=== PATIENT | female | born 1955 | race Caucasian/White ===

== ENCOUNTER → 2020-07-02 16:59 | Outpatient (BNVA) | payer MEDICARE, OTHER, BC, SELFPAY | PROVIDERS: PCP Internal Medicine; Visit Provider Internal Medicine | DX: I48.19 Other persistent atrial fibrillation (principal); Z51.81 Encounter for therapeutic drug level monitoring; Z79.01 Long term (current) use of anticoagulants | CPT/HCPCS: Q3014 ==

== ENCOUNTER → 2020-07-12 15:18 | Outpatient (BNVA) | payer MEDICARE, OTHER, BC, SELFPAY | PROVIDERS: PCP Internal Medicine; Visit Provider Internal Medicine | DX: I48.19 Other persistent atrial fibrillation (principal); Z51.81 Encounter for therapeutic drug level monitoring; Z79.01 Long term (current) use of anticoagulants | CPT/HCPCS: Q3014 ==

== ENCOUNTER → 2020-07-24 13:39 | Outpatient (BNVA) | payer MEDICARE, OTHER, BC, SELFPAY | PROVIDERS: PCP Internal Medicine; Visit Provider Internal Medicine | DX: Z76.89 Persons encountering health services in other specified circumstances (principal) ==

== ENCOUNTER → 2020-07-31 14:22 | Outpatient (BNVA) | payer OTHER, BC, SELFPAY | PROVIDERS: PCP Internal Medicine; Visit Provider Internal Medicine | DX: I48.19 Other persistent atrial fibrillation (principal); Z51.81 Encounter for therapeutic drug level monitoring; Z79.01 Long term (current) use of anticoagulants | CPT/HCPCS: Q3014 ==

== ENCOUNTER → 2020-08-07 10:24 | Outpatient (BNVA) | payer OTHER, SELFPAY | PROVIDERS: PCP Internal Medicine; Visit Provider Internal Medicine | DX: I48.19 Other persistent atrial fibrillation (principal); Z51.81 Encounter for therapeutic drug level monitoring; Z79.01 Long term (current) use of anticoagulants | CPT/HCPCS: Q3014 ==

== ENCOUNTER → 2020-08-14 12:24 | Outpatient (BNVA) | payer MEDICARE, OTHER, BC, SELFPAY | PROVIDERS: PCP Internal Medicine; Visit Provider Internal Medicine | DX: Z76.89 Persons encountering health services in other specified circumstances (principal) ==

== ENCOUNTER → 2020-08-21 15:51 | Outpatient (BNVA) | payer MEDICARE, OTHER, BC, SELFPAY | PROVIDERS: PCP Internal Medicine; Visit Provider Internal Medicine | DX: Z76.89 Persons encountering health services in other specified circumstances (principal) ==

== ENCOUNTER → 2020-08-28 16:50 | Outpatient (BNVA) | payer MEDICARE, OTHER, BC, SELFPAY | PROVIDERS: PCP Internal Medicine; Visit Provider Internal Medicine | DX: Z76.89 Persons encountering health services in other specified circumstances (principal) ==

== ENCOUNTER 2020-09-05 06:59 | Outpatient (REF) | payer OTHER, SELFPAY ==
[2020-09-05 11:37] LABS: Alanine Aminotransferase 16 U/L (0-31); Aspartate Amino Transferase 21 U/L (5-31); Cholesterol 156 mg/dL; HDL Cholesterol 41 mg/dL; LDL Cholesterol Calculated 75 mg/dl; Triglycerides 203 mg/dL
[2020-09-05 12:05] LABS: Free T4 (Free Thyroxine) 0.97 ng/dL (0.71-1.85); Thyroid Stimulating Hormone 3.69 uIU/mL (0.32-4.0)
== END 2020-09-05 07:00 | disposition home or self-care (01) ==
LOC: HO.HMGCLDS 06:59
PROVIDERS: PCP Internal Medicine; Visit Provider Internal Medicine
DX: E78.5 Hyperlipidemia, unspecified (principal); E11.29 Type 2 diabetes mellitus with other diabetic kidney complication; Z20.828 Contact with and (suspected) exposure to other viral communicable diseases
CPT/HCPCS: 80061; 84439; 84443; 84450; 84460; C9803; U0003

== ENCOUNTER → 2020-09-13 10:36 | Outpatient (BNVA) | payer MEDICARE, BC, OTHER, SELFPAY | PROVIDERS: PCP Internal Medicine; Visit Provider Internal Medicine | DX: Z76.89 Persons encountering health services in other specified circumstances (principal) ==

== ENCOUNTER → 2020-09-28 12:12 | Outpatient (BNVA) | payer OTHER, SELFPAY | PROVIDERS: PCP Internal Medicine; Visit Provider Internal Medicine | DX: I48.19 Other persistent atrial fibrillation (principal); Z51.81 Encounter for therapeutic drug level monitoring; Z79.01 Long term (current) use of anticoagulants | CPT/HCPCS: Q3014 ==

== ENCOUNTER → 2020-10-11 14:01 | Outpatient (BNVA) | payer MEDICARE, BC, OTHER, SELFPAY | PROVIDERS: PCP Internal Medicine; Visit Provider Internal Medicine | DX: Z79.01 Long term (current) use of anticoagulants (principal) ==

== ENCOUNTER → 2020-10-25 12:02 | Outpatient (BNVA) | payer OTHER, SELFPAY | PROVIDERS: PCP Internal Medicine; Visit Provider Internal Medicine | DX: I48.19 Other persistent atrial fibrillation (principal); Z51.81 Encounter for therapeutic drug level monitoring; Z79.01 Long term (current) use of anticoagulants | CPT/HCPCS: Q3014 ==

== ENCOUNTER → 2020-11-01 15:35 | Outpatient (BNVA) | payer MEDICARE, OTHER, BC, SELFPAY | PROVIDERS: PCP Internal Medicine; Visit Provider Internal Medicine ==

== ENCOUNTER 2020-11-19 18:17 | Inpatient (IN) | payer OTHER, MEDICARE, BC, SELFPAY ==
--- NOTE | ~2020-11-19 | CT_ITS ---
EXAMINATION: CT HEAD WITHOUT CONTRAST CLINICAL INFORMATION: Fall and altered mental status. COMPARISON: Head CT dated 01/30/2017. TECHNIQUE: Contiguous axial imaging was performed from the skull base to vertex without intravenous administration of contrast. This CT examination was performed using dose optimization techniques as appropriate, variously including the following: *Automated exposure control *Adjustment of mA and/or kV according to patient size (this includes techniques or standardized protocols for targeted exams where dose is matched to indication/reason for exam; i.e. extremities or head) *Use of iterative reconstruction technique DLP: 816 mGy-cm FINDINGS: There is no evidence of acute intracranial hemorrhage or territorial infarction. No abnormal mass effect or midline shift is seen. Kitchen to white matter differentiation is well preserved. No extra-axial fluid collections are identified. The ventricles are normal in size. There is no abnormal attenuation within the brain parenchyma. The osseous structures and soft tissues are normal. There are significant degenerative changes in the temporomandibular joints, right greater than left side. The mastoid air cells and visualized portions of the paranasal sinuses are well aerated. CT/CT head/brain wo con IMPRESSION: No acute intracranial pathology. Severe degenerative changes in the temporomandibular joints.
--- NOTE | ~2020-11-19 | NM_ITS ---
EXAMINATION: NM LUNG IMAGE PERFUSION CLINICAL INFORMATION: Hypoxia. COMPARISON: Chest x-ray 11/19/2020 TECHNIQUE: Following intravenous administration of 4 mCi of technetium 99m MAA imaging of both lungs were obtained multiple projections. Ventilation study was not performed due to Covid precautions FINDINGS: On perfusion study there is normal distribution of isotope activity throughout all segments of both lobes. No segmental or subsegmental defects seen. Normal cardiac nonsegmental defects seen. NM/NM pul perfusion IMPRESSION: Normal perfusion scan.
--- NOTE | ~2020-11-19 | XR_ITS ---
EXAMINATION: XR ANKLE, RIGHT CLINICAL INFORMATION: Status post fall COMPARISON: None TECHNIQUE: AP, lateral, and mortise views of the right ankle. FINDINGS: Diffuse soft tissue swelling about the ankle. Degenerative changes are seen with well-corticated ossifications inferior to both lateral and medial malleoli. I do not appreciate any acute fracture or dislocation however. No abnormal widening to the ankle mortise. No significant ankle joint effusion. Calcaneal heel spur is incidentally noted at the attachment point of the plantar aponeurosis. XR/XR ankle RT min 3V IMPRESSION: Diffuse soft tissue swelling about the ankle with chronic appearing changes but no acute fracture or dislocation noted.
--- NOTE | ~2020-11-19 | MR_ITS ---
EXAMINATION: MR BRAIN WITHOUT CONTRAST CLINICAL INFORMATION: Confused. Rule out stroke. COMPARISON: Head CT 11/19/2020. TECHNIQUE: Multiplanar, multisequence imaging of the brain was performed without intravenous contrast. The acquired sequences are degraded by motion. Some diagnostic information was still obtained. FINDINGS: There is no acute infarction, mass, hemorrhage, or extra-axial collection. The ventricles, sulci, and basilar cisterns are normal in size and configuration. End patchy foci of T2 hyperintensity are seen within the bilateral cerebral white matter, nonspecific finding. Small chronic lacunar infarcts are seen within the right and left cerebellar hemispheres. The flow voids of the major intracranial arteries appear intact. The bones and extracranial soft tissues are unremarkable. MR/MR head/brain wo con IMPRESSION: No acute infarct, mass lesion, intracranial hemorrhage, or evidence of hydrocephalus. Small chronic lacunar infarcts in the bilateral cerebellar hemispheres. Nonspecific foci of T2 hyperintensity seen in the bilateral cerebral white matter.
--- NOTE | ~2020-11-19 | XR_ITS ---
EXAMINATION: XR CHEST CLINICAL INFORMATION: Sepsis COMPARISON: 11/19/2020 TECHNIQUE: Frontal view of the chest was obtained. FINDINGS: Left-sided pacemaker lead tips overlie the right atrium and right ventricle. Mitral prosthesis is noted. Sternal wires are present. Lung volumes are symmetric. No focal consolidation is seen. There is persistent prominence of the central vasculature and surrounding interstitium which may reflect congestion. No evidence of pneumothorax or significant pleural effusion. Cardiac silhouette remains enlarged. Calcification is present at the aortic arch. No acute osseous findings are seen. XR/XR chest 1V IMPRESSION: No focal consolidation identified. Persistent prominence of the central vasculature suggesting congestion. Cardiac silhouette remains enlarged.
--- NOTE | ~2020-11-19 | CT_ITS ---
EXAMINATION: CT CHEST WITHOUT CONTRAST CLINICAL INFORMATION: Hypoxia. COMPARISON: Chest x-ray 11/19/2020 TECHNIQUE: Multidetector volumetric CT imaging of the chest was done. Axial MIP volume rendering provided. Sagittal and coronal reformatted images were obtained. This CT examination was performed using dose optimization techniques as appropriate, variously including the following: *Automated exposure control *Adjustment of mA and/or kV according to patient size (this includes techniques or standardized protocols for targeted exams where dose is matched to indication/reason for exam; i.e. extremities or head) *Use of iterative reconstruction technique DLP: 555 mGy-cm FINDINGS: LUNGS: The lungs are clear with no evidence of inflammation or nodules. Central bronchial airways are open. There is no bronchiectasis. No interstitial lung disease. MEDIASTINUM: Heart size is enlarged. Pacemaker leads in the heart. Status post median sternotomy. Status post mitral valve repair. No pericardial effusion. Small volume of coronary artery calcification. No mediastinal mass or significant lymphadenopathy PLEURA: There is no pleural effusion. No pleural mass or thickening. AXILLA: No lymphadenopathy. UPPER ABDOMEN: Unremarkable. OSSEOUS STRUCTURES: Status post median sternotomy. No acute osseous abnormality. CT/CT chest wo con IMPRESSION: 1. No acute abnormality of chest. 2. Cardiomegaly. Cardiac pacemaker . Status post mitral valve repair.
--- NOTE | ~2020-11-19 | XR_ITS ---
EXAMINATION: PORTABLE CHEST 1 VIEW CLINICAL INFORMATION: ams . COMPARISON: 11/02/2019. TECHNIQUE: Portable frontal view of the chest was obtained. FINDINGS: Lungs are well expanded. Mild central vascular prominence noted, slightly increased from the prior study. No overt edema. Cardiac silhouette is enlarged. Patient status post sternotomy and valve replacement. Dual-lead pacemaker is again seen with lead tips overlying the right atrium and right ventricle. Left pulmonary artery cardiac mems device partially visualized better seen on the prior study. No acute bony abnormality. XR/XR chest 1V IMPRESSION: Enlarged cardiac silhouette with central vascular prominence suggesting mild pulmonary edema in the acute setting.
[2020-11-19 18:36] VITALS: BP 133/79; BP 154/72; PULSE 87; RESP 34; TEMP 37.1; O2SAT 80; O2SAT 92
--- NOTE | 2020-11-19 18:40 | ED.AMS ---
HPI - Altered Mental Status General Chief Complaint: Altered Mental Status Stated Complaint: ams/ fall Time Seen by Provider: 11/19/20 18:40 Source: EMS Mode of arrival: EMS Limitations: altered mental status History of Present Illness HPI narrative: Patient brought by EMS for weakness and change in mental status after the fall 1 hour ago. Patient been having pain in the right ankle for last 3 days without any trauma and today all day she slept did not eat much per . Patient got up from the bed an hour ago prior to arrival to walk and fell on EMS arrival she was confused able to answer few questions but inconsistent no focal deficit patient l patient was cyanosed on the tip of the nose in the leaves and the fingers and was saturating 80% also noticed right ankle swelling MD complaint: altered mental status and confusion Onset (ago): hour(s) Timing confirmed by: spouse Severity: moderate Related Data Home Medications Medication Instructions Recorded Confirmed albuterol sulfate mg INHALATION 06/20/20 10/24/20 atorvastatin 10 mg tablet 10 mg PO DAILY 06/20/20 10/24/20 benzonatate 100 mg capsule 100 mg PO TID 06/20/20 10/24/20 calcipotriene 0.005 % topical 1 applic TOPICAL BID 06/20/20 10/24/20 ointment clotrimazole 1 % topical cream applic TOPICAL 06/20/20 10/24/20 flecainide 100 mg tablet mg PO 06/20/20 10/24/20 levothyroxine 112 mcg tablet 112 mcg PO DAILY 06/20/20 10/24/20 metformin 500 mg tablet 500 mg PO BID 06/20/20 10/24/20 metoprolol tartrate 50 mg tablet 50 mg PO BID 06/20/20 10/24/20 phentermine 37.5 mg capsule 37.5 mg PO DAILY 06/20/20 10/24/20 pregabalin 200 mg capsule 200 mg PO BID cap 06/20/20 10/24/20 secukinumab 150 mg/mL subcutaneous mg SUBCUT Q4W 06/20/20 10/24/20 pen injector spironolactone 100 mg tablet 100 mg PO DAILY 06/20/20 10/24/20 warfarin 5 mg tablet mg PO 06/20/20 11/01/20 latanoprost 0.005 % eye drops drp OPHTHALMIC (EYE) 10/24/20 10/24/20 torsemide 20 mg tablet mg PO 10/24/20 10/24/20 Previous Rx's Medication Instructions Recorded fluticasone propionate 230 2 inh INHALATION Q12H #12 g 06/20/20 mcg-salmeterol 21 mcg/actuation HFA inhaler amoxicillin 875 mg tablet 875 mg PO Q12H #14 tab 10/24/20 levocetirizine 5 mg tablet 5 mg PO BEDTIME #30 tab 10/24/20 wheelchair #1 ea 10/24/20 Allergies Allergy/AdvReac Type Severity Reaction Status Date / Time adalimumab [From HUMIRA] Allergy Unknown PCP Verified 11/19/20 18:35 PNEUMONIA azathioprine [Imuran] Allergy Unknown PNA Verified 11/19/20 18:35 Cephalosporins Allergy Unknown KIDNEY Verified 11/19/20 18:35 [CEPHALOSPORINS] FAILURE cyclosporine [CYCLOSPORINE] Allergy Unknown KIDNEY Verified 11/19/20 18:35 FAILURE etanercept [From Enbrel] Allergy Unknown PCP Verified 11/19/20 18:35 PNEUMONIA simvastatin Allergy Unknown athralgias Verified 11/19/20 18:35 amoxicillin [From AUGMENTIN] AdvReac Unknown PROJECTILE Verified 11/19/20 18:35 VOMITTING clavulanic acid AdvReac Unknown PROJECTILE Verified 11/19/20 18:35 [From AUGMENTIN] VOMITTING Review of Systems Review of Systems: Yes Unobtainable due to mental status Neurologic: Reports confusion Psychiatric: Psychiatric: Reports confusion FOR[facility]LY [facility] Past Medical History Medical History Acquired hypothyroidism Chronic low back pain CKD stage 3 secondary to diabetes Dyslipidemia Essential hypertension Fibromyalgia H/O cardiac pacemaker Mitral valve stenosis, rheumatic NYHA class 1 heart failure with preserved ejection fraction KEVIN on CPAP Osteoarthritis Paroxysmal atrial fibrillation Postmenopausal Psoriasis Rhinitis Sinusitis Type 2 diabetes mellitus with other diabetic kidney complication Surgical History H/O mitral valve replacement Hx of mitral valve replacement with mechanical valve Family History Family History Father HTN (hypertension) CKD (chronic kidney disease) Mother HTN (hypertension) Son No problems noted. Son No problems noted. Son No problems noted. Social History Social History Alcohol intake: never Smoking Status: Former smoker Advance Directives: No Advance Directives Information Provided: Yes Physical Exam Vital Signs: Vital Signs: Last Vital Signs Temp 101.9 F H 11/19/20 22:27 Pulse 64 11/19/20 22:27 Resp 18 11/19/20 22:27 BP 111/47 L 11/19/20 22:27 Pulse Ox 100 11/19/20 22:27 Body Mass Index 1.1 Const: General: well developed, confusion, ill appearing and lethargic Nutritional Appearance: obese Orientation/consciousness: oriented to person and confusion HENMT: Head: Yes normocephalic and Yes atraumatic Ears: hearing grossly normal bilaterally General nose exam: Normal external nose present Mouth: moist mucous membranes abnormal (Dry) Eyes: General: appearance normal, both eyes and all related structures Conjunctivae: conjunctivae normal Sclerae: sclerae normal Neck: Neck: Yes normal visual inspection and Yes no meningeal signs Chest: Chest palpation & inspection: normal inspection of the chest and normal palpation of entire chest wall Resp: Effort & Inspection: normal respiratory effort Auscultation: clear to auscultation bilaterally, no crackles, no rales, no rhonchi and diminished lung sounds Cardio: Jugular venous distension: no JVD Palpation: normal PMI Rate: regular rate Rhythm: regular rhythm Heart sounds: S1 normal heart sound present, S2 normal heart sound present and Abnormal heart opening sounds other (Valve click) Peripheral pulses: Peripheral pulses 2+ throughout GI: Inspection: Yes normal to inspection Palpation (GI): Soft to palpation and nontender Auscultation: normal bowel sounds : General: Yes no CVA tenderness Back/Spine/Pelvis: Back: no CVA tenderness Thoracic/Lumbar Spine: thoracic and lumbar spine normal to inspection Skin: Other: Peripheral cyanosis+ General skin exam: no rashes or lesions noted Neuro: General: oriented to person, tone normal, moves all extremities, no meningeal signs, no focal motor deficits, CN's II-XI intact bilaterally and confusion Extrem: General: Yes full ROM, Yes no calf tenderness and No pedal edema MDM - Altered Mental Status MDM Narrative Medical decision making narrative: Patient with acute renal failure with confusion and weakness with right ankle swelling likely from the gout and metabolic encephalopathy patient was hypoxic with peripheral cyanosis on arrival etiology is not very clear patient's CT head is negative for any acute bleed patient already on Coumadin with ischemia EKG changes pain patient INR is 3.8. significant increase in delta troponin but patient denying any chest pain will keep patient for observation. Also patient has elevated C-reactive protein and uric acid level suggestive of gouty arthritis of right ankle Differential Diagnosis Differential diagnosis: Likely altered mental status, encephalopathy, subarachnoid hemorrhage and sepsis Medical Records Attestation: I reviewed the patient's medical records. Lab Data Attestation: I reviewed the patient's lab results. Result diagrams: 11/19/20 19:29 11/19/20 19:29 Labs: Lab Results 11/19/20 11/19/20 11/19/20 Range/Units 19:15 19:16 19:29 WBC 15.5 H (4.8-10.8) X10*3/uL RBC 3.89 L (4.20-5.50) X10*6/uL Hgb 9.9 L (12.0-16.0) g/dl Hct 32.3 L (37-47) % MCV 83.0 (80-98) fL MCH 25.4 L (27.0-33.0) pg MCHC 30.7 L (31.0-35.0) g/dl RDW 16.9 H (11.0-16.0) % Plt Count 254 (160-400) X10*3/uL MPV 10.8 (9.4-12.3) fL Immature Gran % (Auto) 0.6 H (0.0-0.4) % Neut % (Auto) 80.4 H (45-73) % Lymph % (Auto) 5.7 L (20-40) % [place] % (Auto) 12.5 H (2-11) % Eos % (Auto) 0.2 (0-4) % Baso % (Auto) 0.6 (0-2) % Lymph # (Auto) 0.9 L (1.2-4.9) X10*3/uL [place] # (Auto) 1.9 H (0.1-1.2) X10*3/uL Eos # (Auto) 0.0 (0.0-0.4) X10*3/uL Baso # (Auto) 0.1 (0.0-0.2) X10*3/uL Abs Immat Gran (auto) 0.09 H (0.00-0.03) X10*3/uL Absolute Neuts (auto) 12.5 H (2.0-8.3) X10*3/uL Absolute Nucleated RBC 0.000 (0.0-0.012) X10*3/uL Nucleated RBC % (auto) 0.0 (0.0-0.2) /100WBC Smear Tech's Comments VERIFIED ESR (0-20) MM/HR PT (10.8-13.0) SEC INR (0.9-1.1) VBG pH (7.32-7.43) VBG pCO2 mmHg VBG pO2 mmHg VBG HCO3 (22-26) mmol/L VBG O2 Saturation % VBG Base Excess mmol/L Sodium (135-145) mmol/L Potassium (3.3-5.1) mmol/L Chloride (96-108) mmol/L Carbon Dioxide (22-29) mmol/L Anion Gap (12-20) BUN (9-16) mg/dL Creatinine (0.5-1.4) mg/dL Estim Creat Clear Calc Estimated GFR Random Glucose (60-115) mg/dL Lactic Acid (0.5-2.0) mmol/L Uric Acid (2.4-5.7) mg/dL Calcium (8.4-10.2) mg/dL Total Bilirubin (0.0-1.0) mg/dL Direct Bilirubin (0.0-0.5) mg/dL AST (5-31) U/L ALT (0-31) U/L Alkaline Phosphatase (39-117) U/L Ammonia (13-55) umol/L Troponin I High Sens (<3.5-17.0) ng/L C-Reactive Protein (< or = 0.50) mg/dL Total Protein (6.5-8.0) g/dL Albumin (3.5-5.0) g/dL Urine Color YELLOW Urine Appearance CLEAR Urine pH 5.5 (5.0-8.0) Ur Specific [place] 1.015 (1.005-1.025) Urine Protein NEG (NEG-TRACE) MG/DL Urine Glucose (UA) NEG (NEG) MG/DL Urine Ketones NEG (NEG) MG/DL Urine Blood NEG (NEG) Urine Nitrite NEG (NEG) Ur Leukocyte Esterase NEG (NEG) COVID-19 (CRISTA) Negative (Negative) COVID-19 Clin Com See Note 11/19/20 11/19/20 11/19/20 Range/Units 19:29 19:29 19:29 WBC (4.8-10.8) X10*3/uL RBC (4.20-5.50) X10*6/uL Hgb (12.0-16.0) g/dl Hct (37-47) % MCV (80-98) fL MCH (27.0-33.0) pg MCHC (31.0-35.0) g/dl RDW (11.0-16.0) % Plt Count (160-400) X10*3/uL MPV (9.4-12.3) fL Immature Gran % (Auto) (0.0-0.4) % Neut % (Auto) (45-73) % Lymph % (Auto) (20-40) % [place] % (Auto) (2-11) % Eos % (Auto) (0-4) % Baso % (Auto) (0-2) % Lymph # (Auto) (1.2-4.9) X10*3/uL [place] # (Auto) (0.1-1.2) X10*3/uL Eos # (Auto) (0.0-0.4) X10*3/uL Baso # (Auto) (0.0-0.2) X10*3/uL Abs Immat Gran (auto) (0.00-0.03) X10*3/uL Absolute Neuts (auto) (2.0-8.3) X10*3/uL Absolute Nucleated RBC (0.0-0.012) X10*3/uL Nucleated RBC % (auto) (0.0-0.2) /100WBC Smear Tech's Comments ESR (0-20) MM/HR PT 45.5 H (10.8-13.0) SEC INR 3.8 H (0.9-1.1) VBG pH (7.32-7.43) VBG pCO2 mmHg VBG pO2 mmHg VBG HCO3 (22-26) mmol/L VBG O2 Saturation % VBG Base Excess mmol/L Sodium 141 (135-145) mmol/L Potassium 4.2 (3.3-5.1) mmol/L Chloride 97 (96-108) mmol/L Carbon Dioxide 31 H (22-29) mmol/L Anion Gap 17 (12-20) BUN 28 H (9-16) mg/dL Creatinine 2.05 H (0.5-1.4) mg/dL Estim Creat Clear Calc 1.4 Estimated GFR 24 Random Glucose 113 (60-115) mg/dL Lactic Acid (0.5-2.0) mmol/L Uric Acid 12.6 H (2.4-5.7) mg/dL Calcium 9.4 (8.4-10.2) mg/dL Total Bilirubin 1.0 (0.0-1.0) mg/dL Direct Bilirubin 0.5 (0.0-0.5) mg/dL AST 30 D (5-31) U/L ALT 17 (0-31) U/L Alkaline Phosphatase 168 H (39-117) U/L Ammonia (13-55) umol/L Troponin I High Sens 54.2 H (<3.5-17.0) ng/L C-Reactive Protein 12.04 H (< or = 0.50) mg/dL Total Protein 8.0 (6.5-8.0) g/dL Albumin 4.4 (3.5-5.0) g/dL Urine Color Urine Appearance Urine pH (5.0-8.0) Ur Specific [place] (1.005-1.025) Urine Protein (NEG-TRACE) MG/DL Urine Glucose (UA) (NEG) MG/DL Urine Ketones (NEG) MG/DL Urine Blood (NEG) Urine Nitrite (NEG) Ur Leukocyte Esterase (NEG) COVID-19 (CRISTA) (Negative) COVID-19 Clin Com 11/19/20 11/19/20 11/19/20 Range/Units 19:29 19:29 19:29 WBC (4.8-10.8) X10*3/uL RBC (4.20-5.50) X10*6/uL Hgb (12.0-16.0) g/dl Hct (37-47) % MCV (80-98) fL MCH (27.0-33.0) pg MCHC (31.0-35.0) g/dl RDW (11.0-16.0) % Plt Count (160-400) X10*3/uL MPV (9.4-12.3) fL Immature Gran % (Auto) (0.0-0.4) % Neut % (Auto) (45-73) % Lymph % (Auto) (20-40) % [place] % (Auto) (2-11) % Eos % (Auto) (0-4) % Baso % (Auto) (0-2) % Lymph # (Auto) (1.2-4.9) X10*3/uL [place] # (Auto) (0.1-1.2) X10*3/uL Eos # (Auto) (0.0-0.4) X10*3/uL Baso # (Auto) (0.0-0.2) X10*3/uL Abs Immat Gran (auto) (0.00-0.03) X10*3/uL Absolute Neuts (auto) (2.0-8.3) X10*3/uL Absolute Nucleated RBC (0.0-0.012) X10*3/uL Nucleated RBC % (auto) (0.0-0.2) /100WBC Smear Tech's Comments ESR 48 H (0-20) MM/HR PT (10.8-13.0) SEC INR (0.9-1.1) VBG pH (7.32-7.43) VBG pCO2 mmHg VBG pO2 mmHg VBG HCO3 (22-26) mmol/L VBG O2 Saturation % VBG Base Excess mmol/L Sodium (135-145) mmol/L Potassium (3.3-5.1) mmol/L Chloride (96-108) mmol/L Carbon Dioxide (22-29) mmol/L Anion Gap (12-20) BUN (9-16) mg/dL Creatinine (0.5-1.4) mg/dL Estim Creat Clear Calc Estimated GFR Random Glucose (60-115) mg/dL Lactic Acid 1.6 (0.5-2.0) mmol/L Uric Acid (2.4-5.7) mg/dL Calcium (8.4-10.2) mg/dL Total Bilirubin (0.0-1.0) mg/dL Direct Bilirubin (0.0-0.5) mg/dL AST (5-31) U/L ALT (0-31) U/L Alkaline Phosphatase (39-117) U/L Ammonia 27 (13-55) umol/L Troponin I High Sens (<3.5-17.0) ng/L C-Reactive Protein (< or = 0.50) mg/dL Total Protein (6.5-8.0) g/dL Albumin (3.5-5.0) g/dL Urine Color Urine Appearance Urine pH (5.0-8.0) Ur Specific [place] (1.005-1.025) Urine Protein (NEG-TRACE) MG/DL Urine Glucose (UA) (NEG) MG/DL Urine Ketones (NEG) MG/DL Urine Blood (NEG) Urine Nitrite (NEG) Ur Leukocyte Esterase (NEG) COVID-19 (CRISTA) (Negative) COVID-19 Clin Com 11/19/20 Range/Units 22:27 WBC (4.8-10.8) X10*3/uL RBC (4.20-5.50) X10*6/uL Hgb (12.0-16.0) g/dl Hct (37-47) % MCV (80-98) fL MCH (27.0-33.0) pg MCHC (31.0-35.0) g/dl RDW (11.0-16.0) % Plt Count (160-400) X10*3/uL MPV (9.4-12.3) fL Immature Gran % (Auto) (0.0-0.4) % Neut % (Auto) (45-73) % Lymph % (Auto) (20-40) % [place] % (Auto) (2-11) % Eos % (Auto) (0-4) % Baso % (Auto) (0-2) % Lymph # (Auto) (1.2-4.9) X10*3/uL [place] # (Auto) (0.1-1.2) X10*3/uL Eos # (Auto) (0.0-0.4) X10*3/uL Baso # (Auto) (0.0-0.2) X10*3/uL Abs Immat Gran (auto) (0.00-0.03) X10*3/uL Absolute Neuts (auto) (2.0-8.3) X10*3/uL Absolute Nucleated RBC (0.0-0.012) X10*3/uL Nucleated RBC % (auto) (0.0-0.2) /100WBC Smear Tech's Comments ESR (0-20) MM/HR PT (10.8-13.0) SEC INR (0.9-1.1) VBG pH 7.43 (7.32-7.43) VBG pCO2 46 mmHg VBG pO2 53 mmHg VBG HCO3 31 H (22-26) mmol/L VBG O2 Saturation 81.0 % VBG Base Excess 6.6 mmol/L Sodium (135-145) mmol/L Potassium (3.3-5.1) mmol/L Chloride (96-108) mmol/L Carbon Dioxide (22-29) mmol/L Anion Gap (12-20) BUN (9-16) mg/dL Creatinine (0.5-1.4) mg/dL Estim Creat Clear Calc Estimated GFR Random Glucose (60-115) mg/dL Lactic Acid (0.5-2.0) mmol/L Uric Acid (2.4-5.7) mg/dL Calcium (8.4-10.2) mg/dL Total Bilirubin (0.0-1.0) mg/dL Direct Bilirubin (0.0-0.5) mg/dL AST (5-31) U/L ALT (0-31) U/L Alkaline Phosphatase (39-117) U/L Ammonia (13-55) umol/L Troponin I High Sens (<3.5-17.0) ng/L C-Reactive Protein (< or = 0.50) mg/dL Total Protein (6.5-8.0) g/dL Albumin (3.5-5.0) g/dL Urine Color Urine Appearance Urine pH (5.0-8.0) Ur Specific [place] (1.005-1.025) Urine Protein (NEG-TRACE) MG/DL Urine Glucose (UA) (NEG) MG/DL Urine Ketones (NEG) MG/DL Urine Blood (NEG) Urine Nitrite (NEG) Ur Leukocyte Esterase (NEG) COVID-19 (CRISTA) (Negative) COVID-19 Clin Com ECG Data ECG #1: Attestation: I personally reviewed and interpreted this ECG as follows: Interpretation: With wide QRS complex is ST depression in inferolateral leads rightward axis impression:acute lateral wall ischemia Discharge Plan Discharge Clinical Impression: Metabolic encephalopathy, Gouty arthritis, Non-ST elevated myocardial infarction (non-STEMI) Acute renal failure superimposed on chronic kidney disease Qualifiers: Acute renal failure type: with acute tubular necrosis Chronic kidney disease stage: stage 4 (severe) Qualified Code(s): N17.0 - Acute kidney failure with tubular necrosis Patient Disposition: Admitted As Inpatient
--- NOTE | 2020-11-19 18:43 | ECG_ITS ---
Test Reason : SOB Blood Pressure : / mmHG Vent. Rate : 064 BPM Atrial Rate : 044 BPM P-R Int : 000 ms QRS Dur : 132 ms QT Int : 398 ms P-R-T Axes : 000 093 165 degrees QTc Int : 410 ms Junctional rhythm with IVCD Rightward axis Non-specific intra-ventricular conduction block T wave abnormality, consider inferior ischemia T wave abnormality, consider anterolateral ischemia Abnormal ECG When compared with ECG of 05-FEB-2017 11:55, Wide QRS rhythm has replaced Sinus rhythm Referred By: Luis Glez Electronically Signed By:Bobby Corona
[2020-11-19 19:40] LABS: Basophils Absolute Auto 0.1 X10*3/uL (0.0-0.2); Basophils Percent Auto 0.6 % (0-2); Eosinophils Percent Auto 0.2 % (0-4); Hematocrit 32.3 % (37-47); Hemoglobin 9.9 g/dl (12.0-16.0); Imm Gran Abs Auto 0.09 X10*3/uL (0.00-0.03); Imm Gran Pct Auto 0.6 % (0.0-0.4); Lymphocytes Absolute Auto 0.9 X10*3/uL (1.2-4.9); Lymphocytes Percent Auto 5.7 % (20-40); MANUAL DIFF FLAG SCAN; Mean Corpuscular HGB Conc 30.7 g/dl (31.0-35.0); Mean Corpuscular Hemoglobin 25.4 pg (27.0-33.0); Mean Platelet Volume 10.8 fL (9.4-12.3); Monocytes Absolute Auto 1.9 X10*3/uL (0.1-1.2); Monocytes Percent Auto 12.5 % (2-11); Neutrophils Absolute Auto 12.5 X10*3/uL (2.0-8.3); Neutrophils Percent Auto 80.4 % (45-73); Platelet Count 254 X10*3/uL (160-400); Red Blood Count 3.89 X10*6/uL (4.20-5.50); Red Cell Distribution Width 16.9 % (11.0-16.0); SCAN SMEAR FLAG 1; White Blood Count 15.5 X10*3/uL (4.8-10.8)
[2020-11-19 19:45] LABS: INTERNATIONAL NORM RATIO 3.8 (0.9-1.1); Prothrombin Time 45.5 SEC (10.8-13.0)
[2020-11-19] MEDS: 0.9 % Sodium Chloride 1,000 ML 999 ML IVCONT ×2 (19:47→23:55)
[2020-11-19 19:54] LABS: Ammonia 27 umol/L (13-55)
[2020-11-19 19:56] LABS: COVID-19 Test Negative (Negative)
[2020-11-19 19:57] LABS: Lactic Acid 1.6 mmol/L (0.5-2.0)
[2020-11-19 20:00] VITALS: BP 122/54; PULSE 64; RESP 21; TEMP 37; O2SAT 99
[2020-11-19 20:04] LABS: SLIDE REVIEW VERIFIED
[2020-11-19 20:05] LABS: Alanine Aminotransferase 17 U/L (0-31); Albumin Level 4.4 g/dL (3.5-5.0); Alkaline Phosphatase 168 U/L (39-117); Anion Gap 17 (12-20); Aspartate Amino Transferase 30 U/L (5-31); Bilirubin Direct 0.5 mg/dL (0.0-0.5); Blood Urea Nitrogen 28 mg/dL (9-16); Calcium 9.4 mg/dL (8.4-10.2); Carbon Dioxide 31 mmol/L (22-29); Chloride 97 mmol/L (96-108); Creatinine Clr Calc Pharmacy 1.4; Estimated Glomerular Filt Rate 24; Glucose Random 113 mg/dL (60-115); Potassium 4.2 mmol/L (3.3-5.1); Sodium 141 mmol/L (135-145)
[2020-11-19 20:10] LABS: Troponin-I High Sensitivity 54.2 ng/L (<3.5-17.0)
[2020-11-19 21:13] LABS: Glucose Urine UA NEG (NEG); Leukocyte Esterase Urine NEG (NEG); Nitrite Urine NEG (NEG); PH 5.5 (5.0-8.0); Specific Gravity - Urine 1.015 (1.005-1.025); Urine Blood NEG (NEG); Urine Ketones NEG (NEG); Urine Protein NEG (NEG-TRACE)
[2020-11-19 21:14] LABS: Appearance Urine CLEAR; Color Urine YELLOW
[2020-11-19 22:27] VITALS: BP 111/47; PULSE 64; RESP 18; TEMP 38.8; O2SAT 100
[2020-11-19 22:33] LABS: VBG Base Excess 6.6 mmol/L; VBG HCO3 31 mmol/L (22-26); VBG pCO2 46 mmHg; VBG pH 7.43 (7.32-7.43); VBG pO2 53 mmHg
[2020-11-19 22:36] LABS: Venous Blood Gas Refer to POC result
[2020-11-19 22:46] LABS: Uric Acid 12.6 mg/dL (2.4-5.7)
[2020-11-19 23:30] LABS: C Reactive Protein 12.04 mg/dL (< or = 0.50)
[2020-11-19] MEDS: cefTRIAXone sodium 1 GM in 0.9 % Sodium Chloride 50 ML IV (23:56)
--- NOTE | 2020-11-19 23:59 | ECG_ITS ---
Test Reason : REPEAT Blood Pressure : / mmHG Vent. Rate : 061 BPM Atrial Rate : 061 BPM P-R Int : 000 ms QRS Dur : 124 ms QT Int : 390 ms P-R-T Axes : 000 092 230 degrees QTc Int : 392 ms Atrial fibrillation Rightward axis Non-specific intra-ventricular conduction delay ST & T wave abnormality, consider inferior ischemia ST & T wave abnormality, consider anterolateral ischemia Abnormal ECG When compared with ECG of 19-NOV-2020 19:16, Afib has replaced junctional rhythm Referred By: Luis Glez Electronically Signed By:Bobby Corona
[2020-11-20] VITALS (8 sets, daily range): BP systolic 115–146; BP diastolic 44–76; PULSE 63–74; RESP 16–20; TEMP 36.3–37.3; O2SAT 96–100; BMI 19.3
--- NOTE | 2020-11-20 | ECG_ITS ---
Test Reason : SOB Blood Pressure : / mmHG Vent. Rate : 083 BPM Atrial Rate : 021 BPM P-R Int : 000 ms QRS Dur : 134 ms QT Int : 396 ms P-R-T Axes : 000 091 169 degrees QTc Int : 465 ms Poor data quality Undetermined rhythm, likely junctional like previous ECG Non-specific intra-ventricular conduction block T wave abnormality, consider inferior ischemia T wave abnormality, consider anterolateral ischemia Abnormal ECG When compared with ECG of 19-NOV-2020 19:14, No significant changes seen Referred By: Lorenzo Almeiad Electronically Signed By:Bobby Corona
[2020-11-20 00:14] LABS: Erythrocyte Sedimentation Rate 48 MM/HR (0-20)
[2020-11-20] MEDS: ondansetron HCL 4 MG/2 ML VIAL IVPUSH (00:52)
[2020-11-20] MEDS: Morphine Sulfate 4 MG/ML CARTRIDGE IVPUSH (00:52)
[2020-11-20 01:03] LABS: Troponin-I High Sensitivity 157.3 ng/L (<3.5-17.0)
--- NOTE | 2020-11-20 02:05 | PC.NURSE ---
floor unable to take report at this time.
[2020-11-20] MEDS: Lactated Ringers 1,000 ML 100 ML IVCONT (04:08)
[2020-11-20] MEDS: 0.9 % Sodium Chloride Flush 3 ML SYRINGE IVFLUSH ×3 (04:08→17:27)
[2020-11-20 04:22] LABS: Basophils Absolute Auto 0.1 X10*3/uL (0.0-0.2); Basophils Percent Auto 0.5 % (0-2); Eosinophils Percent Auto 0.1 % (0-4); Hematocrit 31.2 % (37-47); Hemoglobin 9.5 g/dl (12.0-16.0); Imm Gran Abs Auto 0.06 X10*3/uL (0.00-0.03); Imm Gran Pct Auto 0.5 % (0.0-0.4); Lymphocytes Absolute Auto 1.3 X10*3/uL (1.2-4.9); Lymphocytes Percent Auto 9.9 % (20-40); MANUAL DIFF FLAG SCAN; Mean Corpuscular HGB Conc 30.4 g/dl (31.0-35.0); Mean Corpuscular Hemoglobin 25.6 pg (27.0-33.0); Mean Corpuscular Volume 84.1 fL (80-98); Mean Platelet Volume 11.2 fL (9.4-12.3); Monocytes Absolute Auto 1.9 X10*3/uL (0.1-1.2); Monocytes Percent Auto 14.4 % (2-11); Neutrophils Absolute Auto 9.9 X10*3/uL (2.0-8.3); Neutrophils Percent Auto 74.6 % (45-73); Platelet Count 232 X10*3/uL (160-400); Red Blood Count 3.71 X10*6/uL (4.20-5.50); Red Cell Distribution Width 16.9 % (11.0-16.0); SCAN SMEAR FLAG 1; White Blood Count 13.3 X10*3/uL (4.8-10.8)
[2020-11-20 04:46] LABS: Anion Gap 13 (12-20); Blood Urea Nitrogen 22 mg/dL (9-16); Carbon Dioxide 31 mmol/L (22-29); Chloride 103 mmol/L (96-108); Creatinine Clr Calc Pharmacy 1.7; Estimated Glomerular Filt Rate 30; Glucose Random 112 mg/dL (60-115); Potassium 3.5 mmol/L (3.3-5.1); Sodium 143 mmol/L (135-145)
[2020-11-20 04:50] LABS: B Type Natriuretic Peptide 520 pg/mL (<100)
--- NOTE | 2020-11-20 05:02 | PM.IMHP ---
History of Present Illness Date of Service: 11/19/20 Chief Complaint: Encephalopathy This is a 65-year-old female with past medical history of hypothyroidism, CKD, HLD, HTN, heart failure, KEVIN on CPAP, paroxysmal AFib on Coumadin, DM who presents to the hospital after her heard her fall on the floor and EMS found her hypoxic. Patient is very confused, she is oriented to self but not to place or time, she is unable to give any history, when asked questions she just has very difficult time answering questions although she understands according to her what I am asking her. History is mostly therefore obtained from ED physician who obtained the history from her and her son over the phone. It appears the patient has been complaining of right lower extremity pain, and swelling for the past 3 days, today she was not feeling well, and stayed in bed all day, she got out of bed in the afternoon and her was in another room and heard of lab outside, when he arrived to the room he found her on the floor 70 conscious, with no loss of consciousness. She was confused and had purple nose and purple fingers according to him. On arrival of EMS patient was found to be hypoxic in the 80s, with no other abnormalities. I am unable to review this system with patient as she is very confused On arrival to the ED patient's initial temp was normal 98.7, heart rate of 87, respiratory rate of 34, blood pressure 133/79, satting 92% on room air but desatting with minimal movement, currently on 4 L satting 98%. She did develop a fever of 101.9 while in the ED otherwise hemodynamically Stable. Labs are significant for WBC count of 15.5, hemoglobin of 9.9 dropped from 11.6 in March of 2020, ESR of 48, PT of 45.5, INR 3.8, pH of 7.3, pCO2 of 46, sodium of 141, potassium 4.2, BUN of 28, creatinine of 2.05 with a baseline around 1.4, uric acid of 12.6, ammonia normal, BNP of 520, initial troponin of 54.2 with repeat of 157.3, CRP of 12.4, UA negative. CT chest an x-ray negative for any acute findings. X-ray of the right ankle negative for any dislocation or displacement, COVID-19 negative EKG wide QRS rhythm with premature ventricular complexes and fusion complexes, with nonspecific intraventricular conduction block. She does appear to have ST depressions in lateral leads with T-wave inversions. Unable to review past medical history with patient as she is very confused Review of Systems Review of Systems: Yes all other systems are reviewed and are negative [facility] Medical History Acquired hypothyroidism Chronic low back pain CKD stage 3 secondary to diabetes Dyslipidemia Essential hypertension Fibromyalgia H/O cardiac pacemaker Mitral valve stenosis, rheumatic NYHA class 1 heart failure with preserved ejection fraction KEVIN on CPAP Osteoarthritis Paroxysmal atrial fibrillation Postmenopausal Psoriasis Rhinitis Sinusitis Type 2 diabetes mellitus with other diabetic kidney complication Family History Father HTN (hypertension) CKD (chronic kidney disease) Mother HTN (hypertension) Son No problems noted. Son No problems noted. Son No problems noted. Surgical History H/O mitral valve replacement Hx of mitral valve replacement with mechanical valve Social History Household Members: Family Housing: House Do you presently have visiting nurse or other home services: Yes Alcohol intake: never Smoking Status: Former smoker Tobacco Type: Cigarette Smoked in Last 30 Days: Yes Patient Interested in Nicotine Replacement: No Second Hand Smoke Exposure: No Use of substances other than those prescribed or required for medical reasons: No Have you been hit, kicked, punched, or otherwise hurt by someone within the past year? If so, by whom?: No Do you feel safe in your current relationship?: Yes Is there a partner from a previous relationship who is making you feel unsafe now?: No Are you made to feel afraid or neglected: No Advance Directives: No Advance Directives Information Provided: Yes Do you have thoughts of harming others: None Do you have a plan to hurt others: No Plan Recently lost weight without trying: No Meds Allergies Allergy/AdvReac Type Severity Reaction Status Date / Time adalimumab [From HUMIRA] Allergy Unknown PCP Verified 11/19/20 18:35 PNEUMONIA azathioprine [Imuran] Allergy Unknown PNA Verified 11/19/20 18:35 Cephalosporins Allergy Unknown KIDNEY Verified 11/19/20 18:35 [CEPHALOSPORINS] FAILURE cyclosporine [CYCLOSPORINE] Allergy Unknown KIDNEY Verified 11/19/20 18:35 FAILURE etanercept [From Enbrel] Allergy Unknown PCP Verified 11/19/20 18:35 PNEUMONIA simvastatin Allergy Unknown athralgias Verified 11/19/20 18:35 amoxicillin [From AUGMENTIN] AdvReac Unknown PROJECTILE Verified 11/19/20 18:35 VOMITTING clavulanic acid AdvReac Unknown PROJECTILE Verified 11/19/20 18:35 [From AUGMENTIN] VOMITTING Active Medications: Current Medications Generic Name Dose Route Start Last Admin Trade Name Freq PRN Reason Stop Dose Admin Acetaminophen 650 mg 11/20/20 03:31 Acetaminophen 325 Mg Tablet PO Q6H PRN Pain, Mild (Pain Scale 1-3) Docusate Sodium 100 mg 11/20/20 03:31 Docusate Sodium 100 Mg Capsule PO DAILY PRN Constipation Lactated Ringer's 1,000 mls @ 100 mls/hr 11/20/20 03:31 11/20/20 04:08 Lr IVCONT 100 mls/hr .Q10H ANNE-MARIE Administration Insulin Human Lispro 0 unit 11/20/20 07:30 Insulin Lispro 100 Unit/Ml 3 Ml Vial SUBCUT QIDACHS [facility] Protocol Ondansetron HCl 4 mg 11/20/20 03:31 Ondansetron Hcl 4 Mg/2 Ml Vial IVPUSH Q8H PRN Nausea and Vomiting Oxycodone HCl 5 mg 11/20/20 03:31 Oxycodone Hcl Immed Release 5 Mg Tablet PO Q6H PRN Pain, Severe (Pain Scale 7-10) Prednisone 40 mg 11/20/20 09:00 Prednisone 20 Mg Tablet PO DAILY [facility] Sodium Chloride 3 ml 11/20/20 03:31 11/20/20 04:08 0.9 % Sodium Chloride Flush 3 Ml Syringe IVFLUSH 3 ml QSHIFT ANNE-MARIE Administration Home Medications Medication Instructions Recorded Confirmed Last Taken Type albuterol sulfate mg INHALATION 06/20/20 10/24/20 Unknown History atorvastatin 10 mg tablet 10 mg PO DAILY 06/20/20 11/20/20 Unknown History benzonatate 100 mg capsule 100 mg PO TID 06/20/20 10/24/20 Unknown History calcipotriene 0.005 % topical 1 applic TOPICAL BID 06/20/20 11/20/20 Unknown History ointment clotrimazole 1 % topical cream applic TOPICAL 06/20/20 10/24/20 Unknown History flecainide 100 mg tablet 100 mg PO 06/20/20 10/24/20 Unknown History levothyroxine 112 mcg tablet 112 mcg PO DAILY 06/20/20 10/24/20 Unknown History metformin 500 mg tablet 500 mg PO BID 06/20/20 11/20/20 Unknown History metoprolol tartrate 50 mg tablet 50 mg PO BID 06/20/20 11/20/20 Unknown History phentermine 37.5 mg capsule 37.5 mg PO DAILY 06/20/20 10/24/20 Unknown History pregabalin 200 mg capsule 200 mg PO BID cap 06/20/20 11/20/20 Unknown History secukinumab 150 mg/mL subcutaneous mg SUBCUT Q4W 06/20/20 10/24/20 Unknown History pen injector spironolactone 100 mg tablet 100 mg PO DAILY 06/20/20 11/20/20 Unknown History warfarin 5 mg tablet 5 mg PO DAILY 06/20/20 11/20/20 Unknown History latanoprost 0.005 % eye drops 1 drp OPHTHALMIC (EYE) 10/24/20 10/24/20 Unknown History torsemide 20 mg tablet mg PO 10/24/20 10/24/20 Unknown History Physical Exam Vital Signs and Narrative: Vital Signs: Last Vital Signs Temp 97.4 F 11/20/20 03:45 Pulse 71 11/20/20 03:45 Resp 20 11/20/20 03:45 BP 115/44 L 11/20/20 03:45 Pulse Ox 100 11/20/20 03:45 Body Mass Index 1.1 Const: General: cooperative and no acute distress Orientation/consciousness: patient oriented x3 Eyes: General: appearance normal, both eyes and all related structures Resp: Effort & Inspection: normal respiratory effort and able to speak in complete sentences Cardio: Rate: regular rate Rhythm: regular rhythm GI: Palpation (GI): Soft to palpation Auscultation: normal bowel sounds Skin: Other: Erythema warmth and tenderness of the right ankle Neuro: General: patient oriented x3 Cognition (Neuro): normal cognition Extrem: Other: Right ankle swelling, erythema, severe tenderness on even light touch Results Labs CBC and Chem 7: 11/20/20 04:06 11/20/20 04:06 Labs: Laboratory Results - last 24 hr 11/19/20 11/19/20 11/19/20 19:15 19:16 19:29 MCV 83.0 MCH 25.4 L MCHC 30.7 L RDW 16.9 H Plt Count 254 MPV 10.8 Immature Gran % (Auto) 0.6 H Neut % (Auto) 80.4 H Lymph % (Auto) 5.7 L Kimball % (Auto) 12.5 H Eos % (Auto) 0.2 Baso % (Auto) 0.6 Lymph # (Auto) 0.9 L Kimball # (Auto) 1.9 H Eos # (Auto) 0.0 Baso # (Auto) 0.1 Abs Immat Gran (auto) 0.09 H Absolute Neuts (auto) 12.5 H Absolute Nucleated RBC 0.000 Nucleated RBC % (auto) 0.0 Smear Tech's Comments VERIFIED ESR PT INR VBG pH VBG pCO2 VBG pO2 VBG HCO3 VBG O2 Saturation VBG Base Excess Anion Gap Creatinine Estim Creat Clear Calc Estimated GFR Random Glucose Lactic Acid Uric Acid Calcium Total Bilirubin Direct Bilirubin AST ALT Alkaline Phosphatase Ammonia Troponin I High Sens C-Reactive Protein B-Natriuretic Peptide Total Protein Albumin Urine Color YELLOW Urine Appearance CLEAR Urine pH 5.5 Ur Specific Sterling 1.015 Urine Protein NEG Urine Glucose (UA) NEG Urine Ketones NEG Urine Blood NEG Urine Nitrite NEG Ur Leukocyte Esterase NEG COVID-19 (CRISTA) Negative COVID-19 Clin Com See Note 11/19/20 11/19/20 11/19/20 19:29 19:29 19:29 MCV MCH MCHC RDW Plt Count MPV Immature Gran % (Auto) Neut % (Auto) Lymph % (Auto) Kimball % (Auto) Eos % (Auto) Baso % (Auto) Lymph # (Auto) Kimball # (Auto) Eos # (Auto) Baso # (Auto) Abs Immat Gran (auto) Absolute Neuts (auto) Absolute Nucleated RBC Nucleated RBC % (auto) Smear Tech's Comments ESR PT 45.5 H INR 3.8 H VBG pH VBG pCO2 VBG pO2 VBG HCO3 VBG O2 Saturation VBG Base Excess Anion Gap 17 Creatinine 2.05 H Estim Creat Clear Calc 1.4 Estimated GFR 24 Random Glucose 113 Lactic Acid Uric Acid 12.6 H Calcium 9.4 Total Bilirubin 1.0 Direct Bilirubin 0.5 AST 30 D ALT 17 Alkaline Phosphatase 168 H Ammonia Troponin I High Sens 54.2 H C-Reactive Protein 12.04 H B-Natriuretic Peptide Total Protein 8.0 Albumin 4.4 Urine Color Urine Appearance Urine pH Ur Specific Sterling Urine Protein Urine Glucose (UA) Urine Ketones Urine Blood Urine Nitrite Ur Leukocyte Esterase COVID-19 (CRISTA) COVID-19 [employer] 11/19/20 11/19/20 11/19/20 19:29 19:29 19:29 MCV MCH MCHC RDW Plt Count MPV Immature Gran % (Auto) Neut % (Auto) Lymph % (Auto) Kimball % (Auto) Eos % (Auto) Baso % (Auto) Lymph # (Auto) Kimball # (Auto) Eos # (Auto) Baso # (Auto) Abs Immat Gran (auto) Absolute Neuts (auto) Absolute Nucleated RBC Nucleated RBC % (auto) Smear Tech's Comments ESR 48 H PT INR VBG pH VBG pCO2 VBG pO2 VBG HCO3 VBG O2 Saturation VBG Base Excess Anion Gap Creatinine Estim Creat Clear Calc Estimated GFR Random Glucose Lactic Acid 1.6 Uric Acid Calcium Total Bilirubin Direct Bilirubin AST ALT Alkaline Phosphatase Ammonia 27 Troponin I High Sens C-Reactive Protein B-Natriuretic Peptide Total Protein Albumin Urine Color Urine Appearance Urine pH Ur Specific Sterling Urine Protein Urine Glucose (UA) Urine Ketones Urine Blood Urine Nitrite Ur Leukocyte Esterase COVID-19 (CRISTA) COVID-19 [employer] 11/19/20 11/20/20 11/20/20 22:27 00:22 04:06 MCV MCH MCHC RDW Plt Count MPV Immature Gran % (Auto) Neut % (Auto) Lymph % (Auto) Kimball % (Auto) Eos % (Auto) Baso % (Auto) Lymph # (Auto) Kimball # (Auto) Eos # (Auto) Baso # (Auto) Abs Immat Gran (auto) Absolute Neuts (auto) Absolute Nucleated RBC Nucleated RBC % (auto) Smear Tech's Comments ESR PT INR VBG pH 7.43 VBG pCO2 46 VBG pO2 53 VBG HCO3 31 H VBG O2 Saturation 81.0 VBG Base Excess 6.6 Anion Gap Creatinine Estim Creat Clear Calc Estimated GFR Random Glucose Lactic Acid Uric Acid Calcium Total Bilirubin Direct Bilirubin AST ALT Alkaline Phosphatase Ammonia Troponin I High Sens 157.3 H D C-Reactive Protein B-Natriuretic Peptide 520 H Total Protein Albumin Urine Color Urine Appearance Urine pH Ur Specific Sterling Urine Protein Urine Glucose (UA) Urine Ketones Urine Blood Urine Nitrite Ur Leukocyte Esterase COVID-19 (CRISTA) COVID-19 [employer] 11/20/20 04:06 MCV MCH MCHC RDW Plt Count MPV Immature Gran % (Auto) Neut % (Auto) Lymph % (Auto) Kimball % (Auto) Eos % (Auto) Baso % (Auto) Lymph # (Auto) Kimball # (Auto) Eos # (Auto) Baso # (Auto) Abs Immat Gran (auto) Absolute Neuts (auto) Absolute Nucleated RBC Nucleated RBC % (auto) Smear Tech's Comments ESR PT INR VBG pH VBG pCO2 VBG pO2 VBG HCO3 VBG O2 Saturation VBG Base Excess Anion Gap 13 Creatinine 1.71 H Estim Creat Clear Calc 1.7 Estimated GFR 30 Random Glucose 112 Lactic Acid Uric Acid Calcium 9.0 Total Bilirubin Direct Bilirubin AST ALT Alkaline Phosphatase Ammonia Troponin I High Sens C-Reactive Protein B-Natriuretic Peptide Total Protein Albumin Urine Color Urine Appearance Urine pH Ur Specific Sterling Urine Protein Urine Glucose (UA) Urine Ketones Urine Blood Urine Nitrite Ur Leukocyte Esterase COVID-19 (CRISTA) COVID-19 Clin Com Imaging Radiologist's Impressions: Impressions Chest X-Ray 11/19/20 18:43 IMPRESSION: Enlarged cardiac silhouette with central vascular prominence suggesting mild pulmonary edema in the acute setting. Head CT 11/19/20 18:43 IMPRESSION: No acute intracranial pathology. Severe degenerative changes in the temporomandibular joints. Ankle X-Ray 11/19/20 18:48 IMPRESSION: Diffuse soft tissue swelling about the ankle with chronic appearing changes but no acute fracture or dislocation noted. Chest CT 11/19/20 22:52 IMPRESSION: 1. No acute abnormality of chest. 2. Cardiomegaly. Cardiac pacemaker . Status post mitral valve repair. Assessment and Plan (1) Metabolic encephalopathy: Status: Acute (2) Acute respiratory failure with hypoxia: Status: Acute (3) Acute renal failure superimposed on chronic kidney disease: Qualifiers: Acute renal failure type: with acute tubular necrosis Chronic kidney disease stage: stage 4 (severe) Qualified Code(s): N17.0 - Acute kidney failure with tubular necrosis; N18.4 - Chronic kidney disease, stage 4 (severe) Status: Acute (4) Gouty arthritis: Status: Acute (5) Cellulitis: Status: Acute (6) CHF exacerbation: Status: Acute (7) Supratherapeutic INR: Status: Acute (8) Elevated troponin: Status: Acute This is a 65-year-old female with past medical history of AFib, heart failure, diabetes, HTN, HLD, hypothyroidism who presents to the hospital with confusion. # encephalopathy - most likely metabolic, possibly secondary to acute infection secondary to cellulitis versus YANET verses hypoxic encephalopathy - according to EMS patient was found to be hypoxic in the 80s on their arrival with her reporting that she had a blue nose and blue fingers - no evidence of acute infection otherwise besides the cellulitis of right ankle, UA is negative, chest x-ray and CT are both negative Plan: - will start antibiotics for the cellulitis, treat heart failure, oxygen for the hypoxia - monitor mental status # acute hypoxic respiratory failure - possibly multifactorial secondary to CHF exacerbation although PE cannot be ruled out, no evidence of infection on chest x-ray or CT of the chest - BNP is elevated with history of heart failure - patient currently requiring 4 L of oxygen to maintain oxygen above 95% - COVID-19 PCR negative - patient on torsemide 20 mg at home - at this time will start her on Lasix 40 mg IV b.i.d. - daily weight, strict I&O, low-sodium diet, - will obtain echocardiogram - consult cardiology - patient was unable to get a CT angiogram to rule out PE due to the acute renal failure therefore will obtain D-dimer and V/Q scan in a.m. - supratherapeutic INR at this time therefore no requirement to start her on anticoagulation # right ankle erythema - cellulitis vs gouty arthritis - has significantly elevated uric acid with no history of gout - very tender and sensitive to touch, with warmth and erythema - will start on ceftriaxone and prednisone # supratherapeutic INR - hold Coumadin - no active bleed - PT INR daily # Elevated trop - cannot ilicit hx of chest pain - EKG showing st-depression in lateral leads - most likely due to hypoxia - pt on warfarin with supratherapeutic inr - Cardiology consulted - will rpt Trop # diabetes - low-dose sliding scale insulin - POC q.i.d. a.c. DVT prophylaxis: Warfarin
[2020-11-20 05:10] LABS: SLIDE REVIEW VERIFIED
[2020-11-20] MEDS: Furosemide 40 MG/4 ML VIAL IVPUSH ×2 (06:17→08:54)
[2020-11-20] MEDS: oxyCODONE HCl Immed Release 5 MG TABLET PO ×3 (06:27→20:55)
[2020-11-20 06:39] LABS: INTERNATIONAL NORM RATIO 3.8 (0.9-1.1); Prothrombin Time 45.4 SEC (10.8-13.0)
[2020-11-20 06:42] LABS: D Dimer 301 NG/ML
[2020-11-20 07:03] LABS: Ferritin 47 ng/mL (10-250)
[2020-11-20 07:18] LABS: Folate 11.5 ng/mL (> or = 4.0); Vitamin B12 227 pg/mL (200-900)
[2020-11-20 07:54] LABS: Glucose, Whole Blood 105 mg/dL (60-115)
[2020-11-20] MEDS: predniSONE 20 MG TABLET 40 MG PO (08:54)
--- NOTE | 2020-11-20 09:30 | CA_ITS ---
Transthoracic Echocardiogram Patient (Last, First, Middle): Pooja Kirby A Gender: Female Date of : 1955 Age: 65 Procedure Date: 11/20/2020 Procedure Type: Transthoracic Echocardiogram [place] [facility] [place] Height: 175.26 cm Weight: 130.01 kg BSA: 2.41 m2 Heart Rate: bpm BP: 115 / 44 mmHg [employer] Type One: Referring MD: Lorenzo Almeida MD Symptoms: hypoxia, elevated BNP Study Quality: Fair ECG Rhythm: Sinus Conclusions: - The visually estimated ejection fraction is between 55-60%. - Mildly increased right ventricular cavity size. There is borderline right ventricular systolic function. - There is moderate aortic valve stenosis. - A mechanical prosthetic mitral valve is present. The prosthetic mitral valve appears to be functioning normally. - There is moderate to severe tricuspid valve regurgitation. Significantly elevated right atrial pressure. Moderate to severe pulmonary hypertension is present. Findings Left Ventricle Normal left ventricular size and systolic function. There is moderately increased left ventricular wall thickness. The visually estimated ejection fraction is between 55-60%. There is no evidence of regional wall motion abnormalities. There is paradoxical septal motion consistent with post operative status. Diastolic function is indeterminate on the basis of available data. Right Ventricle Mildly increased right ventricular cavity size. There is borderline right ventricular systolic function. Atria The left atrium is mildly dilated. Aortic Valve There is a normal trileaflet aortic valve. There is moderate aortic valve stenosis. The peak aortic velocity is 3.07 m/s. The aortic valve area is 1.19 cm2. There is no aortic valve regurgitation. Mitral Valve A mechanical prosthetic mitral valve is present. The prosthetic mitral valve appears to be functioning normally. Gradients across the prosthetic mitral valve are normal. Pulmonic Valve The pulmonic valve was not well visualized. Tricuspid Valve Normal tricuspid valve structure. There is moderate to severe tricuspid valve regurgitation. Significantly elevated right atrial pressure. Moderate to severe pulmonary hypertension is present. Great Vessels All visible segments of the aorta are normal in size. Venous The inferior vena cava is dilated and does not collapse with inspiration. Pericardium/Pleural There is no evidence of pericardial effusion. Prior Study Comparison Changes noted compared to prior study dated: 02/05/2017. Moderate , Elevated RA pressures and mod to severe TR. Mod to severe pulm hypertension. Measurements 2D Linear Measurements IVSd: 1.27 0.6-0.9/0.6-1.0 cm LVIDd: 4.52 3.9-5.3/4.2-5.9 cm LVIDd Index: 1.88 2.4-3.2/2.2-3.1 cm/m2 LVIDs: 3.25 2.0-3.6 cm LVPWd: 1.25 0.7-1.1 cm Ao Root: 3.10 2.1-3.5 cm LA Diam: 4.10 2.7-3.8/3.0-4.0 cm LAIDs Index: 1.70 1.5-2.3 cm/m2 LV Mass: 266.83 67-162/88-224 g LV Mass Index: 110.72 43-95/49-115 g/m2 LVOT Diam: 2.00 3.0+(-)1.3 cm 2D Systolic Function EF 4C: 75.10 >55% EF 2C: 60.00 >55% EF BiP: 67.70 >55% Mitral Valve MV VTI: 0.46 MV Pk Tramaine: 1.85 MV Mn Tramaine: 0.97 MV Pk Grad: 14.00 MV Mn Grad: 5.00 MV Pk E: 1.25 MV Decel Time: 229.00 E'Lateral: 10.90 E'Medial: 6.38 E/E' Med: 19.60 E/E' Lat: 11.50 PHT: 86.00 MVA PHT: 2.56 MVA Continuity: 1.73 Decel [place]: 5.36 Aortic Valve AoV Pk Tramaine: 3.07 AoV Mn Tramaine: 1.96 AoV VTI: 0.67 AoV Pk Grad: 38.00 Aov Mn Grad: 19.00 JOE Cont.VTI: 1.19 LVOT LVOT Pk Tramaine: 1.16 LVOT Mn Tramaine: 0.87 LVOT VTI: 0.25 LVOT Pk Grad: 5.00 LVOT Mn Grad: 3.00 LVOT Diam: 2.00 LVOT Area: 3.14 Diastolic Function MV Pk E: 1.25 E'Medial: 6.38 E/E' Med: 19.60 E' Laterial: 10.90 E/E' Lat: 11.50 Tricuspid Valve TR Pk Tramaine: 3.06 TR Pk Grad: 37.00 RA Press: 15.00 RVSP: 55.00 Great Vessels Aorta Ao Root-2D: 3.10 2.0-3.7 cm Ao Asc: 2.70 2.1-3.4 cm Pulmonary Valve PV Pk Tramaine: 1.19 Peak PV Grad: 6.00 Updated in Other Vendor System with Status of Final Bobby Corona MD electronically signed on 11/20/2020 4:50:15 PM with status of Final
[2020-11-20 11:04] LABS: Glucose, Whole Blood 112 mg/dL (60-115)
[2020-11-20 13:04] LABS: Amphetamine Screen Urine Not Detected (Not Detect); Barbiturates, Urine Not Detected (Not Detect); Benzodiazepines Screen Urine Not Detected (Not Detect); Cannabinoid Screen Urine POSITIVE (Not Detect); Cocaine Screen Urine Not Detected (Not Detect); Opiate Screen Urine Not Detected (Not Detect); Phencyclidine Screen Urine Not Detected (Not Detect)
--- NOTE | 2020-11-20 14:41 | MHC.CM.PN ---
nurse home care attendant ntoe electronic medical record reviewed along with case discussd with staff nurse and on multiple discip[alinry rounds met with patient sometimes alert then confused, also spoke with her mira and son sandrine they reported that patient is usually active independent in her adls and mobility with out any devices she uses cpap [facility] , she has no vna , he reported that she is followed by many specialist and pcp dr bower , per documentation patient has chf,acute resp failure metabolic encephalopathy acute renal failure on chronic renal disease on oxygen (does not have oxygen at home) admitting diagnosis encephalopathy hypoxic respiratory failure , patients sn sandrine found his mother on the floor she had fallen at which time dshe was confused and could not ambulate the ambulance was called on arrival patients oxygen saturation was in the 80s qaand she was placed on oxygen in the er respiratory rate was 34 they were avble to wean her from some oxygen and she was sating 95 in room 92 in rom air but desating with miniminal movement she was then placed on 4 liters of oxygen discharge plan home with and son anticipate will need physical thearpy evaluation, once aler and orientated t determine if she will recive home services vs need for short term rehab
--- NOTE | 2020-11-20 14:45 | HO.PM.IMPN ---
Subjective Subjective Date of Service: 11/20/20 Interval History: seen and examined this AM ankle pain otherwise no other complaints ROS General - no fevers or chills Cardiovascular - no chest pain Respiratory - no shortness of breath or cough Abdominal- no abdominal pain, nausea, vomiting, diarrhea Physical Exam Vital Signs: Vital Signs: Last Vital Signs Temp 99.1 F 11/20/20 11:11 Pulse 63 11/20/20 11:11 Resp 20 11/20/20 11:11 BP 135/61 11/20/20 11:11 Pulse Ox 98 11/20/20 11:11 Body Mass Index 19.3 Const: General: cooperative and no acute distress Orientation/consciousness: patient oriented x3 Eyes: General: appearance normal, both eyes and all related structures Resp: Effort & Inspection: normal respiratory effort and able to speak in complete sentences Cardio: Rate: regular rate Rhythm: regular rhythm GI: Palpation (GI): Soft to palpation Auscultation: normal bowel sounds Skin: Other: R ankle swelling Neuro: General: patient oriented x3 Cognition (Neuro): normal cognition Extrem: Other: Right ankle swelling, erythema, severe tenderness on even light touch Objective Data Current Medications Generic Name Dose Route Start Last Admin Trade Name Freq PRN Reason Stop Dose Admin Acetaminophen 650 mg 11/20/20 03:31 Acetaminophen 325 Mg Tablet PO Q6H PRN Pain, Mild (Pain Scale 1-3) Docusate Sodium 100 mg 11/20/20 03:31 Docusate Sodium 100 Mg Capsule PO DAILY PRN Constipation Furosemide 40 mg 11/20/20 09:00 11/20/20 08:54 Furosemide 40 Mg/4 Ml Vial IVPUSH 40 mg BID@0900,1800 [facility] Administration Protocol Insulin Human Lispro 0 unit 11/20/20 07:30 11/20/20 11:27 Insulin Lispro 100 Unit/Ml 3 Ml Vial SUBCUT Not Given QIDACHS [facility] Protocol Ondansetron HCl 4 mg 11/20/20 03:31 Ondansetron Hcl 4 Mg/2 Ml Vial IVPUSH Q8H PRN Nausea and Vomiting Oxycodone HCl 5 mg 11/20/20 03:31 11/20/20 11:55 Oxycodone Hcl Immed Release 5 Mg Tablet PO 5 mg Q6H PRN Administration Pain, Severe (Pain Scale 7-10) Prednisone 40 mg 11/20/20 09:00 11/20/20 08:54 Prednisone 20 Mg Tablet PO 40 mg DAILY ANNE-MARIE Administration Sodium Chloride 3 ml 11/20/20 03:31 11/20/20 08:55 0.9 % Sodium Chloride Flush 3 Ml Syringe IVFLUSH 3 ml QSHIFT ANNE-MARIE Administration Labs CBC & Chem 7: 11/20/20 04:06 11/20/20 04:06 Assessment and Plan (1) Metabolic encephalopathy: Status: Acute (2) Acute respiratory failure with hypoxia: Status: Acute (3) Acute renal failure superimposed on chronic kidney disease: Status: Acute (4) Gouty arthritis: Status: Acute (5) Cellulitis: Status: Acute (6) CHF exacerbation: Status: Acute (7) Supratherapeutic INR: Status: Acute (8) Elevated troponin: Status: Acute Assessment and Plan: This is a 65-year-old female with past medical history of AFib, heart failure, diabetes, HTN, HLD, hypothyroidism who presents to the hospital with confusion. 1. Acute Toxic/Metabolic Encephalopathy multifactorial, cause not entirely clear see below 2. Acute Respiratory Failure with Hypoxia Wean O2 as toleated 3. Acute Kidney Injury SCr improved 4. R Ankle pain ? gout flare -- started on prednisone do not appreciate no evidence of sepsis -- will hold antibiotics for the time being 5. Acute CHF exacerbation mixed systolic and diastolic last echo in December 2019 with EF of 35-40% hold lasix, appears clinically evoluemic cardiology consulted HS trop-I suspect due to acute hypoxia 6. KEVIN on CPAP at night, will order 7. PAF/Mechanical Mitral Valve on coumadin, INR 3.8 will continue coumadin, lower dose -- 2mg (anticipate it will drop by tomorrow) ? on flecanide -- med rec to be completed, will need to have it ordered if she is 8. DM sliding scale Full Code DVT pptx, Coumadin
[2020-11-20 16:33] LABS: Glucose, Whole Blood 122 mg/dL (60-115)
[2020-11-20] MEDS: Warfarin Sodium 2 MG TABLET PO (18:28)
--- NOTE | 2020-11-20 18:59 | P.CONCA_ITS ---
History of Present Illness History of Present Illness Date of Service: 11/20/20 Requesting physician: Murphy Bashir Chief complaint: hypoxia, + troponin Narrative: 65-year-old female who is presenting with encephalopathy and hypoxia. 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 heard her falling and found her on the ground. She was quite confused. She since then has been fairly confused and unable to give any history. She was found to be hypoxic in 80s on admission. Her COVID testing was negative. Imaging has not revealed any obvious issues. She was thought to be in heart failure and was started on Lasix. No meaningful history is possible from her right now. Review of Systems Review of Systems: Yes Unobtainable due to mental status PMFSH Past Medical History Medical History Acquired hypothyroidism Chronic low back pain CKD stage 3 secondary to diabetes Dyslipidemia Essential hypertension Fibromyalgia H/O cardiac pacemaker Mitral valve stenosis, rheumatic NYHA class 1 heart failure with preserved ejection fraction KEVIN on CPAP Osteoarthritis Paroxysmal atrial fibrillation Postmenopausal Psoriasis Rhinitis Sinusitis Type 2 diabetes mellitus with other diabetic kidney complication Family History Family History Father HTN (hypertension) CKD (chronic kidney disease) Mother HTN (hypertension) Son No problems noted. Son No problems noted. Son No problems noted. Surgical History Surgical History H/O mitral valve replacement Hx of mitral valve replacement with mechanical valve Social History Social History Household Members: Family Housing: House Do you presently have visiting nurse or other home services: Yes Alcohol intake: never Smoking Status: Former smoker Tobacco Type: Cigarette Smoked in Last 30 Days: Yes Patient Interested in Nicotine Replacement: No Second Hand Smoke Exposure: No Use of substances other than those prescribed or required for medical reasons: No Currently Displaying Signs/Symptoms of Drug Intoxication Withdrawal: No Have you been hit, kicked, punched, or otherwise hurt by someone within the past year? If so, by whom?: No Do you feel safe in your current relationship?: Yes Is there a partner from a previous relationship who is making you feel unsafe now?: No Are you made to feel afraid or neglected: No Advance Directives: No Advance Directives Information Provided: Yes Do you have thoughts of harming others: None Do you have a plan to hurt others: No Plan Recently lost weight without trying: No service: No Current occupational status: unemployed Meds Allergies Allergy/AdvReac Type Severity Reaction Status Date / Time adalimumab [From HUMIRA] Allergy Unknown PCP Verified 11/19/20 18:35 PNEUMONIA azathioprine [Imuran] Allergy Unknown PNA Verified 11/19/20 18:35 Cephalosporins Allergy Unknown KIDNEY Verified 11/19/20 18:35 [CEPHALOSPORINS] FAILURE cyclosporine [CYCLOSPORINE] Allergy Unknown KIDNEY Verified 11/19/20 18:35 FAILURE etanercept [From Enbrel] Allergy Unknown PCP Verified 11/19/20 18:35 PNEUMONIA simvastatin Allergy Unknown athralgias Verified 11/19/20 18:35 amoxicillin [From AUGMENTIN] AdvReac Unknown PROJECTILE Verified 11/19/20 18:35 VOMITTING clavulanic acid AdvReac Unknown PROJECTILE Verified 11/19/20 18:35 [From AUGMENTIN] VOMITTING Active Medications: Current Medications Generic Name Dose Route Start Last Admin Trade Name Freq PRN Reason Stop Dose Admin Acetaminophen 650 mg 11/20/20 03:31 Acetaminophen 325 Mg Tablet PO Q6H PRN Pain, Mild (Pain Scale 1-3) Atorvastatin Calcium 10 mg 11/21/20 09:00 Atorvastatin Calcium 10 Mg Tablet PO DAILY [facility] Docusate Sodium 100 mg 11/20/20 03:31 Docusate Sodium 100 Mg Capsule PO DAILY PRN Constipation Flecainide Acetate 150 mg 11/20/20 21:00 Flecainide Acetate 50 Mg Tablet PO BID [facility] Insulin Human Lispro 0 unit 11/20/20 07:30 11/20/20 17:25 Insulin Lispro 100 Unit/Ml 3 Ml Vial SUBCUT Not Given QIDACHS [facility] Protocol Levothyroxine Sodium 112 mcg 11/21/20 09:00 Levothyroxine Sodium 112 Mcg Tablet PO DAILY [facility] Metoprolol Tartrate 50 mg 11/20/20 21:00 Metoprolol Tartrate 50 Mg Tablet PO BID [facility] Protocol Nystatin 1 appl 11/20/20 21:00 Nystatin Powder 15 Gm Bottle TOPICAL BID [facility] Protocol Ondansetron HCl 4 mg 11/20/20 03:31 Ondansetron Hcl 4 Mg/2 Ml Vial IVPUSH Q8H PRN Nausea and Vomiting Oxcarbazepine 450 mg 11/20/20 21:00 Oxcarbazepine 150 Mg Tablet PO BID [facility] Oxycodone HCl 5 mg 11/20/20 03:31 11/20/20 11:55 Oxycodone Hcl Immed Release 5 Mg Tablet PO 5 mg Q6H PRN Administration Pain, Severe (Pain Scale 7-10) Pharmacy Consult 1 each 11/20/20 15:24 Consult Rx Perform Med Rec MISCELLANE ONCE PRN Consult order Prednisone 40 mg 11/20/20 09:00 11/20/20 08:54 Prednisone 20 Mg Tablet PO 40 mg DAILY [facility] Administration Pregabalin 200 mg 11/20/20 21:00 Pregabalin 200 Mg Capsule PO BID [facility] Sodium Chloride 3 ml 11/20/20 03:31 11/20/20 17:27 0.9 % Sodium Chloride Flush 3 Ml Syringe IVFLUSH 3 ml QSHIFT [facility] Administration Warfarin Sodium 2 mg 11/20/20 18:00 11/20/20 18:28 Warfarin Sodium 2 Mg Tablet PO 2 mg DAILY@1800 [facility] Administration Home Medications Medication Instructions Recorded Confirmed Last Taken Type atorvastatin 10 mg tablet 10 mg PO DAILY 06/20/20 11/20/20 Unknown History calcipotriene 0.005 % topical 1 applic TOPICAL BID 06/20/20 11/20/20 Unknown History ointment flecainide 100 mg tablet 150 mg PO Q12H 06/20/20 11/20/20 Unknown History levothyroxine 112 mcg tablet 112 mcg PO DAILY 06/20/20 11/20/20 Unknown History metformin 500 mg tablet 500 mg PO BID 06/20/20 11/20/20 Unknown History metoprolol tartrate 50 mg tablet 50 mg PO BID 06/20/20 11/20/20 Unknown History pregabalin 200 mg capsule 200 mg PO BID cap 06/20/20 11/20/20 Unknown History secukinumab 150 mg/mL subcutaneous 300 mg SUBCUT Q30D 06/20/20 11/20/20 Unknown History pen injector spironolactone 100 mg tablet 100 mg PO DAILY 06/20/20 11/20/20 Unknown History torsemide 20 mg tablet 120 mg PO BID 10/24/20 11/20/20 Unknown History oxcarbazepine 450 mg PO BID 11/20/20 11/20/20 Unknown History warfarin 5 mg PO MOTUWE 11/20/20 11/20/20 Unknown History warfarin 5 mg PO SUTHFRSA 11/20/20 11/20/20 Unknown History Physical Exam Vital Signs: Vital Signs: Last Vital Signs Temp 97.5 F 11/20/20 15:14 Pulse 74 11/20/20 15:14 Resp 16 11/20/20 15:14 BP 138/69 11/20/20 15:14 Pulse Ox 96 11/20/20 15:14 Body Mass Index 19.3 GENERAL APPEARANCE: Confused, short of breath. HEENT: unremarkable. HEAD: normocephalic, atraumatic. NECK/THYROID: no carotid bruit, no jugular venous distention. SKIN: no suspicious lesions, warm and dry. HEART: no murmurs, regular rate and rhythm, mechanical 1st heart sound. LUNGS: clear to auscultation bilaterally. ABDOMEN: normal, bowel sounds present, soft, nontender, nondistended. EXTREMITIES: no clubbing, cyanosis. PERIPHERAL PULSES: equal. NEUROLOGIC: Confused, moving all extremities. Results Labs and Meds Result diagrams: 11/20/20 04:06 11/20/20 04:06 Lab results: Laboratory Results - last 24 hr 11/19/20 11/19/20 11/19/20 19:15 19:16 19:29 WBC 15.5 H RBC 3.89 L Hgb 9.9 L Hct 32.3 L MCV 83.0 MCH 25.4 L MCHC 30.7 L RDW 16.9 H Plt Count 254 MPV 10.8 Immature Gran % (Auto) 0.6 H Neut % (Auto) 80.4 H Lymph % (Auto) 5.7 L [place] % (Auto) 12.5 H Eos % (Auto) 0.2 Baso % (Auto) 0.6 Lymph # (Auto) 0.9 L [place] # (Auto) 1.9 H Eos # (Auto) 0.0 Baso # (Auto) 0.1 Abs Immat Gran (auto) 0.09 H Absolute Neuts (auto) 12.5 H Absolute Nucleated RBC 0.000 Nucleated RBC % (auto) 0.0 Smear Tech's Comments VERIFIED ESR PT INR D-Dimer VBG pH VBG pCO2 VBG pO2 VBG HCO3 VBG O2 Saturation VBG Base Excess Sodium Potassium Chloride Carbon Dioxide Anion Gap BUN Creatinine Estim Creat Clear Calc Estimated GFR POC Glucose Random Glucose Lactic Acid Uric Acid Calcium Ferritin Total Bilirubin Direct Bilirubin AST ALT Alkaline Phosphatase Ammonia Troponin I High Sens C-Reactive Protein B-Natriuretic Peptide Total Protein Albumin Vitamin B12 Folate Urine Color YELLOW Urine Appearance CLEAR Urine pH 5.5 Ur Specific [place] 1.015 Urine Protein NEG Urine Glucose (UA) NEG Urine Ketones NEG Urine Blood NEG Urine Nitrite NEG Ur Leukocyte Esterase NEG Urine Opiates Screen Ur Barbiturates Screen Ur Phencyclidine Scrn Ur Amphetamines Screen U Benzodiazepines Scrn Urine Cocaine Screen U Marijuana (THC) Screen COVID-19 (CRISTA) Negative COVID-19 [employer] Com See Note 11/19/20 11/19/20 11/19/20 19:29 19:29 19:29 WBC RBC Hgb Hct MCV MCH MCHC RDW Plt Count MPV Immature Gran % (Auto) Neut % (Auto) Lymph % (Auto) [place] % (Auto) Eos % (Auto) Baso % (Auto) Lymph # (Auto) [place] # (Auto) Eos # (Auto) Baso # (Auto) Abs Immat Gran (auto) Absolute Neuts (auto) Absolute Nucleated RBC Nucleated RBC % (auto) Smear Tech's Comments ESR PT 45.5 H INR 3.8 H D-Dimer VBG pH VBG pCO2 VBG pO2 VBG HCO3 VBG O2 Saturation VBG Base Excess Sodium 141 Potassium 4.2 Chloride 97 Carbon Dioxide 31 H Anion Gap 17 BUN 28 H Creatinine 2.05 H Estim Creat Clear Calc 1.4 Estimated GFR 24 POC Glucose Random Glucose 113 Lactic Acid Uric Acid 12.6 H Calcium 9.4 Ferritin Total Bilirubin 1.0 Direct Bilirubin 0.5 AST 30 D ALT 17 Alkaline Phosphatase 168 H Ammonia Troponin I High Sens 54.2 H C-Reactive Protein 12.04 H B-Natriuretic Peptide Total Protein 8.0 Albumin 4.4 Vitamin B12 Folate Urine Color Urine Appearance Urine pH Ur Specific [place] Urine Protein Urine Glucose (UA) Urine Ketones Urine Blood Urine Nitrite Ur Leukocyte Esterase Urine Opiates Screen Ur Barbiturates Screen Ur Phencyclidine Scrn Ur Amphetamines Screen U Benzodiazepines Scrn Urine Cocaine Screen U Marijuana (THC) Screen COVID-19 (CRISTA) COVID-19 Clin Com 11/19/20 11/19/20 11/19/20 19:29 19:29 19:29 WBC RBC Hgb Hct MCV MCH MCHC RDW Plt Count MPV Immature Gran % (Auto) Neut % (Auto) Lymph % (Auto) [place] % (Auto) Eos % (Auto) Baso % (Auto) Lymph # (Auto) [place] # (Auto) Eos # (Auto) Baso # (Auto) Abs Immat Gran (auto) Absolute Neuts (auto) Absolute Nucleated RBC Nucleated RBC % (auto) Smear Tech's Comments ESR 48 H PT INR D-Dimer VBG pH VBG pCO2 VBG pO2 VBG HCO3 VBG O2 Saturation VBG Base Excess Sodium Potassium Chloride Carbon Dioxide Anion Gap BUN Creatinine Estim Creat Clear Calc Estimated GFR POC Glucose Random Glucose Lactic Acid 1.6 Uric Acid Calcium Ferritin Total Bilirubin Direct Bilirubin AST ALT Alkaline Phosphatase Ammonia 27 Troponin I High Sens C-Reactive Protein B-Natriuretic Peptide Total Protein Albumin Vitamin B12 Folate Urine Color Urine Appearance Urine pH Ur Specific [place] Urine Protein Urine Glucose (UA) Urine Ketones Urine Blood Urine Nitrite Ur Leukocyte Esterase Urine Opiates Screen Ur Barbiturates Screen Ur Phencyclidine Scrn Ur Amphetamines Screen U Benzodiazepines Scrn Urine Cocaine Screen U Marijuana (THC) Screen COVID-19 (CRISTA) COVID-19 Clin Com 11/19/20 11/20/20 11/20/20 22:27 00:22 04:06 WBC RBC Hgb Hct MCV MCH MCHC RDW Plt Count MPV Immature Gran % (Auto) Neut % (Auto) Lymph % (Auto) [place] % (Auto) Eos % (Auto) Baso % (Auto) Lymph # (Auto) [place] # (Auto) Eos # (Auto) Baso # (Auto) Abs Immat Gran (auto) Absolute Neuts (auto) Absolute Nucleated RBC Nucleated RBC % (auto) Smear Tech's Comments ESR PT INR D-Dimer VBG pH 7.43 VBG pCO2 46 VBG pO2 53 VBG HCO3 31 H VBG O2 Saturation 81.0 VBG Base Excess 6.6 Sodium Potassium Chloride Carbon Dioxide Anion Gap BUN Creatinine Estim Creat Clear Calc Estimated GFR POC Glucose Random Glucose Lactic Acid Uric Acid Calcium Ferritin Total Bilirubin Direct Bilirubin AST ALT Alkaline Phosphatase Ammonia Troponin I High Sens 157.3 H D C-Reactive Protein B-Natriuretic Peptide 520 H Total Protein Albumin Vitamin B12 Folate Urine Color Urine Appearance Urine pH Ur Specific [place] Urine Protein Urine Glucose (UA) Urine Ketones Urine Blood Urine Nitrite Ur Leukocyte Esterase Urine Opiates Screen Ur Barbiturates Screen Ur Phencyclidine Scrn Ur Amphetamines Screen U Benzodiazepines Scrn Urine Cocaine Screen U Marijuana (THC) Screen COVID-19 (CRISTA) COVID-19 [employer] Com 11/20/20 11/20/20 11/20/20 04:06 04:06 05:59 WBC 13.3 H RBC 3.71 L Hgb 9.5 L Hct 31.2 L MCV 84.1 MCH 25.6 L MCHC 30.4 L RDW 16.9 H Plt Count 232 MPV 11.2 Immature Gran % (Auto) 0.5 H Neut % (Auto) 74.6 H Lymph % (Auto) 9.9 L [place] % (Auto) 14.4 H Eos % (Auto) 0.1 Baso % (Auto) 0.5 Lymph # (Auto) 1.3 [place] # (Auto) 1.9 H Eos # (Auto) 0.0 Baso # (Auto) 0.1 Abs Immat Gran (auto) 0.06 H Absolute Neuts (auto) 9.9 H Absolute Nucleated RBC 0.000 Nucleated RBC % (auto) 0.0 Smear Tech's Comments VERIFIED ESR PT INR D-Dimer VBG pH VBG pCO2 VBG pO2 VBG HCO3 VBG O2 Saturation VBG Base Excess Sodium 143 Potassium 3.5 Chloride 103 Carbon Dioxide 31 H Anion Gap 13 BUN 22 H Creatinine 1.71 H Estim Creat Clear Calc 1.7 Estimated GFR 30 POC Glucose Random Glucose 112 Lactic Acid Uric Acid Calcium 9.0 Ferritin 47 Total Bilirubin Direct Bilirubin AST ALT Alkaline Phosphatase Ammonia Troponin I High Sens C-Reactive Protein B-Natriuretic Peptide Total Protein Albumin Vitamin B12 Folate Urine Color Urine Appearance Urine pH Ur Specific [place] Urine Protein Urine Glucose (UA) Urine Ketones Urine Blood Urine Nitrite Ur Leukocyte Esterase Urine Opiates Screen Ur Barbiturates Screen Ur Phencyclidine Scrn Ur Amphetamines Screen U Benzodiazepines Scrn Urine Cocaine Screen U Marijuana (THC) Screen COVID-19 (CRISTA) COVID-19 [employer] Com 11/20/20 11/20/20 11/20/20 05:59 05:59 05:59 WBC RBC Hgb Hct MCV MCH MCHC RDW Plt Count MPV Immature Gran % (Auto) Neut % (Auto) Lymph % (Auto) [place] % (Auto) Eos % (Auto) Baso % (Auto) Lymph # (Auto) [place] # (Auto) Eos # (Auto) Baso # (Auto) Abs Immat Gran (auto) Absolute Neuts (auto) Absolute Nucleated RBC Nucleated RBC % (auto) Smear Tech's Comments ESR PT 45.4 H INR 3.8 H D-Dimer 301 VBG pH VBG pCO2 VBG pO2 VBG HCO3 VBG O2 Saturation VBG Base Excess Sodium Potassium Chloride Carbon Dioxide Anion Gap BUN Creatinine Estim Creat Clear Calc Estimated GFR POC Glucose Random Glucose Lactic Acid Uric Acid Calcium Ferritin Total Bilirubin Direct Bilirubin AST ALT Alkaline Phosphatase Ammonia Troponin I High Sens 227.0 H C-Reactive Protein B-Natriuretic Peptide Total Protein Albumin Vitamin B12 227 Folate 11.5 Urine Color Urine Appearance Urine pH Ur Specific [place] Urine Protein Urine Glucose (UA) Urine Ketones Urine Blood Urine Nitrite Ur Leukocyte Esterase Urine Opiates Screen Ur Barbiturates Screen Ur Phencyclidine Scrn Ur Amphetamines Screen U Benzodiazepines Scrn Urine Cocaine Screen U Marijuana (THC) Screen COVID-19 (CRISTA) COVID-19 Clin Com 11/20/20 11/20/20 11/20/20 07:29 10:59 12:02 WBC RBC Hgb Hct MCV MCH MCHC RDW Plt Count MPV Immature Gran % (Auto) Neut % (Auto) Lymph % (Auto) [place] % (Auto) Eos % (Auto) Baso % (Auto) Lymph # (Auto) [place] # (Auto) Eos # (Auto) Baso # (Auto) Abs Immat Gran (auto) Absolute Neuts (auto) Absolute Nucleated RBC Nucleated RBC % (auto) Smear Tech's Comments ESR PT INR D-Dimer VBG pH VBG pCO2 VBG pO2 VBG HCO3 VBG O2 Saturation VBG Base Excess Sodium Potassium Chloride Carbon Dioxide Anion Gap BUN Creatinine Estim Creat Clear Calc Estimated GFR POC Glucose 105 112 Random Glucose Lactic Acid Uric Acid Calcium Ferritin Total Bilirubin Direct Bilirubin AST ALT Alkaline Phosphatase Ammonia Troponin I High Sens C-Reactive Protein B-Natriuretic Peptide Total Protein Albumin Vitamin B12 Folate Urine Color Urine Appearance Urine pH Ur Specific [place] Urine Protein Urine Glucose (UA) Urine Ketones Urine Blood Urine Nitrite Ur Leukocyte Esterase Urine Opiates Screen Not Detected Ur Barbiturates Screen Not Detected Ur Phencyclidine Scrn Not Detected Ur Amphetamines Screen Not Detected U Benzodiazepines Scrn Not Detected Urine Cocaine Screen Not Detected U Marijuana (THC) Screen POSITIVE H COVID-19 (CRISTA) COVID-19 Clin Com 11/20/20 16:27 WBC RBC Hgb Hct MCV MCH MCHC RDW Plt Count MPV Immature Gran % (Auto) Neut % (Auto) Lymph % (Auto) [place] % (Auto) Eos % (Auto) Baso % (Auto) Lymph # (Auto) [place] # (Auto) Eos # (Auto) Baso # (Auto) Abs Immat Gran (auto) Absolute Neuts (auto) Absolute Nucleated RBC Nucleated RBC % (auto) Smear Tech's Comments ESR PT INR D-Dimer VBG pH VBG pCO2 VBG pO2 VBG HCO3 VBG O2 Saturation VBG Base Excess Sodium Potassium Chloride Carbon Dioxide Anion Gap BUN Creatinine Estim Creat Clear Calc Estimated GFR POC Glucose 122 H Random Glucose Lactic Acid Uric Acid Calcium Ferritin Total Bilirubin Direct Bilirubin AST ALT Alkaline Phosphatase Ammonia Troponin I High Sens C-Reactive Protein B-Natriuretic Peptide Total Protein Albumin Vitamin B12 Folate Urine Color Urine Appearance Urine pH Ur Specific [place] Urine Protein Urine Glucose (UA) Urine Ketones Urine Blood Urine Nitrite Ur Leukocyte Esterase Urine Opiates Screen Ur Barbiturates Screen Ur Phencyclidine Scrn Ur Amphetamines Screen U Benzodiazepines Scrn Urine Cocaine Screen U Marijuana (THC) Screen COVID-19 (CRISTA) COVID-19 Clin Com Imaging Radiologist's impression: Impressions Chest X-Ray 11/19/20 18:43 IMPRESSION: Enlarged cardiac silhouette with central vascular prominence suggesting mild pulmonary edema in the acute setting. Head CT 11/19/20 18:43 IMPRESSION: No acute intracranial pathology. Severe degenerative changes in the temporomandibular joints. Ankle X-Ray 11/19/20 18:48 IMPRESSION: Diffuse soft tissue swelling about the ankle with chronic appearing changes but no acute fracture or dislocation noted. Chest CT 11/19/20 22:52 IMPRESSION: 1. No acute abnormality of chest. 2. Cardiomegaly. Cardiac pacemaker . Status post mitral valve repair. Pulmonary Perfusion Imaging 11/20/20 09:40 IMPRESSION: Normal perfusion scan. Assessment and Plan (1) Elevated troponin: Status: Acute (2) Supratherapeutic INR: Status: Acute (3) Acute respiratory failure with hypoxia: Status: Acute (4) Acute renal failure superimposed on chronic kidney disease: Qualifiers: Acute renal failure type: with acute tubular necrosis Chronic kidney disease stage: stage 4 (severe) Qualified Code(s): N17.0 - Acute kidney failure with tubular necrosis; N18.4 - Chronic kidney disease, stage 4 (severe) Status: Acute 65-year-old female with background of mechanical mitral valve replacement for rheumatic mitral valve disease, heart failure, atrial fibrillation and diabetes who is presenting with change in mental status. Because of confusion is unclear. Clinically she does not look in heart failure right now. I think she can be taken off the IV diuretics and can not stay on or Lasix. She has been on flecainide and metoprolol for long time. I reviewed her cardiac catheterization at [facility] from 2013 which showed no significant coronary artery disease. She does not have an anion gap on basic metabolic panel. On clinical grounds she is not in low flow state or shock to explain the confusion. She is getting workup for this right now. Her echocardiogram was reviewed which showed normally functioning mechanical mitral valve with normal gradients across the valve. No significant pathology other than moderate to severe tricuspid regurgitation and moderate pulmonary hypertension were noticed. I thi nk these are so related with hypoxia as hypoxic with a construction can lead pulmonary pressures and can potentially worsen the regurgitation on the right side. In any case I think she can stay on her home medications. Her INR target is 2.5-3.5 for the mechanical mitral valve. Ideally she should a lso be on baby aspirin. I am not sure why she is not on baby aspirin and I will let her primary director of event management decide whether aspirin should be resumed. She has a CardioMEMS device and we will see if we can check her PA pressures with our device. This may help understand her filling pressures. Her EKG is showing atrial fibrillation. I think she can continue flecainide and metoprolol for now. We will follow along with you. Thank you for allowing me to participate in the care of your patient. Please feel free to contact me if you have any questions.
[2020-11-20] MEDS: OXcarbazepine 150 MG TABLET 450 MG PO (20:49)
[2020-11-20] MEDS: Flecainide Acetate 50 MG TABLET 150 MG PO (20:50)
[2020-11-20] MEDS: Nystatin Powder 15 GM BOTTLE 1 APPL TOPICAL (20:50)
[2020-11-20] MEDS: Pregabalin 200 MG CAPSULE PO (20:50)
[2020-11-20] MEDS: Metoprolol Tartrate 50 MG TABLET PO (20:50)
[2020-11-20 21:10] LABS: Glucose, Whole Blood 99 mg/dL (60-115)
[2020-11-21] VITALS (8 sets, daily range): BP systolic 140–159; BP diastolic 62–74; PULSE 60–92; RESP 18–20; TEMP 36.3–37.6; O2SAT 93–100; BMI 29.5
[2020-11-21] MEDS: oxyCODONE HCl Immed Release 5 MG TABLET PO (04:45)
[2020-11-21] MEDS: 0.9 % Sodium Chloride Flush 3 ML SYRINGE IVFLUSH ×3 (05:32→16:56)
[2020-11-21 06:26] LABS: Hematocrit 31.8 % (37-47); Hemoglobin 9.4 g/dl (12.0-16.0); Mean Corpuscular HGB Conc 29.6 g/dl (31.0-35.0); Mean Corpuscular Hemoglobin 24.7 pg (27.0-33.0); Mean Corpuscular Volume 83.7 fL (80-98); Mean Platelet Volume 10.7 fL (9.4-12.3); Platelet Count 251 X10*3/uL (160-400); Red Cell Distribution Width 16.6 % (11.0-16.0)
[2020-11-21 06:28] LABS: INTERNATIONAL NORM RATIO 4.4 (0.9-1.1); Prothrombin Time 53.1 SEC (10.8-13.0)
[2020-11-21 06:50] LABS: Anion Gap 16 (12-20); Blood Urea Nitrogen 23 mg/dL (9-16); Calcium 9.4 mg/dL (8.4-10.2); Carbon Dioxide 29 mmol/L (22-29); Chloride 101 mmol/L (96-108); Creatinine Clr Calc Pharmacy 41.5; Estimated Glomerular Filt Rate 32; Glucose Random 108 mg/dL (60-115); Potassium 3.5 mmol/L (3.3-5.1); Sodium 142 mmol/L (135-145)
[2020-11-21 08:06] LABS: Glucose, Whole Blood 122 mg/dL (60-115)
[2020-11-21] MEDS: Flecainide Acetate 50 MG TABLET 150 MG PO ×2 (10:35→21:27)
[2020-11-21] MEDS: Levothyroxine Sodium 112 MCG TABLET PO (10:35)
[2020-11-21] MEDS: Atorvastatin Calcium 10 MG TABLET PO (10:35)
[2020-11-21] MEDS: OXcarbazepine 150 MG TABLET 450 MG PO ×2 (10:35→21:27)
[2020-11-21] MEDS: Metoprolol Tartrate 50 MG TABLET PO ×2 (10:36→21:27)
[2020-11-21] MEDS: Pregabalin 200 MG CAPSULE PO ×2 (10:36→21:27)
[2020-11-21] MEDS: predniSONE 20 MG TABLET 40 MG PO (10:36)
[2020-11-21] MEDS: Nystatin Powder 15 GM BOTTLE 1 APPL TOPICAL ×2 (10:57→21:37)
[2020-11-21 11:10] LABS: Glucose, Whole Blood 119 mg/dL (60-115)
--- NOTE | 2020-11-21 11:23 | P.PNCA_ITS ---
Subjective Subjective Date of Service: 11/21/20 Principal diagnosis: altered mental status, hypoxia, elevated trop Interval history: Cardiology follow up for Secondary NSTEMI, hx mechanical MVR, hx PAF. Seen at 0845. Today she is observed sitting on edge of bed. Answers questions seemingly appropriate with brief response. Upset and tearful but not explaining why. Looking at breakfast but not eating it. Denies chest pain, sob, palpitation, dizziness. Has swelling right lower leg, foot which she indicates to me is not new. Seems to move extremities appropriately. Review of Systems Review of Systems as above Yes all other systems are reviewed and are negative Physical Exam Vital Signs: Last Vital Signs Temp 99.7 F 11/21/20 07:31 Pulse 80 11/21/20 10:36 Resp 18 11/21/20 07:31 BP 150/62 H 11/21/20 10:36 Pulse Ox 96 11/21/20 07:31 Body Mass Index 29.5 Const Other: answers questions with brief responses, affect is not normal. General: cooperative, no acute distress, alert and awake Neck Neck: Yes normal visual inspection and Yes no JVD Resp Effort & Inspection: normal respiratory effort and not labored Auscultation: clear to auscultation bilaterally, no crackles, no rales, no rhonchi and no wheezes Cardio Palpation: normal PMI Rate: regular rate Rhythm: regular rhythm Heart sounds: S1 normal heart sound present and S2 normal heart sound present Peripheral pulses: Peripheral pulses 2+ throughout GI Inspection: Yes normal to inspection Extrem Other: swelling right lower leg, ankle Results Labs and Meds Result diagrams: 11/21/20 05:45 11/21/20 05:45 Lab results: Laboratory Results - last 24 hr 11/20/20 11/20/20 11/20/20 12:02 16:27 21:06 WBC RBC Hgb Hct MCV MCH MCHC RDW Plt Count MPV Absolute Nucleated RBC Nucleated RBC % (auto) PT INR Sodium Potassium Chloride Carbon Dioxide Anion Gap BUN Creatinine Estim Creat Clear Calc Estimated GFR POC Glucose 122 H 99 Random Glucose Calcium Urine Opiates Screen Not Detected Ur Barbiturates Screen Not Detected Ur Phencyclidine Scrn Not Detected Ur Amphetamines Screen Not Detected U Benzodiazepines Scrn Not Detected Urine Cocaine Screen Not Detected U Marijuana (THC) Screen POSITIVE H 11/21/20 11/21/20 11/21/20 05:45 05:45 05:45 WBC 17.0 H RBC 3.80 L Hgb 9.4 L Hct 31.8 L MCV 83.7 MCH 24.7 L MCHC 29.6 L RDW 16.6 H Plt Count 251 MPV 10.7 Absolute Nucleated RBC 0.000 Nucleated RBC % (auto) 0.0 PT 53.1 H INR 4.4 H Sodium 142 Potassium 3.5 Chloride 101 Carbon Dioxide 29 Anion Gap 16 BUN 23 H Creatinine 1.60 H Estim Creat Clear Calc 41.5 Estimated GFR 32 POC Glucose Random Glucose 108 Calcium 9.4 Urine Opiates Screen Ur Barbiturates Screen Ur Phencyclidine Scrn Ur Amphetamines Screen U Benzodiazepines Scrn Urine Cocaine Screen U Marijuana (THC) Screen 11/21/20 11/21/20 07:30 11:06 WBC RBC Hgb Hct MCV MCH MCHC RDW Plt Count MPV Absolute Nucleated RBC Nucleated RBC % (auto) PT INR Sodium Potassium Chloride Carbon Dioxide Anion Gap BUN Creatinine Estim Creat Clear Calc Estimated GFR POC Glucose 122 H 119 H Random Glucose Calcium Urine Opiates Screen Ur Barbiturates Screen Ur Phencyclidine Scrn Ur Amphetamines Screen U Benzodiazepines Scrn Urine Cocaine Screen U Marijuana (THC) Screen Progress Note: A&P Assessment and plan (1) Elevated troponin: Status: Acute Assessment and Plan: Troponin elevated this admit, up to 227 on last check. EKG with lateral ST abnormality. No indication or reports of CP. No acute HF. Echo shows EF 55-60^, mod , mod to severe TR, normally functioning mechanical MVR, mod pulm HTN. Cardiac cath from 2013 showed no significant CAD. Troponin elevation is secon socorro type event in setting of hypoxia, acute on chronic kidney ds. She is anticoagulated with Coumadin. Continue Metoprolol and Atorvastatin. Ongoing medical mgt of underlying conditions. Sat 96% on 2liters. Cr down to 1.6 today. (2) Acute respiratory failure with hypoxia: Status: Acute Assessment and Plan: She has moderate pulm HTN which likely contributes. No PE. CXR with no acute fin dings. Not on acute HF. Would confirm then resume usual home diuretics which seem to be Spironalactone and Torsemide. Has a cardiomems device which is followed by her cardiology office ( [facility]). (3) CHF exacerbation: Status: Acute Assessment and Plan: Hypoxic this admit but no clear evidence of acute CHF. (4) Metabolic encephalopathy: Status: Acute Assessment and Plan: managed by hospitalist - Due to her altered mental status , Recommend MRI of brain for further evaluation. (5) Non-ST elevated myocardial infarction (non-STEMI): Status: Acute Assessment and Plan: as above (6) Paroxysmal atrial fibrillation: Status: Acute Assessment and Plan: Hx of PAF. Currently suppressed with Metoprolol and Flecanide. On Coumadin for anticoagulation, INR goal 2.5-3.5. INR today 4.4. Coumadin being adjusted by hospitalist. No signs of bleeding. (7) Hx of mitral valve replacement with mechanical valve: Status: Acute Assessment and Plan: Functioning normally on echo. On Coumadin, INR goal 2.5- 3.5. 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 (8) Mitral valve stenosis, rheumatic: Status: Acute Fall Risk Details Current Medications: Current Medications Generic Name Dose Route Start Last Admin Trade Name Freq PRN Reason Stop Dose Admin Acetaminophen 650 mg 11/20/20 03:31 Acetaminophen 325 Mg Tablet PO Q6H PRN Pain, Mild (Pain Scale 1-3) Atorvastatin Calcium 10 mg 11/21/20 09:00 11/21/20 10:35 Atorvastatin Calcium 10 Mg Tablet PO 10 mg DAILY ANNE-MARIE Administration Docusate Sodium 100 mg 11/20/20 03:31 Docusate Sodium 100 Mg Capsule PO DAILY PRN Constipation Flecainide Acetate 150 mg 11/20/20 21:00 11/21/20 10:35 Flecainide Acetate 50 Mg Tablet PO 150 mg BID ANNE-MARIE Administration Insulin Human Lispro 0 unit 11/20/20 07:30 11/21/20 11:21 Insulin Lispro 100 Unit/Ml 3 Ml Vial SUBCUT Not Given QIDACHS ANNE-MARIE Protocol Levothyroxine Sodium 112 mcg 11/21/20 09:00 11/21/20 10:35 Levothyroxine Sodium 112 Mcg Tablet PO 112 mcg DAILY ANNE-MARIE Administration Metoprolol Tartrate 50 mg 11/20/20 21:00 11/21/20 10:36 Metoprolol Tartrate 50 Mg Tablet PO 50 mg BID ANNE-MARIE Administration Protocol Nystatin 1 appl 11/20/20 21:00 11/21/20 10:57 Nystatin Powder 15 Gm Bottle TOPICAL 1 appl BID ANNE-MARIE Administration Protocol Ondansetron HCl 4 mg 11/20/20 03:31 Ondansetron Hcl 4 Mg/2 Ml Vial IVPUSH Q8H PRN Nausea and Vomiting Oxcarbazepine 450 mg 11/20/20 21:00 11/21/20 10:35 Oxcarbazepine 150 Mg Tablet PO 450 mg BID ANNE-MARIE Administration Oxycodone HCl 5 mg 11/20/20 03:31 11/21/20 04:45 Oxycodone Hcl Immed Release 5 Mg Tablet PO 5 mg Q6H PRN Administration Pain, Severe (Pain Scale 7-10) Pharmacy Consult 1 each 11/20/20 15:24 Consult Rx Perform Med Rec MISCELLANE ONCE PRN Consult order Prednisone 40 mg 11/20/20 09:00 11/21/20 10:36 Prednisone 20 Mg Tablet PO 40 mg DAILY ANNE-MARIE Administration Pregabalin 200 mg 11/20/20 21:00 11/21/20 10:36 Pregabalin 200 Mg Capsule PO 200 mg BID ANNE-MARIE Administration Sodium Chloride 3 ml 11/20/20 03:31 11/21/20 10:38 0.9 % Sodium Chloride Flush 3 Ml Syringe IVFLUSH 3 ml QSHIFT ANNE-MARIE Administration Warfarin Sodium 2 mg 11/20/20 18:00 11/20/20 18:28 Warfarin Sodium 2 Mg Tablet PO 2 mg DAILY@1800 ANNE-MARIE Administration Time Spent With Patient Time: Total time spent is greater than 50% in coordination of care (as documented) at patient's floor/unit and/or counseling patient: 20 Time with patient: 15 - 24 minutes
--- NOTE | 2020-11-21 14:35 | HO.PM.IMPN ---
Subjective Subjective Date of Service: 11/21/20 Interval History: the patient was seen and evaluated this morning Laying in bed, feels comfortable with no complaints but totally confused Denies any fever, chills or shortness of breath No reported other overnight events. Systemic review: No fever, chills or weakness No chest pain, palpitation by noticed some edema No shortness of breath or coughing No abdominal pain, nausea or vomiting No urinary symptoms No any rash or wounds Physical Exam Vital Signs: Vital Signs: Last Vital Signs Temp 98.8 F 11/21/20 11:34 Pulse 60 11/21/20 11:34 Resp 19 11/21/20 11:34 BP 144/68 H 11/21/20 11:34 Pulse Ox 100 11/21/20 11:34 Body Mass Index 29.5 Const: Other: Constitutional : Alert, disoriented, not in distress Neck : Normal inspection, Supple Cardiovascular : RRR, S1 S2, trace bilateral lower extremity edema Respiratory : Good bilateral air entry, bilateral basal on crackles, wheezes or rhonchi Gastrointestinal: soft, lax, Normal bowel sounds, Non tender Skin : Warm/Dry, No rash Neurological : Alert & disoriented, No focal deficit Objective Data Current Medications Generic Name Dose Route Start Last Admin Trade Name Freq PRN Reason Stop Dose Admin Acetaminophen 650 mg 11/20/20 03:31 Acetaminophen 325 Mg Tablet PO Q6H PRN Pain, Mild (Pain Scale 1-3) Atorvastatin Calcium 10 mg 11/21/20 09:00 11/21/20 10:35 Atorvastatin Calcium 10 Mg Tablet PO 10 mg DAILY ANNE-MARIE Administration Docusate Sodium 100 mg 11/20/20 03:31 Docusate Sodium 100 Mg Capsule PO DAILY PRN Constipation Flecainide Acetate 150 mg 11/20/20 21:00 11/21/20 10:35 Flecainide Acetate 50 Mg Tablet PO 150 mg BID ANNE-MARIE Administration Insulin Human Lispro 0 unit 11/20/20 07:30 11/21/20 11:21 Insulin Lispro 100 Unit/Ml 3 Ml Vial SUBCUT Not Given QIDACHS [facility]END[facility] Protocol Levothyroxine Sodium 112 mcg 11/21/20 09:00 11/21/20 10:35 Levothyroxine Sodium 112 Mcg Tablet PO 112 mcg DAILY ANNE-MARIE Administration Metoprolol Tartrate 50 mg 11/20/20 21:00 11/21/20 10:36 Metoprolol Tartrate 50 Mg Tablet PO 50 mg BID [facility] Administration Protocol Nystatin 1 appl 11/20/20 21:00 11/21/20 10:57 Nystatin Powder 15 Gm Bottle TOPICAL 1 appl BID [facility] Administration Protocol Ondansetron HCl 4 mg 11/20/20 03:31 Ondansetron Hcl 4 Mg/2 Ml Vial IVPUSH Q8H PRN Nausea and Vomiting Oxcarbazepine 450 mg 11/20/20 21:00 11/21/20 10:35 Oxcarbazepine 150 Mg Tablet PO 450 mg BID ANNE-MARIE Administration Oxycodone HCl 5 mg 11/20/20 03:31 11/21/20 04:45 Oxycodone Hcl Immed Release 5 Mg Tablet PO 5 mg Q6H PRN Administration Pain, Severe (Pain Scale 7-10) Pharmacy Consult 1 each 11/20/20 15:24 Consult Rx Perform Med Rec MISCELLANE ONCE PRN Consult order Prednisone 40 mg 11/20/20 09:00 11/21/20 10:36 Prednisone 20 Mg Tablet PO 40 mg DAILY ANNE-MARIE Administration Pregabalin 200 mg 11/20/20 21:00 11/21/20 10:36 Pregabalin 200 Mg Capsule PO 200 mg BID ANNE-MARIE Administration Sodium Chloride 3 ml 11/20/20 03:31 11/21/20 10:38 0.9 % Sodium Chloride Flush 3 Ml Syringe IVFLUSH 3 ml QSHIFT [facility] Administration Warfarin Sodium 2 mg 11/20/20 18:00 11/20/20 18:28 Warfarin Sodium 2 Mg Tablet PO 2 mg DAILY@1800 [facility] Administration Labs CBC & Chem 7: 11/21/20 05:45 11/21/20 05:45 Microbiology Microbiology Results: Microbiology 11/19/20 19:35 Blood - Venous Blood Culture - Preliminary No growth after 24 hours. 11/19/20 19:30 Blood - Venous Blood Culture - Preliminary No growth after 24 hours. Assessment and Plan (1) Metabolic encephalopathy: Status: Acute (2) Acute respiratory failure with hypoxia: Status: Acute (3) Acute renal failure superimposed on chronic kidney disease: Status: Acute (4) Gouty arthritis: Status: Acute (5) Cellulitis: Status: Acute (6) CHF exacerbation: Status: Acute (7) Supratherapeutic INR: Status: Acute (8) Elevated troponin: Status: Acute Assessment and Plan: This is a 65-year-old female with past medical history of AFib, heart failure, diabetes, HTN, HLD, hypothyroidism who presents to the hospital with confusion. Acute Toxic/Metabolic Encephalopathy Unclear etiology up to this point CT scan negative Pending MRI study to evaluate the brain To do EEG Pending neurology evaluation Recurrent reorientation Acute Kidney Injury SCr improved R Ankle pain gout flare on prednisone no evidence of infection Acute Respiratory Failure with Hypoxia Resolved Acute CHF exacerbation mixed systolic and diastolic last echo in December 2019 with EF of 35-40% Continue spironolactone and torsemide cardiology input appreciated, high troponin not due to heart attack, continue home medications KEVIN on CPAP at night PAF/Mechanical Mitral Valve on coumadin, INR 4.4 Hold coumadin today and start lower dose afterward Continue flecanide of DM Diabetic diet sliding scale DVT pptx, Coumadin
--- NOTE | 2020-11-21 15:36 | P.CNNE_ITS ---
History of Present Illness Data of Consult Service Date: 11/21/20 Primary Care Provider: Unknown Physician 65 years old woman with recent hypoxic episode I was asked to see for possible seizure disorder. She was brought in hospital after an episode at [place] hypotensive episode resulting in possible hypoxic injury. There was no witnessing of any convulsion. She was not able to provide any history. Review of Systems Review of Systems: Unable to get answers for this exam. [facility] Past Medical History Medical History Acquired hypothyroidism Chronic low back pain CKD stage 3 secondary to diabetes Dyslipidemia Essential hypertension Fibromyalgia H/O cardiac pacemaker Mitral valve stenosis, rheumatic NYHA class 1 heart failure with preserved ejection fraction KEVIN on CPAP Osteoarthritis Paroxysmal atrial fibrillation Postmenopausal Psoriasis Rhinitis Sinusitis Type 2 diabetes mellitus with other diabetic kidney complication Family History Family History Father HTN (hypertension) CKD (chronic kidney disease) Mother HTN (hypertension) Son No problems noted. Son No problems noted. Son No problems noted. Surgical History Surgical History H/O mitral valve replacement Hx of mitral valve replacement with mechanical valve Social History Social History Household Members: Family Housing: House Do you presently have visiting nurse or other home services: Yes Alcohol intake: never Smoking Status: Former smoker Tobacco Type: Cigarette Smoked in Last 30 Days: Yes Patient Interested in Nicotine Replacement: No Second Hand Smoke Exposure: No Use of substances other than those prescribed or required for medical reasons: No Currently Displaying Signs/Symptoms of Drug Intoxication Withdrawal: No Have you been hit, kicked, punched, or otherwise hurt by someone within the past year? If so, by whom?: No Do you feel safe in your current relationship?: Yes Is there a partner from a previous relationship who is making you feel unsafe now?: No Are you made to feel afraid or neglected: No Advance Directives: No Advance Directives Information Provided: Yes Do you have thoughts of harming others: None Do you have a plan to hurt others: No Plan Recently lost weight without trying: No service: No Current occupational status: unemployed Meds Allergies Allergy/AdvReac Type Severity Reaction Status Date / Time adalimumab [From HUMIRA] Allergy Unknown PCP Verified 11/19/20 18:35 PNEUMONIA azathioprine [Imuran] Allergy Unknown PNA Verified 11/19/20 18:35 Cephalosporins Allergy Unknown KIDNEY Verified 11/19/20 18:35 [CEPHALOSPORINS] FAILURE cyclosporine [CYCLOSPORINE] Allergy Unknown KIDNEY Verified 11/19/20 18:35 FAILURE etanercept [From Enbrel] Allergy Unknown PCP Verified 11/19/20 18:35 PNEUMONIA simvastatin Allergy Unknown athralgias Verified 11/19/20 18:35 amoxicillin [From AUGMENTIN] AdvReac Unknown PROJECTILE Verified 11/19/20 18:35 VOMITTING clavulanic acid AdvReac Unknown PROJECTILE Verified 11/19/20 18:35 [From AUGMENTIN] VOMITTING Active Medications: Current Medications Generic Name Dose Route Start Last Admin Trade Name Freq PRN Reason Stop Dose Admin Acetaminophen 650 mg 11/20/20 03:31 Acetaminophen 325 Mg Tablet PO Q6H PRN Pain, Mild (Pain Scale 1-3) Atorvastatin Calcium 10 mg 11/21/20 09:00 11/21/20 10:35 Atorvastatin Calcium 10 Mg Tablet PO 10 mg DAILY ANNE-MARIE Administration Docusate Sodium 100 mg 11/20/20 03:31 Docusate Sodium 100 Mg Capsule PO DAILY PRN Constipation Flecainide Acetate 150 mg 11/20/20 21:00 11/21/20 10:35 Flecainide Acetate 50 Mg Tablet PO 150 mg BID ANNE-MARIE Administration Insulin Human Lispro 0 unit 11/20/20 07:30 11/21/20 11:21 Insulin Lispro 100 Unit/Ml 3 Ml Vial SUBCUT Not Given QIDACHS [facility] Protocol Levothyroxine Sodium 112 mcg 11/21/20 09:00 11/21/20 10:35 Levothyroxine Sodium 112 Mcg Tablet PO 112 mcg DAILY ANNE-MARIE Administration Metoprolol Tartrate 50 mg 11/20/20 21:00 11/21/20 10:36 Metoprolol Tartrate 50 Mg Tablet PO 50 mg BID ANNE-MARIE Administration Protocol Nystatin 1 appl 11/20/20 21:00 11/21/20 10:57 Nystatin Powder 15 Gm Bottle TOPICAL 1 appl BID ANNE-MARIE Administration Protocol Ondansetron HCl 4 mg 11/20/20 03:31 Ondansetron Hcl 4 Mg/2 Ml Vial IVPUSH Q8H PRN Nausea and Vomiting Oxcarbazepine 450 mg 11/20/20 21:00 11/21/20 10:35 Oxcarbazepine 150 Mg Tablet PO 450 mg BID ANNE-MARIE Administration Oxycodone HCl 5 mg 11/20/20 03:31 11/21/20 04:45 Oxycodone Hcl Immed Release 5 Mg Tablet PO 5 mg Q6H PRN Administration Pain, Severe (Pain Scale 7-10) Pharmacy Consult 1 each 11/20/20 15:24 Consult Rx Perform Med Rec MISCELLANE ONCE PRN Consult order Prednisone 40 mg 11/20/20 09:00 11/21/20 10:36 Prednisone 20 Mg Tablet PO 40 mg DAILY ANNE-MARIE Administration Pregabalin 200 mg 11/20/20 21:00 11/21/20 10:36 Pregabalin 200 Mg Capsule PO 200 mg BID ANNE-MARIE Administration Sodium Chloride 3 ml 11/20/20 03:31 11/21/20 10:38 0.9 % Sodium Chloride Flush 3 Ml Syringe IVFLUSH 3 ml QSHIFT ANNE-MARIE Administration Warfarin Sodium 2 mg 11/20/20 18:00 11/20/20 18:28 Warfarin Sodium 2 Mg Tablet PO 2 mg DAILY@1800 ANNE-MARIE Administration Home Medications Medication Instructions Recorded Confirmed Last Taken Type atorvastatin 10 mg tablet 10 mg PO DAILY 06/20/20 11/20/20 Unknown History calcipotriene 0.005 % topical 1 applic TOPICAL BID 06/20/20 11/20/20 Unknown History ointment flecainide 100 mg tablet 150 mg PO Q12H 06/20/20 11/20/20 Unknown History levothyroxine 112 mcg tablet 112 mcg PO DAILY 06/20/20 11/20/20 Unknown History metformin 500 mg tablet 500 mg PO BID 06/20/20 11/20/20 Unknown History metoprolol tartrate 50 mg tablet 50 mg PO BID 06/20/20 11/20/20 Unknown History pregabalin 200 mg capsule 200 mg PO BID cap 06/20/20 11/20/20 Unknown History secukinumab 150 mg/mL subcutaneous 300 mg SUBCUT Q30D 06/20/20 11/20/20 Unknown History pen injector spironolactone 100 mg tablet 100 mg PO DAILY 06/20/20 11/20/20 Unknown History torsemide 20 mg tablet 120 mg PO BID 10/24/20 11/20/20 Unknown History oxcarbazepine 450 mg PO BID 11/20/20 11/20/20 Unknown History warfarin 5 mg PO MOTUWE 11/20/20 11/20/20 Unknown History warfarin 5 mg PO SUTHFRSA 11/20/20 11/20/20 Unknown History Physical Exam Vital Signs: Vital Signs: Last Vital Signs Temp 97.3 F 11/21/20 15:05 Pulse 63 11/21/20 15:05 Resp 20 11/21/20 15:05 BP 140/68 H 11/21/20 15:05 Pulse Ox 95 11/21/20 15:05 Body Mass Index 29.5 Somewhat drowsy but able to open eyes make an eye contact. In answer to every question she seemed to state same 2 words ?I know?. She was not following commands. There was no obvious gaze deviation or visual field difficulty. Face was symmetrical. There was no obvious twitches. She was spontaneously moving all 4 extremities. She was significantly obese. Deep tendon reflexes were absent with withdrawing plantars. Results Labs CBC & Chem 7: 11/21/20 05:45 11/21/20 05:45 Labs: Short CBC 11/21/20 Range/Units 05:45 WBC 17.0 H (4.8-10.8) X10*3/uL Hgb 9.4 L (12.0-16.0) g/dl Hct 31.8 L (37-47) % Plt Count 251 (160-400) X10*3/uL BMP 11/21/20 05:45 Sodium 142 Potassium 3.5 Chloride 101 Carbon Dioxide 29 BUN 23 H Creatinine 1.60 H Calcium 9.[address] did not reveal any obvious focal lesion. Chest x-ray revealed a pacemaker and enlarged cardiac signal. Microbiology Microbiology Results: Microbiology 11/19/20 19:35 Blood - Venous Blood Culture - Preliminary No growth after 24 hours. 11/19/20 19:30 Blood - Venous Blood Culture - Preliminary No growth after 24 hours. Assessment and Plan (1) Encephalopathy: Status: Acute 65 years old woman with a recent episode suggestive of hypoxic event has clinical features suggestive of encephalopathy. There is also an element of aphasia, which could be part of encephalopathy or she might have a focal etiology. Unfortunately she could not get an MRI because of pacemaker. My recommendation is to obtain an electroencephalogram to rule out partial status epilepticus.
[2020-11-21 16:04] LABS: Glucose, Whole Blood 141 mg/dL (60-115)
[2020-11-21] MEDS: Acetaminophen 325 MG TABLET 650 MG PO (16:55)
[2020-11-21 19:50] LABS: Glucose, Whole Blood 178 mg/dL (60-115)
[2020-11-21] MEDS: Torsemide 20 MG TABLET 60 MG PO (21:27)
[2020-11-21] MEDS: Insulin Lispro 100 UNIT/ML 3 ML VIAL SUBCUT (21:27)
--- NOTE | 2020-11-22 | EEG_ITS ---
This is a 16-channel EEG with an EKG lead. The patient is reported awake during the tracing. Background EEG rhythm is normal looking except question of left hemispheric sharp waves. Photic stimulation did not produce any significant driving and hyperventilation was not performed. Cardiac lead did not reveal any significant abnormality. IMPRESSION: Mildly abnormal EEG suggestive of left hemispheric irritability. MD MICHELLE Otero/ADILSON / [id number]
[2020-11-22] MEDS: 0.9 % Sodium Chloride Flush 3 ML SYRINGE IVFLUSH ×3 (02:24→17:01)
[2020-11-22 03:23] VITALS: BP 159/75; PULSE 64; RESP 18; TEMP 36.7; O2SAT 95
[2020-11-22] MEDS: oxyCODONE HCl Immed Release 5 MG TABLET PO (05:53)
[2020-11-22 06:00] VITALS: BMI 29.5
[2020-11-22 06:21] LABS: Hematocrit 30.8 % (37-47); Hemoglobin 9.4 g/dl (12.0-16.0); Mean Corpuscular HGB Conc 30.5 g/dl (31.0-35.0); Mean Corpuscular Hemoglobin 25.5 pg (27.0-33.0); Mean Corpuscular Volume 83.5 fL (80-98); Mean Platelet Volume 10.7 fL (9.4-12.3); Platelet Count 277 X10*3/uL (160-400); Red Blood Count 3.69 X10*6/uL (4.20-5.50); Red Cell Distribution Width 16.6 % (11.0-16.0)
[2020-11-22 06:42] LABS: Prothrombin Time 81.7 SEC (10.8-13.0)
[2020-11-22 06:52] LABS: Alanine Aminotransferase 13 U/L (0-31); Albumin Level 3.8 g/dL (3.5-5.0); Alkaline Phosphatase 132 U/L (39-117); Anion Gap 14 (12-20); Aspartate Amino Transferase 16 U/L (5-31); Bilirubin Direct 0.6 mg/dL (0.0-0.5); Bilirubin Total 0.8 mg/dL (0.0-1.0); Blood Urea Nitrogen 28 mg/dL (9-16); Calcium 9.4 mg/dL (8.4-10.2); Carbon Dioxide 34 mmol/L (22-29); Chloride 98 mmol/L (96-108); Creatinine Clr Calc Pharmacy 43.9; Estimated Glomerular Filt Rate 34; Glucose Random 101 mg/dL (60-115); Potassium 3.9 mmol/L (3.3-5.1); Sodium 142 mmol/L (135-145)
[2020-11-22 07:20] LABS: INTERNATIONAL NORM RATIO 6.7 (0.9-1.1)
[2020-11-22 07:59] VITALS: BP 136/62; PULSE 70; RESP 18; TEMP 36.7; O2SAT 99
[2020-11-22 08:35] LABS: Glucose, Whole Blood 91 mg/dL (60-115)
[2020-11-22] MEDS: Pregabalin 200 MG CAPSULE PO ×2 (08:59→21:31)
[2020-11-22] MEDS: Spironolactone 25 MG TABLET 100 MG PO (09:00)
[2020-11-22] MEDS: Flecainide Acetate 50 MG TABLET 150 MG PO ×2 (09:00→21:31)
[2020-11-22] MEDS: OXcarbazepine 150 MG TABLET 450 MG PO ×2 (09:00→21:30)
[2020-11-22] MEDS: Atorvastatin Calcium 10 MG TABLET PO (09:02)
[2020-11-22] MEDS: Torsemide 20 MG TABLET 60 MG PO (09:02)
[2020-11-22] MEDS: Nystatin Powder 15 GM BOTTLE 1 APPL TOPICAL ×2 (09:03→21:51)
[2020-11-22] MEDS: Metoprolol Tartrate 50 MG TABLET PO ×2 (09:03→21:31)
[2020-11-22] MEDS: Levothyroxine Sodium 112 MCG TABLET PO (09:03)
[2020-11-22 09:34] LABS: Lactate Dehydrogenase 292 U/L (122-220)
[2020-11-22] MEDS: Acetaminophen 325 MG TABLET 650 MG PO ×2 (09:36→23:54)
[2020-11-22 09:48] LABS: C Reactive Protein 34.33 mg/dL (< or = 0.50)
[2020-11-22 09:58] LABS: Erythrocyte Sedimentation Rate 92 MM/HR (0-20)
[2020-11-22 12:00] VITALS: BP 130/95; PULSE 62; RESP 18; TEMP 35.6; O2SAT 95
[2020-11-22 12:11] LABS: Glucose, Whole Blood 86 mg/dL (60-115)
--- NOTE | 2020-11-22 13:47 | HO.PM.IMPN ---
Subjective Subjective Date of Service: 11/22/20 Interval History: the patient was seen and evaluated this morning Laying in bed, feels comfortable with significant improvement as she is back to her baseline mentation Denies any fever, chills or shortness of breath No reported other overnight events. Systemic review: No fever, chills or weakness No chest pain, palpitation by noticed some edema No shortness of breath or coughing No abdominal pain, nausea or vomiting No urinary symptoms No any rash or wounds Physical Exam Vital Signs: Vital Signs: Last Vital Signs Temp 96.1 F L 11/22/20 12:00 Pulse 62 11/22/20 12:00 Resp 18 11/22/20 12:00 BP 130/95 H 11/22/20 12:00 Pulse Ox 95 11/22/20 12:00 Body Mass Index 29.5 Const: Other: Constitutional : Alert, oriented, not in distress Neck : Normal inspection, Supple Cardiovascular : RRR, S1 S2, +1 bilateral lower extremity edema Respiratory : Good bilateral air entry, bilateral basal on crackles, wheezes or rhonchi Gastrointestinal: soft, lax, Normal bowel sounds, Non tender Skin : Warm/Dry, No rash Neurological : Alert & oriented, No focal deficit Objective Data Current Medications Generic Name Dose Route Start Last Admin Trade Name Freq PRN Reason Stop Dose Admin Acetaminophen 650 mg 11/20/20 03:31 11/22/20 09:36 Acetaminophen 325 Mg Tablet PO 650 mg Q6H PRN Administration Pain, Mild (Pain Scale 1-3) Atorvastatin Calcium 10 mg 11/21/20 09:00 11/22/20 09:02 Atorvastatin Calcium 10 Mg Tablet PO 10 mg DAILY ANNE-MARIE Administration Docusate Sodium 100 mg 11/20/20 03:31 Docusate Sodium 100 Mg Capsule PO DAILY PRN Constipation Flecainide Acetate 150 mg 11/20/20 21:00 11/22/20 09:00 Flecainide Acetate 50 Mg Tablet PO 150 mg BID ANNE-MARIE Administration Ibuprofen 400 mg 11/22/20 10:46 Ibuprofen 400 Mg Tablet PO Q6H PRN Pain, Moderate (Pain Scale 4-6 Insulin Human Lispro 0 unit 11/20/20 07:30 11/22/20 12:14 Insulin Lispro 100 Unit/Ml 3 Ml Vial SUBCUT Not Given QIDACHS [facility] Protocol Levothyroxine Sodium 112 mcg 11/21/20 09:00 11/22/20 09:03 Levothyroxine Sodium 112 Mcg Tablet PO 112 mcg DAILY [facility] Administration Metoprolol Tartrate 50 mg 11/20/20 21:00 11/22/20 09:03 Metoprolol Tartrate 50 Mg Tablet PO 50 mg BID [facility] Administration Protocol Nystatin 1 appl 11/20/20 21:00 11/22/20 09:03 Nystatin Powder 15 Gm Bottle TOPICAL 1 appl BID [facility] Administration Protocol Ondansetron HCl 4 mg 11/20/20 03:31 Ondansetron Hcl 4 Mg/2 Ml Vial IVPUSH Q8H PRN Nausea and Vomiting Oxcarbazepine 450 mg 11/20/20 21:00 11/22/20 09:00 Oxcarbazepine 150 Mg Tablet PO 450 mg BID [facility] Administration Oxycodone HCl 5 mg 11/20/20 03:31 11/22/20 05:53 Oxycodone Hcl Immed Release 5 Mg Tablet PO 5 mg Q6H PRN Administration Pain, Severe (Pain Scale 7-10) Pharmacy Consult 1 each 11/20/20 15:24 Consult Rx Perform Med Rec MISCELLANE ONCE PRN Consult order Pregabalin 200 mg 11/20/20 21:00 11/22/20 08:59 Pregabalin 200 Mg Capsule PO 200 mg BID [facility] Administration Sodium Chloride 3 ml 11/20/20 03:31 11/22/20 08:01 0.9 % Sodium Chloride Flush 3 Ml Syringe IVFLUSH 3 ml QSHIFT [facility] Administration Spironolactone 100 mg 11/22/20 09:00 11/22/20 09:00 Spironolactone 25 Mg Tablet PO 100 mg DAILY [facility] Administration Protocol Torsemide 120 mg 11/22/20 21:00 Torsemide 20 Mg Tablet PO BID [facility] Protocol Labs CBC & Chem 7: 11/22/20 05:51 11/22/20 05:51 Microbiology Microbiology Results: Microbiology 11/19/20 19:35 Blood - Venous Blood Culture - Preliminary No growth after 48 hours. 11/19/20 19:30 Blood - Venous Blood Culture - Preliminary No growth after 48 hours. Assessment and Plan (1) Metabolic encephalopathy: Status: Acute (2) Acute respiratory failure with hypoxia: Status: Acute (3) Acute renal failure superimposed on chronic kidney disease: Status: Acute (4) Gouty arthritis: Status: Acute (5) Cellulitis: Status: Acute (6) CHF exacerbation: Status: Acute (7) Supratherapeutic INR: Status: Acute (8) Elevated troponin: Status: Acute Assessment and Plan: This is a 65-year-old female with past medical history of AFib, heart failure, diabetes, HTN, HLD, hypothyroidism who presents to the hospital with confusion. Acute Toxic/Metabolic Encephalopathy DD X, seizures, concussion, stroke CT scan negative Pending MRI brain, to get more info about her pacemaker Pending EEG Appreciate neurology evaluation Acute CHF exacerbation mixed systolic and diastolic Improving last echo in December 2019 with EF of 35-40% Continue spironolactone and torsemide home does cardiology input appreciated, high troponin not due to heart attack, continue home medications Supratherapeutic INR PAF/Mechanical Mitral Valve on coumadin, INR 6.7 Hold coumadin today and start lower dose afterward Continue flecanide Acute Kidney Injury SCr improved R Ankle pain gout flare on prednisone, discontinued no evidence of infection Acute Respiratory Failure with Hypoxia Resolved KEVIN on CPAP at night DM Diabetic diet sliding scale DVT pptx, Coumadin
--- NOTE | 2020-11-22 14:17 | PC.NURSE ---
[facility] faxed over paperwork on patient for MD review prior to MRI. Filed in pt chart
--- NOTE | 2020-11-22 14:46 | PC.NURSE ---
hutchinson catheter removed at 1440, no issues, tubing intact. pt advised to ask for help to void
[2020-11-22 15:45] VITALS: BP 116/64; PULSE 68; RESP 20; TEMP 36.3; O2SAT 96
[2020-11-22 16:59] LABS: Glucose, Whole Blood 103 mg/dL (60-115)
[2020-11-22] MEDS: levETIRAcetam in NaCl (iso-os) 1,000 MG/100 ML PIGGYBACK 400 MG IV (17:01)
[2020-11-22 20:00] VITALS: BP 147/65; PULSE 70; RESP 20; TEMP 37.1; O2SAT 100
[2020-11-22 20:40] LABS: Glucose, Whole Blood 129 mg/dL (60-115)
[2020-11-22] MEDS: Torsemide 20 MG TABLET 120 MG PO (21:31)
[2020-11-22 23:28] VITALS: BP 170/76; PULSE 60; RESP 21; TEMP 37.4; O2SAT 99
[2020-11-23] VITALS (12 sets, daily range): BP systolic 117–136; BP diastolic 61–68; PULSE 58–87; RESP 15–21; TEMP 36.1–38.4; O2SAT 96–100
[2020-11-23] MEDS: LORazepam 2 MG/ML VIAL 1 MG IVPUSH (00:03)
--- NOTE | 2020-11-23 01:41 | P.EN_ITS ---
Event Note Date of Service: 11/23/20 Event Note: Patient became altered, developed fever, has urinary retention, bl ood pressure stable. Will work her up for sepsis, chest x-ray, place Dobbs catheter and send urine. Received 1 dose of Ativan for possible seizure
[2020-11-23 02:00] LABS: MANUAL DIFF FLAG NO
[2020-11-23 02:01] LABS: Basophils Absolute Auto 0.1 X10*3/uL (0.0-0.2); Basophils Percent Auto 0.4 % (0-2); Eosinophils Absolute Auto 0.2 X10*3/uL (0.0-0.4); Eosinophils Percent Auto 1.9 % (0-4); Imm Gran Abs Auto 0.04 X10*3/uL (0.00-0.03); Imm Gran Pct Auto 0.3 % (0.0-0.4); Lymphocytes Absolute Auto 1.3 X10*3/uL (1.2-4.9); Lymphocytes Percent Auto 10.9 % (20-40); Mean Corpuscular Hemoglobin 25.4 pg (27.0-33.0); Mean Corpuscular Volume 81.9 fL (80-98); Mean Platelet Volume 10.7 fL (9.4-12.3); Monocytes Absolute Auto 1.3 X10*3/uL (0.1-1.2); Monocytes Percent Auto 10.5 % (2-11); Platelet Count 286 X10*3/uL (160-400); Red Blood Count 3.54 X10*6/uL (4.20-5.50); Red Cell Distribution Width 16.7 % (11.0-16.0); White Blood Count 11.9 X10*3/uL (4.8-10.8)
[2020-11-23 02:14] LABS: Glucose Urine UA NEG (NEG); Leukocyte Esterase Urine NEG (NEG); Nitrite Urine NEG (NEG); Urine Blood TRACE (NEG); Urine Ketones NEG (NEG); Urine Protein NEG (NEG-TRACE)
[2020-11-23 02:18] LABS: Appearance Urine CLEAR; Color Urine YELLOW
[2020-11-23 02:18] LABS: Lactic Acid 0.7 mmol/L (0.5-2.0)
[2020-11-23] MEDS: 0.9 % Sodium Chloride Flush 3 ML SYRINGE IVFLUSH ×3 (02:19→16:38)
--- NOTE | 2020-11-23 02:20 | PC.NURSE ---
During 2099 med pass pt noted to have blue tinged fingernails, O2 taken 99% 2L NC. Vitals unremarkable, bp 146/64 P70, temp 98.7, change in mental status compared to beginning of shift, alert to only herself. notified. Pt rechecked around 2330 still only alert to self, if responding at all. Vitals 101.2 rectally, P60 resp 21, bp 170/76 99% 2L. MD came to view patient, pt having tremors of the hands, ativan 1mg IV ordered. Tylenol administered with the ativan. Vitals rechecked at 0100, T 101.1, P60, resp 21, bp118/62 manual, 97% CPAP. Has not had urine output since prior to 184. Bladder scanner showed 780mL. CBC, and blood cultures ordered, UA ordered, and hutchinson placed at 0200.
[2020-11-23 02:42] LABS: Mucus Urine TRACE /LPF; RBC Urine 0-2 /HPF (0); Squamous Epithelial Cell Urine TRACE /LPF; WBC Urine 0-2 /HPF (0-4)
[2020-11-23] MEDS: Ibuprofen 400 MG TABLET PO (05:22)
[2020-11-23 06:48] LABS: Hematocrit 28.3 % (37-47); Hemoglobin 8.6 g/dl (12.0-16.0); Mean Corpuscular HGB Conc 30.4 g/dl (31.0-35.0); Mean Corpuscular Hemoglobin 24.9 pg (27.0-33.0); Mean Corpuscular Volume 81.8 fL (80-98); Mean Platelet Volume 10.7 fL (9.4-12.3); Platelet Count 275 X10*3/uL (160-400); Red Blood Count 3.46 X10*6/uL (4.20-5.50); Red Cell Distribution Width 16.6 % (11.0-16.0); White Blood Count 9.4 X10*3/uL (4.8-10.8)
[2020-11-23 06:56] LABS: INTERNATIONAL NORM RATIO 4.3 (0.9-1.1); Prothrombin Time 52.2 SEC (10.8-13.0)
[2020-11-23 07:58] LABS: Glucose, Whole Blood 87 mg/dL (60-115)
[2020-11-23 08:07] LABS: Anion Gap 14 (12-20); Blood Urea Nitrogen 32 mg/dL (9-16); Calcium 8.3 mg/dL (8.4-10.2); Carbon Dioxide 30 mmol/L (22-29); Chloride 99 mmol/L (96-108); Creatinine Clr Calc Pharmacy 44.2; Estimated Glomerular Filt Rate 35; Glucose Random 90 mg/dL (60-115); Potassium 3.3 mmol/L (3.3-5.1); Sodium 140 mmol/L (135-145)
[2020-11-23] MEDS: OXcarbazepine 150 MG TABLET 450 MG PO ×2 (09:50→20:59)
[2020-11-23] MEDS: Atorvastatin Calcium 10 MG TABLET PO (09:50)
[2020-11-23] MEDS: Levothyroxine Sodium 112 MCG TABLET PO (09:50)
[2020-11-23] MEDS: Tamsulosin HCL 0.4 MG CAPSULE 0.8 MG PO (09:51)
[2020-11-23] MEDS: Flecainide Acetate 50 MG TABLET 150 MG PO ×2 (09:51→20:59)
[2020-11-23] MEDS: Metoprolol Tartrate 50 MG TABLET PO ×2 (09:51→20:56)
[2020-11-23] MEDS: Pregabalin 200 MG CAPSULE PO ×2 (09:51→20:56)
[2020-11-23] MEDS: Torsemide 20 MG TABLET 120 MG PO ×2 (09:51→21:00)
[2020-11-23] MEDS: Nystatin Powder 15 GM BOTTLE 1 APPL TOPICAL ×2 (09:52→21:14)
[2020-11-23] MEDS: levETIRAcetam in NaCl (iso-os) 500 MG/100 ML PIGGYBACK 400 MG IV ×2 (09:52→21:02)
[2020-11-23] MEDS: Spironolactone 25 MG TABLET 100 MG PO (09:52)
--- NOTE | 2020-11-23 13:20 | P.PNIM_ITS ---
Subjective Subjective Date of Service: 11/23/20 Interval History: the patient was seen and evaluated this morning Sitting in her hip, mildly anxious but alert and oriented Had an episode of altered mentation, confusion and fever overnight, negative septic, Denies any fever, chills or shortness of breath No reported other overnight events. Systemic review: No fever, chills or weakness No chest pain, palpitation by noticed some edema No shortness of breath or coughing No abdominal pain, nausea or vomiting No urinary symptoms No any rash or wounds Physical Exam Vital Signs: Vital Signs: Last Vital Signs Temp 98.0 F 11/23/20 07:53 Pulse 65 11/23/20 07:53 Resp 15 11/23/20 07:53 BP 121/61 11/23/20 07:53 Pulse Ox 96 11/23/20 07:53 Body Mass Index 29.5 Const: Other: Constitutional : Alert, oriented, not in distress Neck : Normal inspection, Supple Cardiovascular : RRR, S1 S2, +1 bilateral lower extremity edema Respiratory : Good bilateral air entry, bilateral basal on crackles, wheezes or rhonchi Gastrointestinal: soft, lax, Normal bowel sounds, Non tender Skin : Warm/Dry, No rash Neurological : Alert & oriented, No focal deficit Objective Data Current Medications Generic Name Dose Route Start Last Admin Trade Name Freq PRN Reason Stop Dose Admin Acetaminophen 650 mg 11/20/20 03:31 11/22/20 23:54 Acetaminophen 325 Mg Tablet PO 650 mg Q6H PRN Administration Pain, Mild (Pain Scale 1-3) Atorvastatin Calcium 10 mg 11/21/20 09:00 11/23/20 09:50 Atorvastatin Calcium 10 Mg Tablet PO 10 mg DAILY ANNE-MARIE Administration Docusate Sodium 100 mg 11/20/20 03:31 Docusate Sodium 100 Mg Capsule PO DAILY PRN Constipation Flecainide Acetate 150 mg 11/20/20 21:00 11/23/20 09:51 Flecainide Acetate 50 Mg Tablet PO 150 mg BID ANNE-MARIE Administration Levetiracetam 500 mg in 100 mls @ 400 mls/hr 11/23/20 09:00 11/23/20 10:32 Keppra IV Infused Q12H ANNE-MARIE Infusion Ibuprofen 400 mg 11/22/20 10:46 11/23/20 05:22 Ibuprofen 400 Mg Tablet PO 400 mg Q6H PRN Administration Pain, Moderate (Pain Scale 4-6 Insulin Human Lispro 0 unit 11/20/20 07:30 11/23/20 08:07 Insulin Lispro 100 Unit/Ml 3 Ml Vial SUBCUT Not Given QIDACHS [facility] Protocol Levothyroxine Sodium 112 mcg 11/21/20 09:00 11/23/20 09:50 Levothyroxine Sodium 112 Mcg Tablet PO 112 mcg DAILY ANNE-MARIE Administration Metoprolol Tartrate 50 mg 11/20/20 21:00 11/23/20 09:51 Metoprolol Tartrate 50 Mg Tablet PO 50 mg BID [facility] Administration Protocol Non-Formulary Medication 1 appl 11/22/20 14:58 Calcipotriene TOPICAL BID ANNE-MARIE Nystatin 1 appl 11/20/20 21:00 11/23/20 09:52 Nystatin Powder 15 Gm Bottle TOPICAL 1 appl BID [facility] Administration Protocol Ondansetron HCl 4 mg 11/20/20 03:31 Ondansetron Hcl 4 Mg/2 Ml Vial IVPUSH Q8H PRN Nausea and Vomiting Oxcarbazepine 450 mg 11/20/20 21:00 11/23/20 09:50 Oxcarbazepine 150 Mg Tablet PO 450 mg BID AN[facility]-MARIE Administration Oxycodone HCl 5 mg 11/20/20 03:31 11/22/20 05:53 Oxycodone Hcl Immed Release 5 Mg Tablet PO 5 mg Q6H PRN Administration Pain, Severe (Pain Scale 7-10) Pharmacy Consult 1 each 11/20/20 15:24 Consult Rx Perform Med Rec MISCELLANE ONCE PRN Consult order Pregabalin 200 mg 11/20/20 21:00 11/23/20 09:51 Pregabalin 200 Mg Capsule PO 200 mg BID [facility]-MARIE Administration Sodium Chloride 3 ml 11/20/20 03:31 11/23/20 09:50 0.9 % Sodium Chloride Flush 3 Ml Syringe IVFLUSH 3 ml QSHIFT [facility] Administration Spironolactone 100 mg 11/22/20 09:00 11/23/20 09:52 Spironolactone 25 Mg Tablet PO 100 mg DAILY [facility] Administration Protocol Tamsulosin HCl 0.8 mg 11/23/20 09:00 11/23/20 09:51 Tamsulosin Hcl 0.4 Mg Capsule PO 0.8 mg DAILY [facility]IE Administration Torsemide 120 mg 11/22/20 21:00 11/23/20 09:51 Torsemide 20 Mg Tablet PO 120 mg BID AN[facility]-MARIE Administration Protocol Labs CBC & Chem 7: 11/23/20 05:49 11/23/20 05:49 Microbiology Microbiology Results: Microbiology 11/19/20 19:35 Blood - Venous Blood Culture - Preliminary No growth after 48 hours. 11/19/20 19:30 Blood - Venous Blood Culture - Preliminary No growth after 48 hours. Assessment and Plan (1) Metabolic encephalopathy: Status: Acute (2) Acute respiratory failure with hypoxia: Status: Acute (3) Acute renal failure superimposed on chronic kidney disease: Status: Acute (4) Gouty arthritis: Status: Acute (5) Cellulitis: Status: Acute (6) CHF exacerbation: Status: Acute (7) Supratherapeutic INR: Status: Acute (8) Elevated troponin: Status: Acute Assessment and Plan: This is a 65-year-old female with past medical history of AFib, heart failure, diabetes, HTN, HLD, hypothyroidism who presents to the hospital with confusion. Acute Toxic/Metabolic Encephalopathy DD X, seizures, concussion, stroke CT scan negative MRI brain,Small chronic lacunar infarcts in the bilateral cerebellar h emispheres. Nonspecific foci of T2 hyperintensity seen in the bilateral cerebral white matter. EEG concerning for procedures Started on Keppra 500 b.i.d. Ativan PRN for seizure Appreciate neurology evaluation Acute CHF exacerbation, improved mixed systolic and diastolic Improving last echo in December 2019 with EF of 35-40% Continue spironolactone and torsemide home does cardiology input appreciated, high troponin not due to heart attack, continue home medications Supratherapeutic INR PAF/Mechanical Mitral Valve on coumadin, INR 4.3 Hold coumadin today and start lower dose afterward Continue flecanide Acute Kidney Injury SCr improved R Ankle pain gout flare on prednisone, discontinued no evidence of infection Acute Respiratory Failure with Hypoxia Resolved KEVIN on CPAP at night DM Diabetic diet sliding scale DVT pptx, Coumadin
[2020-11-23 13:24] LABS: Glucose, Whole Blood 117 mg/dL (60-115)
--- NOTE | 2020-11-23 14:59 | P.PNCA_ITS ---
Subjective Subjective Date of Service: 11/23/20 Principal diagnosis: altered mental status, hypoxia, elevated trop Interval history: Cardiology follow up for hypoxia, sob. Seen at 0830. Today she is observed in bed with Bipap on, asleep, does not arouse easily, no distress noted. Review of Systems Review of Systems Yes Unobtainable due to mental condition Physical Exam Vital Signs: Last Vital Signs Temp 96.9 F 11/23/20 13:24 Pulse 87 11/23/20 13:41 Resp 18 11/23/20 13:24 BP 136/68 11/23/20 13:41 Pulse Ox 98 11/23/20 13:41 Body Mass Index 29.5 Const Other: Sleeping, not easily arousable, wearing Bipap and breathing comfortably. Neck Other: obese, no noted JVD Resp Effort & Inspection: normal respiratory effort and not labored Auscultation: clear to auscultation bilaterally (Dim in lower lobes. No clear rales noted), no rhonchi and no wheezes Cardio Palpation: normal PMI Rate: regular rate Rhythm: regular rhythm Heart sounds: S1 normal heart sound present and S2 normal heart sound present Peripheral pulses: Peripheral pulses 2+ throughout GI Other: Soft, no facial grimace to palpation Inspection: Yes normal to inspection Extrem Other: Trace lower leg edema General: Yes normal to inspection Results Labs and Meds Result diagrams: 11/23/20 05:49 11/23/20 05:49 Lab results: Laboratory Results - last 24 hr 11/22/20 11/22/20 11/23/20 16:42 20:36 01:46 WBC RBC Hgb Hct MCV MCH MCHC RDW Plt Count MPV Immature Gran % (Auto) Neut % (Auto) Lymph % (Auto) Barren % (Auto) Eos % (Auto) Baso % (Auto) Lymph # (Auto) Barren # (Auto) Eos # (Auto) Baso # (Auto) Abs Immat Gran (auto) Absolute Neuts (auto) Absolute Nucleated RBC Nucleated RBC % (auto) PT INR Sodium Potassium Chloride Carbon Dioxide Anion Gap BUN Creatinine Estim Creat Clear Calc Estimated GFR POC Glucose 103 129 H Random Glucose Lactic Acid 0.7 Calcium Urine Color Urine Appearance Urine pH Ur Specific [place] Urine Protein Urine Glucose (UA) Urine Ketones Urine Blood Urine Nitrite Ur Leukocyte Esterase Urine RBC Urine WBC Ur Squamous Epith Cells Urine Bacteria Hyaline Casts Urine Mucus 11/23/20 11/23/20 11/23/20 01:47 02:06 05:49 WBC 11.9 H RBC 3.54 L Hgb 9.0 L Hct 29.0 L MCV 81.9 MCH 25.4 L MCHC 31.0 RDW 16.7 H Plt Count 286 MPV 10.7 Immature Gran % (Auto) 0.3 Neut % (Auto) 76.0 H Lymph % (Auto) 10.9 L Barren % (Auto) 10.5 Eos % (Auto) 1.9 Baso % (Auto) 0.4 Lymph # (Auto) 1.3 Barren # (Auto) 1.3 H Eos # (Auto) 0.2 Baso # (Auto) 0.1 Abs Immat Gran (auto) 0.04 H Absolute Neuts (auto) 9.0 H Absolute Nucleated RBC 0.000 Nucleated RBC % (auto) 0.0 PT 52.2 H D INR 4.3 H Sodium Potassium Chloride Carbon Dioxide Anion Gap BUN Creatinine Estim Creat Clear Calc Estimated GFR POC Glucose Random Glucose Lactic Acid Calcium Urine Color YELLOW Urine Appearance CLEAR Urine pH 6.0 Ur Specific [place] 1.010 Urine Protein NEG Urine Glucose (UA) NEG Urine Ketones NEG Urine Blood TRACE Urine Nitrite NEG Ur Leukocyte Esterase NEG Urine RBC 0-2 Urine WBC 0-2 Ur Squamous Epith Cells TRACE Urine Bacteria NONE Hyaline Casts 1-4 Urine Mucus TRACE 11/23/20 11/23/20 11/23/20 05:49 05:49 07:52 WBC 9.4 RBC 3.46 L Hgb 8.6 L Hct 28.3 L MCV 81.8 MCH 24.9 L MCHC 30.4 L RDW 16.6 H Plt Count 275 MPV 10.7 Immature Gran % (Auto) Neut % (Auto) Lymph % (Auto) Barren % (Auto) Eos % (Auto) Baso % (Auto) Lymph # (Auto) Barren # (Auto) Eos # (Auto) Baso # (Auto) Abs Immat Gran (auto) Absolute Neuts (auto) Absolute Nucleated RBC 0.000 Nucleated RBC % (auto) 0.0 PT INR Sodium 140 Potassium 3.3 Chloride 99 Carbon Dioxide 30 H Anion Gap 14 BUN 32 H Creatinine 1.50 H Estim Creat Clear Calc 44.2 Estimated GFR 35 POC Glucose 87 Random Glucose 90 Lactic Acid Calcium 8.3 L D Urine Color Urine Appearance Urine pH Ur Specific [place] Urine Protein Urine Glucose (UA) Urine Ketones Urine Blood Urine Nitrite Ur Leukocyte Esterase Urine RBC Urine WBC Ur Squamous Epith Cells Urine Bacteria Hyaline Casts Urine Mucus 11/23/20 13:17 WBC RBC Hgb Hct MCV MCH MCHC RDW Plt Count MPV Immature Gran % (Auto) Neut % (Auto) Lymph % (Auto) Barren % (Auto) Eos % (Auto) Baso % (Auto) Lymph # (Auto) Barren # (Auto) Eos # (Auto) Baso # (Auto) Abs Immat Gran (auto) Absolute Neuts (auto) Absolute Nucleated RBC Nucleated RBC % (auto) PT INR Sodium Potassium Chloride Carbon Dioxide Anion Gap BUN Creatinine Estim Creat Clear Calc Estimated GFR POC Glucose 117 H Random Glucose Lactic Acid Calcium Urine Color Urine Appearance Urine pH Ur Specific [place] Urine Protein Urine Glucose (UA) Urine Ketones Urine Blood Urine Nitrite Ur Leukocyte Esterase Urine RBC Urine WBC Ur Squamous Epith Cells Urine Bacteria Hyaline Casts Urine Mucus Imaging Radiologist's impression: Impressions Chest X-Ray 11/23/20 01:55 IMPRESSION: No focal consolidation identified. Persistent prominence of the central vasculature suggesting congestion. Cardiac silhouette remains enlarged. Brain MRI 11/23/20 11:00 IMPRESSION: No acute infarct, mass lesion, intracranial hemorrhage, or evidence of hydrocephalus. Small chronic lacunar infarcts in the bilateral cerebellar hemispheres. Nonspecific foci of T2 hyperintensity seen in the bilateral cerebral white matter. Progress Note: A&P Assessment and plan (1) Acute respiratory failure with hypoxia: Status: Acute Assessment and Plan: Hypoxia on admit. Pulm HTN, TR can contribute. Nurse reports change in metal status during the night, more difficult to arouse. Her CXR shows persistent vascular congestion. At present she is on Bipap and breathing/ resting comfortably. Her home diuretics were initially held and have since been resumed. She is on large doses of Aldactone and Torsemide. Cr 1.5 which is down. Reviewed with Dr Corona. Will continue her usual diuretics at present. O2 and Bipap as needed. She has MRI scheduled for today to eval her AMS. Will check BNP in am. (2) CHF exacerbation: Status: Acute Assessment and Plan: as above (3) Elevated troponin: Status: Acute Assessment and Plan: Troponin elevated this admit, up to 227 on last check. EKG with lateral ST abnormality. No indication or reports of CP. Echo shows EF 55-60%, mod , mod to severe TR, normally functioning mechanical MVR, mod pulm HTN. Cardiac cath from 2013 showed no significant CAD. Troponin elevation is secondary type event in setting of hypoxia, acute on chronic kidney ds. She is anticoagulated with Coumadin. Continue Metoprolol and Atorvastatin. Ongoing medical mgt of underlying conditions. (4) Supratherapeutic INR: Status: Acute Assessment and Plan: INR today 4.3, Coumadin on hold (5) Hx of mitral valve replacement with mechanical valve: Status: Acute Assessment and Plan: Functioning normally (6) Paroxysmal atrial fibrillation: Status: Acute Assessment and Plan: Hx of PAF. Currently suppressed with Metoprolol and Flecanide. On Coumadin for a nticoagulation, INR goal 2.5-3.5. INR today 4.3. Coumadin being adjusted by hospitalist. No signs of bleeding. (7) Non-ST elevated myocardial infarction (non-STEMI): Status: Acute Assessment and Plan: Secondary type event in setting of hypoxia, YANET Fall Risk Details Current Medications: Current Medications Generic Name Dose Route Start Last Admin Trade Name Freq PRN Reason Stop Dose Admin Acetaminophen 650 mg 11/20/20 03:31 11/22/20 23:54 Acetaminophen 325 Mg Tablet PO 650 mg Q6H PRN Administration Pain, Mild (Pain Scale 1-3) Atorvastatin Calcium 10 mg 11/21/20 09:00 11/23/20 09:50 Atorvastatin Calcium 10 Mg Tablet PO 10 mg DAILY ANNE-MARIE Administration Docusate Sodium 100 mg 11/20/20 03:31 Docusate Sodium 100 Mg Capsule PO DAILY PRN Constipation Flecainide Acetate 150 mg 11/20/20 21:00 11/23/20 09:51 Flecainide Acetate 50 Mg Tablet PO 150 mg BID ANNE-MARIE Administration Levetiracetam 500 mg in 100 mls @ 400 mls/hr 11/23/20 09:00 11/23/20 10:32 Keppra IV Infused Q12H ANNE-MARIE Infusion Ibuprofen 400 mg 11/22/20 10:46 11/23/20 05:22 Ibuprofen 400 Mg Tablet PO 400 mg Q6H PRN Administration Pain, Moderate (Pain Scale 4-6 Insulin Human Lispro 0 unit 11/20/20 07:30 11/23/20 13:25 Insulin Lispro 100 Unit/Ml 3 Ml Vial SUBCUT Not Given QIDACHS [facility] Protocol Levothyroxine Sodium 112 mcg 11/21/20 09:00 11/23/20 09:50 Levothyroxine Sodium 112 Mcg Tablet PO 112 mcg DAILY ANNE-MARIE Administration Metoprolol Tartrate 50 mg 11/20/20 21:00 11/23/20 09:51 Metoprolol Tartrate 50 Mg Tablet PO 50 mg BID [facility] Administration Protocol Non-Formulary Medication 1 appl 11/22/20 14:58 Calcipotriene TOPICAL BID ANNE-MARIE Nystatin 1 appl 11/20/20 21:00 11/23/20 09:52 Nystatin Powder 15 Gm Bottle TOPICAL 1 appl BID [facility] Administration Protocol Ondansetron HCl 4 mg 11/20/20 03:31 Ondansetron Hcl 4 Mg/2 Ml Vial IVPUSH Q8H PRN Nausea and Vomiting Oxcarbazepine 450 mg 11/20/20 21:00 11/23/20 09:50 Oxcarbazepine 150 Mg Tablet PO 450 mg BID ANNE-MARIE Administration Oxycodone HCl 5 mg 11/20/20 03:31 11/22/20 05:53 Oxycodone Hcl Immed Release 5 Mg Tablet PO 5 mg Q6H PRN Administration Pain, Severe (Pain Scale 7-10) Pharmacy Consult 1 each 11/20/20 15:24 Consult Rx Perform Med Rec MISCELLANE ONCE PRN Consult order Pregabalin 200 mg 11/20/20 21:00 11/23/20 09:51 Pregabalin 200 Mg Capsule PO 200 mg BID ANNE-MARIE Administration Sodium Chloride 3 ml 11/20/20 03:31 11/23/20 09:50 0.9 % Sodium Chloride Flush 3 Ml Syringe IVFLUSH 3 ml QSHIFT [facility] Administration Spironolactone 100 mg 11/22/20 09:00 11/23/20 09:52 Spironolactone 25 Mg Tablet PO 100 mg DAILY [facility] Administration Protocol Tamsulosin HCl 0.8 mg 11/23/20 09:00 11/23/20 09:51 Tamsulosin Hcl 0.4 Mg Capsule PO 0.8 mg DAILY ANNE-MARIE Administration Torsemide 120 mg 11/22/20 21:00 11/23/20 09:51 Torsemide 20 Mg Tablet PO 120 mg BID ANNE-MARIE Administration Protocol Time Spent With Patient Time: Total time spent is greater than 50% in coordination of care (as documented) at patient's floor/unit and/or counseling patient: 20 Time with patient: 15 - 24 minutes
--- NOTE | 2020-11-23 15:14 | MHC.CM.PN ---
NURSE ETHICS OFFICER NOTE ELECTRONIC MEDICAL RECORD REVIEWED ALONG WITH CASE DISCUSSED ON MULTIPLE DISCIPLINARY ROUNDS , PATIENT COMPLEX PATIENT , TEMPERATURE TODAY , NEUROLOGY, CARDIOLOGY FOLLOWING PATIENT ON BIPAP LAST NIGHT TODAY ALERT AND MORE ORIENTATED. WORK UP STILL IN PROGRESS , PHYSICAL THERAPY EVALUATION COMPLETED AND IS RECOMMENDING SHORT TERM REHAB DISCHARGE PLAN Mandeep HERNANDEZ RECOMMENDING SHORT TERM REHAB ,PATIENT HAS [facility] i met with patient and her , I REVIEWED WITH THEM THE FACILITIES THAT TOOK HER INSURANCE [facility] - I GAVE THEM A PRINT OUT TO REVIEW AND THEY WILL GET BACK TO CASE MANAGEMENT WITH CHOSIEWS. CHOUDHURY LIVE IN [place] AND AND FIRST CHOICE WOULD BE [facility] THEY ASKED THAT I REFERR THERE FIRST THEN THEY WILL GIVEN OTHER CHOCIES OVER THE WEEKEND REFERRAL INIATED TO [facility]
[2020-11-23 16:19] LABS: Glucose, Whole Blood 151 mg/dL (60-115)
[2020-11-23] MEDS: Insulin Lispro 100 UNIT/ML 3 ML VIAL SUBCUT (16:38)
--- NOTE | 2020-11-23 17:06 | PC.NURSE ---
pt A+O x4 throughout morning. Fatigued and grumpy as the patient reported, but otherwise appropriate and oriented. Edema improved, foot pain improved. Pt went down for an MRI at 11:00 and when she returned at 1400 she was very lethargic, oxygen had been replaced on 2L per RN stating that she had dropped down into the 80s while sleeping during the procedure. Pt was arousable, but very sedated/ lethargic. Let pt rest and later in the afternoon came in for a visit where pt perked up and sat at the bedside and seemed back to baseline. Will cont to monitor and assess. Alarms are on, telesitter in place, call hanna within reach and pt reminded to not get OOB w.o help despite feeling stronger and with less pain.
[2020-11-23 20:26] LABS: Glucose, Whole Blood 127 mg/dL (60-115)
[2020-11-23] MEDS: oxyCODONE HCl Immed Release 5 MG TABLET PO (21:13)
[2020-11-24] VITALS (10 sets, daily range): BP systolic 121–170; BP diastolic 55–72; PULSE 60–108; RESP 18–20; TEMP 36.1–36.9; O2SAT 91–100; BMI 37.7
[2020-11-24] MEDS: 0.9 % Sodium Chloride Flush 3 ML SYRINGE IVFLUSH ×4 (00:25→21:42)
[2020-11-24 07:20] LABS: INTERNATIONAL NORM RATIO 2.4 (0.9-1.1); Prothrombin Time 28.6 SEC (10.8-13.0)
[2020-11-24 07:32] LABS: Glucose, Whole Blood 107 mg/dL (60-115)
[2020-11-24 07:38] LABS: B Type Natriuretic Peptide 154 pg/mL (<100)
[2020-11-24 07:44] LABS: Anion Gap 13 (12-20); Blood Urea Nitrogen 31 mg/dL (9-16); Calcium 8.7 mg/dL (8.4-10.2); Carbon Dioxide 35 mmol/L (22-29); Chloride 97 mmol/L (96-108); Creatinine Clr Calc Pharmacy 52.2; Estimated Glomerular Filt Rate 36; Glucose Random 101 mg/dL (60-115); Potassium 3.5 mmol/L (3.3-5.1); Sodium 141 mmol/L (135-145)
[2020-11-24] MEDS: Metoprolol Tartrate 50 MG TABLET PO ×2 (09:32→21:28)
[2020-11-24] MEDS: Torsemide 20 MG TABLET 120 MG PO (09:33)
[2020-11-24] MEDS: Levothyroxine Sodium 112 MCG TABLET PO (09:33)
[2020-11-24] MEDS: Atorvastatin Calcium 10 MG TABLET PO (09:33)
[2020-11-24] MEDS: Pregabalin 200 MG CAPSULE PO ×2 (09:34→21:28)
[2020-11-24] MEDS: Tamsulosin HCL 0.4 MG CAPSULE 0.8 MG PO (09:34)
[2020-11-24] MEDS: Flecainide Acetate 50 MG TABLET 150 MG PO ×2 (09:34→21:28)
[2020-11-24] MEDS: Spironolactone 25 MG TABLET 100 MG PO (09:35)
[2020-11-24] MEDS: levETIRAcetam in NaCl (iso-os) 500 MG/100 ML PIGGYBACK 400 MG IV ×2 (09:36→21:21)
[2020-11-24] MEDS: OXcarbazepine 150 MG TABLET 450 MG PO ×2 (09:36→21:28)
[2020-11-24] MEDS: oxyCODONE HCl Immed Release 5 MG TABLET PO (09:44)
[2020-11-24] MEDS: Nystatin Powder 15 GM BOTTLE 1 APPL TOPICAL ×2 (09:46→21:42)
--- NOTE | 2020-11-24 11:19 | HO.PM.IMPN ---
Subjective Subjective Date of Service: 11/24/20 Interval History: the patient was seen and evaluated this morning Sitting in her bed, feels more comfortable, alert and oriented today No reported fever overnight Denies any fever, chills or shortness of breath No reported other overnight events. Systemic review: No fever, chills or weakness No chest pain, palpitation by noticed some edema No shortness of breath or coughing No abdominal pain, nausea or vomiting No urinary symptoms No any rash or wounds Physical Exam Vital Signs: Vital Signs: Last Vital Signs Temp 97.6 F 11/24/20 08:00 Pulse 64 11/24/20 07:34 Resp 20 11/24/20 07:34 BP 137/59 L 11/24/20 07:34 Pulse Ox 93 11/24/20 07:34 Body Mass Index 37.7 Const: Other: Constitutional : Alert, oriented, not in distress Neck : Normal inspection, Supple Cardiovascular : RRR, S1 S2, +1 bilateral lower extremity edema Respiratory : Good bilateral air entry, bilateral basal on crackles, wheezes or rhonchi Gastrointestinal: soft, lax, Normal bowel sounds, Non tender Skin : Warm/Dry, No rash Neurological : Alert & oriented, No focal deficit Objective Data Current Medications Generic Name Dose Route Start Last Admin Trade Name Freq PRN Reason Stop Dose Admin Acetaminophen 650 mg 11/20/20 03:31 11/22/20 23:54 Acetaminophen 325 Mg Tablet PO 650 mg Q6H PRN Administration Pain, Mild (Pain Scale 1-3) Atorvastatin Calcium 10 mg 11/21/20 09:00 11/24/20 09:33 Atorvastatin Calcium 10 Mg Tablet PO 10 mg DAILY ANNE-MARIE Administration Docusate Sodium 100 mg 11/20/20 03:31 Docusate Sodium 100 Mg Capsule PO DAILY PRN Constipation Flecainide Acetate 150 mg 11/20/20 21:00 11/24/20 09:34 Flecainide Acetate 50 Mg Tablet PO 150 mg BID ANNE-MARIE Administration Levetiracetam 500 mg in 100 mls @ 400 mls/hr 11/23/20 09:00 11/24/20 09:51 Keppra IV Infused Q12H ANNE-MARIE Infusion Ibuprofen 400 mg 11/22/20 10:46 11/23/20 05:22 Ibuprofen 400 Mg Tablet PO 400 mg Q6H PRN Administration Pain, Moderate (Pain Scale 4-6 Insulin Human Lispro 0 unit 11/20/20 07:30 11/24/20 07:34 Insulin Lispro 100 Unit/Ml 3 Ml Vial SUBCUT Not Given QIDACHS [facility] Protocol Levothyroxine Sodium 112 mcg 11/21/20 09:00 11/24/20 09:33 Levothyroxine Sodium 112 Mcg Tablet PO 112 mcg DAILY ANNE-MARIE Administration Metoprolol Tartrate 50 mg 11/20/20 21:00 11/24/20 09:32 Metoprolol Tartrate 50 Mg Tablet PO 50 mg BID [facility] Administration Protocol Non-Formulary Medication 1 appl 11/22/20 14:58 Calcipotriene TOPICAL BID ANNE-MARIE Nystatin 1 appl 11/20/20 21:00 11/24/20 09:46 Nystatin Powder 15 Gm Bottle TOPICAL 1 appl BID [facility] Administration Protocol Ondansetron HCl 4 mg 11/20/20 03:31 Ondansetron Hcl 4 Mg/2 Ml Vial IVPUSH Q8H PRN Nausea and Vomiting Oxcarbazepine 450 mg 11/20/20 21:00 11/24/20 09:36 Oxcarbazepine 150 Mg Tablet PO 450 mg BID ANNE-MARIE Administration Oxycodone HCl 5 mg 11/20/20 03:31 11/24/20 09:44 Oxycodone Hcl Immed Release 5 Mg Tablet PO 5 mg Q6H PRN Administration Pain, Severe (Pain Scale 7-10) Pharmacy Consult 1 each 11/20/20 15:24 Consult Rx Perform Med Rec MISCELLANE ONCE PRN Consult order Pregabalin 200 mg 11/20/20 21:00 11/24/20 09:34 Pregabalin 200 Mg Capsule PO 200 mg BID ANNE-MARIE Administration Sodium Chloride 3 ml 11/20/20 03:31 11/24/20 09:32 0.9 % Sodium Chloride Flush 3 Ml Syringe IVFLUSH 3 ml QSHIFT [facility] Administration Spironolactone 100 mg 11/22/20 09:00 11/24/20 09:35 Spironolactone 25 Mg Tablet PO 100 mg DAILY [facility] Administration Protocol Tamsulosin HCl 0.8 mg 11/23/20 09:00 11/24/20 09:34 Tamsulosin Hcl 0.4 Mg Capsule PO 0.8 mg DAILY [facility] Administration Torsemide 120 mg 11/22/20 21:00 11/24/20 09:33 Torsemide 20 Mg Tablet PO 120 mg BID AN[facility]-MARIE Administration Protocol Warfarin Sodium 4 mg 11/24/20 18:00 Warfarin Sodium 4 Mg Tablet PO DAILY@1800 [facility] Labs CBC & Chem 7: 11/23/20 05:49 11/24/20 06:40 Microbiology Microbiology Results: Microbiology 11/23/20 01:47 Blood - Venous Blood Culture - Preliminary No growth after 24 hours. 11/23/20 01:46 Blood - Venous Blood Culture - Preliminary No growth after 24 hours. 11/19/20 19:35 Blood - Venous Blood Culture - Preliminary No growth after 48 hours. 11/19/20 19:30 Blood - Venous Blood Culture - Preliminary No growth after 48 hours. Assessment and Plan (1) Metabolic encephalopathy: Status: Acute (2) Acute respiratory failure with hypoxia: Status: Acute (3) Acute renal failure superimposed on chronic kidney disease: Status: Acute (4) Gouty arthritis: Status: Acute (5) Cellulitis: Status: Acute (6) CHF exacerbation: Status: Acute (7) Supratherapeutic INR: Status: Acute (8) Elevated troponin: Status: Acute Assessment and Plan: This is a 65-year-old female with past medical history of AFib, heart failure, diabetes, HTN, HLD, hypothyroidism who presents to the hospital with confusion. Acute Toxic/Metabolic Encephalopathy, resolved Secondary to seizure activity CT scan negative MRI brain,Small chronic lacunar infarcts in the bilateral cerebellar hemispheres. Nonspecific foci of T2 hyperintensity seen in the bilateral cerebral white matter. EEG concerning for seizure Continue Keppra 500 b.i.d. Ativan PRN for seizure Appreciate neurology evaluation Acute CHF exacerbation, improved mixed systolic and diastolic Improved last echo in December 2019 with EF of 35-40% Continue spironolactone and torsemide home does cardiology input appreciated, high troponin not due to heart attack, continue home medications Supratherapeutic INR PAF/Mechanical Mitral Valve on coumadin, INR 2.8, target from 2.5-3.5 Restarted on 4 mg of Coumadin daily Continue flecanide INR daily Acute Kidney Injury SCr improved R Ankle pain X-rays not showing any acute fracture or dislocation Does not look like gout flare on prednisone, discontinued Will need to follow-up with rheumatology as outpatient as seems like arthritis related to psoriasis KEVIN on CPAP at night DM Diabetic diet sliding scale DVT pptx Coumadin
[2020-11-24 11:23] LABS: Glucose, Whole Blood 106 mg/dL (60-115)
[2020-11-24 16:27] LABS: Glucose, Whole Blood 111 mg/dL (60-115)
[2020-11-24] MEDS: Warfarin Sodium 4 MG TABLET PO (18:05)
[2020-11-24 20:34] LABS: Glucose, Whole Blood 150 mg/dL (60-115)
[2020-11-24] MEDS: Torsemide 20 MG TABLET 80 MG PO (21:27)
[2020-11-25] VITALS (7 sets, daily range): BP systolic 113–132; BP diastolic 45–70; PULSE 59–67; RESP 15–18; TEMP 36.1–36.8; O2SAT 93–97; BMI 37.8
[2020-11-25 06:58] LABS: Anion Gap 13 (12-20); Blood Urea Nitrogen 27 mg/dL (9-16); Calcium 8.9 mg/dL (8.4-10.2); Carbon Dioxide 34 mmol/L (22-29); Chloride 96 mmol/L (96-108); Creatinine Clr Calc Pharmacy 52.5; Estimated Glomerular Filt Rate 37; Glucose Random 109 mg/dL (60-115); Potassium 3.1 mmol/L (3.3-5.1); Sodium 140 mmol/L (135-145)
[2020-11-25 07:02] LABS: INTERNATIONAL NORM RATIO 1.9 (0.9-1.1); Prothrombin Time 22.1 SEC (10.8-13.0)
[2020-11-25] MEDS: 0.9 % Sodium Chloride Flush 3 ML SYRINGE IVFLUSH ×2 (07:47→15:08)
[2020-11-25 07:53] LABS: Glucose, Whole Blood 103 mg/dL (60-115)
[2020-11-25] MEDS: Spironolactone 25 MG TABLET 100 MG PO (08:53)
[2020-11-25] MEDS: OXcarbazepine 150 MG TABLET 450 MG PO ×2 (08:53→20:42)
[2020-11-25] MEDS: Tamsulosin HCL 0.4 MG CAPSULE 0.8 MG PO (08:54)
[2020-11-25] MEDS: Torsemide 20 MG TABLET 80 MG PO ×2 (08:54→20:41)
[2020-11-25] MEDS: Flecainide Acetate 50 MG TABLET 150 MG PO ×2 (08:55→20:41)
[2020-11-25] MEDS: Metoprolol Tartrate 50 MG TABLET PO ×2 (08:55→20:42)
[2020-11-25] MEDS: Pregabalin 200 MG CAPSULE PO ×2 (08:55→20:40)
[2020-11-25] MEDS: Atorvastatin Calcium 10 MG TABLET PO (08:55)
[2020-11-25] MEDS: Levothyroxine Sodium 112 MCG TABLET PO (08:55)
[2020-11-25] MEDS: levETIRAcetam in NaCl (iso-os) 500 MG/100 ML PIGGYBACK 400 MG IV ×2 (08:56→20:40)
[2020-11-25] MEDS: oxyCODONE HCl Immed Release 5 MG TABLET PO ×2 (09:50→18:06)
[2020-11-25] MEDS: Nystatin Powder 15 GM BOTTLE 1 APPL TOPICAL (09:51)
--- NOTE | 2020-11-25 10:40 | P.PNIM_ITS ---
Subjective Subjective Date of Service: 11/25/20 Interval History: the patient was seen and evaluated this morning Sitting in her bed, feels more comfortable, alert and oriented today Denies any fever, chills or shortness of breath No reported other overnight events. Systemic review: No fever, chills or weakness No chest pain, palpitation by noticed some edema No shortness of breath or coughing No abdominal pain, nausea or vomiting No urinary symptoms No any rash or wounds Physical Exam Vital Signs: Vital Signs: Last Vital Signs Temp 97.4 F 11/25/20 08:00 Pulse 66 11/25/20 08:00 Resp 17 11/25/20 08:00 BP 132/64 11/25/20 08:00 Pulse Ox 93 11/25/20 08:00 Body Mass Index 37.8 Const: Other: Constitutional : Alert, oriented, not in distress Neck : Normal inspection, Supple Cardiovascular : RRR, S1 S2, +1 bilateral lower extremity edema Respiratory : Good bilateral air entry, bilateral basal on crackles, wheezes or rhonchi Gastrointestinal: soft, lax, Normal bowel sounds, Non tender Skin : Warm/Dry, No rash Neurological : Alert & oriented, No focal deficit Objective Data Current Medications Generic Name Dose Route Start Last Admin Trade Name Freq PRN Reason Stop Dose Admin Acetaminophen 650 mg 11/20/20 03:31 11/22/20 23:54 Acetaminophen 325 Mg Tablet PO 650 mg Q6H PRN Administration Pain, Mild (Pain Scale 1-3) Atorvastatin Calcium 10 mg 11/21/20 09:00 11/25/20 08:55 Atorvastatin Calcium 10 Mg Tablet PO 10 mg DAILY ANNE-MARIE Administration Docusate Sodium 100 mg 11/20/20 03:31 Docusate Sodium 100 Mg Capsule PO DAILY PRN Constipation Flecainide Acetate 150 mg 11/20/20 21:00 11/25/20 08:55 Flecainide Acetate 50 Mg Tablet PO 150 mg BID [facility]-MARIE Administration Levetiracetam 500 mg in 100 mls @ 400 mls/hr 11/23/20 09:00 11/25/20 09:11 Keppra IV Infused Q12H AN[facility]-MARIE Infusion Ibuprofen 400 mg 11/22/20 10:46 11/23/20 05:22 Ibuprofen 400 Mg Tablet PO 400 mg Q6H PRN Administration Pain, Moderate (Pain Scale 4-6 Insulin Human Lispro 0 unit 11/20/20 07:30 11/25/20 07:47 Insulin Lispro 100 Unit/Ml 3 Ml Vial SUBCUT Not Given QIDACHS [facility] Protocol Levothyroxine Sodium 112 mcg 11/21/20 09:00 11/25/20 08:55 Levothyroxine Sodium 112 Mcg Tablet PO 112 mcg DAILY [facility] Administration Metoprolol Tartrate 50 mg 11/20/20 21:00 11/25/20 08:55 Metoprolol Tartrate 50 Mg Tablet PO 50 mg BID [facility] Administration Protocol Non-Formulary Medication 1 appl 11/22/20 14:58 Calcipotriene TOPICAL BID [facility] Nystatin 1 appl 11/20/20 21:00 11/25/20 09:51 Nystatin Powder 15 Gm Bottle TOPICAL 1 appl BID [facility] Administration Protocol Ondansetron HCl 4 mg 11/20/20 03:31 Ondansetron Hcl 4 Mg/2 Ml Vial IVPUSH Q8H PRN Nausea and Vomiting Oxcarbazepine 450 mg 11/20/20 21:00 11/25/20 08:53 Oxcarbazepine 150 Mg Tablet PO 450 mg BID [facility] Administration Pharmacy Consult 1 each 11/20/20 15:24 Consult Rx Perform Med Rec MISCELLANE ONCE PRN Consult order Pregabalin 200 mg 11/20/20 21:00 11/25/20 08:55 Pregabalin 200 Mg Capsule PO 200 mg BID [facility] Administration Sodium Chloride 3 ml 11/20/20 03:31 11/25/20 07:47 0.9 % Sodium Chloride Flush 3 Ml Syringe IVFLUSH 3 ml QSHIFT [facility] Administration Spironolactone 100 mg 11/22/20 09:00 11/25/20 08:53 Spironolactone 25 Mg Tablet PO 100 mg DAILY [facility] Administration Protocol Tamsulosin HCl 0.8 mg 11/23/20 09:00 11/25/20 08:54 Tamsulosin Hcl 0.4 Mg Capsule PO 0.8 mg DAILY [facility] Administration Torsemide 80 mg 11/24/20 21:00 11/25/20 08:54 Torsemide 20 Mg Tablet PO 80 mg BID [facility] Administration Protocol Warfarin Sodium 4 mg 11/24/20 18:00 11/24/20 18:05 Warfarin Sodium 4 Mg Tablet PO 4 mg DAILY@1800 [facility] Administration Labs CBC & Chem 7: 11/23/20 05:49 11/25/20 06:18 Microbiology Microbiology Results: Microbiology 11/23/20 01:47 Blood - Venous Blood Culture - Preliminary No growth after 48 hours. 11/23/20 01:46 Blood - Venous Blood Culture - Preliminary No growth after 48 hours. 11/19/20 19:35 Blood - Venous Blood Culture - Final No growth after 5 days. 11/19/20 19:30 Blood - Venous Blood Culture - Final No growth after 5 days. Assessment and Plan (1) Metabolic encephalopathy: Status: Acute (2) Acute respiratory failure with hypoxia: Status: Acute (3) Acute renal failure superimposed on chronic kidney disease: Status: Acute (4) Gouty arthritis: Status: Acute (5) Cellulitis: Status: Acute (6) CHF exacerbation: Status: Acute (7) Supratherapeutic INR: Status: Acute (8) Elevated troponin: Status: Acute Assessment and Plan: This is a 65-year-old female with past medical history of AFib, heart failure, diabetes, HTN, HLD, hypothyroidism who presents to the hospital with confusion. Acute Toxic/Metabolic Encephalopathy, resolved Secondary to seizure activity CT scan negative MRI brain,Small chronic lacunar infarcts in the bilateral cerebellar hemispheres. Nonspecific foci of T2 hyperintensity seen in the bilateral cerebral white matter. EEG concerning for seizure per Dr. Ojeda Continue Keppra 500 b.i.d., to be discharged on oral form Ativan PRN for seizure Appreciate neurology evaluation Acute CHF exacerbation, improved mixed systolic and diastolic Improved last echo in December 2019 with EF of 35-40% Continue spironolactone and torsemide cardiology input appreciated, high troponin not due to heart attack, continue home medications Supratherapeutic INR PAF/Mechanical Mitral Valve on coumadin, INR 1.9, target from 2.5-3.5 Increase warfarin to 5 mg daily (presented with high INR on the 5 mg daily dose) Continue flecanide INR daily Acute Kidney Injury SCr improved R Ankle pain X-rays not showing any acute fracture or dislocation Does not look like gout flare on prednisone, discontinued Will need to follow-up with rheumatology as outpatient as seems like arthritis related to psoriasis Responded well to as needed oxycodone KEVIN on CPAP at night DM Diabetic diet sliding scale DVT pptx Coumadin Dispo, plan to discharge to SNF pending Auth
[2020-11-25 11:42] LABS: Glucose, Whole Blood 129 mg/dL (60-115)
[2020-11-25 17:14] LABS: Glucose, Whole Blood 96 mg/dL (60-115)
[2020-11-25] MEDS: Warfarin Sodium 4 MG TABLET PO (18:07)
[2020-11-25 20:39] LABS: Glucose, Whole Blood 115 mg/dL (60-115)
[2020-11-26] VITALS: BP 115/56; PULSE 81; RESP 20; TEMP 36.8; O2SAT 97
[2020-11-26] MEDS: 0.9 % Sodium Chloride Flush 3 ML SYRINGE IVFLUSH ×2 (00:09→09:06)
[2020-11-26] MEDS: Acetaminophen 325 MG TABLET 650 MG PO (01:02)
[2020-11-26 04:00] VITALS: BP 117/59; PULSE 62; RESP 18; TEMP 36.9; O2SAT 92
[2020-11-26 06:00] VITALS: BMI 39.5
[2020-11-26 06:01] LABS: INTERNATIONAL NORM RATIO 2.2 (0.9-1.1); Prothrombin Time 25.9 SEC (10.8-13.0)
[2020-11-26 07:45] VITALS: BP 105/58; PULSE 58; RESP 18; TEMP 36.1; O2SAT 93
[2020-11-26 08:02] LABS: Glucose, Whole Blood 97 mg/dL (60-115)
[2020-11-26] MEDS: levETIRAcetam in NaCl (iso-os) 500 MG/100 ML PIGGYBACK 400 MG IV (09:00)
[2020-11-26] MEDS: OXcarbazepine 150 MG TABLET 450 MG PO (09:06)
[2020-11-26] MEDS: Flecainide Acetate 50 MG TABLET 150 MG PO (09:07)
[2020-11-26] MEDS: Spironolactone 25 MG TABLET 100 MG PO (09:07)
[2020-11-26] MEDS: Levothyroxine Sodium 112 MCG TABLET PO (09:07)
[2020-11-26] MEDS: Pregabalin 200 MG CAPSULE PO (09:09)
[2020-11-26] MEDS: Torsemide 20 MG TABLET 80 MG PO (09:09)
[2020-11-26] MEDS: Nystatin Powder 15 GM BOTTLE 1 APPL TOPICAL (09:09)
[2020-11-26] MEDS: Atorvastatin Calcium 10 MG TABLET PO (09:09)
[2020-11-26] MEDS: Tamsulosin HCL 0.4 MG CAPSULE 0.8 MG PO (09:09)
[2020-11-26 09:16] LABS: Anion Gap 13 (12-20); Blood Urea Nitrogen 25 mg/dL (9-16); Calcium 8.9 mg/dL (8.4-10.2); Carbon Dioxide 32 mmol/L (22-29); Chloride 97 mmol/L (96-108); Creatinine Clr Calc Pharmacy 52.4; Estimated Glomerular Filt Rate 36; Glucose Random 102 mg/dL (60-115); Potassium 3.2 mmol/L (3.3-5.1); Sodium 139 mmol/L (135-145)
[2020-11-26] MEDS: Potassium Chloride Packet 20 MEQ PACKET 40 MEQ PO (09:22)
[2020-11-26] MEDS: oxyCODONE HCl Immed Release 5 MG TABLET PO (09:22)
[2020-11-26 10:13] VITALS: BP 105/58; PULSE 58; O2SAT 93
[2020-11-26 10:58] VITALS: BP 119/54; PULSE 58; RESP 18; TEMP 36; O2SAT 96
[2020-11-26] MEDS: Metoprolol Tartrate 50 MG TABLET PO (11:42)
[2020-11-26 11:53] LABS: Glucose, Whole Blood 95 mg/dL (60-115)
--- NOTE | 2020-11-26 12:23 | MHC.CM.PN ---
Pt is aware she is cleared to DC home today with [facility] for SN and PT. Pt reports she does not have a preference regarding agencies however she wants to make sure they are cat-friendly. Pt reports she has 3 cats at home and the last visiting nurse that came was afraid of them and made her lock them in the bathroom while she was there. CM will make [facility] referrals and inform them of pts concerns. pt reports he will be coming to bring her clothing and drive her home. She is unsure of exact time. Referrals made for [facility]. CM will meet with pt again once responses are received.
--- NOTE | 2020-11-26 12:30 | W.MHC.F2F ---
Service Date Service Date: 11/26/20 Encounter Date of encounter: 11/26/20 Reasons for Services Signs and symptoms assessed: Weakness difficulty walking CHF Reason for custodial: medication management Reason for physical therapy: home safety and mobility, therapeutic exercises and gait/transfer training Homebound: Leaving the home is medically contraindicated at this time without the asist of a device and/or another person due th the listed conditions above and below. Reason homebound: unsteady gait / fall risk and leg weakness Certification: Based on the above findings, I certify that this patient is confined to the home and needs intermittent custodial care, physical therapy and/or speech therapy, or continues to need occupational therapy. The patient is under my care, and I have initiated the establishment of the plan of care. The patient will be followed by a physician who will periodically review the plan of care.
--- NOTE | 2020-11-26 12:32 | P.DS_ITS ---
DS: Providers Provider Date of Service: 11/29/20 Date of admission: 11/19/20 23:52 Primary care physician: Unknown Physician Consults: 11/20/20 05:12 Consult to Cardiology Routine Consulting Provider: Bobby Corona Reason for consultation: HF exacerbation Has provider been notified: No 11/20/20 18:44 Consult to Neurology Routine Consulting Provider: [facility] Reason for consultation: confused, ? having seizures DS: Diagnosis Discharge Diagnosis (1) Metabolic encephalopathy: Status: Acute (2) Acute respiratory failure with hypoxia: Status: Acute (3) Acute renal failure superimposed on chronic kidney disease: Status: Acute (4) Gouty arthritis: Status: Acute (5) Cellulitis: Status: Acute (6) CHF exacerbation: Status: Acute (7) Supratherapeutic INR: Status: Acute (8) Elevated troponin: Status: Acute DS: Medications Discharge Medications Home Medications: Home Medications Medication Instructions Recorded Confirmed atorvastatin 10 mg tablet 10 mg PO DAILY 06/20/20 11/20/20 calcipotriene 0.005 % topical 1 applic TOPICAL BID 06/20/20 11/20/20 ointment flecainide 100 mg tablet 150 mg PO Q12H 06/20/20 11/20/20 levothyroxine 112 mcg tablet 112 mcg PO DAILY 06/20/20 11/20/20 metformin 500 mg tablet 500 mg PO BID 06/20/20 11/20/20 metoprolol tartrate 50 mg tablet 50 mg PO BID 06/20/20 11/20/20 pregabalin 200 mg capsule 200 mg PO BID cap 06/20/20 11/20/20 secukinumab 150 mg/mL subcutaneous 300 mg SUBCUT Q30D 06/20/20 11/20/20 pen injector spironolactone 100 mg tablet 100 mg PO DAILY 06/20/20 11/20/20 torsemide 20 mg tablet 120 mg PO BID 10/24/20 11/20/20 oxcarbazepine 450 mg PO BID 11/20/20 11/20/20 warfarin 5 mg PO MOTUWE 11/20/20 11/20/20 warfarin 5 mg PO SUTHFRSA 11/20/20 11/20/20 Previous Rx's Medication Instructions Recorded fluticasone propionate 230 2 inh INHALATION Q12H #12 g 06/20/20 mcg-salmeterol 21 mcg/actuation HFA inhaler wheelchair #1 ea 10/24/20 levetiracetam [Keppra] 500 mg PO Q12H #60 tab 11/26/20 oxycodone 5 mg PO Q8H PRN #10 tab 11/26/20 tamsulosin 0.8 mg PO DAILY #10 cap 11/26/20 DS: Summary Hospital Course Hospital Course: HPI on admission 65-year-old female with past medical history of hypothyroidism, CKD, HLD, HTN, heart failure, KEVIN on CPAP, paroxysmal AFib on Coumadin, DM who presents to the hospital after her heard her fall on the floor and EMS found her hypoxic. Patient is very confused, she is oriented to self but not to place or time, she is unable to give any history, when asked questions she just has very difficult time answering questions although she understands according to her what I am asking her. History is mostly therefore obtained from ED physician who obtained the history from her and her son over the phone. It appears the patient has been complaining of right lower extremity pain, and swelling for the past 3 days, today she was not feeling well, and stayed in bed all day, she got out of bed in the afternoon and her was in another room and heard of lab outside, when he arrived to the room he found her on the floor 70 conscious, with no loss of consciousness. She was confused and had purple nose and purple fingers according to him. On arrival of EMS patient was found to be hypoxic in the 80s, with no other abnormalities. I am unable to review this system with patient as she is very confused On arrival to the ED patient's initial temp was normal 98.7, heart rate of 87, respiratory rate of 34, blood pressure 133/79, satting 92% on room air but desat ting with minimal movement, currently on 4 L satting 98%. She did develop a fever of 101.9 while in the ED otherwise hemodynamically Stable. Labs are significant for WBC count of 15.5, hemoglobin of 9.9 dropped from 11.6 in March of 2020, ESR of 48, PT of 45.5, INR 3.8, pH of 7.3, pCO2 of 46, sodium of 141, potassium 4.2, BUN of 28, creatinine of 2.05 with a baseline around 1.4, uric acid of 12.6, ammonia normal, BNP of 520, initial troponin of 54.2 with repeat of 157.3, CRP of 12.4, UA negative. CT chest an x-ray negative for any acute findings. X-ray of the right ankle negative for any dislocation or displacement, COVID-19 negative EKG wide QRS rhythm with premature ventricular complexes and fusion complexes, with nonspecific intraventricular conduction block. She does appear to have ST depressions in lateral leads with T-wave inversions. unable to review past medical history with patient as she is very confused Hospital course 65-year-old female initially admitted with toxic metabolic encephalopathy acute hypoxic respiratory failure Acute Toxic/Metabolic Encephalopathy, resolved Secondary to seizure activity CT brain scan negative MRI brain,Small chronic lacunar infarcts in the bilateral cerebellar hemispheres. Nonspecific foci of T2 hyperintensity seen in the bilateral cerebral white matter. EEG was concerning for seizure per Dr. Ojeda Continue Keppra 500 b.i.d. on discharge and follow-up with Neurology Dr. Ojeda as outpatient Acute CHF exacerbation, resolved mixed systolic and diastolic last echo in December 2019 with EF of 35-40% Continue spironolactone and torsemide cardiology input appreciated, elevated troponin with flat trend likely demand mediated not from ACS PAF/Mechanical Mitral Valve Supratherapeutic INR resolved continue Coumadin and flecainide Acute Kidney Injury likely multifactorial resolved SCr improved R Ankle pain improved X-rays not showing any acute fracture or dislocation Does not look like gout flare on prednisone, discontinued Will need to follow-up with rheumatology as outpatient as seems like arthritis as patient has history of so reassess, discharge on p.o. oxycodone patient was stable evaluated by Physical therapy recommended home PT, patient was discharged home on p.o. Keppra and oxycodone with visiting nurse Time Spent with Patient Time attestation: Total time spent providing and/or coordinating discharge services: Discharge coordination time: Greater than 30 minutes Physical Exam Vital Signs: Vital Signs: Last Vital Signs Temp 96.8 F 11/26/20 10:58 Pulse 58 11/26/20 10:58 Resp 18 11/26/20 10:58 BP 119/54 L 11/26/20 10:58 Pulse Ox 96 11/26/20 10:58 Body Mass Index 39.5 DS: Data Data Completed and Pending Labs on day of discharge: Laboratory Results - last 24 hr 11/25/20 11/25/20 11/26/20 16:35 20:28 05:39 PT 25.9 H INR 2.2 H Sodium Potassium Chloride Carbon Dioxide Anion Gap BUN Creatinine Estim Creat Clear Calc Estimated GFR POC Glucose 96 115 Random Glucose Calcium 11/26/20 11/26/20 11/26/20 06:07 07:43 11:35 PT INR Sodium 139 Potassium 3.2 L Chloride 97 Carbon Dioxide 32 H Anion Gap 13 BUN 25 H Creatinine 1.47 H Estim Creat Clear Calc 52.4 Estimated GFR 36 POC Glucose 97 95 Random Glucose 102 Calcium 8.9 Preliminary micro results at discharge 11/23/20 01:47 Blood Culture - Preliminary Blood - Venous No growth after 48 hours. 11/23/20 01:46 Blood Culture - Preliminary Blood - Venous No growth after 48 hours. Discharge Plan Discharge Anticipated Discharge Date/Time: 11/26/20 11:42 Patient Disposition: Home Health Service Referrals: [facility] [Outside] [facility] [Outside] Rose Watts MD [Physician] - (Plaque psoriasis, arthritis for your evaluation) Physician,Unknown [Primary Care Provider] - Discharge Medications: New tamsulosin 0.4 mg Capsule 0.8 mg PO DAILY Qty: 10 RF: 0 oxycodone 5 mg Tablet 5 mg PO Q8H PRN (Reason: pain 7 to 10) Qty: 10 RF: 0 levetiracetam [Keppra] 500 mg tablet 500 mg PO Q12H Qty: 60 RF: 0 Continued warfarin 5 mg Tablet 5 mg PO SUTHFR RF: 0 oxcarbazepine 300 mg Tablet 450 mg PO BID RF: 0 warfarin 5 mg Tablet 5 mg PO MOTUWE RF: 0 flecainide 100 mg tablet 150 mg PO Q12H RF: 0 atorvastatin 10 mg tablet 10 mg PO DAILY RF: 0 levothyroxine 112 mcg tablet 112 mcg PO DAILY RF: 0 spironolactone 100 mg tablet 100 mg PO DAILY RF: 0 metformin 500 mg tablet 500 mg PO BID RF: 0 secukinumab 150 mg/mL pen injector 300 mg subcut Q30D RF: 0 metoprolol tartrate 50 mg tablet 50 mg PO BID RF: 0 calcipotriene 0.005 % ointment 1 applic topical BID RF: 0 pregabalin 200 mg capsule 200 mg PO BID RF: 0 fluticasone propion-salmeterol 230-21 mcg/actuation HFA aerosol inhaler 2 inh inhalation Q12H Qty: 12 RF: 5 torsemide 20 mg tablet 120 mg PO BID RF: 0 No Action (DME) wheelchair See Rx Instructions .Route .MEDSUPPLY Qty: 1 RF: 0 Discharge Orders: Discharge Order (Routine); Ordered 11/26/20 Ordered By: Dg Barksdale Diet: advance to usual diet Activity on Discharge: As tolerated Stand Alone Forms: Patient Portal Discharge page Care Plan Goals: see above Health Concerns: see above Plan of Treatment: see above Discharge Date/Time: 11/26/20 16:00
== END 2020-11-26 16:00 | disposition home health service (06) | DRG 100 ==
LOC: HO.ED 18:50 → HO.S3 11-20 00:47
PROVIDERS: Family Medicine; Nurse Practitioner Family; Student in an Organized Health Care Education/Training Program; Admitting Provider Internal Medicine; Emergency Provider Internal Medicine; PCP Internal Medicine; Visit Provider Internal Medicine
DX: R56.9 Unspecified convulsions (principal); N17.0 Acute kidney failure with tubular necrosis; J96.01 Acute respiratory failure with hypoxia; I50.43 Acute on chronic combined systolic (congestive) and diastolic (congestive) heart failure; I13.0 Hypertensive heart and chronic kidney disease with heart failure and stage 1 through stage 4 chronic kidney disease, or unspecified chronic kidney disease; I24.8 Other forms of acute ischemic heart disease; N18.4 Chronic kidney disease, stage 4 (severe); E11.22 Type 2 diabetes mellitus with diabetic chronic kidney disease; E03.9 Hypothyroidism, unspecified; G47.33 Obstructive sleep apnea (adult) (pediatric); R79.1 Abnormal coagulation profile; I48.0 Paroxysmal atrial fibrillation; R33.9 Retention of urine, unspecified; F17.210 Nicotine dependence, cigarettes, uncomplicated; Z71.6 Tobacco abuse counseling; I27.20 Pulmonary hypertension, unspecified; M10.9 Gout, unspecified; Z20.822 Contact with and (suspected) exposure to COVID-19; Z99.89 Dependence on other enabling machines and devices; Z95.0 Presence of cardiac pacemaker; Z95.2 Presence of prosthetic heart valve; Z88.0 Allergy status to penicillin; Z79.01 Long term (current) use of anticoagulants; Z79.52 Long term (current) use of systemic steroids; Z79.891 Long term (current) use of opiate analgesic; Z79.899 Other long term (current) drug therapy
CPT/HCPCS: 36415; 70450; 70551; 71045; 71250; 73610; 78580; 80048; 80076; 80307; 81001; 81003; 82140; 82607; 82728; 82746; 82947; 83605; 83615; 83880; 84484; 84550; 85025; 85027; 85379; 85610; 85652; 86140; 87040; 87635; 93005; 93306; 94660; 95816; 96361; 96365; 96375; 97110; 97116; 97162; 97163; 99285; A9540; C1758; J0696; J1940; J1953; J2060; J2270; J2405

== ENCOUNTER → 2020-11-27 14:42 | Outpatient (BNVA) | payer OTHER, SELFPAY | PROVIDERS: PCP Internal Medicine; Visit Provider Internal Medicine | DX: I48.19 Other persistent atrial fibrillation (principal); Z51.81 Encounter for therapeutic drug level monitoring; Z79.01 Long term (current) use of anticoagulants | CPT/HCPCS: Q3014 ==

== ENCOUNTER → 2020-11-28 14:17 | Outpatient (BNVA) | payer OTHER, SELFPAY | PROVIDERS: PCP Internal Medicine; Visit Provider Internal Medicine | DX: I48.19 Other persistent atrial fibrillation (principal); Z51.81 Encounter for therapeutic drug level monitoring; Z79.01 Long term (current) use of anticoagulants | CPT/HCPCS: Q3014 ==

== ENCOUNTER → 2020-11-30 13:47 | Outpatient (BNVA) | payer OTHER, SELFPAY | PROVIDERS: PCP Internal Medicine; Visit Provider Internal Medicine | DX: I48.19 Other persistent atrial fibrillation (principal); Z51.81 Encounter for therapeutic drug level monitoring; Z79.01 Long term (current) use of anticoagulants | CPT/HCPCS: Q3014 ==

== ENCOUNTER → 2020-12-03 15:01 | Outpatient (BNVA) | payer OTHER, SELFPAY | PROVIDERS: PCP Internal Medicine; Visit Provider Internal Medicine | DX: I48.19 Other persistent atrial fibrillation (principal); Z51.81 Encounter for therapeutic drug level monitoring; Z79.01 Long term (current) use of anticoagulants | CPT/HCPCS: Q3014 ==

== ENCOUNTER → 2020-12-05 13:53 | Outpatient (BNVA) | payer OTHER, SELFPAY | PROVIDERS: PCP Internal Medicine; Visit Provider Internal Medicine | DX: I48.19 Other persistent atrial fibrillation (principal); Z51.81 Encounter for therapeutic drug level monitoring; Z79.01 Long term (current) use of anticoagulants | CPT/HCPCS: Q3014 ==

== ENCOUNTER → 2020-12-07 10:53 | Outpatient (BNVA) | payer OTHER, SELFPAY | PROVIDERS: PCP Internal Medicine; Visit Provider Internal Medicine | DX: I48.19 Other persistent atrial fibrillation (principal); Z51.81 Encounter for therapeutic drug level monitoring; Z79.01 Long term (current) use of anticoagulants | CPT/HCPCS: Q3014 ==

== ENCOUNTER → 2020-12-10 15:54 | Outpatient (BNVA) | payer OTHER, SELFPAY | PROVIDERS: PCP Internal Medicine; Visit Provider Internal Medicine | DX: I48.19 Other persistent atrial fibrillation (principal); Z79.01 Long term (current) use of anticoagulants; Z51.81 Encounter for therapeutic drug level monitoring | CPT/HCPCS: Q3014 ==

== ENCOUNTER 2020-12-17 15:07 | Inpatient (IN) | payer OTHER, MEDICARE, BC, SELFPAY ==
--- NOTE | ~2020-12-17 | XR_ITS ---
EXAMINATION: XR ANKLE, RIGHT CLINICAL INFORMATION: Right ankle swelling. COMPARISON: 12/19/2020 and 11/19/2020. TECHNIQUE: AP, lateral, and mortise views of the right ankle. FINDINGS: There is a large amount of edema seen within the right lower leg, ankle, and foot. No acute fracture or dislocation evident. No widening of the medial joint space is seen. Secondary ossification centers or sequela of previous trauma seen just inferior to the medial and lateral malleoli. No radiopaque foreign bodies. Plantar calcaneal spur present. There is some irregularity about the dorsum of the navicula likely related to tug/avulsion lesions. XR/XR ankle RT 2V IMPRESSION: Edematous change throughout visualized portions of the right lower extremity, ankle, and foot with no acute underlying bony abnormality appreciated. Plantar calcaneal spur.
--- NOTE | ~2020-12-17 | CT_ITS ---
EXAMINATION: CT CHEST WITHOUT CONTRAST CLINICAL INFORMATION: Abnormal chest radiograph with question of mild edema COMPARISON: Chest radiograph earlier today, chest CT 11/20/2019 TECHNIQUE: Multidetector volumetric CT imaging of the chest was done. Axial MIP volume rendering provided. Sagittal and coronal reformatted images were obtained. This CT examination was performed using dose optimization techniques as appropriate, variously including the following: *Automated exposure control *Adjustment of mA and/or kV according to patient size (this includes techniques or standardized protocols for targeted exams where dose is matched to indication/reason for exam; i.e. extremities or head) *Use of iterative reconstruction technique DLP: 472 mGy-cm FINDINGS: LUNGS: Increased interstitial markings are present throughout the lungs without any focal infiltrates. There is no evidence of pneumonia. These markings appear slightly more prominent than they did on 11/19/2020 CT scan. Findings are compatible with CHF and mild interstitial edema. MEDIASTINUM: Again seen is a left chest wall bipolar pacemaker with a mitral valve prosthesis present. The heart is enlarged. There are some small morphologically normal-appearing lymph nodes present but there is no hilar or mediastinal lymphadenopathy seen. Patient status post median sternotomy. PLEURA: There is no pleural effusion. No pleural mass or thickening. AXILLA: No lymphadenopathy. UPPER ABDOMEN: There is a small 1.1 cm nodule in the left adrenal gland, unchanged. This measures 12 Hounsfield units and is consistent with a benign adenoma. OSSEOUS STRUCTURES: Unremarkable. CT/CT chest wo con IMPRESSION: Cardiomegaly with mild increased interstitial markings in the lungs compatible with mild interstitial edema. There is no evidence of any focal consolidations or groundglass infiltrates.
--- NOTE | ~2020-12-17 | XR_ITS ---
EXAMINATION: XR FOOT, BILATERAL CLINICAL INFORMATION: Foot pain. COMPARISON: TECHNIQUE: 3 views of each foot. FINDINGS: LEFT FOOT: There is osteopenia visualized in the bones. There is limited evaluation of the toes due to the metatarsophalangeal joints being held in extension and the interphalangeal joints in flexion. No acute fractures identified. Old healed fracture involving the 5th distal metatarsal noted. There is some hallux valgus deformity of the 1st metatarsophalangeal joint with associated soft tissue swelling and subchondral cyst formation. Large plantar calcaneal spur is seen. The joint spaces appear generally maintained. There is some sclerotic regions involving the bases of the 2nd through 5th metatarsals which may be related to previous healed injury. RIGHT FOOT: There is no evidence of acute fracture or dislocation of the right foot. Soft tissue swelling is seen overlying the dorsum of the foot. No radiopaque foreign body. Mild hallux valgus deformity with a medial subchondral cyst involving the 1st metatarsophalangeal joint. XR/XR foot LT 2V IMPRESSION: No acute fracture or dislocation of either the right or left foot. Soft tissue swelling dorsum of the feet right greater than left. Bilateral bunion formation with hallux valgus deformity.
--- NOTE | ~2020-12-17 | XR_ITS ---
EXAMINATION: XR FOOT, BILATERAL CLINICAL INFORMATION: Foot pain. COMPARISON: TECHNIQUE: 3 views of each foot. FINDINGS: LEFT FOOT: There is osteopenia visualized in the bones. There is limited evaluation of the toes due to the metatarsophalangeal joints being held in extension and the interphalangeal joints in flexion. No acute fractures identified. Old healed fracture involving the 5th distal metatarsal noted. There is some hallux valgus deformity of the 1st metatarsophalangeal joint with associated soft tissue swelling and subchondral cyst formation. Large plantar calcaneal spur is seen. The joint spaces appear generally maintained. There is some sclerotic regions involving the bases of the 2nd through 5th metatarsals which may be related to previous healed injury. RIGHT FOOT: There is no evidence of acute fracture or dislocation of the right foot. Soft tissue swelling is seen overlying the dorsum of the foot. No radiopaque foreign body. Mild hallux valgus deformity with a medial subchondral cyst involving the 1st metatarsophalangeal joint. XR/XR foot RT 2V IMPRESSION: No acute fracture or dislocation of either the right or left foot. Soft tissue swelling dorsum of the feet right greater than left. Bilateral bunion formation with hallux valgus deformity.
--- NOTE | ~2020-12-17 | XR_ITS ---
EXAMINATION: XR CHEST CLINICAL INFORMATION: Altered mental status COMPARISON: 11/23/2020 TECHNIQUE: Frontal view of the chest was obtained. FINDINGS: Left chest wall dual-lead pacer remains in place. Cardiac valvular hardware noted. Median sternotomy wires appear intact. Cardiac leads overlie the chest. Low lung volumes. Central vascular prominence. Mild interstitial prominence. No dense consolidation. No pleural effusion or pneumothorax. The cardiomediastinal silhouette is unchanged, with a calcified aorta. XR/XR chest 1V IMPRESSION: Central vascular prominence with mild interstitial prominence could represent mild edema.
--- NOTE | ~2020-12-17 | CT_ITS ---
EXAMINATION: CT HEAD WITHOUT CONTRAST CLINICAL INFORMATION: Altered mental status COMPARISON: 11/19/2020 and 11/23/2020. TECHNIQUE: Contiguous axial imaging was performed from the skull base to vertex without intravenous contrast. This CT examination was performed using dose optimization techniques as appropriate, variously including the following: * Automated exposure control * Adjustment of mA and/or kV according to patient size (this includes techniques or standardized protocols for targeted exams where dose is matched to indication/reason for exam; i.e. extremities or head) Use of iterative reconstruction technique DLP: 766 mGy-cm. FINDINGS: There is no evidence of acute intracranial hemorrhage or territorial infarction. No abnormal mass effect or midline shift is seen. Kitchen to white matter differentiation is well preserved. No extra-axial fluid collections are identified. No hydrocephalus. No significant volume loss. There is no abnormal attenuation within the brain parenchyma. The osseous structures and soft tissues are normal. The mastoid air cells and visualized portions of the paranasal sinuses are well aerated. CT/CT head for stroke IMPRESSION: No acute intracranial pathology. This critical result was discussed with Phillip Sheffield NP by telephone at 12/17/2020 3:53 PM and it was ascertained that the content and urgency of the report was understood at the time of direct communication.
[2020-12-17 15:19] VITALS: BP 132/58; PULSE 79; RESP 16; TEMP 36.6; O2SAT 94; BMI 45.3
--- NOTE | 2020-12-17 15:26 | ECG_ITS ---
Test Reason : AMS Blood Pressure : / mmHG Vent. Rate : 075 BPM Atrial Rate : 072 BPM P-R Int : 000 ms QRS Dur : 112 ms QT Int : 378 ms P-R-T Axes : 000 077 -48 degrees QTc Int : 422 ms Accelerated Junctional rhythm Incomplete left bundle branch block ST & T wave abnormality, consider inferior ischemia ST & T wave abnormality, consider anterolateral ischemia Abnormal ECG When compared with ECG of 20-NOV-2020 00:13, Junctional rhythm has replaced Atrial fibrillation T wave inversion less evident in Anterior leads Referred By: Phillip Sheffield Electronically Signed By:MYRNA EVANS MD
[2020-12-17 15:31] LABS: Glucose, Whole Blood 105 mg/dL (60-115)
--- NOTE | 2020-12-17 15:31 | ED_ITS ---
HPI - Altered Mental Status General Chief Complaint: Altered Mental Status Stated Complaint: ams Time Seen by Provider: 12/17/20 15:25 Source: EMS Mode of arrival: EMS Limitations: altered mental status History of Present Illness HPI narrative: According to prior H&P and discharge summary from November 20 and November 26 here to this facility patient has a history of that hypothyroidism, CKD, hyperlipidemia, hypertension, HF, KEVIN on CPAP, proximal atrial fibrillation anticoagulated on Coumadin, diabetes as well as previous admission diagnosis of acute toxic metabolic encephalopathy question secondary to seizure activity she was subsequently started on Keppra 500 mg b.i.d. and discharged with follow-up with Neurology Today per he last saw her a little before 11:00 MD complaint: altered mental status Associated symptoms: denies other symptoms Related Data Home Medications Medication Instructions Recorded Confirmed atorvastatin 1 tab PO DAILY 12/17/20 12/17/20 flecainide 100 mg PO DAILY 12/17/20 12/17/20 levetiracetam 1 tab PO BID 12/17/20 12/17/20 levothyroxine 1 tab PO DAILY 12/17/20 12/17/20 metformin 1 tab PO BID 12/17/20 12/17/20 metoprolol tartrate 1 tab PO BID 12/17/20 12/17/20 oxcarbazepine 1 tab PO TID 12/17/20 12/17/20 pregabalin 1 cap PO BID 12/17/20 12/17/20 spironolactone 1 tab PO DAILY 12/17/20 12/17/20 Allergies Allergy/AdvReac Type Severity Reaction Status Date / Time adalimumab [From HUMIRA] Allergy Unknown PCP Verified 12/09/20 23:44 PNEUMONIA azathioprine [Imuran] Allergy Unknown PNA Verified 12/09/20 23:44 Cephalosporins Allergy Unknown KIDNEY Verified 12/09/20 23:44 [CEPHALOSPORINS] FAILURE cyclosporine [CYCLOSPORINE] Allergy Unknown KIDNEY Verified 12/09/20 23:44 FAILURE etanercept [From Enbrel] Allergy Unknown PCP Verified 12/09/20 23:44 PNEUMONIA simvastatin Allergy Unknown athralgias Verified 12/09/20 23:44 amoxicillin [From AUGMENTIN] AdvReac Unknown PROJECTILE Verified 12/09/20 23:44 VOMITTING clavulanic acid AdvReac Unknown PROJECTILE Verified 12/09/20 23:44 [From AUGMENTIN] VOMITTING Review of Systems Review of Systems: Yes Unobtainable due to mental status [facility] Past Medical History Medical History Acquired hypothyroidism Chronic low back pain CKD stage 3 secondary to diabetes Dyslipidemia Essential hypertension Fibromyalgia H/O cardiac pacemaker Mitral valve stenosis, rheumatic NYHA class 1 heart failure with preserved ejection fraction KEVIN on CPAP Osteoarthritis Paroxysmal atrial fibrillation Postmenopausal Psoriasis Rhinitis Seizure disorder Sinusitis Type 2 diabetes mellitus with other diabetic kidney complication Surgical History H/O mitral valve replacement Hx of mitral valve replacement with mechanical valve Family History Family History Father HTN (hypertension) CKD (chronic kidney disease) Mother HTN (hypertension) Son No problems noted. Son No problems noted. Son No problems noted. Social History Social History Household Members: Family Housing: House Alcohol intake: unknown Smoking Status: Unknown if ever smoked Tobacco Type: Cigarette Second Hand Smoke Exposure: No Use of substances other than those prescribed or required for medical reasons: Unknown Advance Directives: No Advance Directives Information Provided: Yes service: No Current occupational status: unemployed Physical Exam Vital Signs: Vital Signs: Last Vital Signs Temp 99.2 F 12/17/20 18:00 Pulse 83 12/17/20 18:00 Resp 18 12/17/20 18:00 BP 116/50 L 12/17/20 18:00 Pulse Ox 94 12/17/20 18:00 Body Mass Index 45.3 Reviewed Const: Other: Alert and oriented x3 but very slow to respond States having hard time finding words General: No acute distress or intoxicated appearing Nutritional Appearance: average body habitus and obese Orientation/consciousness: oriented to person, oriented to place and oriented to time HENMT: Head: Yes normal to inspection Ears: hearing grossly normal bilaterally Eyes: General: appearance normal, both eyes and all related structures Visual Angelo: normal visual angelo by confrontation Pupils: Equal, round and reactive pupils present Neck: Neck: Yes normal visual inspection, No positive Brudzinski's sign, No positive Kernig's sign and No tender Thyroid: Thyroid normal Chest: Chest palpation & inspection: normal inspection of the chest Resp: Effort & Inspection: normal respiratory effort Auscultation: clear to auscultation bilaterally Cardio: Jugular venous distension: no JVD Rhythm: regular rhythm Heart sounds: S1 normal heart sound present and S2 normal heart sound present GI: Inspection: Yes normal to inspection Palpation (GI): Soft to palpation Percussion: Yes normal to percussion Auscultation: normal bowel sounds : General: Yes no CVA tenderness Back/Spine/Pelvis: Back: no CVA tenderness Skin: General skin exam: no rashes or lesions noted Neuro: General: oriented to person, oriented to place and oriented to time Cranial nerves: Yes CN's II-XII intact bilaterally and Yes Equal, round and reactive pupils present Speech: Abnormal speech present other (Mild expressive aphasia) Extrem: General: Yes normal to inspection NIH Stroke Scale Internal: Initial- Upon Arrival Level of Consciousness: Alert Level of Consciousness Questions: Answers one question correctly (Having mild expressive) Level of Consciousness Commands: Performs both tasks correctly Best Gaze: Normal Visual: No visual loss Facial Palsy: Normal Motor Arm (Right): No drift Motor Arm (Left): No drift Motor Leg (Right): No drift Motor Leg (Left): No drift Limb Ataxia: Absent Sensory: Normal Best Language: No aphasia Dysarthia: Normal Extinction and Inattention: No abnormality Score: 1 Course Reevaluation(s) Reevaluation #1: Upon EMS arrival having some expressive aphasia Above history from EMR She has about some me her name but is having notable difficulty with certain words and phrases seems a little frustrated Unsure of the onset of symptoms family apparently present on scene however very poor historians at this time given the findings will go ahead and do stroke protocol head CT I will call the family to get more of the story and last well-known Reevaluation #2: [id number] Spoke to Mr. Kirby States little before 11:00 o'clock she woke up she was okay she did not use her CPAP last night She did not feel like getting out of bed to do her usual ADLs and not go downstairs for breakfast Couple hours ago he tried to help her get out of bed to help her do ADLs and she did want to thus he called the ambulance as she was having symptoms as she did similar a month ago but not as severe mostly some expressive aphasia. She had similar episodes about 20 days ago as noted in my note above in November 20 and discharged on November 26 Given the onset of time she is out of the tPA window, additionally she is on Coumadin and she has the elevated INR. Reevaluation #3: No signs of infectious pathology on workup findings more consistent with mix metabolic/respiratory alkalosis/encephalopathy consistent of previous question underlying seizure from previous visit on Keppra already has been taking it. Consultations Consultation #1: 1550 In house just a radiology call at this time regarding the stroke head CT read; No acute findings on the CT Consultation #2: Case discussed with hospitalist for admission. MDM - Altered Mental Status Lab Data Result diagrams: 12/17/20 16:27 12/17/20 16:27 Labs: Lab Results 12/17/20 12/17/20 12/17/20 Range/Units 15:28 16:27 16:27 WBC 14.0 H (4.8-10.8) X10*3/uL RBC 4.10 L (4.20-5.50) X10*6/uL Hgb 10.0 L (12.0-16.0) g/dl Hct 32.8 L (37-47) % MCV 80.0 (80-98) fL MCH 24.4 L (27.0-33.0) pg MCHC 30.5 L (31.0-35.0) g/dl RDW 17.1 H (11.0-16.0) % Plt Count 227 (160-400) X10*3/uL MPV 10.1 (9.4-12.3) fL Immature Gran % (Auto) 0.6 H (0.0-0.4) % Neut % (Auto) 79.7 H (45-73) % Lymph % (Auto) 7.3 L (20-40) % Saline % (Auto) 11.7 H (2-11) % Eos % (Auto) 0.3 (0-4) % Baso % (Auto) 0.4 (0-2) % Lymph # (Auto) 1.0 L (1.2-4.9) X10*3/uL Saline # (Auto) 1.6 H (0.1-1.2) X10*3/uL Eos # (Auto) 0.0 (0.0-0.4) X10*3/uL Baso # (Auto) 0.1 (0.0-0.2) X10*3/uL Abs Immat Gran (auto) 0.09 H (0.00-0.03) X10*3/uL Absolute Neuts (auto) 11.2 H (2.0-8.3) X10*3/uL Absolute Nucleated RBC 0.000 (0.0-0.012) X10*3/uL Nucleated RBC % (auto) 0.0 (0.0-0.2) /100WBC Smear Tech's Comments VERIFIED PT (10.8-13.0) SEC INR (0.9-1.1) APTT (24.1-38.0) SEC D-Dimer NG/ML O2 Saturation % ABG pH at Pt Temp (7.35-7.45) ABG pH (Temp Correct) (7.35-7.45) ABG pCO2 at Pt Temp (32-45) mmHg ABG pCO2 (Temp Corrct (32-45) mmHg ABG pO2 at Pt Temp (83-108) mmHg ABG pO2 (Temp Correct (83-108) ABG HCO3 (22-26) mmol/L ABG Base Excess (Actual) mmol/L Sodium 139 (135-145) mmol/L Potassium 3.6 (3.3-5.1) mmol/L Chloride 94 L (96-108) mmol/L Carbon Dioxide 31 H (22-29) mmol/L Anion Gap 18 (12-20) BUN 22 H (9-16) mg/dL Creatinine 1.65 H (0.5-1.4) mg/dL Estim Creat Clear Calc 41.2 Estimated GFR 31 POC Glucose 105 (60-115) mg/dL Random Glucose 120 H (60-115) mg/dL Lactic Acid (0.5-2.0) mmol/L Calcium 9.3 (8.4-10.2) mg/dL Ferritin (10-250) ng/mL Total Bilirubin 1.2 H (0.0-1.0) mg/dL AST 22 (5-31) U/L ALT 17 (0-31) U/L Alkaline Phosphatase 180 H D (39-117) U/L Troponin I High Sens (<3.5-17.0) ng/L C-Reactive Protein 14.45 H (< or = 0.50) mg/dL B-Natriuretic Peptide (<100) pg/mL Total Protein 7.7 (6.5-8.0) g/dL Albumin 4.2 (3.5-5.0) g/dL Procalcitonin ng/mL Urine Color Urine Appearance Urine pH (5.0-8.0) Ur Specific [place] (1.005-1.025) Urine Protein (NEG-TRACE) MG/DL Urine Glucose (UA) (NEG) MG/DL Urine Ketones (NEG) MG/DL Urine Blood (NEG) Urine Nitrite (NEG) Ur Leukocyte Esterase (NEG) Urine RBC (0) /HPF Urine WBC (0-4) /HPF Ur Squamous Epith Cells /LPF Urine Bacteria /LPF Urine Opiates Screen (Not Detect) Ur Barbiturates Screen (Not Detect) Ur Phencyclidine Scrn (Not Detect) Ur Amphetamines Screen (Not Detect) U Benzodiazepines Scrn (Not Detect) Urine Cocaine Screen (Not Detect) U Marijuana (THC) Screen (Not Detect) Ethyl Alcohol mg/dL Coronavirus (PCR) (Negative) Influenza Type A (PCR) (Negative) Influenza Type B (PCR) (Negative) RSV RNA Qual (PCR) (Negative) 12/17/20 12/17/20 12/17/20 Range/Units 16:27 16:27 16:27 WBC (4.8-10.8) X10*3/uL RBC (4.20-5.50) X10*6/uL Hgb (12.0-16.0) g/dl Hct (37-47) % MCV (80-98) fL MCH (27.0-33.0) pg MCHC (31.0-35.0) g/dl RDW (11.0-16.0) % Plt Count (160-400) X10*3/uL MPV (9.4-12.3) fL Immature Gran % (Auto) (0.0-0.4) % Neut % (Auto) (45-73) % Lymph % (Auto) (20-40) % Saline % (Auto) (2-11) % Eos % (Auto) (0-4) % Baso % (Auto) (0-2) % Lymph # (Auto) (1.2-4.9) X10*3/uL Saline # (Auto) (0.1-1.2) X10*3/uL Eos # (Auto) (0.0-0.4) X10*3/uL Baso # (Auto) (0.0-0.2) X10*3/uL Abs Immat Gran (auto) (0.00-0.03) X10*3/uL Absolute Neuts (auto) (2.0-8.3) X10*3/uL Absolute Nucleated RBC (0.0-0.012) X10*3/uL Nucleated RBC % (auto) (0.0-0.2) /100WBC Smear Tech's Comments PT (10.8-13.0) SEC INR (0.9-1.1) APTT (24.1-38.0) SEC D-Dimer NG/ML O2 Saturation % ABG pH at Pt Temp (7.35-7.45) ABG pH (Temp Correct) (7.35-7.45) ABG pCO2 at Pt Temp (32-45) mmHg ABG pCO2 (Temp Corrct (32-45) mmHg ABG pO2 at Pt Temp (83-108) mmHg ABG pO2 (Temp Correct (83-108) ABG HCO3 (22-26) mmol/L ABG Base Excess (Actual) mmol/L Sodium (135-145) mmol/L Potassium (3.3-5.1) mmol/L Chloride (96-108) mmol/L Carbon Dioxide (22-29) mmol/L Anion Gap (12-20) BUN (9-16) mg/dL Creatinine (0.5-1.4) mg/dL Estim Creat Clear Calc Estimated GFR POC Glucose (60-115) mg/dL Random Glucose (60-115) mg/dL Lactic Acid (0.5-2.0) mmol/L Calcium (8.4-10.2) mg/dL Ferritin (10-250) ng/mL Total Bilirubin (0.0-1.0) mg/dL AST (5-31) U/L ALT (0-31) U/L Alkaline Phosphatase (39-117) U/L Troponin I High Sens (<3.5-17.0) ng/L C-Reactive Protein (< or = 0.50) mg/dL B-Natriuretic Peptide 201 H (<100) pg/mL Total Protein (6.5-8.0) g/dL Albumin (3.5-5.0) g/dL Procalcitonin ng/mL Urine Color Urine Appearance Urine pH (5.0-8.0) Ur Specific Redfield (1.005-1.025) Urine Protein (NEG-TRACE) MG/DL Urine Glucose (UA) (NEG) MG/DL Urine Ketones (NEG) MG/DL Urine Blood (NEG) Urine Nitrite (NEG) Ur Leukocyte Esterase (NEG) Urine RBC (0) /HPF Urine WBC (0-4) /HPF Ur Squamous Epith Cells /LPF Urine Bacteria /LPF Urine Opiates Screen (Not Detect) Ur Barbiturates Screen (Not Detect) Ur Phencyclidine Scrn (Not Detect) Ur Amphetamines Screen (Not Detect) U Benzodiazepines Scrn (Not Detect) Urine Cocaine Screen (Not Detect) U Marijuana (THC) Screen (Not Detect) Ethyl Alcohol < 10 mg/dL Coronavirus (PCR) NEGATIVE (Negative) Influenza Type A (PCR) NEGATIVE (Negative) Influenza Type B (PCR) NEGATIVE (Negative) RSV RNA Qual (PCR) NEGATIVE (Negative) 12/17/20 12/17/20 12/17/20 Range/Units 16:27 16:27 16:27 WBC (4.8-10.8) X10*3/uL RBC (4.20-5.50) X10*6/uL Hgb (12.0-16.0) g/dl Hct (37-47) % MCV (80-98) fL MCH (27.0-33.0) pg MCHC (31.0-35.0) g/dl RDW (11.0-16.0) % Plt Count (160-400) X10*3/uL MPV (9.4-12.3) fL Immature Gran % (Auto) (0.0-0.4) % Neut % (Auto) (45-73) % Lymph % (Auto) (20-40) % Saline % (Auto) (2-11) % Eos % (Auto) (0-4) % Baso % (Auto) (0-2) % Lymph # (Auto) (1.2-4.9) X10*3/uL Saline # (Auto) (0.1-1.2) X10*3/uL Eos # (Auto) (0.0-0.4) X10*3/uL Baso # (Auto) (0.0-0.2) X10*3/uL Abs Immat Gran (auto) (0.00-0.03) X10*3/uL Absolute Neuts (auto) (2.0-8.3) X10*3/uL Absolute Nucleated RBC (0.0-0.012) X10*3/uL Nucleated RBC % (auto) (0.0-0.2) /100WBC Smear Tech's Comments PT (10.8-13.0) SEC INR (0.9-1.1) APTT (24.1-38.0) SEC D-Dimer NG/ML O2 Saturation % ABG pH at Pt Temp (7.35-7.45) ABG pH (Temp Correct) (7.35-7.45) ABG pCO2 at Pt Temp (32-45) mmHg ABG pCO2 (Temp Corrct (32-45) mmHg ABG pO2 at Pt Temp (83-108) mmHg ABG pO2 (Temp Correct (83-108) ABG HCO3 (22-26) mmol/L ABG Base Excess (Actual) mmol/L Sodium (135-145) mmol/L Potassium (3.3-5.1) mmol/L Chloride (96-108) mmol/L Carbon Dioxide (22-29) mmol/L Anion Gap (12-20) BUN (9-16) mg/dL Creatinine (0.5-1.4) mg/dL Estim Creat Clear Calc Estimated GFR POC Glucose (60-115) mg/dL Random Glucose (60-115) mg/dL Lactic Acid 1.4 (0.5-2.0) mmol/L Calcium (8.4-10.2) mg/dL Ferritin (10-250) ng/mL Total Bilirubin (0.0-1.0) mg/dL AST (5-31) U/L ALT (0-31) U/L Alkaline Phosphatase (39-117) U/L Troponin I High Sens 17.7 H D (<3.5-17.0) ng/L C-Reactive Protein (< or = 0.50) mg/dL B-Natriuretic Peptide (<100) pg/mL Total Protein (6.5-8.0) g/dL Albumin (3.5-5.0) g/dL Procalcitonin 0.13 ng/mL Urine Color Urine Appearance Urine pH (5.0-8.0) Ur Specific [place] (1.005-1.025) Urine Protein (NEG-TRACE) MG/DL Urine Glucose (UA) (NEG) MG/DL Urine Ketones (NEG) MG/DL Urine Blood (NEG) Urine Nitrite (NEG) Ur Leukocyte Esterase (NEG) Urine RBC (0) /HPF Urine WBC (0-4) /HPF Ur Squamous Epith Cells /LPF Urine Bacteria /LPF Urine Opiates Screen (Not Detect) Ur Barbiturates Screen (Not Detect) Ur Phencyclidine Scrn (Not Detect) Ur Amphetamines Screen (Not Detect) U Benzodiazepines Scrn (Not Detect) Urine Cocaine Screen (Not Detect) U Marijuana (THC) Screen (Not Detect) Ethyl Alcohol mg/dL Coronavirus (PCR) (Negative) Influenza Type A (PCR) (Negative) Influenza Type B (PCR) (Negative) RSV RNA Qual (PCR) (Negative) 12/17/20 12/17/20 12/17/20 Range/Units 16:27 16:27 16:27 WBC (4.8-10.8) X10*3/uL RBC (4.20-5.50) X10*6/uL Hgb (12.0-16.0) g/dl Hct (37-47) % MCV (80-98) fL MCH (27.0-33.0) pg MCHC (31.0-35.0) g/dl RDW (11.0-16.0) % Plt Count (160-400) X10*3/uL MPV (9.4-12.3) fL Immature Gran % (Auto) (0.0-0.4) % Neut % (Auto) (45-73) % Lymph % (Auto) (20-40) % Saline % (Auto) (2-11) % Eos % (Auto) (0-4) % Baso % (Auto) (0-2) % Lymph # (Auto) (1.2-4.9) X10*3/uL Saline # (Auto) (0.1-1.2) X10*3/uL Eos # (Auto) (0.0-0.4) X10*3/uL Baso # (Auto) (0.0-0.2) X10*3/uL Abs Immat Gran (auto) (0.00-0.03) X10*3/uL Absolute Neuts (auto) (2.0-8.3) X10*3/uL Absolute Nucleated RBC (0.0-0.012) X10*3/uL Nucleated RBC % (auto) (0.0-0.2) /100WBC Smear Tech's Comments PT (10.8-13.0) SEC INR (0.9-1.1) APTT (24.1-38.0) SEC D-Dimer NG/ML O2 Saturation % ABG pH at Pt Temp (7.35-7.45) ABG pH (Temp Correct) (7.35-7.45) ABG pCO2 at Pt Temp (32-45) mmHg ABG pCO2 (Temp Corrct (32-45) mmHg ABG pO2 at Pt Temp (83-108) mmHg ABG pO2 (Temp Correct (83-108) ABG HCO3 (22-26) mmol/L ABG Base Excess (Actual) mmol/L Sodium (135-145) mmol/L Potassium (3.3-5.1) mmol/L Chloride (96-108) mmol/L Carbon Dioxide (22-29) mmol/L Anion Gap (12-20) BUN (9-16) mg/dL Creatinine (0.5-1.4) mg/dL Estim Creat Clear Calc Estimated GFR POC Glucose (60-115) mg/dL Random Glucose (60-115) mg/dL Lactic Acid (0.5-2.0) mmol/L Calcium (8.4-10.2) mg/dL Ferritin 55 (10-250) ng/mL Total Bilirubin (0.0-1.0) mg/dL AST (5-31) U/L ALT (0-31) U/L Alkaline Phosphatase (39-117) U/L Troponin I High Sens (<3.5-17.0) ng/L C-Reactive Protein (< or = 0.50) mg/dL B-Natriuretic Peptide (<100) pg/mL Total Protein (6.5-8.0) g/dL Albumin (3.5-5.0) g/dL Procalcitonin ng/mL Urine Color YELLOW Urine Appearance CLEAR Urine pH 6.0 (5.0-8.0) Ur Specific [place] 1.015 (1.005-1.025) Urine Protein NEG (NEG-TRACE) MG/DL Urine Glucose (UA) NEG (NEG) MG/DL Urine Ketones NEG (NEG) MG/DL Urine Blood NEG (NEG) Urine Nitrite NEG (NEG) Ur Leukocyte Esterase NEG (NEG) Urine RBC 0 (0) /HPF Urine WBC 0 (0-4) /HPF Ur Squamous Epith Cells NONE /LPF Urine Bacteria NONE /LPF Urine Opiates Screen Not Detected (Not Detect) Ur Barbiturates Screen Not Detected (Not Detect) Ur Phencyclidine Scrn Not Detected (Not Detect) Ur Amphetamines Screen Not Detected (Not Detect) U Benzodiazepines Scrn Not Detected (Not Detect) Urine Cocaine Screen Not Detected (Not Detect) U Marijuana (THC) Screen POSITIVE H (Not Detect) Ethyl Alcohol mg/dL Coronavirus (PCR) (Negative) Influenza Type A (PCR) (Negative) Influenza Type B (PCR) (Negative) RSV RNA Qual (PCR) (Negative) 12/17/20 12/17/20 Range/Units 17:10 17:36 WBC (4.8-10.8) X10*3/uL RBC (4.20-5.50) X10*6/uL Hgb (12.0-16.0) g/dl Hct (37-47) % MCV (80-98) fL MCH (27.0-33.0) pg MCHC (31.0-35.0) g/dl RDW (11.0-16.0) % Plt Count (160-400) X10*3/uL MPV (9.4-12.3) fL Immature Gran % (Auto) (0.0-0.4) % Neut % (Auto) (45-73) % Lymph % (Auto) (20-40) % Saline % (Auto) (2-11) % Eos % (Auto) (0-4) % Baso % (Auto) (0-2) % Lymph # (Auto) (1.2-4.9) X10*3/uL Saline # (Auto) (0.1-1.2) X10*3/uL Eos # (Auto) (0.0-0.4) X10*3/uL Baso # (Auto) (0.0-0.2) X10*3/uL Abs Immat Gran (auto) (0.00-0.03) X10*3/uL Absolute Neuts (auto) (2.0-8.3) X10*3/uL Absolute Nucleated RBC (0.0-0.012) X10*3/uL Nucleated RBC % (auto) (0.0-0.2) /100WBC Smear Tech's Comments PT 37.8 H D (10.8-13.0) SEC INR 3.1 H (0.9-1.1) APTT 46.5 H (24.1-38.0) SEC D-Dimer 598 NG/ML O2 Saturation 91.0 % ABG pH at Pt Temp 7.56 H (7.35-7.45) ABG pH (Temp Correct) 7.53 H (7.35-7.45) ABG pCO2 at Pt Temp 34 (32-45) mmHg ABG pCO2 (Temp Corrct 37 (32-45) mmHg ABG pO2 at Pt Temp 65 L (83-108) mmHg ABG pO2 (Temp Correct 74 L (83-108) ABG HCO3 31 H (22-26) mmol/L ABG Base Excess (Actual) 8.7 mmol/L Sodium (135-145) mmol/L Potassium (3.3-5.1) mmol/L Chloride (96-108) mmol/L Carbon Dioxide (22-29) mmol/L Anion Gap (12-20) BUN (9-16) mg/dL Creatinine (0.5-1.4) mg/dL Estim Creat Clear Calc Estimated GFR POC Glucose (60-115) mg/dL Random Glucose (60-115) mg/dL Lactic Acid (0.5-2.0) mmol/L Calcium (8.4-10.2) mg/dL Ferritin (10-250) ng/mL Total Bilirubin (0.0-1.0) mg/dL AST (5-31) U/L ALT (0-31) U/L Alkaline Phosphatase (39-117) U/L Troponin I High Sens (<3.5-17.0) ng/L C-Reactive Protein (< or = 0.50) mg/dL B-Natriuretic Peptide (<100) pg/mL Total Protein (6.5-8.0) g/dL Albumin (3.5-5.0) g/dL Procalcitonin ng/mL Urine Color Urine Appearance Urine pH (5.0-8.0) Ur Specific [place] (1.005-1.025) Urine Protein (NEG-TRACE) MG/DL Urine Glucose (UA) (NEG) MG/DL Urine Ketones (NEG) MG/DL Urine Blood (NEG) Urine Nitrite (NEG) Ur Leukocyte Esterase (NEG) Urine RBC (0) /HPF Urine WBC (0-4) /HPF Ur Squamous Epith Cells /LPF Urine Bacteria /LPF Urine Opiates Screen (Not Detect) Ur Barbiturates Screen (Not Detect) Ur Phencyclidine Scrn (Not Detect) Ur Amphetamines Screen (Not Detect) U Benzodiazepines Scrn (Not Detect) Urine Cocaine Screen (Not Detect) U Marijuana (THC) Screen (Not Detect) Ethyl Alcohol mg/dL Coronavirus (PCR) (Negative) Influenza Type A (PCR) (Negative) Influenza Type B (PCR) (Negative) RSV RNA Qual (PCR) (Negative) Discharge Plan Discharge Clinical Impression: Encephalopathy, Alkalosis, Altered mental status Patient Disposition: Admitted As Inpatient Prescriptions: No Action metformin 500 mg tablet 1 tab PO BID RF: 0 atorvastatin 10 mg tablet 1 tab PO DAILY RF: 0 levetiracetam 500 mg tablet 1 tab PO BID RF: 0 spironolactone 100 mg tablet 1 tab PO DAILY RF: 0 oxcarbazepine 300 mg tablet 1 tab PO TID RF: 0 flecainide 100 mg tablet 100 mg PO DAILY RF: 0 metoprolol tartrate 50 mg tablet 1 tab PO BID RF: 0 levothyroxine 112 mcg tablet 1 tab PO DAILY RF: 0 pregabalin 200 mg capsule 1 cap PO BID RF: 0
[2020-12-17 16:00] VITALS: BP 137/35; PULSE 79; RESP 16; TEMP 38.9; O2SAT 94
[2020-12-17 16:39] LABS: Basophils Absolute Auto 0.1 X10*3/uL (0.0-0.2); Basophils Percent Auto 0.4 % (0-2); Eosinophils Percent Auto 0.3 % (0-4); Hematocrit 32.8 % (37-47); Imm Gran Abs Auto 0.09 X10*3/uL (0.00-0.03); Imm Gran Pct Auto 0.6 % (0.0-0.4); Lymphocytes Percent Auto 7.3 % (20-40); MANUAL DIFF FLAG SCAN; Mean Corpuscular HGB Conc 30.5 g/dl (31.0-35.0); Mean Corpuscular Hemoglobin 24.4 pg (27.0-33.0); Mean Platelet Volume 10.1 fL (9.4-12.3); Monocytes Absolute Auto 1.6 X10*3/uL (0.1-1.2); Monocytes Percent Auto 11.7 % (2-11); Neutrophils Absolute Auto 11.2 X10*3/uL (2.0-8.3); Neutrophils Percent Auto 79.7 % (45-73); Platelet Count 227 X10*3/uL (160-400); Red Cell Distribution Width 17.1 % (11.0-16.0); SCAN SMEAR FLAG 1
[2020-12-17 16:56] LABS: Ethanol < 10 mg/dL; Lactic Acid 1.4 mmol/L (0.5-2.0)
[2020-12-17 17:00] LABS: Alanine Aminotransferase 17 U/L (0-31); Albumin Level 4.2 g/dL (3.5-5.0); Alkaline Phosphatase 180 U/L (39-117); Anion Gap 18 (12-20); Aspartate Amino Transferase 22 U/L (5-31); Bilirubin Total 1.2 mg/dL (0.0-1.0); Blood Urea Nitrogen 22 mg/dL (9-16); C Reactive Protein 14.45 mg/dL (< or = 0.50); Calcium 9.3 mg/dL (8.4-10.2); Carbon Dioxide 31 mmol/L (22-29); Chloride 94 mmol/L (96-108); Creatinine Clr Calc Pharmacy 41.2; Estimated Glomerular Filt Rate 31; Glucose Random 120 mg/dL (60-115); Potassium 3.6 mmol/L (3.3-5.1); Sodium 139 mmol/L (135-145); Total Protein 7.7 g/dL (6.5-8.0)
[2020-12-17 17:03] LABS: B Type Natriuretic Peptide 201 pg/mL (<100)
[2020-12-17 17:04] LABS: SLIDE REVIEW VERIFIED
[2020-12-17 17:09] LABS: Glucose Urine UA NEG (NEG); Leukocyte Esterase Urine NEG (NEG); Nitrite Urine NEG (NEG); Specific Gravity - Urine 1.015 (1.005-1.025); Urine Blood NEG (NEG); Urine Ketones NEG (NEG); Urine Protein NEG (NEG-TRACE)
[2020-12-17 17:11] LABS: Appearance Urine CLEAR; Color Urine YELLOW
[2020-12-17 17:18] LABS: Ferritin 55 ng/mL (10-250); Troponin-I High Sensitivity 17.7 ng/L (<3.5-17.0)
[2020-12-17 17:21] LABS: Procalcitonin 0.13 ng/mL
[2020-12-17 17:23] LABS: Amphetamine Screen Urine Not Detected (Not Detect); Barbiturates, Urine Not Detected (Not Detect); Benzodiazepines Screen Urine Not Detected (Not Detect); Cannabinoid Screen Urine POSITIVE (Not Detect); Cocaine Screen Urine Not Detected (Not Detect); Opiate Screen Urine Not Detected (Not Detect); Phencyclidine Screen Urine Not Detected (Not Detect)
[2020-12-17 17:27] LABS: INTERNATIONAL NORM RATIO 3.1 (0.9-1.1); Prothrombin Time 37.8 SEC (10.8-13.0)
--- NOTE | 2020-12-17 17:28 | PC.NURSE ---
TAI BLACKMAN COLLECTED ABG
[2020-12-17 17:30] LABS: D Dimer 598 NG/ML
[2020-12-17 17:31] LABS: Partial Thromboplastin Time 46.5 SEC (24.1-38.0)
--- NOTE | 2020-12-17 17:32 | PC.NURSE ---
2x notified [facility] of rectal temp montioring at this time.
[2020-12-17 17:44] LABS: ABG Base Excess 8.7 mmol/L; ABG HCO3 31 mmol/L (22-26); ABG pCO2 34 mmHg (32-45); ABG pCO2 TC 37 mmHg (32-45); ABG pH 7.56 (7.35-7.45); ABG pH TC 7.53 (7.35-7.45); ABG pO2 65 mmHg (83-108); ABG pO2 TC 74 (83-108)
[2020-12-17 17:46] LABS: ABG Refer to POC result
[2020-12-17] MEDS: Acetaminophen Supp 650 MG SUPP.RECT PR (17:48)
[2020-12-17 17:53] LABS: RBC Urine 0 /HPF (0); WBC Urine 0 /HPF (0-4)
[2020-12-17 18:00] VITALS: BP 116/50; PULSE 83; RESP 18; TEMP 37.3; O2SAT 94
[2020-12-17 18:38] LABS: Influenza A PCR NEGATIVE (Negative); Influenza B PCR NEGATIVE (Negative); Resp Syncy Virus RNA Qual PCR NEGATIVE (Negative); SARS COV2 PCR INHOUSE NEGATIVE (Negative)
[2020-12-17] MEDS: Furosemide 20 MG/2 ML VIAL IVPUSH (19:12)
[2020-12-17] MEDS: Piperacillin Sodium/Tazobactam 4.5 GM in 0.9 % Sodium Chloride 100 ML IV (19:13)
[2020-12-17 21:52] LABS: Troponin-I High Sensitivity 41.4 ng/L (<3.5-17.0)
--- NOTE | 2020-12-17 21:59 | MHC.CM.PN ---
CM attempted to meet with patient. Pt pending admission with AMS and some expressive aphasia. Pt having difficulty answering simple questions. Becoming frustrated with searching for words. Will call to complete assessment. Pt c/o thirst. RN concerned about pt ability to swallow. Explained to pt. CM to follow for d/c needs.
[2020-12-17 22:00] VITALS: BP 128/49; PULSE 70; RESP 18; TEMP 36.6; O2SAT 96
--- NOTE | 2020-12-17 22:05 | MHC.CM.PN ---
CM spoke with /HCP Kelechi Kirby ([phone]). No HCP on file. Copy requested. Kelechi states that pt did not wear her CPAP last night and he thinks that is the cause of pt confusion and aphasia. Kelechi tells CM that pt has [facility] for SN and PT. Referral placed to follow in [employer]. Kelechi tells CM that is seems like pt has a spark that doesn't light . Tells CM that pt is very slow moving because of her medical conditions and her weight. States she uses a cane, has a walker, but doesn't use it. Bedroom is upstairs. D/C plan is [facility] vs [facility]. Pt will need Speech Eval and PT eval prior to discharge. Transportation pending disposition at d/c. CM to follow for d/c needs.
[2020-12-17 22:53] VITALS: BP 128/48; PULSE 74; RESP 18; TEMP 37.3; O2SAT 94
--- NOTE | 2020-12-17 23:03 | P.HPHOSP_ITS ---
History of Present Illness Date of Service: 12/17/20 Chief Complaint: Encephalopathic 65 yo F with pmhx of hypothyroidism, CKD, HLD, HTN, heart failure, KEVIN on CPAP, paroxysmal AFib on Coumadin, DM who presents to the hospital after her noticed her to have missed her usual routine and acting strange. not being able to express herself, not wearing her c-pap the night before, and generally acting not her usual self. Of note, pt was in the hospital in beginning of november with similar presentation and at that time was diagnosed with seizure was started on Keppra. Patient presents with same exact findings of difficulty finding words, and expressing herself. She is feeling very frustrated that she cannot express herself, she is understanding the but unable to answer my questions. She denies any headache, change in vision, weakness numbness or tingling in her arms or legs, no chest pain, no shortness of breath, no abdominal pain nausea or vomiting, no diarrhea constipation, no urinary symptoms and no lower extremity edema. On arrival to the ED hemodynamically stable with no abnormal vitals Labs are significant for WBC count of 14, hemoglobin of 10, hematocrit of 32.8, PT of 37.8, INR of 3.1, pH of 7.56, chloride 94, BUN of 22, creatinine of 1.65 which is around her baseline of 1.4, total bili of 1.2, alk-phos of 180, high sensitivity troponin of 17.7, CRP of 14.4, BNP of 201, UA negative, blood drug screen positive for marijuana, COVID-[address] is showing increased interstitial markings in the lungs compatible with mild interstitial edema otherwise no evidence of any focal consolidation or ground-glass infiltrates, has CT shows no acute intracranial pathology. Past medical history as below and confirmed with previous records Review of Systems Review of Systems: Yes all other systems are reviewed and are negative [facility] Medical History Acquired hypothyroidism Chronic low back pain CKD stage 3 secondary to diabetes Dyslipidemia Essential hypertension Fibromyalgia H/O cardiac pacemaker Mitral valve stenosis, rheumatic NYHA class 1 heart failure with preserved ejection fraction KEVIN on CPAP Osteoarthritis Paroxysmal atrial fibrillation Postmenopausal Psoriasis Rhinitis Seizure disorder Sinusitis Type 2 diabetes mellitus with other diabetic kidney complication Family History Father HTN (hypertension) CKD (chronic kidney disease) Mother HTN (hypertension) Son No problems noted. Son No problems noted. Son No problems noted. Surgical History H/O mitral valve replacement Hx of mitral valve replacement with mechanical valve Social History Household Members: Spouse Housing: House Do you presently have visiting nurse or other home services: Yes Alcohol intake: unknown Smoking Status: Unknown if ever smoked Tobacco Type: Cigarette Second Hand Smoke Exposure: No Use of substances other than those prescribed or required for medical reasons: No Have you been hit, kicked, punched, or otherwise hurt by someone within the past year? If so, by whom?: No Do you feel safe in your current relationship?: Yes Is there a partner from a previous relationship who is making you feel unsafe now?: No Are you made to feel afraid or neglected: No Advance Directives: No Advance Directives Information Provided: Yes Advance Directives on File: Yes Do you have thoughts of harming others: None Do you have a plan to hurt others: No Plan Recently lost weight without trying: Unsure service: No Current occupational status: unemployed and retired Meds Allergies Allergy/AdvReac Type Severity Reaction Status Date / Time adalimumab [From HUMIRA] Allergy Unknown PCP Verified 12/09/20 23:44 PNEUMONIA azathioprine [Imuran] Allergy Unknown PNA Verified 12/09/20 23:44 Cephalosporins Allergy Unknown KIDNEY Verified 12/09/20 23:44 [CEPHALOSPORINS] FAILURE cyclosporine [CYCLOSPORINE] Allergy Unknown KIDNEY Verified 12/09/20 23:44 FAILURE etanercept [From Enbrel] Allergy Unknown PCP Verified 12/09/20 23:44 PNEUMONIA simvastatin Allergy Unknown athralgias Verified 12/09/20 23:44 amoxicillin [From AUGMENTIN] AdvReac Unknown PROJECTILE Verified 12/09/20 23:44 VOMITTING clavulanic acid AdvReac Unknown PROJECTILE Verified 12/09/20 23:44 [From AUGMENTIN] VOMITTING Active Medications: Current Medications Generic Name Dose Route Start Last Admin Trade Name Freq PRN Reason Stop Dose Admin Acetaminophen 650 mg 12/17/20 22:53 Acetaminophen 325 Mg Tablet PO Q6H PRN Pain, Mild (Pain Scale 1-3) Atorvastatin Calcium 10 mg 12/18/20 21:00 Atorvastatin Calcium 10 Mg Tablet PO BEDTIME [facility] Docusate Sodium 100 mg 12/17/20 22:53 Docusate Sodium 100 Mg Capsule PO DAILY PRN Constipation Flecainide Acetate 100 mg 12/18/20 09:00 Flecainide Acetate 50 Mg Tablet PO DAILY [facility] Levetiracetam 500 mg 12/17/20 22:53 Levetiracetam 500 Mg Tablet PO BID [facility] Levothyroxine Sodium 112 mcg 12/18/20 09:00 Levothyroxine Sodium 112 Mcg Tablet PO DAILY [facility] Metoprolol Tartrate 50 mg 12/17/20 22:53 Metoprolol Tartrate 50 Mg Tablet PO BID [facility] Protocol Ondansetron HCl 4 mg 12/17/20 22:53 Ondansetron Hcl 4 Mg/2 Ml Vial IVPUSH Q8H PRN Nausea and Vomiting Oxcarbazepine 300 mg 12/18/20 09:00 Oxcarbazepine 300 Mg Tablet PO TID [facility] Pregabalin 200 mg 12/18/20 09:00 Pregabalin 200 Mg Capsule PO BID [facility] Sodium Chloride 3 ml 12/18/20 00:00 0.9 % Sodium Chloride Flush 3 Ml [facility] Spironolactone 100 mg 12/18/20 09:00 Spironolactone 25 Mg Tablet PO DAILY [facility] Protocol Home Medications Medication Instructions Recorded Confirmed Last Taken Type atorvastatin 1 tab PO DAILY 12/17/20 12/17/20 Unknown History flecainide 100 mg PO DAILY 12/17/20 12/17/20 Unknown History levetiracetam 1 tab PO BID 12/17/20 12/17/20 Unknown History levothyroxine 1 tab PO DAILY 12/17/20 12/17/20 Unknown History metformin 1 tab PO BID 12/17/20 12/17/20 Unknown History metoprolol tartrate 1 tab PO BID 12/17/20 12/17/20 Unknown History oxcarbazepine 1 tab PO TID 12/17/20 12/17/20 Unknown History pregabalin 1 cap PO BID 12/17/20 12/17/20 Unknown History spironolactone 1 tab PO DAILY 12/17/20 12/17/20 Unknown History Physical Exam Vital Signs and Narrative: Vital Signs: Last Vital Signs Temp 97.9 F 12/17/20 22:00 Pulse 70 12/17/20 22:00 Resp 18 12/17/20 22:00 BP 128/49 L 12/17/20 22:00 Pulse Ox 96 12/17/20 22:00 Body Mass Index 45.3 Const: General: cooperative and no acute distress Eyes: General: appearance normal, both eyes and all related structures Resp: Effort & Inspection: normal respiratory effort and able to speak in complete sentences Cardio: Rate: regular rate Rhythm: regular rhythm GI: Palpation (GI): Soft to palpation Auscultation: normal bowel sounds Skin: General skin exam: no rashes or lesions noted Neuro: Other: Appears frustrated, has dysarthria, strength 5/5 in extremities, has difficulty following finger without moving her head, no nystagmus noticed, no evidence of heminopnea Cognition (Neuro): normal cognition Extrem: General: Yes normal to inspection and Yes no pedal edema Results Labs CBC and Chem 7: 12/17/20 16:27 12/17/20 16:27 Labs: Laboratory Results - last 24 hr 12/17/20 12/17/20 12/17/20 15:28 16:27 16:27 MCV 80.0 MCH 24.4 L MCHC 30.5 L RDW 17.1 H Plt Count 227 MPV 10.1 Immature Gran % (Auto) 0.6 H Neut % (Auto) 79.7 H Lymph % (Auto) 7.[address] % (Auto) 11.7 H Eos % (Auto) 0.3 Baso % (Auto) 0.4 Lymph # (Auto) 1.[address] # (Auto) 1.6 H Eos # (Auto) 0.0 Baso # (Auto) 0.1 Abs Immat Gran (auto) 0.09 H Absolute Neuts (auto) 11.2 H Absolute Nucleated RBC 0.000 Nucleated RBC % (auto) 0.0 Smear Tech's Comments VERIFIED PT INR APTT D-Dimer O2 Saturation ABG pH at Pt Temp ABG pH (Temp Correct) ABG pCO2 at Pt Temp ABG pCO2 (Temp Corrct ABG pO2 at Pt Temp ABG pO2 (Temp Correct ABG HCO3 ABG Base Excess (Actual) Anion Gap 18 Estim Creat Clear Calc 41.2 Estimated GFR 31 POC Glucose 105 Random Glucose 120 H Lactic Acid Calcium 9.3 Ferritin Total Bilirubin 1.2 H AST 22 ALT 17 Alkaline Phosphatase 180 H D Troponin I High Sens C-Reactive Protein 14.45 H B-Natriuretic Peptide Total Protein 7.7 Albumin 4.2 Procalcitonin Urine Color Urine Appearance Urine pH Ur Specific [place] Urine Protein Urine Glucose (UA) Urine Ketones Urine Blood Urine Nitrite Ur Leukocyte Esterase Urine RBC Urine WBC Ur Squamous Epith Cells Urine Bacteria Urine Opiates Screen Ur Barbiturates Screen Ur Phencyclidine Scrn Ur Amphetamines Screen U Benzodiazepines Scrn Urine Cocaine Screen U Marijuana (THC) Screen Ethyl Alcohol Coronavirus (PCR) Influenza Type A (PCR) Influenza Type B (PCR) RSV RNA Qual (PCR) 12/17/20 12/17/20 12/17/20 16:27 16:27 16:27 MCV MCH MCHC RDW Plt Count MPV Immature Gran % (Auto) Neut % (Auto) Lymph % (Auto) Lane % (Auto) Eos % (Auto) Baso % (Auto) Lymph # (Auto) Lane # (Auto) Eos # (Auto) Baso # (Auto) Abs Immat Gran (auto) Absolute Neuts (auto) Absolute Nucleated RBC Nucleated RBC % (auto) Smear Tech's Comments PT INR APTT D-Dimer O2 Saturation ABG pH at Pt Temp ABG pH (Temp Correct) ABG pCO2 at Pt Temp ABG pCO2 (Temp Corrct ABG pO2 at Pt Temp ABG pO2 (Temp Correct ABG HCO3 ABG Base Excess (Actual) Anion Gap Estim Creat Clear Calc Estimated GFR POC Glucose Random Glucose Lactic Acid Calcium Ferritin Total Bilirubin AST ALT Alkaline Phosphatase Troponin I High Sens C-Reactive Protein B-Natriuretic Peptide 201 H Total Protein Albumin Procalcitonin Urine Color Urine Appearance Urine pH Ur Specific [place] Urine Protein Urine Glucose (UA) Urine Ketones Urine Blood Urine Nitrite Ur Leukocyte Esterase Urine RBC Urine WBC Ur Squamous Epith Cells Urine Bacteria Urine Opiates Screen Ur Barbiturates Screen Ur Phencyclidine Scrn Ur Amphetamines Screen U Benzodiazepines Scrn Urine Cocaine Screen U Marijuana (THC) Screen Ethyl Alcohol < 10 Coronavirus (PCR) NEGATIVE Influenza Type A (PCR) NEGATIVE Influenza Type B (PCR) NEGATIVE RSV RNA Qual (PCR) NEGATIVE 12/17/20 12/17/20 12/17/20 16:27 16:27 16:27 MCV MCH MCHC RDW Plt Count MPV Immature Gran % (Auto) Neut % (Auto) Lymph % (Auto) Lane % (Auto) Eos % (Auto) Baso % (Auto) Lymph # (Auto) Lane # (Auto) Eos # (Auto) Baso # (Auto) Abs Immat Gran (auto) Absolute Neuts (auto) Absolute Nucleated RBC Nucleated RBC % (auto) Smear Tech's Comments PT INR APTT D-Dimer O2 Saturation ABG pH at Pt Temp ABG pH (Temp Correct) ABG pCO2 at Pt Temp ABG pCO2 (Temp Corrct ABG pO2 at Pt Temp ABG pO2 (Temp Correct ABG HCO3 ABG Base Excess (Actual) Anion Gap Estim Creat Clear Calc Estimated GFR POC Glucose Random Glucose Lactic Acid 1.4 Calcium Ferritin Total Bilirubin AST ALT Alkaline Phosphatase Troponin I High Sens 17.7 H D C-Reactive Protein B-Natriuretic Peptide Total Protein Albumin Procalcitonin 0.13 Urine Color Urine Appearance Urine pH Ur Specific [place] Urine Protein Urine Glucose (UA) Urine Ketones Urine Blood Urine Nitrite Ur Leukocyte Esterase Urine RBC Urine WBC Ur Squamous Epith Cells Urine Bacteria Urine Opiates Screen Ur Barbiturates Screen Ur Phencyclidine Scrn Ur Amphetamines Screen U Benzodiazepines Scrn Urine Cocaine Screen U Marijuana (THC) Screen Ethyl Alcohol Coronavirus (PCR) Influenza Type A (PCR) Influenza Type B (PCR) RSV RNA Qual (PCR) 12/17/20 12/17/20 12/17/20 16:27 16:27 16:27 MCV MCH MCHC RDW Plt Count MPV Immature Gran % (Auto) Neut % (Auto) Lymph % (Auto) Lane % (Auto) Eos % (Auto) Baso % (Auto) Lymph # (Auto) Lane # (Auto) Eos # (Auto) Baso # (Auto) Abs Immat Gran (auto) Absolute Neuts (auto) Absolute Nucleated RBC Nucleated RBC % (auto) Smear Tech's Comments PT INR APTT D-Dimer O2 Saturation ABG pH at Pt Temp ABG pH (Temp Correct) ABG pCO2 at Pt Temp ABG pCO2 (Temp Corrct ABG pO2 at Pt Temp ABG pO2 (Temp Correct ABG HCO3 ABG Base Excess (Actual) Anion Gap Estim Creat Clear Calc Estimated GFR POC Glucose Random Glucose Lactic Acid Calcium Ferritin 55 Total Bilirubin AST ALT Alkaline Phosphatase Troponin I High Sens C-Reactive Protein B-Natriuretic Peptide Total Protein Albumin Procalcitonin Urine Color YELLOW Urine Appearance CLEAR Urine pH 6.0 Ur Specific [place] 1.015 Urine Protein NEG Urine Glucose (UA) NEG Urine Ketones NEG Urine Blood NEG Urine Nitrite NEG Ur Leukocyte Esterase NEG Urine RBC 0 Urine WBC 0 Ur Squamous Epith Cells NONE Urine Bacteria NONE Urine Opiates Screen Not Detected Ur Barbiturates Screen Not Detected Ur Phencyclidine Scrn Not Detected Ur Amphetamines Screen Not Detected U Benzodiazepines Scrn Not Detected Urine Cocaine Screen Not Detected U Marijuana (THC) Screen POSITIVE H Ethyl Alcohol Coronavirus (PCR) Influenza Type A (PCR) Influenza Type B (PCR) RSV RNA Qual (PCR) 12/17/20 12/17/20 12/17/20 17:10 17:36 21:12 MCV MCH MCHC RDW Plt Count MPV Immature Gran % (Auto) Neut % (Auto) Lymph % (Auto) Lane % (Auto) Eos % (Auto) Baso % (Auto) Lymph # (Auto) Lane # (Auto) Eos # (Auto) Baso # (Auto) Abs Immat Gran (auto) Absolute Neuts (auto) Absolute Nucleated RBC Nucleated RBC % (auto) Smear Tech's Comments PT 37.8 H D INR 3.1 H APTT 46.5 H D-Dimer 598 O2 Saturation 91.0 ABG pH at Pt Temp 7.56 H ABG pH (Temp Correct) 7.53 H ABG pCO2 at Pt Temp 34 ABG pCO2 (Temp Corrct 37 ABG pO2 at Pt Temp 65 L ABG pO2 (Temp Correct 74 L ABG HCO3 31 H ABG Base Excess (Actual) 8.7 Anion Gap Estim Creat Clear Calc Estimated GFR POC Glucose Random Glucose Lactic Acid Calcium Ferritin Total Bilirubin AST ALT Alkaline Phosphatase Troponin I High Sens 41.4 H D C-Reactive Protein B-Natriuretic Peptide Total Protein Albumin Procalcitonin Urine Color Urine Appearance Urine pH Ur Specific [place] Urine Protein Urine Glucose (UA) Urine Ketones Urine Blood Urine Nitrite Ur Leukocyte Esterase Urine RBC Urine WBC Ur Squamous Epith Cells Urine Bacteria Urine Opiates Screen Ur Barbiturates Screen Ur Phencyclidine Scrn Ur Amphetamines Screen U Benzodiazepines Scrn Urine Cocaine Screen U Marijuana (THC) Screen Ethyl Alcohol Coronavirus (PCR) Influenza Type A (PCR) Influenza Type B (PCR) RSV RNA Qual (PCR) Imaging Radiologist's Impressions: Impressions Head CT 12/17/20 15:25 IMPRESSION: No acute intracranial pathology. This critical result was discussed with Phillip Sheffield NP by telephone at 12/17/2020 3:53 PM and it was ascertained that the content and urgency of the report was understood at the time of direct communication. Chest X-Ray 12/17/20 15:26 IMPRESSION: Central vascular prominence with mild interstitial prominence could represent mild edema. Chest CT 12/17/20 18:20 IMPRESSION: Cardiomegaly with mild increased interstitial markings in the lungs compatible with mild interstitial edema. There is no evidence of any focal consolidations or groundglass infiltrates. Assessment and Plan (1) Encephalopathy: Status: Acute (2) Seizure disorder: Status: Acute (3) Dysarthria: Status: Acute This is a 65-year-old female who presents from home with confusion, and difficulty finding words. # encephalopathy - seizure (postictal) versus acute stroke versus metabolic - No evidence of seizure in ED - was in the hospital in the beginning of November with exactly similar symptoms, evaluated by Neurology at that time and was started on Keppra for possible seizure activity. MRI at that time showed chronic lacunar infarct with no acute stroke. Patient was sent home on Keppra 500 b.i.d. oxcarbazepine - no evidence of acute infection Plan: - will continue her Keppra, oxcarbazepine, consult Neurology, will hold off on obtaining MRI pending neurology recommendation # dysarthria - patient has similar exact word-finding difficulties and expressive aphasia on previous presentation that resolved spontaneously - head CT negative - previously MRI showed chronic lacunar infarcts - will consult neurology - hold off MRI until seen and evaluated by Neurology # supratherapeutic INR - INR of 3.1 - hold Coumadin - no active bleed - PT INR daily - resume Coumadin when INR less than 3 # Elevated trop - cannot ilicit hx of chest pain - No EKG changes - pt on warfarin with supratherapeutic inr - will rpt Trop # diabetes - hold metformin - low-dose sliding scale insulin - POC q.i.d. a.c. # HTN - Stale - continue spironolactone # Hypothyroidism - continue levothyroxine DVT prophylaxis: Warfarin
[2020-12-17 23:34] VITALS: BP 128/49; PULSE 74
[2020-12-17] MEDS: levETIRAcetam 500 MG TABLET PO (23:34)
[2020-12-17] MEDS: Metoprolol Tartrate 50 MG TABLET PO (23:34)
--- NOTE | 2020-12-18 | EEG_ITS ---
The waking background activity consists of a moderate to high voltage diffuse 5 to 6 hertz theta. The fastest frequencies seen during the record are about 7 hertz whereas intermittent bifrontal delta of 1-2 hertz is also noted occasionally with triphasic waves. Photic stimulation is without activation. IMPRESSION: This is a moderately abnormal EEG due to significant diffuse background slowing with a frontal accentuation consistent with a diffuse encephalopathic process such as a metabolic encephalopathy. No clearly epileptiform discharges seen. MD ALEXUS Ponce/ADILSON / [phone]
[2020-12-18] MEDS: 0.9 % Sodium Chloride Flush 3 ML SYRINGE IVFLUSH ×3 (01:04→16:15)
--- NOTE | 2020-12-18 02:09 | PC.NURSE ---
attempted to give report. RN unavailable.
[2020-12-18 03:14] VITALS: BP 134/63; PULSE 61; RESP 16; TEMP 36.6; O2SAT 94
[2020-12-18] MEDS: Acetaminophen 325 MG TABLET 650 MG PO ×2 (04:20→19:47)
[2020-12-18 04:21] LABS: Basophils Absolute Auto 0.1 X10*3/uL (0.0-0.2); Basophils Percent Auto 0.6 % (0-2); Eosinophils Percent Auto 0.2 % (0-4); Hematocrit 30.9 % (37-47); Hemoglobin 9.3 g/dl (12.0-16.0); Imm Gran Abs Auto 0.07 X10*3/uL (0.00-0.03); Imm Gran Pct Auto 0.5 % (0.0-0.4); Lymphocytes Absolute Auto 0.9 X10*3/uL (1.2-4.9); Lymphocytes Percent Auto 6.6 % (20-40); MANUAL DIFF FLAG SCAN; Mean Corpuscular HGB Conc 30.1 g/dl (31.0-35.0); Mean Corpuscular Hemoglobin 24.3 pg (27.0-33.0); Mean Corpuscular Volume 80.9 fL (80-98); Mean Platelet Volume 10.2 fL (9.4-12.3); Monocytes Absolute Auto 1.8 X10*3/uL (0.1-1.2); Monocytes Percent Auto 14.3 % (2-11); Neutrophils Percent Auto 77.8 % (45-73); Platelet Count 202 X10*3/uL (160-400); Red Blood Count 3.82 X10*6/uL (4.20-5.50); Red Cell Distribution Width 17.3 % (11.0-16.0); SCAN SMEAR FLAG 1; White Blood Count 12.8 X10*3/uL (4.8-10.8)
[2020-12-18 04:44] LABS: SLIDE REVIEW VERIFIED
[2020-12-18 04:59] LABS: Anion Gap 15 (12-20); Blood Urea Nitrogen 21 mg/dL (9-16); Calcium 9.2 mg/dL (8.4-10.2); Carbon Dioxide 32 mmol/L (22-29); Chloride 96 mmol/L (96-108); Creatinine Clr Calc Pharmacy 43.9; Estimated Glomerular Filt Rate 33; Glucose Random 119 mg/dL (60-115); Potassium 3.4 mmol/L (3.3-5.1); Sodium 140 mmol/L (135-145)
[2020-12-18] MEDS: traMADoL HCL 50 MG TABLET PO (05:18)
[2020-12-18 06:25] LABS: INTERNATIONAL NORM RATIO 2.8 (0.9-1.1); Prothrombin Time 33.5 SEC (10.8-13.0)
[2020-12-18 07:11] LABS: Glucose, Whole Blood 112 mg/dL (60-115)
[2020-12-18 08:00] VITALS: BP 116/54; PULSE 64; RESP 19; TEMP 37; O2SAT 92
[2020-12-18 08:03] LABS: Prothrombin Time Whole Bld POC 39.3 sec (11.1-13.5); ~PT, ~INR - Anti Coag Clinic 3.3 (0.9-1.1)
[2020-12-18] MEDS: OXcarbazepine 300 MG TABLET PO ×3 (09:53→20:44)
[2020-12-18] MEDS: Spironolactone 25 MG TABLET 100 MG PO (09:53)
[2020-12-18] MEDS: Metoprolol Tartrate 50 MG TABLET PO ×2 (09:53→20:44)
[2020-12-18] MEDS: Flecainide Acetate 50 MG TABLET 100 MG PO (09:53)
[2020-12-18] MEDS: Pregabalin 200 MG CAPSULE PO ×2 (09:53→20:44)
[2020-12-18] MEDS: Levothyroxine Sodium 112 MCG TABLET PO (09:53)
[2020-12-18] MEDS: levETIRAcetam 500 MG TABLET PO ×2 (09:54→20:44)
--- NOTE | 2020-12-18 11:01 | PM.NEUROCN ---
History of Present Illness Data of Consult Service Date: 12/18/20 Primary Care Provider: Kanwal Davison MD HPI Reason for consult: Altered mental status This is 65-year-old woman who has multiple medical problemsIncluding stage III chronic kidney disease chronic low back pain fibromyalgia, osteoarthritis rheumatic mitral valve stenosis and heart failure psoriasisHer paroxysmal atrial fibrillation hypothyroidism had her lipidemia type 2 diabetes hypertension and possible seizure disorder who was admitted with encephalopathy thought to be metabolic and I am asked to see her because she is alert and awake but her mentation is not normal. Review of Systems Eyes: Eyes: Reports no additional eye complaints ENT: Reports system reviewed and no additional complaints, except as documented and Reports Normal hearing present Cardiovascular: Cardiovascular: Reports no additional cardiovascular complaints Respiratory: Respiratory: Reports no additional respiratory complaints Gastrointestinal: Gastrointestinal: Reports no additional gastrointestinal complaints Musculoskeletal: Musculoskeletal: Reports no additional musculoskeletal complaints Integumentary/Breasts: Skin/Breast: Reports system reviewed and no additional complaints, except as docu Neurologic: Reports as per HPI and Reports Normal hearing present Psychiatric: Psychiatric: Reports as per HPI Endocrine: Endocrine: Reports no additional endocrine complaints Hematologic/Lymphatic: Hematologic/Lymphatic: Reports no additional hematologic/lymphatic complaints Allergic/Immunologic: Allergic/Immunologic: Reports no additional allergic/immunologic complaints [facility] Past Medical History Medical History Acquired hypothyroidism Chronic low back pain CKD stage 3 secondary to diabetes Dyslipidemia Essential hypertension Fibromyalgia H/O cardiac pacemaker Mitral valve stenosis, rheumatic NYHA class 1 heart failure with preserved ejection fraction KEVIN on CPAP Osteoarthritis Paroxysmal atrial fibrillation Postmenopausal Psoriasis Rhinitis Seizure disorder Sinusitis Type 2 diabetes mellitus with other diabetic kidney complication Family History Family History Father HTN (hypertension) CKD (chronic kidney disease) Mother HTN (hypertension) Son No problems noted. Son No problems noted. Son No problems noted. Surgical History Surgical History H/O mitral valve replacement Hx of mitral valve replacement with mechanical valve Social History Social History Household Members: Spouse Housing: House Do you presently have visiting nurse or other home services: Yes Alcohol intake: unknown Smoking Status: Unknown if ever smoked Tobacco Type: Cigarette Second Hand Smoke Exposure: No Use of substances other than those prescribed or required for medical reasons: No Have you been hit, kicked, punched, or otherwise hurt by someone within the past year? If so, by whom?: No Do you feel safe in your current relationship?: Yes Is there a partner from a previous relationship who is making you feel unsafe now?: No Are you made to feel afraid or neglected: No Advance Directives: Yes Advance Directives Information Provided: Yes Advance Directives on File: Yes Advance Directives Date on File: 12/17/20 Do you have thoughts of harming others: None Do you have a plan to hurt others: No Plan Recently lost weight without trying: Unsure service: No Current occupational status: unemployed and retired Meds Allergies Allergy/AdvReac Type Severity Reaction Status Date / Time adalimumab [From HUMIRA] Allergy Unknown PCP Verified 12/09/20 23:44 PNEUMONIA azathioprine [Imuran] Allergy Unknown PNA Verified 12/09/20 23:44 Cephalosporins Allergy Unknown KIDNEY Verified 12/09/20 23:44 [CEPHALOSPORINS] FAILURE cyclosporine [CYCLOSPORINE] Allergy Unknown KIDNEY Verified 12/09/20 23:44 FAILURE etanercept [From Enbrel] Allergy Unknown PCP Verified 12/09/20 23:44 PNEUMONIA simvastatin Allergy Unknown athralgias Verified 12/09/20 23:44 amoxicillin [From AUGMENTIN] AdvReac Unknown PROJECTILE Verified 12/09/20 23:44 VOMITTING clavulanic acid AdvReac Unknown PROJECTILE Verified 12/09/20 23:44 [From AUGMENTIN] VOMITTING Active Medications: Current Medications Generic Name Dose Route Start Last Admin Trade Name Angelina PRN Reason Stop Dose Admin Acetaminophen 650 mg 12/17/20 22:53 12/18/20 04:20 Acetaminophen 325 Mg Tablet PO 650 mg Q6H PRN Administration Pain, Mild (Pain Scale 1-3) Atorvastatin Calcium 10 mg 12/18/20 21:00 Atorvastatin Calcium 10 Mg Tablet PO BEDTIME ANNE-MARIE Docusate Sodium 100 mg 12/17/20 22:53 Docusate Sodium 100 Mg Capsule PO DAILY PRN Constipation Flecainide Acetate 100 mg 12/18/20 09:00 12/18/20 09:53 Flecainide Acetate 50 Mg Tablet PO 100 mg DAILY ANNE-MARIE Administration Insulin Human Lispro 0 unit 12/18/20 07:30 12/18/20 08:57 Insulin Lispro 100 Unit/Ml 3 Ml Vial SUBCUT Not Given QIDACHS [facility] Protocol Levetiracetam 500 mg 12/17/20 22:53 12/18/20 09:54 Levetiracetam 500 Mg Tablet PO 500 mg BID ANNE-MARIE Administration Levothyroxine Sodium 112 mcg 12/18/20 09:00 12/18/20 09:53 Levothyroxine Sodium 112 Mcg Tablet PO 112 mcg DAILY ANNE-MARIE Administration Metoprolol Tartrate 50 mg 12/17/20 22:53 12/18/20 09:53 Metoprolol Tartrate 50 Mg Tablet PO 50 mg BID ANNE-MARIE Administration Protocol Ondansetron HCl 4 mg 12/17/20 22:53 Ondansetron Hcl 4 Mg/2 Ml Vial IVPUSH Q8H PRN Nausea and Vomiting Oxcarbazepine 300 mg 12/18/20 09:00 12/18/20 09:53 Oxcarbazepine 300 Mg Tablet PO 300 mg TID ANNE-MARIE Administration Pregabalin 200 mg 12/18/20 09:00 12/18/20 09:53 Pregabalin 200 Mg Capsule PO 200 mg BID ANNE-MARIE Administration Sodium Chloride 3 ml 12/18/20 00:00 12/18/20 09:54 0.9 % Sodium Chloride Flush 3 Ml Syringe IVFLUSH 3 ml QSHIFT [facility] Administration Spironolactone 100 mg 12/18/20 09:00 12/18/20 09:53 Spironolactone 25 Mg Tablet PO 100 mg DAILY [facility] Administration Protocol Home Medications Medication Instructions Recorded Confirmed Last Taken Type atorvastatin 1 tab PO DAILY 12/17/20 12/17/20 Unknown History flecainide 100 mg PO TID 12/17/20 12/18/20 Unknown History levetiracetam 1 tab PO BID 12/17/20 12/17/20 Unknown History levothyroxine 1 tab PO DAILY 12/17/20 12/17/20 Unknown History metformin 1 tab PO BID 12/17/20 12/17/20 Unknown History metoprolol tartrate 1 tab PO BID 12/17/20 12/17/20 Unknown History oxcarbazepine 1 tab PO TID 12/17/20 12/17/20 Unknown History pregabalin 1 cap PO BID 12/17/20 12/17/20 Unknown History spironolactone 1 tab PO DAILY 12/17/20 12/17/20 Unknown History fluticasone propion-salmeterol 2 puff INHALATION BID 12/18/20 12/18/20 Unknown History [Advair HFA] torsemide 240 mg PO BID 12/18/20 12/18/20 Unknown History warfarin 7.5 mg PO MOTUWE 12/18/20 12/18/20 Unknown History warfarin See Rx Instructions .ROUTE .COMPLEX 12/18/20 12/18/20 Unknown History Physical Exam Vital Signs: Vital Signs: Last Vital Signs Temp 98.6 F 12/18/20 08:00 Pulse 64 12/18/20 08:00 Resp 19 12/18/20 08:00 BP 116/54 L 12/18/20 08:00 Pulse Ox 92 12/18/20 08:00 Body Mass Index 45.3 Const: General: cooperative, comfortable, no acute distress, well developed, alert and awake Nutritional Appearance: well nourished Orientation/consciousness: oriented to person Limitations: no limitations HENMT: Head: Yes normal to inspection, Yes normocephalic and Yes atraumatic Ears: hearing grossly normal bilaterally General nose exam: Normal external nose present Face and sinus: Yes normal facial exam Mouth: Normal oral and palatal mucosa present Eyes: General: appearance normal, both eyes and all related structures Visual Angelo: normal visual angelo by confrontation Alignment and Position: alignment normal Periorbital: periorbital findings normal Eyelids: Yes eyelids normal Conjunctivae: conjunctivae normal Sclerae: sclerae normal Corneas: corneas normal Pupils: Equal, round and reactive pupils present and Pupil accommodation reflex normal EOM: EOMs intact bilaterally Direct Ophthalmoscopy: normal light reflex Neck: Neck: Yes normal visual inspection, Yes full ROM and Yes no meningeal signs Thyroid: Thyroid normal Carotids: normal carotid upstroke and bounding pulses Chest: Chest palpation & inspection: normal inspection of the chest Resp: Effort & Inspection: normal respiratory effort Auscultation: clear to auscultation bilaterally Cardio: Rate: regular rate Rhythm: regular rhythm Heart sounds: S1 normal heart sound present and S2 normal heart sound present Peripheral pulses: Peripheral pulses 2+ throughout GI: Inspection: Yes normal to inspection Percussion: Yes normal to percussion Auscultation: normal bowel sounds Rectal Exam - Female: deferred Back/Spine/Pelvis: Cervical Spine: normal cervical lordosis and cervical ROM normal Thoracic/Lumbar Spine: thoracic and lumbar spine normal to inspection Skin: General skin exam: no rashes or lesions noted Neuro: Other: She's alert pleasant and cooperative and smiling. She cannot respond to appropriately with the names of anything or any factual information. Sometimes she makes sentences which may complete sense but cannot tell me the names of the months in a year cannot tell me the than what benefit facility she is in but told me that she lived in [place]. She knows her name. She could not do any numbers. She couldn't tell me the name of a single medication. She couldn't tell me the day. She seems to comprehend OK but then says she is going to respond and then summoned the processing she stops smiles and then says she can't get it General: oriented to person, gait normal, tone normal, moves all extremities, Normal light touch and pain sensation, no meningeal signs, no focal motor deficits, CN's II-XI intact bilaterally, normal sensation to monofilament and deep tendon reflexes 2+ bilaterally Cranial nerves: Yes CN's II-XII intact bilaterally, Yes Equal, round and reactive pupils present, Yes Bilaterally intact EOM present, Yes Nystagmus not present, Yes Normal facial strength present, Yes Midline tongue present, Yes Normal gag reflex present, Yes Symmetric palate elevation present, Yes Normal hearing present and Yes Ability to bilaterally rotate head present Cognition (Neuro): abnormal cognition Speech: Other speech findings present (Neuro) Gait exam (Neuro): Normal gait present Motor exam (neuro): 5/5 motor strength present throughout, Pronator motor function not present, no tremor noted, no asterixis, Motor fasciculations not present, Normal motor muscle tone present throughout and Motor abnormalities not present Sensory Exam: Bilaterally intact graphesthesia Deep tendon reflexes (DTR's): Right triceps reflex intensity grade: 2+, Left triceps reflex intensity grade: 2+, Rt Biceps (C5, C6): 2+, Left biceps reflex intensity grade: 2+, Right brachioradialis reflex intensity grade: 2+, Left brachioradialis reflex intensity grade: 2+, Right patellar reflex intensity grade: 2+, Left patellar reflex intensity grade: 2+, Right ankle reflex intensity grade: 2+ and Left ankle reflex intensity grade: 2+ Plantar Reflex Responses: downgoing: right, left and bilateral Coordination: [id number] test normal, [id number] test normal, tandem gait normal and Romberg test negative Pupils: Normal pupillary reactivity/response: bilateral Extrem: General: Yes normal to inspection, Yes normal exam except as noted and Yes no pedal edema Psych: Appearance: grossly normal Mental Status: mental status grossly normal Speech and movement: Normal speech and movement present and Clear speech present Affect: normal affect Attitude: cooperative Thought process: Normal thought process present Results Labs CBC & Chem 7: 12/18/20 04:10 12/18/20 04:10 Labs: Short CBC 12/17/20 12/18/20 Range/Units 16:27 04:10 WBC 14.0 H 12.8 H (4.8-10.8) X10*3/uL Hgb 10.0 L 9.3 L (12.0-16.0) g/dl Hct 32.8 L 30.9 L (37-47) % Plt Count 227 202 (160-400) X10*3/uL BMP 12/17/20 12/18/20 16:27 04:10 Sodium 139 140 Potassium 3.6 3.4 Chloride 94 L 96 Carbon Dioxide 31 H 32 H BUN 22 H 21 H Creatinine 1.65 H 1.55 H Calcium 9.3 9.2 Liver Function 12/17/20 Range/Units 16:27 Total Bilirubin 1.2 H (0.0-1.0) mg/dL AST 22 (5-31) U/L ALT 17 (0-31) U/L Alkaline Phosphatase 180 H D (39-117) U/L Albumin 4.2 (3.5-5.0) g/dL Urine 12/17/20 Range/Units 16:27 Urine Color YELLOW Urine Appearance CLEAR Urine pH 6.0 (5.0-8.0) Ur Specific [place] 1.015 (1.005-1.025) Urine Protein NEG (NEG-TRACE) MG/DL Urine Glucose (UA) NEG (NEG) MG/DL Assessment and Plan (1) Altered mental status: Problem details: She's had an MRI and CT of the brain and within the last 2 weeks with no acute findings. Status: Acute I would recommend doing an EEG to see if there is evidence of diffuse slowing or focal slowing in the language area or a small chance of focal seizures. Would check her B12 folate levels and thyroid profile. (2) CKD stage 3 secondary to diabetes: Status: Acute (3) Fibromyalgia: Status: Acute (4) KEVIN on CPAP: Status: Acute Use a pulse oximeter at night to see if she is becoming very hypoxic (5) Dyslipidemia: Status: Acute (6) Essential hypertension: Status: Acute (7) Type 2 diabetes mellitus with other diabetic kidney complication: Status: Acute (8) Acquired hypothyroidism: Status: Acute Check thyroid profile
[2020-12-18 11:14] LABS: Glucose, Whole Blood 117 mg/dL (60-115)
--- NOTE | 2020-12-18 12:21 | P.CDIC_ITS ---
CDI Concurrent Query Service Date: 12/18/20 Documentation Clarification: Please clarify if you are treating a proba ble/suspected/likely or confirmed: BMI Morbid obesity-yes. Please specify if known Provider Response: Other Other Diagnosis: Morbid obesity. PLEASE DO NOT DELETE/MODIFY EXISTING CONTENT Additional information is needed in order to code to the highest accuracy and appropriate Severity of Illness (SOI). Please clarify the information noted below in your progress notes and discharge summary. Risk Factors/Clinical Indicators/Treatments BMI 45.3 KEVIN/Diabetic CDS: Madison Deleon CCS, CDIS Contact Number: [phone] Please Review the information above and exercise your independent professional judgment in responding to the query. If you concur, pleas document in the PROGRESS NOTES and DISCHARGE SUMMARY. If you do not agree with the query, please document in the query above. THIS QUERY IS PART OF THE PERMANENT MEDICAL RECORD
--- NOTE | 2020-12-18 13:35 | ECG_ITS ---
Test Reason : RHYTHM CHECK Blood Pressure : / mmHG Vent. Rate : 066 BPM Atrial Rate : 060 BPM P-R Int : 000 ms QRS Dur : 124 ms QT Int : 454 ms P-R-T Axes : 000 095 063 degrees QTc Int : 475 ms Accelerated Junctional rhythm ? underlying AF Rightward axis Non-specific intra-ventricular conduction delay Nonspecific ST abnormality Abnormal ECG When compared with ECG of 17-DEC-2020 15:35, No significant changes seen Referred By: Godwin Hernandez Electronically Signed By:MYRNA EAVNS MD
[2020-12-18 15:24] VITALS: BP 140/80; PULSE 64; RESP 18; TEMP 36.6; O2SAT 95
[2020-12-18 16:31] LABS: Glucose, Whole Blood 88 mg/dL (60-115)
--- NOTE | 2020-12-18 18:54 | P.PNIM_ITS ---
Subjective Subjective Date of Service: 12/19/20 Interval History: Encephalopathy Review of Systems Patient denies any chest pain or shortness of breath or abdominal pain No nausea vomiting or diarrhea. Mental status valles slightly better if oriented frequently. Physical Exam Vital Signs: Vital Signs: Last Vital Signs Temp 97.8 F 12/18/20 15:24 Pulse 64 12/18/20 15:24 Resp 18 12/18/20 15:24 BP 140/80 H 12/18/20 15:24 Pulse Ox 95 12/18/20 15:24 Body Mass Index 45.3 Physical exam: Cvs: rrr, [id number] , no murmur res: clear to auscultation ,no rhonchii or wheezing abd: no rebound or guarding ,nt, bs present. ext pulses present , no cyanosis , has b/l foot pain and somewhat swellin neuro: axo3 , nonfocal. Dr Raleigh chandler MD. Objective Data Current Medications Generic Name Dose Route Start Last Admin Trade Name Freq PRN Reason Stop Dose Admin Acetaminophen 650 mg 12/17/20 22:53 12/18/20 04:20 Acetaminophen 325 Mg Tablet PO 650 mg Q6H PRN Administration Pain, Mild (Pain Scale 1-3) Atorvastatin Calcium 10 mg 12/18/20 21:00 Atorvastatin Calcium 10 Mg Tablet PO BEDTIME ANNE-MARIE Docusate Sodium 100 mg 12/17/20 22:53 Docusate Sodium 100 Mg Capsule PO DAILY PRN Constipation Flecainide Acetate 100 mg 12/18/20 09:00 12/18/20 09:53 Flecainide Acetate 50 Mg Tablet PO 100 mg DAILY ANNE-MARIE Administration Insulin Human Lispro 0 unit 12/18/20 07:30 12/18/20 16:57 Insulin Lispro 100 Unit/Ml 3 Ml Vial SUBCUT Not Given QIDACHS [facility] Protocol Levetiracetam 500 mg 12/17/20 22:53 12/18/20 09:54 Levetiracetam 500 Mg Tablet PO 500 mg BID ANNE-MARIE Administration Levothyroxine Sodium 112 mcg 12/18/20 09:00 12/18/20 09:53 Levothyroxine Sodium 112 Mcg Tablet PO 112 mcg DAILY ANNE-MARIE Administration Metoprolol Tartrate 50 mg 12/17/20 22:53 12/18/20 09:53 Metoprolol Tartrate 50 Mg Tablet PO 50 mg BID ANNE-MARIE Administration Protocol Ondansetron HCl 4 mg 12/17/20 22:53 Ondansetron Hcl 4 Mg/2 Ml Vial IVPUSH Q8H PRN Nausea and Vomiting Oxcarbazepine 300 mg 12/18/20 09:00 12/18/20 14:36 Oxcarbazepine 300 Mg Tablet PO 300 mg TID ANNE-MARIE Administration Pregabalin 200 mg 12/18/20 09:00 12/18/20 09:53 Pregabalin 200 Mg Capsule PO 200 mg BID ANNE-MARIE Administration Sodium Chloride 3 ml 12/18/20 00:00 12/18/20 16:15 0.9 % Sodium Chloride Flush 3 Ml Syringe IVFLUSH 3 ml QSHIFT ANNE-MARIE Administration Spironolactone 100 mg 12/18/20 09:00 12/18/20 09:53 Spironolactone 25 Mg Tablet PO 100 mg DAILY ANNE-MARIE Administration Protocol Labs CBC & Chem 7: 12/19/20 06:14 12/19/20 06:14 Microbiology Microbiology Results: Microbiology 12/17/20 16:40 Blood - Venous Blood Culture - Preliminary No growth after 24 hours. 12/17/20 16:27 Blood - Venous Blood Culture - Preliminary No growth after 24 hours. Assessment and Plan (1) Encephalopathy: Status: Acute Assessment and Plan: 65-year-old female who presents from home with confusion, and difficulty finding words. 1. encephalopathy seizure (postictal) versus acute stroke versus metabolic. No evidence of seizure in ED similar episode evaluated by Neurology at that time and was started on Keppra for possible seizure activity. MRI at that time showed chronic lacunar infarct with no acute stroke. no evidence of acute infection continue her Keppra, oxcarbazepine. neuro recomended -eeg , will check b12 and tsh levels . 2. dysarthria - patient has similar exact word-finding difficulties and expressive aphasia on previous presentation that resolved spontaneously - head CT negative - previously MRI showed chronic lacunar infarcts neuro follwoing 3. supratherapeutic [facility] mitral valve: - INR of 2.8, started back Coumadin - no active bleed - PT INR daily - resume Coumadin when INR less than 3. 4. Elevated trop - cannot ilicit hx of chest pain - No EKG changes - pt on warfarin with supratherapeutic inr cardio eval. 5. diabetes: 120's range. Avoid coverage below 200 mg dL. - hold metformin - low-dose sliding scale insulin - POC q.i.d. a.c. leg pains -continue gabapentin added tylenol 6HTN - Stale - continue spironolactone 7. Hypothyroidism - continue levothyroxine
[2020-12-18 19:26] LABS: Alanine Aminotransferase 15 U/L (0-31); Albumin Level 3.8 g/dL (3.5-5.0); Alkaline Phosphatase 161 U/L (39-117); Aspartate Amino Transferase 18 U/L (5-31); Bilirubin Direct 0.9 mg/dL (0.0-0.5); Bilirubin Total 1.5 mg/dL (0.0-1.0); Total Protein 6.9 g/dL (6.5-8.0)
[2020-12-18] MEDS: Warfarin Sodium 5 MG TABLET PO (19:36)
[2020-12-18 19:46] LABS: Thyroid Stimulating Hormone 1.27 uIU/mL (0.32-4.0)
[2020-12-18 19:49] VITALS: BP 142/61; PULSE 65; RESP 16; TEMP 37; O2SAT 100
[2020-12-18] MEDS: Docusate Sodium 100 MG CAPSULE PO (19:49)
[2020-12-18 19:57] LABS: Vitamin B12 228 pg/mL (200-900)
[2020-12-18 20:29] LABS: Glucose, Whole Blood 114 mg/dL (60-115)
[2020-12-18] MEDS: Atorvastatin Calcium 10 MG TABLET PO (20:44)
--- NOTE | 2020-12-18 22:56 | PC.NURSE ---
patient requested to be put on the commode for BM. Pt was able to stand up with the max 3 assist but not able to make any steps or turns. Patient reports generalized pain #10 all over her body, reports pain to the right knee and the right foot. Pt's sister ,Oneida visited her tonight and she made a suggestion if it is possible to to have Ortho consult d/t right knee and rt foot pain.
[2020-12-18 23:34] VITALS: BP 158/79; PULSE 60; RESP 18; TEMP 36.6; O2SAT 93
[2020-12-19] MEDS: 0.9 % Sodium Chloride Flush 3 ML SYRINGE IVFLUSH ×3 (00:14→16:39)
[2020-12-19 03:20] VITALS: BP 116/59; PULSE 69; RESP 18; TEMP 37.4; O2SAT 92
[2020-12-19 06:59] LABS: Hematocrit 32.5 % (37-47); Hemoglobin 9.9 g/dl (12.0-16.0); Mean Corpuscular HGB Conc 30.5 g/dl (31.0-35.0); Mean Corpuscular Hemoglobin 24.3 pg (27.0-33.0); Mean Corpuscular Volume 79.9 fL (80-98); Mean Platelet Volume 10.5 fL (9.4-12.3); Platelet Count 237 X10*3/uL (160-400); Red Blood Count 4.07 X10*6/uL (4.20-5.50); Red Cell Distribution Width 17.2 % (11.0-16.0); White Blood Count 12.2 X10*3/uL (4.8-10.8)
[2020-12-19 07:12] LABS: Glucose, Whole Blood 110 mg/dL (60-115)
[2020-12-19 07:27] LABS: Anion Gap 16 (12-20); Blood Urea Nitrogen 20 mg/dL (9-16); Calcium 9.5 mg/dL (8.4-10.2); Carbon Dioxide 32 mmol/L (22-29); Chloride 96 mmol/L (96-108); Creatinine Clr Calc Pharmacy 46.9; Estimated Glomerular Filt Rate 36; Glucose Random 98 mg/dL (60-115); Potassium 3.5 mmol/L (3.3-5.1); Sodium 140 mmol/L (135-145)
[2020-12-19 07:48] VITALS: BP 112/60; PULSE 69; RESP 20; TEMP 36.7; O2SAT 100
[2020-12-19] MEDS: Pregabalin 200 MG CAPSULE PO ×2 (08:48→21:17)
[2020-12-19] MEDS: Metoprolol Tartrate 50 MG TABLET PO ×2 (08:48→21:18)
[2020-12-19] MEDS: Spironolactone 25 MG TABLET 100 MG PO (08:48)
[2020-12-19] MEDS: Flecainide Acetate 50 MG TABLET 100 MG PO (08:48)
[2020-12-19] MEDS: Levothyroxine Sodium 112 MCG TABLET PO (08:48)
[2020-12-19] MEDS: OXcarbazepine 300 MG TABLET PO ×3 (08:48→21:17)
[2020-12-19] MEDS: levETIRAcetam 500 MG TABLET PO ×2 (08:48→21:17)
[2020-12-19 08:51] LABS: INTERNATIONAL NORM RATIO 3.9 (0.9-1.1); Prothrombin Time 46.6 SEC (10.8-13.0)
[2020-12-19 09:08] LABS: Ammonia 49 umol/L (13-55)
[2020-12-19] MEDS: Acetaminophen 325 MG TABLET 650 MG PO (09:11)
[2020-12-19 11:18] LABS: Glucose, Whole Blood 113 mg/dL (60-115)
[2020-12-19 11:38] VITALS: BP 133/60; PULSE 57; RESP 19; TEMP 36.4; O2SAT 92
[2020-12-19] MEDS: oxyCODONE HCl Immed Release 5 MG TABLET PO ×2 (11:39→16:47)
[2020-12-19] MEDS: Docusate Sodium 100 MG CAPSULE PO ×2 (11:39→21:17)
[2020-12-19 13:42] LABS: Alanine Aminotransferase 13 U/L (0-31); Albumin Level 3.8 g/dL (3.5-5.0); Alkaline Phosphatase 182 U/L (39-117); Aspartate Amino Transferase 18 U/L (5-31); Bilirubin Direct 0.7 mg/dL (0.0-0.5); Total Protein 7.2 g/dL (6.5-8.0)
--- NOTE | 2020-12-19 15:01 | MHC.CM.PN ---
CM met with patient and her sister to discuss discharge plan since PT is recommending STR. Choices for STR are [facility], [facility] and [facility]. Referrals made via allscripts. Patient will need BLS transport. CM will continue to follow patient for discharge needs.
[2020-12-19] MEDS: DULoxetine HCl 30 MG CAPSULE.DR PO (15:18)
[2020-12-19 15:27] VITALS: BP 137/53; PULSE 67; RESP 18; TEMP 36.6; O2SAT 94
--- NOTE | 2020-12-19 15:41 | P.CONCA_ITS ---
History of Present Illness History of Present Illness Date of Service: 12/19/20 Consult reason: troponin elevation Chief complaint: Encephalopathy Narrative: We are asked to see [employer] in cardiology consultation for elevated troponin. 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 She also underwent biatrial Maze procedure at that time. She subsequently has had dual-chamber [employer] pacemaker placement for sick sinus syndrome. She also has heart failure syndrome and underwent CardioMEMS device which is being monitored by Dr. Dobbins at [facility] and managing her diuretic dose according to the same. She says she ranges from 60 mg of torsemide to 120 mg of torsemide depending on readings of her CardioMEMS device. She was brought to the emergency room on December 17 because of difficulty finding words and expressing herself and altered mental sensorium. On arrival to ED she was noted to have minimally elevated high sensitivity troponin with subsequently was minimally further elevated. She had no reported episodes of chest pain. She has no history of known coronary artery disease. Her BNP was within acceptable limits. She was admitted for further evaluation. As per the sister was present during the entire visit patient is very sedentary at home and does not exercise much. Her she has been having increasing difficulty with weight-bearing due to significant issues and pain in the right ankle area. Right ankle area she is pointing to says is appearing red and inflamed. She also has sensitivity to touch. She does have prior history of neuropathy but says that this symptoms are worsened neuropathy. She does not complain of orthopnea, PND. Review of Systems Constitutional: Constitutional: Denies chills, Denies fever(s) and Reports malaise Cardiovascular: Cardiovascular: Denies chest pain, Denies rapid heart rate, Denies lightheadedness, Denies Loss of Consciousness and Denies palpitations Respiratory: Respiratory: Reports no additional respiratory complaints Gastrointestinal: Gastrointestinal: Reports no additional gastrointestinal complaints Genitourinary: Genitourinary: Reports no additional female genitourinary complaints Musculoskeletal: Musculoskeletal: Reports arthralgias, Reports joint swelling and Reports other (Diffuse pain) Neurologic: Reports other (Speech disturbances) Endocrine: Endocrine: Reports no additional endocrine complaints and Denies palpitations Allergic/Immunologic: Allergic/Immunologic: Reports no additional allergic/immunologic complaints [facility] Past Medical History Medical History Acquired hypothyroidism Chronic low back pain CKD stage 3 secondary to diabetes Dyslipidemia Essential hypertension Fibromyalgia H/O cardiac pacemaker Mitral valve stenosis, rheumatic NYHA class 1 heart failure with preserved ejection fraction KEVIN on CPAP Osteoarthritis Paroxysmal atrial fibrillation Postmenopausal Psoriasis Rhinitis Seizure disorder Sinusitis Type 2 diabetes mellitus with other diabetic kidney complication Family History Family History Father HTN (hypertension) CKD (chronic kidney disease) Mother HTN (hypertension) Son No problems noted. Son No problems noted. Son No problems noted. Surgical History Surgical History H/O mitral valve replacement Hx of mitral valve replacement with mechanical valve Social History Social History Household Members: Spouse Housing: House Do you presently have visiting nurse or other home services: Yes Alcohol intake: unknown Smoking Status: Unknown if ever smoked Tobacco Type: Cigarette Second Hand Smoke Exposure: No Use of substances other than those prescribed or required for medical reasons: No Currently Displaying Signs/Symptoms of Drug Intoxication Withdrawal: No Have you been hit, kicked, punched, or otherwise hurt by someone within the past year? If so, by whom?: No Do you feel safe in your current relationship?: Yes Is there a partner from a previous relationship who is making you feel unsafe now?: No Are you made to feel afraid or neglected: No Advance Directives: Yes Advance Directives Information Provided: Yes Advance Directives on File: Yes Advance Directives Date on File: 12/17/20 Do you have thoughts of harming others: None Do you have a plan to hurt others: No Plan Recently lost weight without trying: Unsure service: No Current occupational status: unemployed and retired Meds Allergies Allergy/AdvReac Type Severity Reaction Status Date / Time adalimumab [From HUMIRA] Allergy Unknown PCP Verified 12/09/20 23:44 PNEUMONIA azathioprine [Imuran] Allergy Unknown PNA Verified 12/09/20 23:44 Cephalosporins Allergy Unknown KIDNEY Verified 12/09/20 23:44 [CEPHALOSPORINS] FAILURE cyclosporine [CYCLOSPORINE] Allergy Unknown KIDNEY Verified 12/09/20 23:44 FAILURE etanercept [From Enbrel] Allergy Unknown PCP Verified 12/09/20 23:44 PNEUMONIA simvastatin Allergy Unknown athralgias Verified 12/09/20 23:44 amoxicillin [From AUGMENTIN] AdvReac Unknown PROJECTILE Verified 12/09/20 23:44 VOMITTING clavulanic acid AdvReac Unknown PROJECTILE Verified 12/09/20 23:44 [From AUGMENTIN] VOMITTING Active Medications: Current Medications Generic Name Dose Route Start Last Admin Trade Name Jayjayq PRN Reason Stop Dose Admin Acetaminophen 650 mg 12/17/20 22:53 12/19/20 09:11 Acetaminophen 325 Mg Tablet PO 650 mg Q6H PRN Administration Pain, Mild (Pain Scale 1-3) Albuterol/Ipratropium 3 ml 12/18/20 19:06 Albuterol/Iprat 2.5/0.5mg 3 Ml Ampul.Neb INHALE Q6H PRN Shortness of Breath Atorvastatin Calcium 10 mg 12/18/20 21:00 12/18/20 20:44 Atorvastatin Calcium 10 Mg Tablet PO 10 mg BEDTIME ANNE-MARIE Administration Docusate Sodium 100 mg 12/17/20 22:53 12/19/20 11:39 Docusate Sodium 100 Mg Capsule PO 100 mg DAILY PRN Administration Constipation Docusate Sodium 100 mg 12/19/20 21:00 Docusate Sodium 100 Mg Capsule PO BEDTIME ANNE-MARIE Flecainide Acetate 100 mg 12/18/20 09:00 12/19/20 08:48 Flecainide Acetate 50 Mg Tablet PO 100 mg DAILY ANNE-MARIE Administration Hydromorphone HCl 1 mg 12/19/20 13:49 Hydromorphone Hcl 2 Mg Tablet PO Q4H PRN foot pain Thiamine HCl 500 mg/ Sodium 105 mls @ 210 mls/hr 12/19/20 15:00 Chloride IV Q8H [facility] Insulin Human Lispro 0 unit 12/18/20 07:30 12/19/20 12:36 Insulin Lispro 100 Unit/Ml 3 Ml Vial SUBCUT Not Given QIDACHS [facility] Protocol Levetiracetam 500 mg 12/17/20 22:53 12/19/20 08:48 Levetiracetam 500 Mg Tablet PO 500 mg BID ANNE-MARIE Administration Levothyroxine Sodium 112 mcg 12/18/20 09:00 12/19/20 08:48 Levothyroxine Sodium 112 Mcg Tablet PO 112 mcg DAILY [facility] Administration Metoprolol Tartrate 50 mg 12/17/20 22:53 12/19/20 08:48 Metoprolol Tartrate 50 Mg Tablet PO 50 mg BID [facility] Administration Protocol Ondansetron HCl 4 mg 12/17/20 22:53 Ondansetron Hcl 4 Mg/2 Ml Vial IVPUSH Q8H PRN Nausea and Vomiting Oxcarbazepine 300 mg 12/18/20 09:00 12/19/20 15:19 Oxcarbazepine 300 Mg Tablet PO 300 mg TID ANNE-MARIE Administration Oxycodone HCl 5 mg 12/19/20 10:30 12/19/20 11:39 Oxycodone Hcl Immed Release 5 Mg Tablet PO 5 mg Q4H PRN Administration feet pains Pregabalin 200 mg 12/18/20 09:00 12/19/20 08:48 Pregabalin 200 Mg Capsule PO 200 mg BID [facility] Administration Senna 17.2 mg 12/19/20 21:00 Sennosides 8.6 Mg Tablet PO BEDTIME [facility] Sodium Chloride 3 ml 12/18/20 00:00 12/19/20 08:49 0.9 % Sodium Chloride Flush 3 Ml Syringe IVFLUSH 3 ml QSHIFT [facility] Administration Spironolactone 100 mg 12/18/20 09:00 12/19/20 08:48 Spironolactone 25 Mg Tablet PO 100 mg DAILY [facility] Administration Protocol Home Medications Medication Instructions Recorded Confirmed Last Taken Type atorvastatin 1 tab PO DAILY 12/17/20 12/17/20 Unknown History flecainide 100 mg PO TID 12/17/20 12/18/20 Unknown History levetiracetam 1 tab PO BID 12/17/20 12/17/20 Unknown History levothyroxine 1 tab PO DAILY 12/17/20 12/17/20 Unknown History metformin 1 tab PO BID 12/17/20 12/17/20 Unknown History metoprolol tartrate 1 tab PO BID 12/17/20 12/17/20 Unknown History oxcarbazepine 1 tab PO TID 12/17/20 12/17/20 Unknown History pregabalin 1 cap PO BID 12/17/20 12/17/20 Unknown History spironolactone 1 tab PO DAILY 12/17/20 12/17/20 Unknown History fluticasone propion-salmeterol 2 puff INHALATION BID 12/18/20 12/18/20 Unknown History [Advair HFA] torsemide 240 mg PO BID 12/18/20 12/18/20 Unknown History warfarin 7.5 mg PO MOTUWE 12/18/20 12/18/20 Unknown History warfarin See Rx Instructions .ROUTE .COMPLEX 12/18/20 12/18/20 Unknown History Physical Exam Vital Signs: Vital Signs: Last Vital Signs Temp 97.8 F 12/19/20 15:27 Pulse 67 12/19/20 15:27 Resp 18 12/19/20 15:27 BP 137/53 L 12/19/20 15:27 Pulse Ox 94 12/19/20 15:27 Body Mass Index 45.3 Const: General: cooperative, comfortable, no acute distress, alert and awake Nutritional Appearance: obese Orientation/consciousness: patient oriented x3 HENMT: Head: Yes normal to inspection, Yes normocephalic and Yes atraumatic Neck: Neck: Yes trachea midline and Yes no JVD Resp: Effort & Inspection: normal respiratory effort Auscultation: clear to auscultation bilaterally Cardio: Jugular venous distension: no JVD Palpation: normal PMI Rate: regular rate Rhythm: regular rhythm Heart sounds: S2 normal heart sound present, Murmur heart sound present systolic and Other heart sounds present (Searcy opening and closing click of [place]o mitral valve) GI: Auscultation: normal bowel sounds Skin: General skin exam: no rashes or lesions noted and ecchymosis Neuro: General: patient oriented x3 Extrem: General: Yes no clubbing, cyanosis or edema and Yes other (Right lateral aspect of the ankle is red and inflamed and tender to touch) Psych: Appearance: grossly normal Affect: Anxious affect present Results Labs and Meds Result diagrams: 12/19/20 06:14 12/19/20 06:14 Lab results: Laboratory Results - last 24 hr 12/18/20 12/18/20 12/18/20 04:10 04:10 16:23 WBC RBC Hgb Hct MCV MCH MCHC RDW Plt Count MPV Absolute Nucleated RBC Nucleated RBC % (auto) PT INR Sodium Potassium Chloride Carbon Dioxide Anion Gap BUN Creatinine Estim Creat Clear Calc Estimated GFR POC Glucose 88 Random Glucose Calcium Total Bilirubin 1.5 H Direct Bilirubin 0.9 H AST 18 ALT 15 Alkaline Phosphatase 161 H Ammonia Total Protein 6.9 Albumin 3.8 Vitamin B12 228 TSH 1.27 12/18/20 12/19/20 12/19/20 20:20 06:14 06:14 WBC 12.2 H RBC 4.07 L Hgb 9.9 L Hct 32.5 L MCV 79.9 L MCH 24.3 L MCHC 30.5 L RDW 17.2 H Plt Count 237 MPV 10.5 Absolute Nucleated RBC 0.000 Nucleated RBC % (auto) 0.0 PT INR Sodium 140 Potassium 3.5 Chloride 96 Carbon Dioxide 32 H Anion Gap 16 BUN 20 H Creatinine 1.45 H Estim Creat Clear Calc 46.9 Estimated GFR 36 POC Glucose 114 Random Glucose 98 Calcium 9.5 Total Bilirubin 1.0 Direct Bilirubin 0.7 H AST 18 ALT 13 Alkaline Phosphatase 182 H Ammonia Total Protein 7.2 Albumin 3.8 Vitamin B12 TSH 12/19/20 12/19/20 12/19/20 07:05 08:29 08:29 WBC RBC Hgb Hct MCV MCH MCHC RDW Plt Count MPV Absolute Nucleated RBC Nucleated RBC % (auto) PT 46.6 H D INR 3.9 H Sodium Potassium Chloride Carbon Dioxide Anion Gap BUN Creatinine Estim Creat Clear Calc Estimated GFR POC Glucose 110 Random Glucose Calcium Total Bilirubin Direct Bilirubin AST ALT Alkaline Phosphatase Ammonia 49 Total Protein Albumin Vitamin B12 TSH 12/19/20 11:11 WBC RBC Hgb Hct MCV MCH MCHC RDW Plt Count MPV Absolute Nucleated RBC Nucleated RBC % (auto) PT INR Sodium Potassium Chloride Carbon Dioxide Anion Gap BUN Creatinine Estim Creat Clear Calc Estimated GFR POC Glucose 113 Random Glucose Calcium Total Bilirubin Direct Bilirubin AST ALT Alkaline Phosphatase Ammonia Total Protein Albumin Vitamin B12 TSH Pacemaker interrogation: dual-chamber cardiac pacemaker in-situ, [employer]. Atrial ventricular sensing is excellent. Atrial and ventricular pacing thresholds are adequate. Atrial ventricular lead impedance is stable. Battery life is excellent at 5 years no arrhythmias noted Imaging Radiologist's impression: Impressions Foot X-Ray 12/19/20 14:21 IMPRESSION: No acute fracture or dislocation of either the right or left foot. Soft tissue swelling dorsum of the feet right greater than left. Bilateral bunion formation with hallux valgus deformity. Foot X-Ray 12/19/20 14:21 IMPRESSION: No acute fracture or dislocation of either the right or left foot. Soft tissue swelling dorsum of the feet right greater than left. Bilateral bunion formation with hallux valgus deformity. Assessment and Plan (1) Elevated troponin: Status: Acute Minimally elevated troponin in this elderly woman with multiple medical problems. She has no prior history of coronary artery disease and currently not having any ischemic symptoms. Unlikely that that this represent myocardial injury due to acute coronary syndrome. Minimal myocardial injury or troponin elevation can be seen patient has chronic kidney disease and prior heart failure. No further workup is indicated from this perspective. Could also be related to neurologic issues. Patient was reassured. She understands and agrees. (2) Hx of mitral valve replacement with mechanical valve: Status: Acute Prior history of mechanical mitral valve replacement for rheumatic mitral stenosis. Clinically appears to be working well. Continue warfarin therapy with target INR between 2.5 and 3.5. Continue concomitant low-dose aspirin therapy. No further workup indicated from this perspective. (3) Cardiac pacemaker in situ: Status: Acute Cardiac pacemaker in-situ, working well. No interventions made. Pacemaker programming was not performed. (4) Paroxysmal atrial fibrillation: Status: Acute Paroxysmal atrial fibrillation without any clear clinical recurrence of the same. Has remained suppressed on flecainide therapy. This should help her overall heart failure syndrome. Continue antiarrhythmic drug therapy as prescribed. Continue full oral anticoagulation with target INR between 2.5 and 3.5.
[2020-12-19 16:15] LABS: Glucose, Whole Blood 136 mg/dL (60-115)
[2020-12-19] MEDS: Thiamine HCL 500 MG in 0.9 % Sodium Chloride 100 ML 210 MG IV ×2 (16:32→22:20)
--- NOTE | 2020-12-19 17:36 | P.PNIM_ITS ---
Subjective Subjective Date of Service: 12/20/20 Interval History: encephalopathy, b/l foot pains. Review of Systems Patient denies any chest pain or shortness of breath or abdominal pain or fever or chills. Mental status looks similar as before yesterday. Denies any new weakness or numbness Denies any urinary complaint Has bilateral foot pain and some right ankle swelling. Physical Exam 2 Vital Signs: Vital Signs: Last Vital Signs Temp 97.8 F 12/19/20 15:27 Pulse 67 12/19/20 15:27 Resp 18 12/19/20 15:27 BP 137/53 L 12/19/20 15:27 Pulse Ox 94 12/19/20 15:27 Body Mass Index 45.3 Physical exam: Cvs: [id number], [id number] , no murmur res: clear to auscultation ,no rhonchii or wheezing abd: no rebound or guarding ,nt, bs present. ext pulses present , no cyanosis , right ankle swelling/pain neuro: She could able to answer most of the questions but still she is somewhat confused , nonfocal. Objective Data Current Medications Generic Name Dose Route Start Last Admin Trade Name Freq PRN Reason Stop Dose Admin Acetaminophen 650 mg 12/17/20 22:53 12/19/20 09:11 Acetaminophen 325 Mg Tablet PO 650 mg Q6H PRN Administration Pain, Mild (Pain Scale 1-3) Albuterol/Ipratropium 3 ml 12/18/20 19:06 Albuterol/Iprat 2.5/0.5mg 3 Ml Ampul.Neb INHALE Q6H PRN Shortness of Breath Atorvastatin Calcium 10 mg 12/18/20 21:00 12/18/20 20:44 Atorvastatin Calcium 10 Mg Tablet PO 10 mg BEDTIME ANNE-MARIE Administration Docusate Sodium 100 mg 12/17/20 22:53 12/19/20 11:39 Docusate Sodium 100 Mg Capsule PO 100 mg DAILY PRN Administration Constipation Docusate Sodium 100 mg 12/19/20 21:00 Docusate Sodium 100 Mg Capsule PO BEDTIME ANNE-MARIE Flecainide Acetate 100 mg 12/18/20 09:00 12/19/20 08:48 Flecainide Acetate 50 Mg Tablet PO 100 mg DAILY ANNE-MARIE Administration Hydromorphone HCl 1 mg 12/19/20 13:49 Hydromorphone Hcl 2 Mg Tablet PO Q4H PRN foot pain Thiamine HCl 500 mg/ Sodium 105 mls @ 210 mls/hr 12/19/20 15:00 12/19/20 17:08 Chloride IV Infused Q8H [facility] Infusion Insulin Human Lispro 0 unit 12/18/20 07:30 12/19/20 16:39 Insulin Lispro 100 Unit/Ml 3 Ml Vial SUBCUT Not Given QIDACHS [facility] Protocol Levetiracetam 500 mg 12/17/20 22:53 12/19/20 08:48 Levetiracetam 500 Mg Tablet PO 500 mg BID [facility] Administration Levothyroxine Sodium 112 mcg 12/18/20 09:00 12/19/20 08:48 Levothyroxine Sodium 112 Mcg Tablet PO 112 mcg DAILY [facility] Administration Metoprolol Tartrate 50 mg 12/17/20 22:53 12/19/20 08:48 Metoprolol Tartrate 50 Mg Tablet PO 50 mg BID [facility] Administration Protocol Ondansetron HCl 4 mg 12/17/20 22:53 Ondansetron Hcl 4 Mg/2 Ml Vial IVPUSH Q8H PRN Nausea and Vomiting Oxcarbazepine 300 mg 12/18/20 09:00 12/19/20 15:19 Oxcarbazepine 300 Mg Tablet PO 300 mg TID [facility] Administration Oxycodone HCl 5 mg 12/19/20 10:30 12/19/20 16:47 Oxycodone Hcl Immed Release 5 Mg Tablet PO 5 mg Q4H PRN Administration feet pains Pregabalin 200 mg 12/18/20 09:00 12/19/20 08:48 Pregabalin 200 Mg Capsule PO 200 mg BID [facility] Administration Senna 17.2 mg 12/19/20 21:00 Sennosides 8.6 Mg Tablet PO BEDTIME [facility] Sodium Chloride 3 ml 12/18/20 00:00 12/19/20 16:39 0.9 % Sodium Chloride Flush 3 Ml Syringe IVFLUSH 3 ml QSHIFT [facility] Administration Spironolactone 100 mg 12/18/20 09:00 12/19/20 08:48 Spironolactone 25 Mg Tablet PO 100 mg DAILY [facility] Administration Protocol Labs CBC & Chem 7: 12/20/20 05:13 12/20/20 05:13 Microbiology Microbiology Results: Microbiology 12/17/20 16:40 Blood - Venous Blood Culture - Preliminary No growth after 24 hours. 12/17/20 16:27 Blood - Venous Blood Culture - Preliminary No growth after 24 hours. Assessment and Plan (1) Encephalopathy: Problem details: Mentally clearer than before then processing information easier Status: Acute Assessment and Plan: 65-year-old female who presents from home with confusion, and difficulty finding words. 1. encephalopathy seizure (postictal) versus acute stroke versus metabolic. No evidence of seizure in ED similar episode evaluated by Neurology at that time and was started on Keppra for possible seizure activity. MRI at that time showed chronic lacunar infarct with no acute stroke. no evidence of acute infection continue her Keppra, oxcarbazepine. neuro recomended - b12 and tsh levels normal. eeg-shows slowing: Discussed with Neurology: Recommended to start on IV thiamine, and LP added for further workup of encephalopathy. Will continue to monitor. 2. dysarthria - patient has similar exact word-finding difficulties and expressive aphasia on previous presentation that resolved spontaneously - head CT negative - previously MRI showed chronic lacunar infarcts neuro follwoing-please see above. 3. supratherapeutic INR/[facility] mitral valve: INR is 3.9 Will hold Coumadin - no active bleed - PT INR daily 4. Elevated trop - cannot ilicit hx of chest pain - No EKG changes - pt on warfarin with supratherapeutic inr cardio eval noted-. 5. diabetes: 110-130's range. Avoid coverage below 200 mg dL. - hold metformin hba1c : 5.8 - POC q.i.d. a.c. leg pains -continue gabapentin added tylenol 6HTN - Stale - continue spironolactone 7. Hypothyroidism - continue levothyroxine 8 Right Ankle pain: has some ankle swelling: blood cultures intial neg added ortho- need tap
[2020-12-19 17:40] LABS: Estimated Average Glucose 120 mg/dL; Hemoglobin A1C 151.3713 umol/L; Hemoglobin A1c % 5.8 %
[2020-12-19 19:13] VITALS: BP 155/73; PULSE 70; RESP 20; TEMP 37.4; O2SAT 94
[2020-12-19] MEDS: vancomycin HCL 1,250 MG in 0.9 % Sodium Chloride 250 ML 166.67 MG IV (20:13)
[2020-12-19 20:47] LABS: Glucose, Whole Blood 109 mg/dL (60-115)
[2020-12-19] MEDS: Atorvastatin Calcium 10 MG TABLET PO (21:17)
[2020-12-19] MEDS: Sennosides 8.6 MG TABLET 17.2 MG PO (21:18)
[2020-12-19 23:15] VITALS: BP 150/61; PULSE 60; TEMP 36.8; O2SAT 92
[2020-12-20] VITALS (7 sets, daily range): BP systolic 124–144; BP diastolic 48–63; PULSE 60–85; RESP 18–20; TEMP 36–37.4; O2SAT 90–94
[2020-12-20] MEDS: 0.9 % Sodium Chloride Flush 3 ML SYRINGE IVFLUSH ×3 (00:12→16:56)
[2020-12-20] MEDS: Thiamine HCL 500 MG in 0.9 % Sodium Chloride 100 ML 210 MG IV ×2 (06:06→16:55)
[2020-12-20 06:08] LABS: Hematocrit 29.3 % (37-47); Hemoglobin 8.8 g/dl (12.0-16.0); Mean Corpuscular Hemoglobin 24.1 pg (27.0-33.0); Mean Corpuscular Volume 80.3 fL (80-98); Mean Platelet Volume 10.6 fL (9.4-12.3); Platelet Count 232 X10*3/uL (160-400); Red Blood Count 3.65 X10*6/uL (4.20-5.50); White Blood Count 8.7 X10*3/uL (4.8-10.8)
[2020-12-20 06:29] LABS: Prothrombin Time 35.5 SEC (10.8-13.0)
[2020-12-20 06:32] LABS: Anion Gap 14 (12-20); Blood Urea Nitrogen 28 mg/dL (9-16); Calcium 9.3 mg/dL (8.4-10.2); Carbon Dioxide 30 mmol/L (22-29); Chloride 99 mmol/L (96-108); Estimated Glomerular Filt Rate 39; Glucose Random 105 mg/dL (60-115); Potassium 3.5 mmol/L (3.3-5.1); Sodium 139 mmol/L (135-145)
[2020-12-20 07:17] LABS: Glucose, Whole Blood 104 mg/dL (60-115)
--- NOTE | 2020-12-20 07:42 | PM.EVENT ---
Event Note Date of Service: 12/20/20 Event Note: Right ankle pain and swelling x 1 month denies injury on exam there is no redness, there is slight swelling around the ankle into the dorsum of the foot with tenderness along the lateral malleolus/jointline this could either be swelling from supratherapeutic INR, gout, or infection. Looks less likely to be infection but patient is on vanco. plan: obtain right ankle xrays, poss asp.
--- NOTE | 2020-12-20 07:48 | PM.CNOR ---
History of Present Illness HPI Consult date: 12/20/20 Chief complaint: Right Ankle swelling Narrative: Ms Kirby is a 65 yo female who was admitted to the medical service and subsequently c/o right ankle pain and swelling. She states the pain has been present x1 week. Denies injury. States there is swelling and she has difficulty walking. She states she has psoriasis and continues to develop cellulitis on her lower extremities. h/o CHf. Review of Systems Review of Systems: Yes all other systems are reviewed and are negative PMFSH Past Medical History Medical History Acquired hypothyroidism Chronic low back pain CKD stage 3 secondary to diabetes Dyslipidemia Essential hypertension Fibromyalgia H/O cardiac pacemaker Mitral valve stenosis, rheumatic NYHA class 1 heart failure with preserved ejection fraction KEVIN on CPAP Osteoarthritis Paroxysmal atrial fibrillation Postmenopausal Psoriasis Rhinitis Seizure disorder Sinusitis Type 2 diabetes mellitus with other diabetic kidney complication Family History Family History Father HTN (hypertension) CKD (chronic kidney disease) Mother HTN (hypertension) Son No problems noted. Son No problems noted. Son No problems noted. Surgical History Surgical History H/O mitral valve replacement Hx of mitral valve replacement with mechanical valve Social History Social History Household Members: Spouse Housing: House Do you presently have visiting nurse or other home services: Yes Alcohol intake: unknown Smoking Status: Unknown if ever smoked Tobacco Type: Cigarette Second Hand Smoke Exposure: No Use of substances other than those prescribed or required for medical reasons: No Currently Displaying Signs/Symptoms of Drug Intoxication Withdrawal: No Have you been hit, kicked, punched, or otherwise hurt by someone within the past year? If so, by whom?: No Do you feel safe in your current relationship?: Yes Is there a partner from a previous relationship who is making you feel unsafe now?: No Are you made to feel afraid or neglected: No Advance Directives: Yes Advance Directives Information Provided: Yes Advance Directives on File: Yes Advance Directives Date on File: 12/17/20 Do you have thoughts of harming others: None Do you have a plan to hurt others: No Plan Recently lost weight without trying: Unsure service: No Current occupational status: unemployed and retired Meds Allergies Allergy/AdvReac Type Severity Reaction Status Date / Time adalimumab [From HUMIRA] Allergy Unknown PCP Verified 12/09/20 23:44 PNEUMONIA azathioprine [Imuran] Allergy Unknown PNA Verified 12/09/20 23:44 Cephalosporins Allergy Unknown KIDNEY Verified 12/09/20 23:44 [CEPHALOSPORINS] FAILURE cyclosporine [CYCLOSPORINE] Allergy Unknown KIDNEY Verified 12/09/20 23:44 FAILURE etanercept [From Enbrel] Allergy Unknown PCP Verified 12/09/20 23:44 PNEUMONIA simvastatin Allergy Unknown athralgias Verified 12/09/20 23:44 amoxicillin [From AUGMENTIN] AdvReac Unknown PROJECTILE Verified 12/09/20 23:44 VOMITTING clavulanic acid AdvReac Unknown PROJECTILE Verified 12/09/20 23:44 [From AUGMENTIN] VOMITTING Active Medications: Current Medications Generic Name Dose Route Start Last Admin Trade Name Freq PRN Reason Stop Dose Admin Acetaminophen 650 mg 12/17/20 22:53 12/19/20 09:11 Acetaminophen 325 Mg Tablet PO 650 mg Q6H PRN Administration Pain, Mild (Pain Scale 1-3) Albuterol/Ipratropium 3 ml 12/18/20 19:06 Albuterol/Iprat 2.5/0.5mg 3 Ml Ampul.Neb INHALE Q6H PRN Shortness of Breath Atorvastatin Calcium 10 mg 12/18/20 21:00 12/19/20 21:17 Atorvastatin Calcium 10 Mg Tablet PO 10 mg BEDTIME ANNE-MARIE Administration Docusate Sodium 100 mg 12/17/20 22:53 12/19/20 11:39 Docusate Sodium 100 Mg Capsule PO 100 mg DAILY PRN Administration Constipation Docusate Sodium 100 mg 12/19/20 21:00 12/19/20 21:17 Docusate Sodium 100 Mg Capsule PO 100 mg BEDTIME ANNE-MARIE Administration Flecainide Acetate 100 mg 12/18/20 09:00 12/19/20 08:48 Flecainide Acetate 50 Mg Tablet PO 100 mg DAILY ANNE-MARIE Administration Hydromorphone HCl 1 mg 12/19/20 13:49 Hydromorphone Hcl 2 Mg Tablet PO Q4H PRN foot pain Thiamine HCl 500 mg/ Sodium 105 mls @ 210 mls/hr 12/19/20 15:00 12/20/20 06:38 Chloride IV Infused Q8H ANNE-MARIE Infusion Vancomycin HCl 1,000 mg/ 270 mls @ 270 mls/hr 12/20/20 20:00 Sodium Chloride IV Q24H ANNE-MARIE Insulin Human Lispro 0 unit 12/18/20 07:30 12/20/20 07:34 Insulin Lispro 100 Unit/Ml 3 Ml Vial SUBCUT Not Given QIDACHS [facility] Protocol Levetiracetam 500 mg 12/17/20 22:53 12/19/20 21:17 Levetiracetam 500 Mg Tablet PO 500 mg BID ANNE-MARIE Administration Levothyroxine Sodium 112 mcg 12/18/20 09:00 12/19/20 08:48 Levothyroxine Sodium 112 Mcg Tablet PO 112 mcg DAILY ANNE-MARIE Administration Metoprolol Tartrate 50 mg 12/17/20 22:53 12/19/20 21:18 Metoprolol Tartrate 50 Mg Tablet PO 50 mg BID ANNE-MARIE Administration Protocol Ondansetron HCl 4 mg 12/17/20 22:53 Ondansetron Hcl 4 Mg/2 Ml Vial IVPUSH Q8H PRN Nausea and Vomiting Oxcarbazepine 300 mg 12/18/20 09:00 12/19/20 21:17 Oxcarbazepine 300 Mg Tablet PO 300 mg TID ANNE-MARIE Administration Oxycodone HCl 5 mg 12/19/20 10:30 12/19/20 16:47 Oxycodone Hcl Immed Release 5 Mg Tablet PO 5 mg Q4H PRN Administration feet pains Pharmacy Consult 1 each 12/19/20 18:20 Consult Rx Vancomycin Dosing MISCELLANE DAILY PRN Consult order Pregabalin 200 mg 12/18/20 09:00 12/19/20 21:17 Pregabalin 200 Mg Capsule PO 200 mg BID ANNE-MARIE Administration Senna 17.2 mg 12/19/20 21:00 12/19/20 21:18 Sennosides 8.6 Mg Tablet PO 17.2 mg BEDTIME ANNE-MARIE Administration Sodium Chloride 3 ml 12/18/20 00:00 12/20/20 00:12 0.9 % Sodium Chloride Flush 3 Ml Syringe IVFLUSH 3 ml QSHIFT ANNE-MARIE Administration Spironolactone 100 mg 12/18/20 09:00 12/19/20 08:48 Spironolactone 25 Mg Tablet PO 100 mg DAILY ANNE-MARIE Administration Protocol Home Medications Medication Instructions Recorded Confirmed Last Taken Type atorvastatin 1 tab PO DAILY 12/17/20 12/17/20 Unknown History flecainide 100 mg PO TID 12/17/20 12/18/20 Unknown History levetiracetam 1 tab PO BID 12/17/20 12/17/20 Unknown History levothyroxine 1 tab PO DAILY 12/17/20 12/17/20 Unknown History metformin 1 tab PO BID 12/17/20 12/17/20 Unknown History metoprolol tartrate 1 tab PO BID 12/17/20 12/17/20 Unknown History oxcarbazepine 1 tab PO TID 12/17/20 12/17/20 Unknown History pregabalin 1 cap PO BID 12/17/20 12/17/20 Unknown History spironolactone 1 tab PO DAILY 12/17/20 12/17/20 Unknown History fluticasone propion-salmeterol 2 puff INHALATION BID 12/18/20 12/18/20 Unknown History [Advair HFA] torsemide 240 mg PO BID 12/18/20 12/18/20 Unknown History warfarin 7.5 mg PO MOTUWE 12/18/20 12/18/20 Unknown History warfarin See Rx Instructions .ROUTE .COMPLEX 12/18/20 12/18/20 Unknown History Physical Exam Vital Signs: Vital Signs: Last Vital Signs Temp 99.4 F 12/20/20 07:26 Pulse 75 12/20/20 07:26 Resp 20 12/20/20 07:26 BP 126/54 L 12/20/20 07:26 Pulse Ox 93 12/20/20 07:26 Body Mass Index 45.3 Const: General: cooperative, comfortable and no acute distress Extrem: Other: Right ankle skin intact without erythema. There is diffuse pitting edema around the dorsum of the foot. No ankle joint effusion. Pulses present. Pain with ankle ROM. xrays of the right ankle negative for acute or chronic abnormalities. Results Labs Result Diagrams: 12/23/20 06:27 12/24/20 03:45 Labs: Abnormal lab results 12/19/20 12/19/20 12/19/20 Range/Units 06:14 08:29 16:07 RBC (4.20-5.50) X10*6/uL Hgb (12.0-16.0) g/dl Hct (37-47) % MCH (27.0-33.0) pg MCHC (31.0-35.0) g/dl RDW (11.0-16.0) % PT 46.6 H D (10.8-13.0) SEC INR 3.9 H (0.9-1.1) Carbon Dioxide (22-29) mmol/L BUN (9-16) mg/dL POC Glucose 136 H (60-115) mg/dL Direct Bilirubin 0.7 H (0.0-0.5) mg/dL Alkaline Phosphatase 182 H (39-117) U/L 12/20/20 12/20/20 12/20/20 Range/Units 05:13 05:13 05:13 RBC 3.65 L (4.20-5.50) X10*6/uL Hgb 8.8 L (12.0-16.0) g/dl Hct 29.3 L (37-47) % MCH 24.1 L (27.0-33.0) pg MCHC 30.0 L (31.0-35.0) g/dl RDW 17.0 H (11.0-16.0) % PT 35.5 H D (10.8-13.0) SEC INR 3.0 H (0.9-1.1) Carbon Dioxide 30 H (22-29) mmol/L BUN 28 H (9-16) mg/dL POC Glucose (60-115) mg/dL Direct Bilirubin (0.0-0.5) mg/dL Alkaline Phosphatase (39-117) U/L H & H 12/17/20 12/18/20 12/19/20 Range/Units 16:27 04:10 06:14 Hgb 10.0 L 9.3 L 9.9 L (12.0-16.0) g/dl Hct 32.8 L 30.9 L 32.5 L (37-47) % 12/20/20 Range/Units 05:13 Hgb 8.8 L (12.0-16.0) g/dl Hct 29.3 L (37-47) % Coagulation 12/17/20 12/18/20 12/19/20 Range/Units 17:10 05:14 08:29 INR 3.1 H 2.8 H 3.9 H (0.9-1.1) 12/20/20 Range/Units 05:13 INR 3.0 H (0.9-1.1) All other labs normal. Assessment and Plan (1) Right ankle pain: Status: Acute Recommend symptomatic treatment as there is no fluid to asp from ankle joint. There does not appear to be an infection with the absence of warmth, redness and joint effusion. She is on iv abx, can continue if concern for cellulitis. No further orthopedic workup necessary.
[2020-12-20 09:23] LABS: Alanine Aminotransferase 16 U/L (0-31); Albumin Level 3.4 g/dL (3.5-5.0); Alkaline Phosphatase 202 U/L (39-117); Aspartate Amino Transferase 23 U/L (5-31); Bilirubin Direct 0.4 mg/dL (0.0-0.5); Bilirubin Total 0.7 mg/dL (0.0-1.0); Total Protein 6.5 g/dL (6.5-8.0)
[2020-12-20] MEDS: levETIRAcetam 500 MG TABLET PO ×2 (10:06→21:26)
[2020-12-20] MEDS: OXcarbazepine 300 MG TABLET PO ×3 (10:06→21:26)
[2020-12-20] MEDS: Spironolactone 25 MG TABLET 100 MG PO (10:06)
[2020-12-20] MEDS: Pregabalin 200 MG CAPSULE PO ×2 (10:06→21:26)
[2020-12-20] MEDS: Metoprolol Tartrate 50 MG TABLET PO ×2 (10:07→21:26)
[2020-12-20] MEDS: Levothyroxine Sodium 112 MCG TABLET PO (10:07)
[2020-12-20] MEDS: oxyCODONE HCl Immed Release 5 MG TABLET PO ×2 (10:07→14:45)
[2020-12-20] MEDS: Flecainide Acetate 50 MG TABLET 100 MG PO (10:08)
--- NOTE | 2020-12-20 10:57 | P.PNNE_ITS ---
Subjective Subjective Date of Service: 12/20/20 Interval History: Pain and sensitivity in the legs and feet Physical Exam Vital Signs: Vital Signs: Last Vital Signs Temp 99.4 F 12/20/20 07:26 Pulse 75 12/20/20 07:26 Resp 20 12/20/20 07:26 BP 126/54 L 12/20/20 07:26 Pulse Ox 93 12/20/20 07:26 Body Mass Index 45.3 Const: General: cooperative, comfortable, no acute distress, well developed, alert and awake Nutritional Appearance: well nourished Orientation/consciousness: oriented to person, oriented to place and oriented to time Limitations: no limitations HENMT: Head: Yes normal to inspection, Yes normocephalic and Yes atraumatic Ears: hearing grossly normal bilaterally General nose exam: Normal external n ose present Face and sinus: Yes normal facial exam Mouth: Normal oral and palatal mucosa present Eyes: General: appearance normal, both eyes and all related structures Visual Dent: normal visual dent by confrontation Alignment and Position: alignment normal Periorbital: periorbital findings normal Eyelids: Yes eyelids normal Conjunctivae: conjunctivae normal Sclerae: sclerae normal Corneas: corneas normal Pupils: Equal, round and reactive pupils present and Pupil accommodation reflex normal EOM: EOMs intact bilaterally Direct Ophthalmoscopy: normal light reflex Neck: Neck: Yes normal visual inspection, Yes full ROM and Yes no meningeal signs Thyroid: Thyroid normal Carotids: normal carotid upstroke and bounding pulses Chest: Chest palpation & inspection: normal inspection of the chest Resp: Effort & Inspection: normal respiratory effort Auscultation: clear to auscultation bilaterally Cardio: Rate: regular rate Rhythm: regular rhythm Heart sounds: S1 normal heart sound present and S2 normal heart sound present Peripheral pulses: Peripheral pulses 2+ throughout GI: Inspection: Yes normal to inspection Percussion: Yes normal to percussion Auscultation: normal bowel sounds Rectal Exam - Female: deferred Back/Spine/Pelvis: Cervical Spine: normal cervical lordosis and cervical ROM normal Thoracic/Lumbar Spine: thoracic and lumbar spine normal to inspection Skin: General skin exam: no rashes or lesions noted Neuro: General: oriented to person, oriented to place, oriented to time, tone normal, moves all extremities, Normal light touch and pain sensation, no meningeal signs, no focal motor deficits, CN's II-XI intact bilaterally, normal sensation to monofilament and deep tendon reflexes 2+ bilaterally Cranial ner ves: Yes CN's II-XII intact bilaterally, Yes Equal, round and reactive pupils present, Yes Bilaterally intact EOM present, Yes Nystagmus not present, Yes Normal facial strength present, Yes Midline tongue present, Yes Normal gag reflex present, Yes Symmetric palate elevation present, Yes Normal hearing present and Yes Ability to bilaterally rotate head present Cognition (Neuro): normal cognition Speech: Other speech findings present (Neuro) Gait exam (Neuro): Normal gait present Motor exam (neuro): 5/5 motor strength present throughout, Pronator motor function not present, no tremor noted, no asterixis, Motor fasciculations not present, Normal motor muscle tone present throughout and Motor abnormalities not present Sensory Exam: Bilaterally intact graphesthesia Deep tendon reflexes (DTR's): Right triceps reflex intensity grade: 0, Left triceps reflex intensity grade: 0, Rt Biceps (C5, C6): 0, Left biceps reflex intensity grade: 0, Right brachioradialis reflex intensity grade: 0, Left brachioradialis reflex intensity grade: 0, Right patellar reflex intensity grade: 0, Left patellar reflex intensity grade: 0, Right ankle reflex intensity grade: 0 and Left ankle reflex intensity grade: 0 Plantar Reflex Responses: downgoing: right, left and bilateral Coordination: [id number] test normal Pupils: Normal pupillary reactivity/response: bilateral Extrem: General: Yes normal to inspection, Yes normal exam except as noted and Yes no pedal edema Psych: Appearance: grossly normal Mental Status: mental status grossly normal Speech and movement: Normal speech and movement present and Clear speech present Affect: normal affect Attitude: cooperative Thought process: Normal thought process present Objective Data Labs CBC & Chem 7: 12/20/20 05:13 12/20/20 05:13 Labs: Laboratory Results - last 24 hr 12/19/20 12/19/20 12/19/20 06:14 06:39 11:11 WBC RBC Hgb Hct MCV MCH MCHC RDW Plt Count MPV Absolute Nucleated RBC Nucleated RBC % (auto) PT INR Sodium Potassium Chloride Carbon Dioxide Anion Gap BUN Creatinine Estim Creat Clear Calc Estimated GFR POC Glucose 113 Random Glucose Estimat Average Glucose 120 Hemoglobin A1c % 5.8 Uric Acid Calcium Total Bilirubin 1.0 Direct Bilirubin 0.7 H AST 18 ALT 13 Alkaline Phosphatase 182 H Total Protein 7.2 Albumin 3.8 Blood Type Antibody Screen 12/19/20 12/19/20 12/20/20 16:07 20:39 05:13 WBC 8.7 RBC 3.65 L Hgb 8.8 L Hct 29.3 L MCV 80.3 MCH 24.1 L MCHC 30.0 L RDW 17.0 H Plt Count 232 MPV 10.6 Absolute Nucleated RBC 0.000 Nucleated RBC % (auto) 0.0 PT INR Sodium Potassium Chloride Carbon Dioxide Anion Gap BUN Creatinine Estim Creat Clear Calc Estimated GFR POC Glucose 136 H 109 Random Glucose Estimat Average Glucose Hemoglobin A1c % Uric Acid Calcium Total Bilirubin Direct Bilirubin AST ALT Alkaline Phosphatase Total Protein Albumin Blood Type Antibody Screen 12/20/20 12/20/20 12/20/20 05:13 05:13 07:08 WBC RBC Hgb Hct MCV MCH MCHC RDW Plt Count MPV Absolute Nucleated RBC Nucleated RBC % (auto) PT 35.5 H D INR 3.0 H Sodium 139 Potassium 3.5 Chloride 99 Carbon Dioxide 30 H Anion Gap 14 BUN 28 H Creatinine 1.36 Estim Creat Clear Calc 50.0 Estimated GFR 39 POC Glucose 104 Random Glucose 105 Estimat Average Glucose Hemoglobin A1c % Uric Acid 9.0 H Calcium 9.3 Total Bilirubin 0.7 Direct Bilirubin 0.4 AST 23 ALT 16 Alkaline Phosphatase 202 H Total Protein 6.5 Albumin 3.4 L Blood Type Antibody Screen 12/20/20 08:50 WBC RBC Hgb Hct MCV MCH MCHC RDW Plt Count MPV Absolute Nucleated RBC Nucleated RBC % (auto) PT INR Sodium Potassium Chloride Carbon Dioxide Anion Gap BUN Creatinine Estim Creat Clear Calc Estimated GFR POC Glucose Random Glucose Estimat Average Glucose Hemoglobin A1c % Uric Acid Calcium Total Bilirubin Direct Bilirubin AST ALT Alkaline Phosphatase Total Protein Albumin Blood Type AB Negative Antibody Screen NEGATIVE Microbiology Microbiology Results: Microbiology 12/17/20 16:40 Blood - Venous Blood Culture - Preliminary No growth after 48 hours. 12/17/20 16:27 Blood - Venous Blood Culture - Preliminary Progress Note: A&P Assessment and plan (1) Encephalopathy: Start date: 12/20/20 Start time: 09:22 Problem details: Mentally clearer than before then processing information easier Status: Acute Assessment and Plan: She is now alert and oriented to month year and place and able to carry on a conversation with minimal hesitancy which is a significant improvement from 2 days ago. Would recommend intravenous thiamine for 3 days. Lumbar puncture can be canceled. Her EEG showed moderately severe 5-6 Hz diffuse theta slowing consistent with a diffuse encephalopathic process Fall Risk Details Current Medications: Current Medications Generic Name Dose Route Start Last Admin Trade Name Angelina PRN Reason Stop Dose Admin Acetaminophen 650 mg 12/17/20 22:53 12/19/20 09:11 Acetaminophen 325 Mg Tablet PO 650 mg Q6H PRN Administration Pain, Mild (Pain Scale 1-3) Albuterol/Ipratropium 3 ml 12/18/20 19:06 Albuterol/Iprat 2.5/0.5mg 3 Ml Ampul.Neb INHALE Q6H PRN Shortness of Breath Atorvastatin Calcium 10 mg 12/18/20 21:00 12/19/20 21:17 Atorvastatin Calcium 10 Mg Tablet PO 10 mg BEDTIME ANNE-MARIE Administration Docusate Sodium 100 mg 12/17/20 22:53 12/19/20 11:39 Docusate Sodium 100 Mg Capsule PO 100 mg DAILY PRN Administration Constipation Docusate Sodium 100 mg 12/19/20 21:00 12/19/20 21:17 Docusate Sodium 100 Mg Capsule PO 100 mg BEDTIME ANNE-MARIE Administration Flecainide Acetate 100 mg 12/18/20 09:00 12/20/20 10:08 Flecainide Acetate 50 Mg Tablet PO 100 mg DAILY ANNE-MARIE Administration Hydromorphone HCl 1 mg 12/19/20 13:49 Hydromorphone Hcl 2 Mg Tablet PO Q4H PRN foot pain Thiamine HCl 500 mg/ Sodium 105 mls @ 210 mls/hr 12/19/20 15:00 12/20/20 06:38 Chloride IV Infused Q8H [facility] Infusion Vancomycin HCl 1,000 mg/ 270 mls @ 270 mls/hr 12/20/20 20:00 Sodium Chloride IV Q24H [facility] Insulin Human Lispro 0 unit 12/18/20 07:30 12/20/20 07:34 Insulin Lispro 100 Unit/Ml 3 Ml Vial SUBCUT Not Given QIDACHS [facility] Protocol Levetiracetam 500 mg 12/17/20 22:53 12/20/20 10:06 Levetiracetam 500 Mg Tablet PO 500 mg BID ANNE-MARIE Administration Levothyroxine Sodium 112 mcg 12/18/20 09:00 12/20/20 10:07 Levothyroxine Sodium 112 Mcg Tablet PO 112 mcg DAILY ANNE-MARIE Administration Metoprolol Tartrate 50 mg 12/17/20 22:53 12/20/20 10:07 Metoprolol Tartrate 50 Mg Tablet PO 50 mg BID ANNE-MARIE Administration Protocol Ondansetron HCl 4 mg 12/17/20 22:53 Ondansetron Hcl 4 Mg/2 Ml Vial IVPUSH Q8H PRN Nausea and Vomiting Oxcarbazepine 300 mg 12/18/20 09:00 12/20/20 10:06 Oxcarbazepine 300 Mg Tablet PO 300 mg TID ANNE-MARIE Administration Oxycodone HCl 5 mg 12/19/20 10:30 12/20/20 10:07 Oxycodone Hcl Immed Release 5 Mg Tablet PO 5 mg Q4H PRN Administration feet pains Pharmacy Consult 1 each 12/19/20 18:20 Consult Rx Vancomycin Dosing MISCELLANE DAILY PRN Consult order Pregabalin 200 mg 12/18/20 09:00 12/20/20 10:06 Pregabalin 200 Mg Capsule PO 200 mg BID ANNE-MARIE Administration Senna 17.2 mg 12/19/20 21:00 12/19/20 21:18 Sennosides 8.6 Mg Tablet PO 17.2 mg BEDTIME ANNE-MARIE Administration Sodium Chloride 3 ml 12/18/20 00:00 12/20/20 10:06 0.9 % Sodium Chloride Flush 3 Ml Syringe IVFLUSH 3 ml QSHIFT ANNE-MARIE Administration Spironolactone 100 mg 12/18/20 09:00 12/20/20 10:06 Spironolactone 25 Mg Tablet PO 100 mg DAILY ANNE-MARIE Administration Protocol Time Spent With Patient Time: Total time spent is greater than 50% in coordination of care (as documented) at patient's floor/unit and/or counseling patient: Time with patient: 15 - 24 minutes
[2020-12-20 11:15] LABS: Glucose, Whole Blood 121 mg/dL (60-115)
[2020-12-20] MEDS: predniSONE 20 MG TABLET 40 MG PO (13:30)
[2020-12-20 16:05] LABS: Glucose, Whole Blood 129 mg/dL (60-115)
--- NOTE | 2020-12-20 16:47 | HO.PM.IMPN ---
Subjective Subjective Date of Service: 12/21/20 Interval History: encephalopathy, b/l foot pains. Review of Systems Patient still have foot pains, ankle swellings Mental status valles seems to be improving slowly, suspicion of bacteremia No fever or chills Denies any chest pain or shortness of breath or abdominal pain or cough or phlegm. Physical Exam Vital Signs: Vital Signs: Last Vital Signs Temp 97.8 F 12/20/20 14:59 Pulse 85 12/20/20 14:59 Resp 20 12/20/20 14:59 BP 143/63 H 12/20/20 14:59 Pulse Ox 94 12/20/20 14:59 Body Mass Index 45.3 Physical exam: Constitutional: has foot pains Cvs: rrr, [id number] , no murmur res: clear to auscultation ,no rhonchii or wheezing abd: no rebound or guarding ,nt, bs present. ext pulses present , no cyanosis , right ankle swelling/pain neuro: aox3 , non focal Objective Data Current Medications Generic Name Dose Route Start Last Admin Trade Name Freq PRN Reason Stop Dose Admin Acetaminophen 650 mg 12/17/20 22:53 12/19/20 09:11 Acetaminophen 325 Mg Tablet PO 650 mg Q6H PRN Administration Pain, Mild (Pain Scale 1-3) Albuterol/Ipratropium 3 ml 12/18/20 19:06 Albuterol/Iprat 2.5/0.5mg 3 Ml Ampul.Neb INHALE Q6H PRN Shortness of Breath Atorvastatin Calcium 10 mg 12/18/20 21:00 12/19/20 21:17 Atorvastatin Calcium 10 Mg Tablet PO 10 mg BEDTIME ANNE-MARIE Administration Docusate Sodium 100 mg 12/17/20 22:53 12/19/20 11:39 Docusate Sodium 100 Mg Capsule PO 100 mg DAILY PRN Administration Constipation Docusate Sodium 100 mg 12/19/20 21:00 12/19/20 21:17 Docusate Sodium 100 Mg Capsule PO 100 mg BEDTIME ANNE-MARIE Administration Famotidine 20 mg 12/20/20 21:00 Famotidine 20 Mg Tablet PO BEDTIME ANNE-MARIE Flecainide Acetate 100 mg 12/18/20 09:00 12/20/20 10:08 Flecainide Acetate 50 Mg Tablet PO 100 mg DAILY ANNE-MARIE Administration Hydromorphone HCl 1 mg 12/19/20 13:49 Hydromorphone Hcl 2 Mg Tablet PO Q4H PRN foot pain Thiamine HCl 500 mg/ Sodium 105 mls @ 210 mls/hr 12/19/20 15:00 12/20/20 06:38 Chloride IV Infused Q8H ANNE-MARIE Infusion Vancomycin HCl 1,000 mg/ 270 mls @ 270 mls/hr 12/20/20 20:00 Sodium Chloride IV Q24H ANNE-MARIE Insulin Human Lispro 0 unit 12/18/20 07:30 12/20/20 11:36 Insulin Lispro 100 Unit/Ml 3 Ml Vial SUBCUT Not Given QIDACHS [facility] Protocol Levetiracetam 500 mg 12/17/20 22:53 12/20/20 10:06 Levetiracetam 500 Mg Tablet PO 500 mg BID ANNE-MARIE Administration Levothyroxine Sodium 112 mcg 12/18/20 09:00 12/20/20 10:07 Levothyroxine Sodium 112 Mcg Tablet PO 112 mcg DAILY ANNE-MARIE Administration Metoprolol Tartrate 50 mg 12/17/20 22:53 12/20/20 10:07 Metoprolol Tartrate 50 Mg Tablet PO 50 mg BID ANNE-MARIE Administration Protocol Ondansetron HCl 4 mg 12/17/20 22:53 Ondansetron Hcl 4 Mg/2 Ml Vial IVPUSH Q8H PRN Nausea and Vomiting Oxcarbazepine 300 mg 12/18/20 09:00 12/20/20 14:45 Oxcarbazepine 300 Mg Tablet PO 300 mg TID ANNE-MARIE Administration Oxycodone HCl 5 mg 12/19/20 10:30 12/20/20 14:45 Oxycodone Hcl Immed Release 5 Mg Tablet PO 5 mg Q4H PRN Administration feet pains Pharmacy Consult 1 each 12/19/20 18:20 Consult Rx Vancomycin Dosing MISCELLANE DAILY PRN Consult order Prednisone 40 mg 12/20/20 12:00 12/20/20 13:30 Prednisone 20 Mg Tablet PO 40 mg DAILY ANNE-MARIE Administration Pregabalin 200 mg 12/18/20 09:00 12/20/20 10:06 Pregabalin 200 Mg Capsule PO 200 mg BID ANNE-MARIE Administration Senna 17.2 mg 12/19/20 21:00 12/19/20 21:18 Sennosides 8.6 Mg Tablet PO 17.2 mg BEDTIME ANNE-MARIE Administration Sodium Chloride 3 ml 12/18/20 00:00 12/20/20 10:06 0.9 % Sodium Chloride Flush 3 Ml Syringe IVFLUSH 3 ml QSHIFT ANNE-MARIE Administration Spironolactone 100 mg 12/18/20 09:00 12/20/20 10:06 Spironolactone 25 Mg Tablet PO 100 mg DAILY ANNE-MARIE Administration Protocol Labs CBC & Chem 7: 12/21/20 07:28 12/21/20 07:28 Microbiology Microbiology Results: Microbiology 12/17/20 16:27 Blood - Venous Blood Culture - Preliminary Staphylococcus species 12/17/20 16:40 Blood - Venous Blood Culture - Preliminary No growth after 48 hours. Assessment and Plan (1) Encephalopathy: Problem details: She has better cognition Foot looks mildly swollen , ?gout Blood culture coagulase negative contaminant Status: Acute Assessment and Plan: 65-year-old female who presents from home with confusion, and difficulty finding words. 1. encephalopathy seizure (postictal) versus acute stroke versus metabolic. No evidence of seizure in ED similar episode evaluated by Neurology at that time and was started on Keppra for possible seizure activity. MRI at that time showed chronic lacunar infarct with no acute stroke. no evidence of acute infection continue her Keppra, oxcarbazepine. neuro recomended - b12 and tsh levels normal. eeg-shows slowing: Discussed with Neurology: Recommended to start on IV thiamine. mental status seems to be improving seen by neuro-no need of Lp. 2. dysarthria - patient has similar exact word-finding difficulties and expressive aphasia on previous presentation that resolved spontaneously - head CT negative - previously MRI showed chronic lacunar infarcts neuro follwoing-please see above. 3. supratherapeutic INR/mech mitral valve: INR is 3.0 will add warfrain 3 mg today 4. Elevated trop - cannot ilicit hx of chest pain - No EKG changes - pt on warfarin with supratherapeutic inr cardio eval noted-.? pacemaker spikes seems variable , asymptomatic will continue to moniter 5. diabetes: 110-130's range. Avoid coverage below 200 mg dL. - hold metformin hba1c : 5.8 - POC q.i.d. a.c. leg pains -continue gabapentin added tylenol 6HTN - Stale - continue spironolactone 7. Hypothyroidism - continue levothyroxine 8 Right Ankle pain: has some ankle swelling: blood cultures intial neg added ortho- less likely needs tap uric acid elevated ? gout added prednisone 9. staph bacteremia ? does not have clear source: on iv vanco Id eval added
[2020-12-20 20:06] LABS: Glucose, Whole Blood 172 mg/dL (60-115)
[2020-12-20] MEDS: vancomycin HCL 1,000 MG in 0.9 % Sodium Chloride 250 ML 270 MG IV (21:26)
[2020-12-20] MEDS: Docusate Sodium 100 MG CAPSULE PO (21:26)
[2020-12-20] MEDS: Famotidine 20 MG TABLET PO (21:26)
[2020-12-20] MEDS: Atorvastatin Calcium 10 MG TABLET PO (21:26)
[2020-12-20] MEDS: Sennosides 8.6 MG TABLET 17.2 MG PO (21:28)
[2020-12-21] VITALS (8 sets, daily range): BP systolic 113–151; BP diastolic 52–63; PULSE 60–82; RESP 18–20; TEMP 36.1–37.1; O2SAT 93–97
[2020-12-21] MEDS: Thiamine HCL 500 MG in 0.9 % Sodium Chloride 100 ML 210 MG IV ×2 (00:18→07:02)
[2020-12-21] MEDS: 0.9 % Sodium Chloride Flush 3 ML SYRINGE IVFLUSH ×2 (00:18→07:02)
[2020-12-21] MEDS: oxyCODONE HCl Immed Release 5 MG TABLET PO ×2 (07:01→12:25)
[2020-12-21 07:19] LABS: Glucose, Whole Blood 108 mg/dL (60-115)
[2020-12-21 07:44] LABS: Hematocrit 28.6 % (37-47); Hemoglobin 8.7 g/dl (12.0-16.0)
[2020-12-21 07:50] LABS: INTERNATIONAL NORM RATIO 1.9 (0.9-1.1); Prothrombin Time 22.2 SEC (10.8-13.0)
[2020-12-21 07:53] LABS: Partial Thromboplastin Time 37.3 SEC (24.1-38.0)
[2020-12-21 08:01] LABS: Anion Gap 12 (12-20); Blood Urea Nitrogen 29 mg/dL (9-16); Calcium 9.3 mg/dL (8.4-10.2); Carbon Dioxide 30 mmol/L (22-29); Chloride 99 mmol/L (96-108); Creatinine Clr Calc Pharmacy 53.6; Estimated Glomerular Filt Rate 42; Glucose Random 106 mg/dL (60-115); Potassium 4.1 mmol/L (3.3-5.1); Sodium 137 mmol/L (135-145)
--- NOTE | 2020-12-21 08:32 | P.PNOP_ITS ---
Subjective Subjective Date of Service: 12/21/20 Interval history: Right ankle cellulitis. Patient resting comfortably in bed. States that her pain and ROM is improving since yesterday. She had no overnight events. Physical Exam Vital Signs: Vital Signs: Last Vital Signs Temp 97 F 12/21/20 07:10 Pulse 60 12/21/20 07:10 Resp 20 12/21/20 07:10 BP 139/58 L 12/21/20 07:10 Pulse Ox 94 12/21/20 07:10 Body Mass Index 45.3 Const: General: cooperative, healthy appearing and no acute distress Resp: Effort & Inspection: normal respiratory effort and able to speak in complete sentences Cardio: Rate: regular rate Peripheral pulses: Peripheral pulses 2+ throughout GI: Palpation (GI): Soft to palpation Skin: Lesions: no lesions Rashes: no rashes Extrem: Other: Right ankle mild pitting edema in the foot. Tenderness over the lateral aspect of the ankle. Able to dorsi and plantar flex. NVI. Progress Note: A&P Assessment and plan (1) Cellulitis of right foot: Status: Acute Assessment and Plan: The patient was seen this morning by Dr. Fairbanks, Elva Salguero PA-C, and myself. X-ays obtained yesterday reveal no ankle fracture or dislocation. The patient has cellulitis of the right ankle and foot. There is no further orthopedic treatment needed at this time. Fall Risk Details Current Medications: Current Medications Generic Name Dose Route Start Last Admin Trade Name Freq PRN Reason Stop Dose Admin Acetaminophen 650 mg 12/17/20 22:53 12/19/20 09:11 Acetaminophen 325 Mg Tablet PO 650 mg Q6H PRN Administration Pain, Mild (Pain Scale 1-3) Albuterol/Ipratropium 3 ml 12/18/20 19:06 Albuterol/Iprat 2.5/0.5mg 3 Ml Ampul.Neb INHALE Q6H PRN Shortness of Breath Atorvastatin Calcium 10 mg 12/18/20 21:00 12/20/20 21:26 Atorvastatin Calcium 10 Mg Tablet PO 10 mg BEDTIME ANNE-MARIE Administration Docusate Sodium 100 mg 12/17/20 22:53 12/19/20 11:39 Docusate Sodium 100 Mg Capsule PO 100 mg DAILY PRN Administration Constipation Docusate Sodium 100 mg 12/19/20 21:00 12/20/20 21:26 Docusate Sodium 100 Mg Capsule PO 100 mg BEDTIME ANNE-MARIE Administration Famotidine 20 mg 12/20/20 21:00 12/20/20 21:26 Famotidine 20 Mg Tablet PO 20 mg BEDTIME ANNE-MARIE Administration Flecainide Acetate 100 mg 12/18/20 09:00 12/20/20 10:08 Flecainide Acetate 50 Mg Tablet PO 100 mg DAILY ANNE-MARIE Administration Hydromorphone HCl 1 mg 12/19/20 13:49 Hydromorphone Hcl 2 Mg Tablet PO Q4H PRN foot pain Thiamine HCl 500 mg/ Sodium 105 mls @ 210 mls/hr 12/19/20 15:00 12/21/20 07:35 Chloride IV Infused Q8H ANNE-MARIE Infusion Vancomycin HCl 1,000 mg/ 270 mls @ 270 mls/hr 12/20/20 20:00 12/20/20 23:11 Sodium Chloride IV Infused Q24H ANNE-MARIE Infusion Insulin Human Lispro 0 unit 12/18/20 07:30 12/21/20 07:22 Insulin Lispro 100 Unit/Ml 3 Ml Vial SUBCUT Not Given QIDACHS [facility] Protocol Levetiracetam 500 mg 12/17/20 22:53 12/20/20 21:26 Levetiracetam 500 Mg Tablet PO 500 mg BID ANNE-MARIE Administration Levothyroxine Sodium 112 mcg 12/18/20 09:00 12/20/20 10:07 Levothyroxine Sodium 112 Mcg Tablet PO 112 mcg DAILY ANNE-MARIE Administration Metoprolol Tartrate 50 mg 12/17/20 22:53 12/20/20 21:26 Metoprolol Tartrate 50 Mg Tablet PO 50 mg BID ANNE-MARIE Administration Protocol Ondansetron HCl 4 mg 12/17/20 22:53 Ondansetron Hcl 4 Mg/2 Ml Vial IVPUSH Q8H PRN Nausea and Vomiting Oxcarbazepine 300 mg 12/18/20 09:00 12/20/20 21:26 Oxcarbazepine 300 Mg Tablet PO 300 mg TID ANNE-MARIE Administration Oxycodone HCl 5 mg 12/19/20 10:30 12/21/20 07:01 Oxycodone Hcl Immed Release 5 Mg Tablet PO 5 mg Q4H PRN Administration feet pains Pharmacy Consult 1 each 12/19/20 18:20 Consult Rx Vancomycin Dosing MISCELLANE DAILY PRN Consult order Prednisone 40 mg 12/20/20 12:00 12/20/20 13:30 Prednisone 20 Mg Tablet PO 40 mg DAILY ANNE-MARIE Administration Pregabalin 200 mg 12/18/20 09:00 12/20/20 21:26 Pregabalin 200 Mg Capsule PO 200 mg BID ANNE-MARIE Administration Senna 17.2 mg 12/19/20 21:00 12/20/20 21:28 Sennosides 8.6 Mg Tablet PO 17.2 mg BEDTIME ANNE-MARIE Administration Sodium Chloride 3 ml 12/18/20 00:00 12/21/20 07:02 0.9 % Sodium Chloride Flush 3 Ml Syringe IVFLUSH 3 ml QSHIFT ANNE-MARIE Administration Spironolactone 100 mg 12/18/20 09:00 12/20/20 10:06 Spironolactone 25 Mg Tablet PO 100 mg DAILY ANNE-MARIE Administration Protocol Time Spent With Patient Time: Total time spent is greater than 50% in coordination of care (as documented) at patient's floor/unit and/or counseling patient: Time with patient: less than 15 minutes
[2020-12-21] MEDS: Spironolactone 25 MG TABLET 100 MG PO (09:47)
[2020-12-21] MEDS: Warfarin Sodium 7.5 MG TABLET PO (09:48)
[2020-12-21] MEDS: Flecainide Acetate 50 MG TABLET 100 MG PO (09:48)
[2020-12-21] MEDS: predniSONE 20 MG TABLET 40 MG PO (09:48)
[2020-12-21] MEDS: Levothyroxine Sodium 112 MCG TABLET PO (09:48)
[2020-12-21] MEDS: levETIRAcetam 500 MG TABLET PO ×2 (09:48→21:19)
[2020-12-21] MEDS: Metoprolol Tartrate 50 MG TABLET PO ×2 (09:48→21:18)
[2020-12-21] MEDS: OXcarbazepine 300 MG TABLET PO ×3 (09:48→21:18)
[2020-12-21] MEDS: Pregabalin 200 MG CAPSULE PO ×2 (09:48→21:28)
--- NOTE | 2020-12-21 10:55 | PM.PNCARD ---
Subjective Subjective Date of Service: 12/21/20 Interval history: Asked to see her back in follow-up. She states that she overall feels okay. She was initially with mental status changes but currently seems to be fairly coherent. Review of Systems Review of Systems Yes all other systems are reviewed and are negative Cardiovascular: Reports as per HPI, Reports no additional cardiovascular complaints, Denies acrocyanosis, Denies cool extremities, Denies painful fingertips, Denies chest pain, Denies chest pain at rest, Denies diaphoresis, Denies syncope, Denies irregular heart rhythm, Denies claudication, Denies leg edema, Denies lightheadedness, Denies palpitations and Reports dyspnea Respiratory: Reports dyspnea Denies syncope Endocrine: Denies palpitations Physical Exam Vital Signs: Last Vital Signs Temp 97 F 12/21/20 07:10 Pulse 60 12/21/20 07:10 Resp 20 12/21/20 07:10 BP 139/58 L 12/21/20 07:10 Pulse Ox 94 12/21/20 07:10 Body Mass Index 45.3 Const General: cooperative, comfortable and no acute distress Orientation/consciousness: patient oriented x3 HENMT Other: Unremarkable Neck Neck: Yes normal visual inspection Chest Chest palpation & inspection: normal inspection of the chest Resp Auscultation: clear to auscultation bilaterally, no crackles and no wheezes Cardio Jugular venous distension: no JVD Palpation: normal PMI Heart sounds: no gallops, Murmur heart sound present systolic and other, no rubs and Other heart sounds present (Prosthetic heart sounds noted) GI Palpation (GI): Soft to palpation Back/Spine/Pelvis Other: unremarkable Skin General skin exam: no rashes or lesions noted Neuro General: patient oriented x3 Extrem General: Yes edema (1+) Psych Mental Status: mental status grossly normal Results Labs and Meds Result diagrams: 12/21/20 07:28 12/21/20 07:28 Lab results: Laboratory Results - last 24 hr 12/20/20 12/20/20 12/20/20 11:10 16:00 20:00 Hgb Hct PT INR APTT Sodium Potassium Chloride Carbon Dioxide Anion Gap BUN Creatinine Estim Creat Clear Calc Estimated GFR POC Glucose 121 H 129 H 172 H Random Glucose Calcium 12/21/20 12/21/20 12/21/20 07:09 07:28 07:28 Hgb 8.7 L Hct 28.6 L PT 22.2 H D INR 1.9 H APTT 37.3 Sodium Potassium Chloride Carbon Dioxide Anion Gap BUN Creatinine Estim Creat Clear Calc Estimated GFR POC Glucose 108 Random Glucose Calcium 12/21/20 07:28 Hgb Hct PT INR APTT Sodium 137 Potassium 4.1 Chloride 99 Carbon Dioxide 30 H Anion Gap 12 BUN 29 H Creatinine 1.27 Estim Creat Clear Calc 53.6 Estimated GFR 42 POC Glucose Random Glucose 106 Calcium 9.3 Imaging Radiologist's impression: Impressions Ankle X-Ray 12/20/20 09:53 IMPRESSION: Edematous change throughout visualized portions of the right lower extremity, ankle, and foot with no acute underlying bony abnormality appreciated. Plantar calcaneal spur. Progress Note: A&P Assessment and plan (1) Hx of mitral valve replacement with mechanical valve: Status: Acute (2) Non-rheumatic tricuspid valve insufficiency: Status: Acute (3) Non-rheumatic aortic stenosis: Status: Acute (4) Encounter for interrogation of cardiac pacemaker: Status: Acute (5) Elevated troponin: Status: Acute (6) Paroxysmal atrial fibrillation: Status: Acute Assessment and Plan: Her telemetry rhythm is not very clear. Possibly atrial fibrillation but not definitive. There were also intermittent pacer spikes but not followed by atrial or ventricular complexes and not clear if there is loss of capture or not. We will get the device interrogated while she is in the hospital. Otherwise continue her diuretic. Anticoagulation for the mitral valve replacement along with low-dose aspirin. We will follow with you. Fall Risk Details Current Medications: Current Medications Generic Name Dose Route Start Last Admin Trade Name Freq PRN Reason Stop Dose Admin Acetaminophen 650 mg 12/17/20 22:53 12/19/20 09:11 Acetaminophen 325 Mg Tablet PO 650 mg Q6H PRN Administration Pain, Mild (Pain Scale 1-3) Albuterol/Ipratropium 3 ml 12/18/20 19:06 Albuterol/Iprat 2.5/0.5mg 3 Ml Ampul.Neb INHALE Q6H PRN Shortness of Breath Atorvastatin Calcium 10 mg 12/18/20 21:00 12/20/20 21:26 Atorvastatin Calcium 10 Mg Tablet PO 10 mg BEDTIME ANNE-MARIE Administration Docusate Sodium 100 mg 12/17/20 22:53 12/19/20 11:39 Docusate Sodium 100 Mg Capsule PO 100 mg DAILY PRN Administration Constipation Docusate Sodium 100 mg 12/19/20 21:00 12/20/20 21:26 Docusate Sodium 100 Mg Capsule PO 100 mg BEDTIME ANNE-MARIE Administration Famotidine 20 mg 12/20/20 21:00 12/20/20 21:26 Famotidine 20 Mg Tablet PO 20 mg BEDTIME ANNE-MARIE Administration Flecainide Acetate 100 mg 12/18/20 09:00 12/21/20 09:48 Flecainide Acetate 50 Mg Tablet PO 100 mg DAILY ANNE-MARIE Administration Hydromorphone HCl 1 mg 12/19/20 13:49 Hydromorphone Hcl 2 Mg Tablet PO Q4H PRN foot pain Thiamine HCl 500 mg/ Sodium 105 mls @ 210 mls/hr 12/19/20 15:00 12/21/20 07:35 Chloride IV Infused Q8H ANNE-MARIE Infusion Vancomycin HCl 1,000 mg/ 270 mls @ 270 mls/hr 12/20/20 20:00 12/20/20 23:11 Sodium Chloride IV Infused Q24H ANNE-MARIE Infusion Insulin Human Lispro 0 unit 12/18/20 07:30 12/21/20 07:22 Insulin Lispro 100 Unit/Ml 3 Ml Vial SUBCUT Not Given QIDACHS [facility] Protocol Levetiracetam 500 mg 12/17/20 22:53 12/21/20 09:48 Levetiracetam 500 Mg Tablet PO 500 mg BID ANNE-MARIE Administration Levothyroxine Sodium 112 mcg 12/18/20 09:00 12/21/20 09:48 Levothyroxine Sodium 112 Mcg Tablet PO 112 mcg DAILY ANNE-MARIE Administration Metoprolol Tartrate 50 mg 12/17/20 22:53 12/21/20 09:48 Metoprolol Tartrate 50 Mg Tablet PO 50 mg BID ANNE-MARIE Administration Protocol Ondansetron HCl 4 mg 12/17/20 22:53 Ondansetron Hcl 4 Mg/2 Ml Vial IVPUSH Q8H PRN Nausea and Vomiting Oxcarbazepine 300 mg 12/18/20 09:00 12/21/20 09:48 Oxcarbazepine 300 Mg Tablet PO 300 mg TID ANNE-MARIE Administration Oxycodone HCl 5 mg 12/19/20 10:30 12/21/20 07:01 Oxycodone Hcl Immed Release 5 Mg Tablet PO 5 mg Q4H PRN Administration feet pains Pharmacy Consult 1 each 12/19/20 18:20 Consult Rx Vancomycin Dosing MISCELLANE DAILY PRN Consult order Prednisone 40 mg 12/20/20 12:00 12/21/20 09:48 Prednisone 20 Mg Tablet PO 40 mg DAILY ANNE-MARIE Administration Pregabalin 200 mg 12/18/20 09:00 12/21/20 09:48 Pregabalin 200 Mg Capsule PO 200 mg BID ANNE-MARIE Administration Senna 17.2 mg 12/19/20 21:00 12/20/20 21:28 Sennosides 8.6 Mg Tablet PO 17.2 mg BEDTIME ANNE-MARIE Administration Sodium Chloride 3 ml 12/18/20 00:00 12/21/20 07:02 0.9 % Sodium Chloride Flush 3 Ml Syringe IVFLUSH 3 ml QSHIFT ANNE-MARIE Administration Spironolactone 100 mg 12/18/20 09:00 12/21/20 09:47 Spironolactone 25 Mg Tablet PO 100 mg DAILY ANNE-MARIE Administration Protocol Time Spent With Patient Time: Total time spent is greater than 50% in coordination of care (as documented) at patient's floor/unit and/or counseling patient: Time with patient: less than 15 minutes
[2020-12-21 11:20] LABS: Glucose, Whole Blood 135 mg/dL (60-115)
--- NOTE | 2020-12-21 11:32 | MHC.CM.PN ---
patient remains on IV Vanco for +UTI and ?foot cellulitis, needs ID consult. Also on IV Thiamine. Discharge plan is [facility] are following patient. Patient will need BLS transport. CM will continue to follow patient for discharge needs.
[2020-12-21] MEDS: Heparin Sodium,Porcine/1/2NS 25,000 UNIT/250 ML IV.SOLN 10 UNIT IVCONT (12:24)
[2020-12-21] MEDS: Thiamine HCL 200 MG/2 ML VIAL 250 MG IM (14:14)
[2020-12-21 16:29] LABS: Glucose, Whole Blood 181 mg/dL (60-115)
--- NOTE | 2020-12-21 16:32 | P.CNID_ITS ---
History of Present Illness Data of Consult Service Date: 12/21/20 Requesting physician: Godwin Hernandez Primary Care Provider: Kanwal Davison MD HPI Reason for consult: confusion,encephalopathy She presents with confusion brought in by family. She has had prior admission and concern over seizure disorder and started on Keppra She has no fever or chills Blood cultures coagulase negative staph Review of Systems Review of Systems: Yes all other systems are reviewed and are negative PMFSH Past Medical History Medical History Acquired hypothyroidism Chronic low back pain CKD stage 3 secondary to diabetes Dyslipidemia Essential hypertension Fibromyalgia H/O cardiac pacemaker Mitral valve stenosis, rheumatic NYHA class 1 heart failure with preserved ejection fraction KEVIN on CPAP Osteoarthritis Paroxysmal atrial fibrillation Postmenopausal Psoriasis Rhinitis Seizure disorder Sinusitis Type 2 diabetes mellitus with other diabetic kidney complication Family History Family History Father HTN (hypertension) CKD (chronic kidney disease) Mother HTN (hypertension) Son No problems noted. Son No problems noted. Son No problems noted. Family history: reviewed and not pertinent Surgical History Surgical History H/O mitral valve replacement Hx of mitral valve replacement with mechanical valve Social History Social History Household Members: Spouse Housing: House Do you presently have visiting nurse or other home services: Yes Alcohol intake: unknown Smoking Status: Unknown if ever smoked Tobacco Type: Cigarette Second Hand Smoke Exposure: No Use of substances other than those prescribed or required for medical reasons: No Currently Displaying Signs/Symptoms of Drug Intoxication Withdrawal: No Have you been hit, kicked, punched, or otherwise hurt by someone within the past year? If so, by whom?: No Do you feel safe in your current relationship?: Yes Is there a partner from a previous relationship who is making you feel unsafe now?: No Are you made to feel afraid or neglected: No Advance Directives: Yes Advance Directives Information Provided: Yes Advance Directives on File: Yes Advance Directives Date on File: 12/17/20 Do you have thoughts of harming others: None Do you have a plan to hurt others: No Plan Recently lost weight without trying: Unsure service: No Current occupational status: unemployed and retired Meds Allergies Allergy/AdvReac Type Severity Reaction Status Date / Time adalimumab [From HUMIRA] Allergy Unknown PCP Verified 12/09/20 23:44 PNEUMONIA azathioprine [Imuran] Allergy Unknown PNA Verified 12/09/20 23:44 Cephalosporins Allergy Unknown KIDNEY Verified 12/09/20 23:44 [CEPHALOSPORINS] FAILURE cyclosporine [CYCLOSPORINE] Allergy Unknown KIDNEY Verified 12/09/20 23:44 FAILURE etanercept [From Enbrel] Allergy Unknown PCP Verified 12/09/20 23:44 PNEUMONIA simvastatin Allergy Unknown athralgias Verified 12/09/20 23:44 amoxicillin [From AUGMENTIN] AdvReac Unknown PROJECTILE Verified 12/09/20 23:44 VOMITTING clavulanic acid AdvReac Unknown PROJECTILE Verified 12/09/20 23:44 [From AUGMENTIN] VOMITTING Active Medications: Current Medications Generic Name Dose Route Start Last Admin Trade Name Freq PRN Reason Stop Dose Admin Acetaminophen 650 mg 12/17/20 22:53 12/19/20 09:11 Acetaminophen 325 Mg Tablet PO 650 mg Q6H PRN Administration Pain, Mild (Pain Scale 1-3) Albuterol/Ipratropium 3 ml 12/18/20 19:06 Albuterol/Iprat 2.5/0.5mg 3 Ml Ampul.Neb INHALE Q6H PRN Shortness of Breath Atorvastatin Calcium 10 mg 12/18/20 21:00 12/20/20 21:26 Atorvastatin Calcium 10 Mg Tablet PO 10 mg BEDTIME ANNE-MARIE Administration Docusate Sodium 100 mg 12/17/20 22:53 12/19/20 11:39 Docusate Sodium 100 Mg Capsule PO 100 mg DAILY PRN Administration Constipation Docusate Sodium 100 mg 12/19/20 21:00 12/20/20 21:26 Docusate Sodium 100 Mg Capsule PO 100 mg BEDTIME ANNE-MARIE Administration Famotidine 20 mg 12/20/20 21:00 12/20/20 21:26 Famotidine 20 Mg Tablet PO 20 mg BEDTIME ANNE-MARIE Administration Flecainide Acetate 100 mg 12/18/20 09:00 12/21/20 09:48 Flecainide Acetate 50 Mg Tablet PO 100 mg DAILY ANNE-MARIE Administration Heparin Sodium (Porcine) 4,600 unit 12/21/20 11:31 Heparin Sodium,Porcine 5,000 Unit/Ml Vial 40 unit/kg (4600 unit) IVPUSH BOLUS PRN 40 unit/kg - Heparin Protocol Heparin Sodium (Porcine) 9,300 unit 12/21/20 11:31 Heparin Sodium,Porcine 5,000 Unit/Ml Vial 80 unit/kg (9300 unit) IVPUSH BOLUS PRN 80 unit/kg - Heparin Protocol Hydromorphone HCl 1 mg 12/19/20 13:49 Hydromorphone Hcl 2 Mg Tablet PO Q4H PRN foot pain Vancomycin HCl 1,000 mg/ 270 mls @ 270 mls/hr 12/20/20 20:00 12/20/20 23:11 Sodium Chloride IV Infused Q24H ANNE-MARIE Infusion Heparin Sodium/Sodium Chloride 25,000 unit in 250 mls @ 0 mls/hr 12/21/20 11:45 12/21/20 12:24 IVCONT 8.606 units/kg/hr .Q0M ANNE-MARIE 10 mls/hr Administration Protocol Per Protocol Insulin Human Lispro 0 unit 12/18/20 07:30 12/21/20 11:22 Insulin Lispro 100 Unit/Ml 3 Ml Vial SUBCUT Not Given QIDACHS [facility] Protocol Levetiracetam 500 mg 12/17/20 22:53 12/21/20 09:48 Levetiracetam 500 Mg Tablet PO 500 mg BID ANNE-MARIE Administration Levothyroxine Sodium 112 mcg 12/18/20 09:00 12/21/20 09:48 Levothyroxine Sodium 112 Mcg Tablet PO 112 mcg DAILY ANNE-MARIE Administration Metoprolol Tartrate 50 mg 12/17/20 22:53 12/21/20 09:48 Metoprolol Tartrate 50 Mg Tablet PO 50 mg BID ANNE-MARIE Administration Protocol Ondansetron HCl 4 mg 12/17/20 22:53 Ondansetron Hcl 4 Mg/2 Ml Vial IVPUSH Q8H PRN Nausea and Vomiting Oxcarbazepine 300 mg 12/18/20 09:00 12/21/20 14:15 Oxcarbazepine 300 Mg Tablet PO 300 mg TID ANNE-MARIE Administration Oxycodone HCl 5 mg 12/19/20 10:30 12/21/20 12:25 Oxycodone Hcl Immed Release 5 Mg Tablet PO 5 mg Q4H PRN Administration feet pains Pharmacy Consult 1 each 12/19/20 18:20 Consult Rx Vancomycin Dosing MISCELLANE DAILY PRN Consult order Prednisone 40 mg 12/20/20 12:00 12/21/20 09:48 Prednisone 20 Mg Tablet PO 40 mg DAILY ANNE-MARIE Administration Pregabalin 200 mg 12/18/20 09:00 12/21/20 09:48 Pregabalin 200 Mg Capsule PO 200 mg BID ANNE-MARIE Administration Senna 17.2 mg 12/19/20 21:00 12/20/20 21:28 Sennosides 8.6 Mg Tablet PO 17.2 mg BEDTIME ANNE-MARIE Administration Sodium Chloride 3 ml 12/18/20 00:00 12/21/20 15:41 0.9 % Sodium Chloride Flush 3 Ml Syringe IVFLUSH Not Given QSHIFT [facility] Spironolactone 100 mg 12/18/20 09:00 12/21/20 09:47 Spironolactone 25 Mg Tablet PO 100 mg DAILY ANNE-MARIE Administration Protocol Thiamine HCl 250 mg 12/21/20 13:17 12/21/20 14:14 Thiamine Hcl 200 Mg/2 Ml Vial IM 250 mg DAILY ANNE-MARIE Administration Home Medications Medication Instructions Recorded Confirmed Last Taken Type atorvastatin 1 tab PO DAILY 12/17/20 12/17/20 Unknown History flecainide 100 mg PO TID 12/17/20 12/18/20 Unknown History levetiracetam 1 tab PO BID 12/17/20 12/17/20 Unknown History levothyroxine 1 tab PO DAILY 12/17/20 12/17/20 Unknown History metformin 1 tab PO BID 12/17/20 12/17/20 Unknown History metoprolol tartrate 1 tab PO BID 12/17/20 12/17/20 Unknown History oxcarbazepine 1 tab PO TID 12/17/20 12/17/20 Unknown History pregabalin 1 cap PO BID 12/17/20 12/17/20 Unknown History spironolactone 1 tab PO DAILY 12/17/20 12/17/20 Unknown History fluticasone propion-salmeterol 2 puff INHALATION BID 12/18/20 12/18/20 Unknown History [Advair HFA] torsemide 240 mg PO BID 12/18/20 12/18/20 Unknown History warfarin 7.5 mg PO MOTUWE 12/18/20 12/18/20 Unknown History warfarin See Rx Instructions .ROUTE .COMPLEX 12/18/20 12/18/20 Unknown History Physical Exam Vital Signs: Vital Signs: Last Vital Signs Temp 98.4 F 12/21/20 15:34 Pulse 64 12/21/20 15:34 Resp 20 12/21/20 15:34 BP 130/60 12/21/20 15:34 Pulse Ox 93 12/21/20 15:34 Body Mass Index 45.3 Const: General: cooperative Orientation/consciousness: patient oriented x3 HENMT: Head: Yes normal to inspection Resp: Effort & Inspection: normal respiratory effort Cardio: Rate: regular rate Rhythm: regular rhythm GI: Palpation (GI): Soft to palpation and not firm Skin: General skin exam: no rashes or lesions noted Neuro: General: patient oriented x3 Extrem: General: Yes normal to inspection Results Labs CBC & Chem 7: 12/21/20 07:28 12/21/20 07:28 Labs: Short CBC 12/21/20 Range/Units 07:28 Hgb 8.7 L (12.0-16.0) g/dl Hct 28.6 L (37-47) % BMP 12/21/20 07:28 Sodium 137 Potassium 4.1 Chloride 99 Carbon Dioxide 30 H BUN 29 H Creatinine 1.27 Calcium 9.3 Microbiology Microbiology Results: Microbiology 12/17/20 16:27 Blood - Venous Blood Culture - Final Coag negative Staphylococcus 12/17/20 16:40 Blood - Venous Blood Culture - Preliminary No growth after 48 hours. Assessment and Plan (1) Encephalopathy: Problem details: She has better cognition Foot looks mildly swollen , ?gout Blood culture coagulase negative contaminant Status: Acute Stop IV Vancomycin No antibiotic indication at this time
[2020-12-21] MEDS: Insulin Lispro 100 UNIT/ML 3 ML VIAL SUBCUT (16:41)
[2020-12-21 19:23] LABS: INTERNATIONAL NORM RATIO 1.8 (0.9-1.1); Prothrombin Time 21.8 SEC (10.8-13.0)
[2020-12-21 19:26] LABS: PTT Heparin Drip 43.8 SEC (53-77.9)
[2020-12-21 19:37] LABS: Vancomycin Random 9.7 mcg/mL (15-20)
[2020-12-21 19:39] LABS: Glucose, Whole Blood 168 mg/dL (60-115)
--- NOTE | 2020-12-21 19:39 | P.PNIM_ITS ---
Subjective Subjective Date of Service: 12/21/20 Physical Exam Vital Signs: Vital Signs: Last Vital Signs Temp 98.8 F 12/21/20 19:01 Pulse 68 12/21/20 19:01 Resp 20 12/21/20 19:01 BP 151/63 H 12/21/20 19:01 Pulse Ox 94 12/21/20 19:01 Body Mass Index 45.3 Objective Data Current Medications Generic Name Dose Route Start Last Admin Trade Name Freq PRN Reason Stop Dose Admin Acetaminophen 650 mg 12/17/20 22:53 12/19/20 09:11 Acetaminophen 325 Mg Tablet PO 650 mg Q6H PRN Administration Pain, Mild (Pain Scale 1-3) Albuterol/Ipratropium 3 ml 12/18/20 19:06 Albuterol/Iprat 2.5/0.5mg 3 Ml Ampul.Neb INHALE Q6H PRN Shortness of Breath Atorvastatin Calcium 10 mg 12/18/20 21:00 12/20/20 21:26 Atorvastatin Calcium 10 Mg Tablet PO 10 mg BEDTIME ANNE-MARIE Administration Docusate Sodium 100 mg 12/17/20 22:53 12/19/20 11:39 Docusate Sodium 100 Mg Capsule PO 100 mg DAILY PRN Administration Constipation Docusate Sodium 100 mg 12/19/20 21:00 12/20/20 21:26 Docusate Sodium 100 Mg Capsule PO 100 mg BEDTIME ANNE-MARIE Administration Famotidine 20 mg 12/20/20 21:00 12/20/20 21:26 Famotidine 20 Mg Tablet PO 20 mg BEDTIME ANNE-MARIE Administration Flecainide Acetate 100 mg 12/18/20 09:00 12/21/20 09:48 Flecainide Acetate 50 Mg Tablet PO 100 mg DAILY ANNE-MARIE Administration Heparin Sodium (Porcine) 4,600 unit 12/21/20 11:31 Heparin Sodium,Porcine 5,000 Unit/Ml Vial 40 unit/kg (4600 unit) IVPUSH BOLUS PRN 40 unit/kg - Heparin Protocol Heparin Sodium (Porcine) 9,300 unit 12/21/20 11:31 Heparin Sodium,Porcine 5,000 Unit/Ml Vial 80 unit/kg (9300 unit) IVPUSH BOLUS PRN 80 unit/kg - Heparin Protocol Hydromorphone HCl 1 mg 12/19/20 13:49 Hydromorphone Hcl 2 Mg Tablet PO Q4H PRN foot pain Heparin Sodium/Sodium Chloride 25,000 unit in 250 mls @ 0 mls/hr 12/21/20 11:45 12/21/20 12:24 IVCONT 8.606 units/kg/hr .Q0M ANNE-MARIE 10 mls/hr Administration Protocol Per Protocol Insulin Human Lispro 0 unit 12/18/20 07:30 12/21/20 16:41 Insulin Lispro 100 Unit/Ml 3 Ml Vial SUBCUT 2 unit QIDACHS ANNE-MARIE Administration Protocol Levetiracetam 500 mg 12/17/20 22:53 12/21/20 09:48 Levetiracetam 500 Mg Tablet PO 500 mg BID ANNE-MARIE Administration Levothyroxine Sodium 112 mcg 12/18/20 09:00 12/21/20 09:48 Levothyroxine Sodium 112 Mcg Tablet PO 112 mcg DAILY ANNE-MARIE Administration Metoprolol Tartrate 50 mg 12/17/20 22:53 12/21/20 09:48 Metoprolol Tartrate 50 Mg Tablet PO 50 mg BID ANNE-MARIE Administration Protocol Ondansetron HCl 4 mg 12/17/20 22:53 Ondansetron Hcl 4 Mg/2 Ml Vial IVPUSH Q8H PRN Nausea and Vomiting Oxcarbazepine 300 mg 12/18/20 09:00 12/21/20 14:15 Oxcarbazepine 300 Mg Tablet PO 300 mg TID ANNE-MARIE Administration Oxycodone HCl 5 mg 12/19/20 10:30 12/21/20 12:25 Oxycodone Hcl Immed Release 5 Mg Tablet PO 5 mg Q4H PRN Administration feet pains Pharmacy Consult 1 each 12/19/20 18:20 Consult Rx Vancomycin Dosing MISCELLANE DAILY PRN Consult order Prednisone 40 mg 12/20/20 12:00 12/21/20 09:48 Prednisone 20 Mg Tablet PO 40 mg DAILY ANNE-MARIE Administration Pregabalin 200 mg 12/18/20 09:00 12/21/20 09:48 Pregabalin 200 Mg Capsule PO 200 mg BID ANNE-MARIE Administration Senna 17.2 mg 12/19/20 21:00 12/20/20 21:28 Sennosides 8.6 Mg Tablet PO 17.2 mg BEDTIME ANNE-MARIE Administration Sodium Chloride 3 ml 12/18/20 00:00 12/21/20 15:41 0.9 % Sodium Chloride Flush 3 Ml Syringe IVFLUSH Not Given QSHIFT [facility] Spironolactone 100 mg 12/18/20 09:00 12/21/20 09:47 Spironolactone 25 Mg Tablet PO 100 mg DAILY ANNE-MARIE Administration Protocol Thiamine HCl 250 mg 12/21/20 13:17 12/21/20 14:14 Thiamine Hcl 200 Mg/2 Ml Vial IM 250 mg DAILY ANNE-MARIE Administration Labs CBC & Chem 7: 12/21/20 07:28 12/21/20 07:28 Microbiology Microbiology Results: Microbiology 12/17/20 16:27 Blood - Venous Blood Culture - Final Coag negative Staphylococcus 12/17/20 16:40 Blood - Venous Blood Culture - Preliminary No growth after 48 hours. Assessment and Plan (1) Encephalopathy: Problem details: She has better cognition Foot looks mildly swollen , ?gout Blood culture coagulase negative contaminant Status: Acute Assessment and Plan: 65-year-old female who presents from home with confusion, and difficulty finding words. 1. encephalopathy seizure (postictal) versus acute stroke versus metabolic. No evidence of seizure in ED similar episode evaluated by Neurology at that time and was started on Keppra for possible seizure activity. MRI at that time showed chronic lacunar infarct with no acute stroke. no evidence of acute infection continue her Keppra, oxcarbazepine. neuro recomended - b12 and tsh levels normal. eeg-shows slowing: Discussed with Neurology: Recommended to start on IV thiamine. mental status seems to be improving no need LP as per neuro since her encephalopathy improving 2. dysarthria patient has similar exact word-finding difficulties and expressive aphasia on previous presentation that resolved spontaneously - head CT negative - previously MRI showed chronic lacunar infarcts neuro follwoing-please see above. 3. [facility]R is 1.9 -will bridge warfarin with iv heparin if inr in the evening improves 2.5 and above , will stop heparin drip 4. Elevated trop - cannot ilicit hx of chest pain - No EKG changes - pt on warfarin with supratherapeutic inr cardio eval noted-.? pacemaker spikes seems variable , asymptomatic will continue to moniter 5. diabetes: 110-130's range. Avoid coverage below 200 mg dL. - hold metformin hba1c : 5.8 - POC q.i.d. a.c. leg pains -continue gabapentin added tylenol 6HTN/? hx of chf- Stale- continue spironolactone, added back torsemide. 7. Hypothyroidism- continue levothyroxine 8 Right Ankle pain: has some ankle swelling: blood cultures intial neg added ortho- less likely needs tap uric acid elevated ? gout added prednisone 9. staph bacteremia ? does not have clear source: seems contaminant less likely infection as per ID and Ortho observe off antibiotics
[2020-12-21] MEDS: Heparin Sodium,Porcine 5,000 UNIT/ML VIAL 4600 UNIT IVPUSH (20:18)
[2020-12-21] MEDS: Sennosides 8.6 MG TABLET 17.2 MG PO (21:17)
[2020-12-21] MEDS: Docusate Sodium 100 MG CAPSULE PO (21:17)
[2020-12-21] MEDS: Famotidine 20 MG TABLET PO (21:18)
[2020-12-21] MEDS: Atorvastatin Calcium 10 MG TABLET PO (21:18)
[2020-12-21] MEDS: Torsemide 20 MG TABLET 120 MG PO (21:19)
[2020-12-22] VITALS (11 sets, daily range): BP systolic 125–159; BP diastolic 54–66; PULSE 60–80; RESP 16–20; TEMP 36–36.7; O2SAT 92–97
[2020-12-22 03:23] LABS: PTT Heparin Drip 73.8 SEC (53-77.9)
[2020-12-22 07:09] LABS: Glucose, Whole Blood 88 mg/dL (60-115)
[2020-12-22] MEDS: Thiamine HCL 200 MG/2 ML VIAL 250 MG IM (08:44)
[2020-12-22] MEDS: levETIRAcetam 500 MG TABLET PO ×2 (08:45→20:50)
[2020-12-22] MEDS: Metoprolol Tartrate 50 MG TABLET PO ×2 (08:45→20:50)
[2020-12-22] MEDS: Flecainide Acetate 50 MG TABLET 100 MG PO (08:45)
[2020-12-22] MEDS: Levothyroxine Sodium 112 MCG TABLET PO (08:45)
[2020-12-22] MEDS: predniSONE 20 MG TABLET 40 MG PO (08:46)
[2020-12-22] MEDS: Spironolactone 25 MG TABLET 100 MG PO (08:46)
[2020-12-22] MEDS: OXcarbazepine 300 MG TABLET PO ×3 (08:46→20:50)
[2020-12-22] MEDS: Pregabalin 200 MG CAPSULE PO ×2 (08:46→20:55)
[2020-12-22] MEDS: Torsemide 20 MG TABLET 120 MG PO ×2 (08:47→17:58)
[2020-12-22 10:02] LABS: Hematocrit 31.2 % (37-47); Hemoglobin 9.6 g/dl (12.0-16.0); Mean Corpuscular HGB Conc 30.8 g/dl (31.0-35.0); Mean Corpuscular Hemoglobin 24.7 pg (27.0-33.0); Mean Corpuscular Volume 80.2 fL (80-98); Mean Platelet Volume 10.6 fL (9.4-12.3); Platelet Count 309 X10*3/uL (160-400); Red Blood Count 3.89 X10*6/uL (4.20-5.50); Red Cell Distribution Width 17.1 % (11.0-16.0); White Blood Count 10.2 X10*3/uL (4.8-10.8)
[2020-12-22 10:10] LABS: INTERNATIONAL NORM RATIO 2.1 (0.9-1.1); Prothrombin Time 25.5 SEC (10.8-13.0)
[2020-12-22] MEDS: Heparin Sodium,Porcine/1/2NS 25,000 UNIT/250 ML IV.SOLN 12.32 UNIT IVCONT (10:24)
[2020-12-22 10:28] LABS: Anion Gap 16 (12-20); Blood Urea Nitrogen 31 mg/dL (9-16); Calcium 9.5 mg/dL (8.4-10.2); Carbon Dioxide 31 mmol/L (22-29); Chloride 98 mmol/L (96-108); Estimated Glomerular Filt Rate 38; Glucose Random 114 mg/dL (60-115); Potassium 3.1 mmol/L (3.3-5.1); Sodium 142 mmol/L (135-145)
[2020-12-22] MEDS: oxyCODONE HCl Immed Release 5 MG TABLET PO ×2 (10:45→20:54)
[2020-12-22 11:12] LABS: Glucose, Whole Blood 109 mg/dL (60-115)
--- NOTE | 2020-12-22 11:14 | PM.PNCARD ---
Subjective Subjective Date of Service: 12/22/20 Interval history: Denies any specific cardiac complaints. Review of Systems Review of Systems Yes all other systems are reviewed and are negative Cardiovascular: Reports as per HPI, Reports no additional cardiovascular complaints, Denies acrocyanosis, Denies cool extremities, Denies painful fingertips, Denies chest pain, Denies chest pain at rest, Denies diaphoresis, Denies syncope, Denies irregular heart rhythm, Denies claudication, Denies leg edema, Denies lightheadedness, Denies palpitations and Reports dyspnea Respiratory: Reports dyspnea Denies syncope Endocrine: Denies palpitations Physical Exam Vital Signs: Last Vital Signs Temp 96.8 F 12/22/20 11:07 Pulse 60 12/22/20 11:07 Resp 18 12/22/20 11:07 BP 125/62 12/22/20 11:07 Pulse Ox 96 12/22/20 11:07 Body Mass Index 45.3 Const General: cooperative, comfortable and no acute distress Orientation/consciousness: patient oriented x3 HENMT Other: Unremarkable Neck Neck: Yes normal visual inspection Chest Chest palpation & inspection: normal inspection of the chest Resp Auscultation: clear to auscultation bilaterally, no crackles and no wheezes Cardio Jugular venous distension: no JVD Palpation: normal PMI Heart sounds: no gallops, Murmur heart sound present systolic and other, no rubs and Other heart sounds present (Prosthetic heart sounds noted) GI Palpation (GI): Soft to palpation Back/Spine/Pelvis Other: unremarkable Skin General skin exam: no rashes or lesions noted Neuro General: patient oriented x3 Extrem General: Yes edema (1+) Psych Mental Status: mental status grossly normal Results Labs and Meds Result diagrams: 12/22/20 09:27 12/22/20 09:27 Lab results: Laboratory Results - last 24 hr 12/21/20 12/21/20 12/21/20 10:58 16:26 18:44 WBC RBC Hgb Hct MCV MCH MCHC RDW Plt Count MPV Absolute Nucleated RBC Nucleated RBC % (auto) PT INR PTT (Heparin Protocol) Sodium Potassium Chloride Carbon Dioxide Anion Gap BUN Creatinine Estim Creat Clear Calc Estimated GFR POC Glucose 135 H 181 H Random Glucose Calcium Random Vancomycin 9.7 L 12/21/20 12/21/20 12/21/20 18:44 18:44 19:33 WBC RBC Hgb Hct MCV MCH MCHC RDW Plt Count MPV Absolute Nucleated RBC Nucleated RBC % (auto) PT 21.8 H INR 1.8 H PTT (Heparin Protocol) 43.8 L Sodium Potassium Chloride Carbon Dioxide Anion Gap BUN Creatinine Estim Creat Clear Calc Estimated GFR POC Glucose 168 H Random Glucose Calcium Random Vancomycin 12/22/20 12/22/20 12/22/20 02:23 07:06 09:27 WBC 10.2 RBC 3.89 L Hgb 9.6 L Hct 31.2 L MCV 80.2 MCH 24.7 L MCHC 30.8 L RDW 17.1 H Plt Count 309 D MPV 10.6 Absolute Nucleated RBC 0.000 Nucleated RBC % (auto) 0.0 PT INR PTT (Heparin Protocol) 73.8 D Sodium Potassium Chloride Carbon Dioxide Anion Gap BUN Creatinine Estim Creat Clear Calc Estimated GFR POC Glucose 88 Random Glucose Calcium Random Vancomycin 12/22/20 12/22/20 12/22/20 09:27 09:27 09:27 WBC RBC Hgb Hct MCV MCH MCHC RDW Plt Count MPV Absolute Nucleated RBC Nucleated RBC % (auto) PT 25.5 H INR 2.1 H PTT (Heparin Protocol) 64.0 Sodium 142 Potassium 3.1 L D Chloride 98 Carbon Dioxide 31 H Anion Gap 16 BUN 31 H Creatinine 1.39 Estim Creat Clear Calc 49.0 Estimated GFR 38 POC Glucose Random Glucose 114 Calcium 9.5 Random Vancomycin 12/22/20 11:07 WBC RBC Hgb Hct MCV MCH MCHC RDW Plt Count MPV Absolute Nucleated RBC Nucleated RBC % (auto) PT INR PTT (Heparin Protocol) Sodium Potassium Chloride Carbon Dioxide Anion Gap BUN Creatinine Estim Creat Clear Calc Estimated GFR POC Glucose 109 Random Glucose Calcium Random Vancomycin Progress Note: A&P Assessment and plan (1) Hx of mitral valve replacement with mechanical valve: Status: Acute (2) Non-rheumatic tricuspid valve insufficiency: Status: Acute (3) Non-rheumatic aortic stenosis: Status: Acute (4) Encounter for interrogation of cardiac pacemaker: Status: Acute (5) Elevated troponin: Status: Acute (6) Paroxysmal atrial fibrillation: Status: Acute Assessment and Plan: Pacemaker interrogated as today. There are PVCs which may be the reason why the telemetry is confusing. Right atrial capture was at 1.5 and originally programmed to 2 volts but increased to 3 volts. RV lead looking normal. Some short atrial tachycardia episodes. Overall, normal device function. Otherwise continue her diuretic, adjusting dose for renal function and volume status. Anticoagulation for the mitral valve replacement along with low-dose aspirin. Upon discharge, follow-up with her own back tender pulp drier from [facility]. Fall Risk Details Current Medications: Current Medications Generic Name Dose Route Start Last Admin Trade Name Freq PRN Reason Stop Dose Admin Acetaminophen 650 mg 12/17/20 22:53 12/19/20 09:11 Acetaminophen 325 Mg Tablet PO 650 mg Q6H PRN Administration Pain, Mild (Pain Scale 1-3) Albuterol/Ipratropium 3 ml 12/18/20 19:06 Albuterol/Iprat 2.5/0.5mg 3 Ml Ampul.Neb INHALE Q6H PRN Shortness of Breath Atorvastatin Calcium 10 mg 12/18/20 21:00 12/21/20 21:18 Atorvastatin Calcium 10 Mg Tablet PO 10 mg BEDTIME ANNE-MARIE Administration Docusate Sodium 100 mg 12/17/20 22:53 12/19/20 11:39 Docusate Sodium 100 Mg Capsule PO 100 mg DAILY PRN Administration Constipation Docusate Sodium 100 mg 12/19/20 21:00 12/21/20 21:17 Docusate Sodium 100 Mg Capsule PO 100 mg BEDTIME ANNE-MARIE Administration Famotidine 20 mg 12/20/20 21:00 12/21/20 21:18 Famotidine 20 Mg Tablet PO 20 mg BEDTIME ANNE-MARIE Administration Flecainide Acetate 100 mg 12/18/20 09:00 12/22/20 08:45 Flecainide Acetate 50 Mg Tablet PO 100 mg DAILY ANNE-MARIE Administration Heparin Sodium (Porcine) 4,600 unit 12/21/20 11:31 12/21/20 20:18 Heparin Sodium,Porcine 5,000 Unit/Ml Vial 40 unit/kg (4600 unit) 4,600 unit IVPUSH Administration BOLUS PRN 40 unit/kg - Heparin Protocol Heparin Sodium (Porcine) 9,300 unit 12/21/20 11:31 Heparin Sodium,Porcine 5,000 Unit/Ml Vial 80 unit/kg (9300 unit) IVPUSH BOLUS PRN 80 unit/kg - Heparin Protocol Hydromorphone HCl 1 mg 12/19/20 13:49 Hydromorphone Hcl 2 Mg Tablet PO Q4H PRN foot pain Heparin Sodium/Sodium Chloride 25,000 unit in 250 mls @ 0 mls/hr 12/21/20 11:45 12/22/20 10:24 IVCONT 10.6 units/kg/hr .Q0M ANNE-MARIE 12.32 mls/hr Administration Protocol Per Protocol Insulin Human Lispro 0 unit 12/18/20 07:30 12/22/20 07:56 Insulin Lispro 100 Unit/Ml 3 Ml Vial SUBCUT Not Given QIDACHS [facility] Protocol Levetiracetam 500 mg 12/17/20 22:53 12/22/20 08:45 Levetiracetam 500 Mg Tablet PO 500 mg BID ANNE-MARIE Administration Levothyroxine Sodium 112 mcg 12/18/20 09:00 12/22/20 08:45 Levothyroxine Sodium 112 Mcg Tablet PO 112 mcg DAILY ANNE-MARIE Administration Metoprolol Tartrate 50 mg 12/17/20 22:53 12/22/20 08:45 Metoprolol Tartrate 50 Mg Tablet PO 50 mg BID ANNE-MARIE Administration Protocol Ondansetron HCl 4 mg 12/17/20 22:53 Ondansetron Hcl 4 Mg/2 Ml Vial IVPUSH Q8H PRN Nausea and Vomiting Oxcarbazepine 300 mg 12/18/20 09:00 12/22/20 08:46 Oxcarbazepine 300 Mg Tablet PO 300 mg TID ANNE-MARIE Administration Oxycodone HCl 5 mg 12/19/20 10:30 12/22/20 10:45 Oxycodone Hcl Immed Release 5 Mg Tablet PO 5 mg Q4H PRN Administration feet pains Pharmacy Consult 1 each 12/19/20 18:20 Consult Rx Vancomycin Dosing MISCELLANE DAILY PRN Consult order Prednisone 40 mg 12/20/20 12:00 12/22/20 08:46 Prednisone 20 Mg Tablet PO 40 mg DAILY ANNE-MARIE Administration Pregabalin 200 mg 12/18/20 09:00 12/22/20 08:46 Pregabalin 200 Mg Capsule PO 200 mg BID ANNE-MARIE Administration Senna 17.2 mg 12/19/20 21:00 12/21/20 21:17 Sennosides 8.6 Mg Tablet PO 17.2 mg BEDTIME ANNE-MARIE Administration Sodium Chloride 3 ml 12/18/20 00:00 12/22/20 08:45 0.9 % Sodium Chloride Flush 3 Ml Syringe IVFLUSH Not Given QSHIFT [facility] Spironolactone 100 mg 12/18/20 09:00 12/22/20 08:46 Spironolactone 25 Mg Tablet PO 100 mg DAILY [facility] Administration Protocol Thiamine HCl 250 mg 12/21/20 13:17 12/22/20 08:44 Thiamine Hcl 200 Mg/2 Ml Vial IM 250 mg DAILY [facility] Administration Torsemide 120 mg 12/21/20 19:45 12/22/20 08:47 Torsemide 20 Mg Tablet PO 120 mg BID@0900,1700 [facility] Administration Protocol Warfarin Sodium 7.5 mg 12/24/20 18:00 Warfarin Sodium 7.5 Mg Tablet PO [id number] [facility] Warfarin Sodium 5 mg 12/22/20 18:00 Warfarin Sodium 5 Mg Tablet PO [id number] [facility] Time Spent With Patient Time: Total time spent is greater than 50% in coordination of care (as documented) at patient's floor/unit and/or counseling patient: Time with patient: less than 15 minutes
[2020-12-22 16:02] LABS: Glucose, Whole Blood 138 mg/dL (60-115)
--- NOTE | 2020-12-22 16:40 | HO.PM.IMPN ---
Subjective Subjective Date of Service: 12/22/20 Interval History: foot swelling/redness/pain improved no longer confused, no dysarthria Physical Exam Vital Signs: Vital Signs: Last Vital Signs Temp 96.9 F 12/22/20 15:04 Pulse 60 12/22/20 15:04 Resp 20 12/22/20 15:04 BP 159/64 H 12/22/20 15:04 Pulse Ox 95 12/22/20 15:04 Body Mass Index 45.3 Gen: in no acute distress HEENT: sclera anicteric, moist mucus membranes Neck: supple Lungs: clear to auscultation bilaterally Heart: regular rate and rhythm, no murmurs Abd: soft, non-tender, non-distended Ext: R ankle with mild anterior edema, no redness or heat Skin: warm/well-perfused Neuro: alert and oriented x3, no focal findings Psych: appropriate affect Objective Data Current Medications Generic Name Dose Route Start Last Admin Trade Name Freq PRN Reason Stop Dose Admin Acetaminophen 650 mg 12/17/20 22:53 12/19/20 09:11 Acetaminophen 325 Mg Tablet PO 650 mg Q6H PRN Administration Pain, Mild (Pain Scale 1-3) Albuterol/Ipratropium 3 ml 12/18/20 19:06 Albuterol/Iprat 2.5/0.5mg 3 Ml Ampul.Neb INHALE Q6H PRN Shortness of Breath Atorvastatin Calcium 10 mg 12/18/20 21:00 12/21/20 21:18 Atorvastatin Calcium 10 Mg Tablet PO 10 mg BEDTIME ANNE-MARIE Administration Docusate Sodium 100 mg 12/17/20 22:53 12/19/20 11:39 Docusate Sodium 100 Mg Capsule PO 100 mg DAILY PRN Administration Constipation Docusate Sodium 100 mg 12/19/20 21:00 12/21/20 21:17 Docusate Sodium 100 Mg Capsule PO 100 mg BEDTIME ANNE-MARIE Administration Famotidine 20 mg 12/20/20 21:00 12/21/20 21:18 Famotidine 20 Mg Tablet PO 20 mg BEDTIME ANNE-MARIE Administration Flecainide Acetate 100 mg 12/18/20 09:00 12/22/20 08:45 Flecainide Acetate 50 Mg Tablet PO 100 mg DAILY ANNE-MARIE Administration Heparin Sodium (Porcine) 4,600 unit 12/21/20 11:31 12/21/20 20:18 Heparin Sodium,Porcine 5,000 Unit/Ml Vial 40 unit/kg (4600 unit) 4,600 unit IVPUSH Administration BOLUS PRN 40 unit/kg - Heparin Protocol Heparin Sodium (Porcine) 9,300 unit 12/21/20 11:31 Heparin Sodium,Porcine 5,000 Unit/Ml Vial 80 unit/kg (9300 unit) IVPUSH BOLUS PRN 80 unit/kg - Heparin Protocol Hydromorphone HCl 1 mg 12/19/20 13:49 Hydromorphone Hcl 2 Mg Tablet PO Q4H PRN foot pain Heparin Sodium/Sodium Chloride 25,000 unit in 250 mls @ 0 mls/hr 12/21/20 11:45 12/22/20 10:24 IVCONT 10.6 units/kg/hr .Q0M ANNE-MARIE 12.32 mls/hr Administration Protocol Per Protocol Insulin Human Lispro 0 unit 12/18/20 07:30 12/22/20 15:59 Insulin Lispro 100 Unit/Ml 3 Ml Vial SUBCUT Not Given QIDACHS [facility] Protocol Levetiracetam 500 mg 12/17/20 22:53 12/22/20 08:45 Levetiracetam 500 Mg Tablet PO 500 mg BID ANNE-MARIE Administration Levothyroxine Sodium 112 mcg 12/18/20 09:00 12/22/20 08:45 Levothyroxine Sodium 112 Mcg Tablet PO 112 mcg DAILY ANNE-MARIE Administration Metoprolol Tartrate 50 mg 12/17/20 22:53 12/22/20 08:45 Metoprolol Tartrate 50 Mg Tablet PO 50 mg BID ANNEM-ARIE Administration Protocol Ondansetron HCl 4 mg 12/17/20 22:53 Ondansetron Hcl 4 Mg/2 Ml Vial IVPUSH Q8H PRN Nausea and Vomiting Oxcarbazepine 300 mg 12/18/20 09:00 12/22/20 15:58 Oxcarbazepine 300 Mg Tablet PO 300 mg TID ANNE-MARIE Administration Oxycodone HCl 5 mg 12/19/20 10:30 12/22/20 10:45 Oxycodone Hcl Immed Release 5 Mg Tablet PO 5 mg Q4H PRN Administration feet pains Pharmacy Consult 1 each 12/19/20 18:20 Consult Rx Vancomycin Dosing MISCELLANE DAILY PRN Consult order Prednisone 40 mg 12/20/20 12:00 12/22/20 08:46 Prednisone 20 Mg Tablet PO 40 mg DAILY [facility] Administration Pregabalin 200 mg 12/18/20 09:00 12/22/20 08:46 Pregabalin 200 Mg Capsule PO 200 mg BID [facility] Administration Senna 17.2 mg 12/19/20 21:00 12/21/20 21:17 Sennosides 8.6 Mg Tablet PO 17.2 mg BEDTIME ANNE-MARIE Administration Sodium Chloride 3 ml 12/18/20 00:00 12/22/20 15:58 0.9 % Sodium Chloride Flush 3 Ml Syringe IVFLUSH Not Given QSHIFT [facility] Spironolactone 100 mg 12/18/20 09:00 12/22/20 08:46 Spironolactone 25 Mg Tablet PO 100 mg DAILY [facility] Administration Protocol Thiamine HCl 250 mg 12/21/20 13:17 12/22/20 08:44 Thiamine Hcl 200 Mg/2 Ml Vial IM 250 mg DAILY [facility] Administration Torsemide 120 mg 12/21/20 19:45 12/22/20 08:47 Torsemide 20 Mg Tablet PO 120 mg BID@0900,1700 [facility] Administration Protocol Warfarin Sodium 7.5 mg 12/24/20 18:00 Warfarin Sodium 7.5 Mg Tablet PO [email or web address] [facility] Warfarin Sodium 5 mg 12/22/20 18:00 Warfarin Sodium 5 Mg Tablet PO [email or web address] [facility] Labs CBC & Chem 7: 12/22/20 09:27 12/22/20 09:27 Labs: Laboratory Results - last 24 hr 12/21/20 12/21/20 12/21/20 18:44 18:44 18:44 WBC RBC Hgb Hct MCV MCH MCHC RDW Plt Count MPV Absolute Nucleated RBC Nucleated RBC % (auto) PT 21.8 H INR 1.8 H PTT (Heparin Protocol) 43.8 L Sodium Potassium Chloride Carbon Dioxide Anion Gap BUN Creatinine Estim Creat Clear Calc Estimated GFR POC Glucose Random Glucose Calcium Random Vancomycin 9.7 L 12/21/20 12/22/20 12/22/20 19:33 02:23 07:06 WBC RBC Hgb Hct MCV MCH MCHC RDW Plt Count MPV Absolute Nucleated RBC Nucleated RBC % (auto) PT INR PTT (Heparin Protocol) 73.8 D Sodium Potassium Chloride Carbon Dioxide Anion Gap BUN Creatinine Estim Creat Clear Calc Estimated GFR POC Glucose 168 H 88 Random Glucose Calcium Random Vancomycin 12/22/20 12/22/20 12/22/20 09:27 09:27 09:27 WBC 10.2 RBC 3.89 L Hgb 9.6 L Hct 31.2 L MCV 80.2 MCH 24.7 L MCHC 30.8 L RDW 17.1 H Plt Count 309 D MPV 10.6 Absolute Nucleated RBC 0.000 Nucleated RBC % (auto) 0.0 PT INR PTT (Heparin Protocol) 64.0 Sodium 142 Potassium 3.1 L D Chloride 98 Carbon Dioxide 31 H Anion Gap 16 BUN 31 H Creatinine 1.39 Estim Creat Clear Calc 49.0 Estimated GFR 38 POC Glucose Random Glucose 114 Calcium 9.5 Random Vancomycin 12/22/20 12/22/20 12/22/20 09:27 11:07 15:58 WBC RBC Hgb Hct MCV MCH MCHC RDW Plt Count MPV Absolute Nucleated RBC Nucleated RBC % (auto) PT 25.5 H INR 2.1 H PTT (Heparin Protocol) Sodium Potassium Chloride Carbon Dioxide Anion Gap BUN Creatinine Estim Creat Clear Calc Estimated GFR POC Glucose 109 138 H Random Glucose Calcium Random Vancomycin Microbiology Microbiology Results: Microbiology 12/17/20 16:27 Blood - Venous Blood Culture - Final Coag negative Staphylococcus 12/17/20 16:40 Blood - Venous Blood Culture - Preliminary No growth after 48 hours. Assessment and Plan (1) Encephalopathy: Status: Acute Assessment and Plan: hospital d#6 65yo F with DM2, CKD3, hypothyroidism, HTN, fibromyalgia, mechanical mitral valve on warfarin, KEVIN on CPAP, pAF, seizure disorder, psoriasis admitted for confusion and word-finding difficulty # acute encephalopathy - on Keppra started on last admission in November for seizure disorder. also on oxcarbazepine - EEG shows diffuse slowing. IV thiamine given as per Neurology, switched to PO; per neurology, cancel LP given improvement in mental status # dysarthria - prior MRI with chronic lacunar infarcts, no acute CVA on CTA # anticoagulated for mechanical mitral valve - resumed warfarin, on bridging heparin gtt until INR 2.5+ # troponin elevation - no chest pain or EKG changes, per Cardiology unlikely ACS, probably due to CKD + CHF # pAF # SSS, s/p PPM - continue flecainide + metoprolol. per Cardiology pacer interrogation: There are PVCs which may be the reason why the telemetry is confusing. Right atrial capture was at 1.5 and originally programmed to 2 volts but increased to 3 volts. RV lead looking normal. Some short atrial tachycardia episodes. Overall, normal device function. - anticoagulation as above # HFpEF - continue spironolactone, torsemide, metoprolol # gout - prednisone taper d#3 # bacteremia, not - coag-neg Staph = contaminant # neuropathy - continue pregabalin # hypothyroidism - continue LT4 # DM2 - correction-dose lispro # dispo - PT evaluation
[2020-12-22] MEDS: Potassium Chloride ER 20 MEQ TAB.ER.PRT 40 MEQ PO (17:58)
[2020-12-22] MEDS: Warfarin Sodium 5 MG TABLET PO (17:58)
[2020-12-22 20:06] LABS: Glucose, Whole Blood 141 mg/dL (60-115)
[2020-12-22] MEDS: Docusate Sodium 100 MG CAPSULE PO (20:50)
[2020-12-22] MEDS: Sennosides 8.6 MG TABLET 17.2 MG PO (20:50)
[2020-12-22] MEDS: Atorvastatin Calcium 10 MG TABLET PO (20:50)
[2020-12-22] MEDS: Famotidine 20 MG TABLET PO (20:50)
[2020-12-22] MEDS: 0.9 % Sodium Chloride Flush 3 ML SYRINGE IVFLUSH (20:55)
[2020-12-23] VITALS (9 sets, daily range): BP systolic 104–153; BP diastolic 50–71; PULSE 58–60; RESP 16–18; TEMP 36.1–37; O2SAT 92–96
[2020-12-23] MEDS: Heparin Sodium,Porcine/1/2NS 25,000 UNIT/250 ML IV.SOLN 12.32 UNIT IVCONT (05:30)
[2020-12-23 06:47] LABS: MANUAL DIFF FLAG NO
[2020-12-23 07:03] LABS: Basophils Absolute Auto 0.1 X10*3/uL (0.0-0.2); Basophils Percent Auto 0.6 % (0-2); Eosinophils Absolute Auto 0.1 X10*3/uL (0.0-0.4); Eosinophils Percent Auto 1.3 % (0-4); Hematocrit 31.3 % (37-47); Hemoglobin 9.4 g/dl (12.0-16.0); Imm Gran Abs Auto 0.19 X10*3/uL (0.00-0.03); Imm Gran Pct Auto 1.8 % (0.0-0.4); Lymphocytes Absolute Auto 1.9 X10*3/uL (1.2-4.9); Lymphocytes Percent Auto 18.7 % (20-40); Mean Corpuscular Hemoglobin 24.1 pg (27.0-33.0); Mean Corpuscular Volume 80.3 fL (80-98); Mean Platelet Volume 10.4 fL (9.4-12.3); Monocytes Absolute Auto 1.1 X10*3/uL (0.1-1.2); Monocytes Percent Auto 10.4 % (2-11); Neutrophils Percent Auto 67.2 % (45-73); Platelet Count 331 X10*3/uL (160-400); Red Cell Distribution Width 17.2 % (11.0-16.0); White Blood Count 10.4 X10*3/uL (4.8-10.8)
[2020-12-23 07:05] LABS: Prothrombin Time 24.3 SEC (10.8-13.0)
[2020-12-23 07:08] LABS: PTT Heparin Drip 46.2 SEC (53-77.9)
[2020-12-23 07:18] LABS: Glucose, Whole Blood 86 mg/dL (60-115)
[2020-12-23 07:24] LABS: Anion Gap 20 (12-20); Blood Urea Nitrogen 39 mg/dL (9-16); Calcium 8.8 mg/dL (8.4-10.2); Carbon Dioxide 27 mmol/L (22-29); Chloride 98 mmol/L (96-108); Creatinine Clr Calc Pharmacy 46.2; Estimated Glomerular Filt Rate 36; Glucose Random 86 mg/dL (60-115); Magnesium 2.3 mg/dL (1.6-2.6); Potassium 3.9 mmol/L (3.3-5.1); Sodium 141 mmol/L (135-145)
[2020-12-23] MEDS: Heparin Sodium,Porcine 5,000 UNIT/ML VIAL 4600 UNIT IVPUSH (08:25)
[2020-12-23] MEDS: Torsemide 20 MG TABLET 120 MG PO ×2 (08:31→16:36)
[2020-12-23] MEDS: Spironolactone 25 MG TABLET 100 MG PO (08:32)
[2020-12-23] MEDS: Thiamine HCL 100 MG TABLET PO (08:32)
[2020-12-23] MEDS: Pregabalin 200 MG CAPSULE PO ×2 (08:32→20:43)
[2020-12-23] MEDS: predniSONE 20 MG TABLET 40 MG PO (08:32)
[2020-12-23] MEDS: Metoprolol Tartrate 50 MG TABLET PO ×2 (08:33→20:43)
[2020-12-23] MEDS: Flecainide Acetate 50 MG TABLET 100 MG PO (08:33)
[2020-12-23] MEDS: OXcarbazepine 300 MG TABLET PO ×3 (08:33→20:44)
[2020-12-23] MEDS: Levothyroxine Sodium 112 MCG TABLET PO (08:33)
[2020-12-23] MEDS: levETIRAcetam 500 MG TABLET PO ×2 (08:43→20:44)
[2020-12-23] MEDS: oxyCODONE HCl Immed Release 5 MG TABLET PO ×3 (08:43→20:42)
[2020-12-23 11:16] LABS: Glucose, Whole Blood 120 mg/dL (60-115)
[2020-12-23 15:52] LABS: Glucose, Whole Blood 164 mg/dL (60-115)
--- NOTE | 2020-12-23 15:57 | HO.PM.IMPN ---
Subjective Subjective Date of Service: 12/23/20 Interval History: ankle pain/swelling improving INR 2.0 Physical Exam Vital Signs: Vital Signs: Last Vital Signs Temp 98.6 F 12/23/20 15:26 Pulse 60 12/23/20 15:26 Resp 18 12/23/20 15:26 BP 119/50 L 12/23/20 15:26 Pulse Ox 92 12/23/20 15:26 Body Mass Index 45.3 Gen: in no acute distress HEENT: sclera anicteric, moist mucus membranes Neck: supple Lungs: clear to auscultation bilaterally Heart: regular rate and rhythm, no murmurs Abd: soft, non-tender, non-distended Ext: R ankle with mild anterior edema, no redness or heat Skin: warm/well-perfused Neuro: alert and oriented x3, no focal findings Psych: appropriate affect Objective Data Current Medications Generic Name Dose Route Start Last Admin Trade Name Freq PRN Reason Stop Dose Admin Acetaminophen 650 mg 12/17/20 22:53 12/19/20 09:11 Acetaminophen 325 Mg Tablet PO 650 mg Q6H PRN Administration Pain, Mild (Pain Scale 1-3) Albuterol/Ipratropium 3 ml 12/18/20 19:06 Albuterol/Iprat 2.5/0.5mg 3 Ml Ampul.Neb INHALE Q6H PRN Shortness of Breath Atorvastatin Calcium 10 mg 12/18/20 21:00 12/22/20 20:50 Atorvastatin Calcium 10 Mg Tablet PO 10 mg BEDTIME ANNE-MARIE Administration Docusate Sodium 100 mg 12/17/20 22:53 12/19/20 11:39 Docusate Sodium 100 Mg Capsule PO 100 mg DAILY PRN Administration Constipation Docusate Sodium 100 mg 12/19/20 21:00 12/22/20 20:50 Docusate Sodium 100 Mg Capsule PO 100 mg BEDTIME ANNE-MARIE Administration Famotidine 20 mg 12/20/20 21:00 12/22/20 20:50 Famotidine 20 Mg Tablet PO 20 mg BEDTIME ANNE-MARIE Administration Flecainide Acetate 100 mg 12/18/20 09:00 12/23/20 08:33 Flecainide Acetate 50 Mg Tablet PO 100 mg DAILY ANNE-MARIE Administration Heparin Sodium (Porcine) 4,600 unit 12/21/20 11:31 12/23/20 08:25 Heparin Sodium,Porcine 5,000 Unit/Ml Vial 40 unit/kg (4600 unit) 4,600 unit IVPUSH Administration BOLUS PRN 40 unit/kg - Heparin Protocol Heparin Sodium (Porcine) 9,300 unit 12/21/20 11:31 Heparin Sodium,Porcine 5,000 Unit/Ml Vial 80 unit/kg (9300 unit) IVPUSH BOLUS PRN 80 unit/kg - Heparin Protocol Hydromorphone HCl 1 mg 12/19/20 13:49 Hydromorphone Hcl 2 Mg Tablet PO Q4H PRN foot pain Heparin Sodium/Sodium Chloride 25,000 unit in 250 mls @ 0 mls/hr 12/21/20 11:45 12/23/20 08:26 IVCONT 12.6 units/kg/hr .Q0M ANNE-MARIE 14.64 mls/hr Titration Protocol Per Protocol Insulin Human Lispro 0 unit 12/18/20 07:30 12/23/20 11:31 Insulin Lispro 100 Unit/Ml 3 Ml Vial SUBCUT Not Given QIDACHS [facility] Protocol Levetiracetam 500 mg 12/17/20 22:53 12/23/20 08:43 Levetiracetam 500 Mg Tablet PO 500 mg BID ANNE-MARIE Administration Levothyroxine Sodium 112 mcg 12/18/20 09:00 12/23/20 08:33 Levothyroxine Sodium 112 Mcg Tablet PO 112 mcg DAILY ANNE-MARIE Administration Metoprolol Tartrate 50 mg 12/17/20 22:53 12/23/20 08:33 Metoprolol Tartrate 50 Mg Tablet PO 50 mg BID ANNE-MARIE Administration Protocol Ondansetron HCl 4 mg 12/17/20 22:53 Ondansetron Hcl 4 Mg/2 Ml Vial IVPUSH Q8H PRN Nausea and Vomiting Oxcarbazepine 300 mg 12/18/20 09:00 12/23/20 15:05 Oxcarbazepine 300 Mg Tablet PO 300 mg TID ANNE-MARIE Administration Oxycodone HCl 5 mg 12/19/20 10:30 12/23/20 15:05 Oxycodone Hcl Immed Release 5 Mg Tablet PO 5 mg Q4H PRN Administration feet pains Pharmacy Consult 1 each 12/19/20 18:20 Consult Rx Vancomycin Dosing MISCELLANE DAILY PRN Consult order Prednisone 40 mg 12/20/20 12:00 12/23/20 08:32 Prednisone 20 Mg Tablet PO 40 mg DAILY [facility] Administration Pregabalin 200 mg 12/18/20 09:00 12/23/20 08:32 Pregabalin 200 Mg Capsule PO 200 mg BID [facility] Administration Senna 17.2 mg 12/19/20 21:00 12/22/20 20:50 Sennosides 8.6 Mg Tablet PO 17.2 mg BEDTIME ANNE-MARIE Administration Sodium Chloride 3 ml 12/18/20 00:00 12/23/20 15:05 0.9 % Sodium Chloride Flush 3 Ml Syringe IVFLUSH Not Given QSHIFT [facility] Spironolactone 100 mg 12/18/20 09:00 12/23/20 08:32 Spironolactone 25 Mg Tablet PO 100 mg DAILY [facility] Administration Protocol Thiamine HCl 100 mg 12/23/20 09:00 12/23/20 08:32 Thiamine Hcl 100 Mg Tablet PO 100 mg DAILY [facility] Administration Torsemide 120 mg 12/21/20 19:45 12/23/20 08:31 Torsemide 20 Mg Tablet PO 120 mg BID@0900,1700 [facility] Administration Protocol Warfarin Sodium 7.5 mg 12/24/20 18:00 Warfarin Sodium 7.5 Mg Tablet PO [email or web address] [facility] Warfarin Sodium 5 mg 12/22/20 18:00 12/22/20 17:58 Warfarin Sodium 5 Mg Tablet PO 5 mg [email or web address] [facility] Administration Labs CBC & Chem 7: 12/23/20 06:27 12/23/20 06:27 Microbiology Microbiology Results: Microbiology 12/17/20 16:40 Blood - Venous Blood Culture - Final No growth after 5 days. 12/17/20 16:27 Blood - Venous Blood Culture - Final Coag negative Staphylococcus Assessment and Plan (1) Encephalopathy: Status: Acute Assessment and Plan: hospital d#7 65yo F with DM2, CKD3, hypothyroidism, HTN, fibromyalgia, mechanical mitral valve on warfarin, KEVIN on CPAP, pAF, seizure disorder, psoriasis admitted for confusion and word-finding difficulty # acute encephalopathy - on Keppra started on last admission in November for seizure disorder. also on oxcarbazepine for neuropathy - EEG 12/18 shows diffuse slowing; prior EEG 11/22 showed left hemispheric irritability. IV thiamine given as per Neurology, switched to PO; per neurology, cancel LP given improvement in mental status # dysarthria - prior MRI with chronic lacunar infarcts, no acute CVA on CTA # anticoagulated for mechanical mitral valve - resumed warfarin, on bridging heparin gtt until INR 2.5+ # troponin elevation - no chest pain or EKG changes, per Cardiology unlikely ACS, probably due to CKD + CHF # pAF # SSS, s/p PPM - continue flecainide + metoprolol. per Cardiology pacer interrogation: There are PVCs which may be the reason why the telemetry is confusing. Right atrial capture was at 1.5 and originally programmed to 2 volts but increased to 3 volts. RV lead looking normal. Some short atrial tachycardia episodes. Overall, normal device function. - anticoagulation as above # HFpEF - continue spironolactone, torsemide, metoprolol # gout - prednisone taper d#4 # bacteremia, not - coag-neg Staph = contaminant # neuropathy - continue pregabalin # hypothyroidism - continue LT4 # DM2 - correction-dose lispro # dispo - PT evaluation
[2020-12-23] MEDS: Insulin Lispro 100 UNIT/ML 3 ML VIAL SUBCUT ×2 (16:35→20:45)
[2020-12-23] MEDS: Warfarin Sodium 5 MG TABLET PO (18:04)
[2020-12-23 19:58] LABS: Glucose, Whole Blood 166 mg/dL (60-115)
[2020-12-23] MEDS: Atorvastatin Calcium 10 MG TABLET PO (20:44)
[2020-12-23] MEDS: Famotidine 20 MG TABLET PO (20:44)
[2020-12-23] MEDS: Heparin Sodium,Porcine/1/2NS 25,000 UNIT/250 ML IV.SOLN 14.64 UNIT IVCONT (20:47)
[2020-12-23] MEDS: 0.9 % Sodium Chloride Flush 3 ML SYRINGE IVFLUSH (20:51)
[2020-12-23 21:22] LABS: PTT Heparin Drip 90.9 SEC (53-77.9)
[2020-12-24] VITALS (9 sets, daily range): BP systolic 133–174; BP diastolic 56–77; PULSE 59–68; RESP 18–20; TEMP 36.2–37.2; O2SAT 93–96
[2020-12-24] MEDS: Acetaminophen 325 MG TABLET 650 MG PO ×2 (03:05→15:27)
[2020-12-24 04:06] LABS: PTT Heparin Drip 84.7 SEC (53-77.9)
[2020-12-24 04:12] LABS: INTERNATIONAL NORM RATIO 2.2 (0.9-1.1); Prothrombin Time 26.3 SEC (10.8-13.0)
[2020-12-24 04:40] LABS: Anion Gap 17 (12-20); Blood Urea Nitrogen 37 mg/dL (9-16); Calcium 8.8 mg/dL (8.4-10.2); Carbon Dioxide 30 mmol/L (22-29); Chloride 98 mmol/L (96-108); Creatinine Clr Calc Pharmacy 47.6; Estimated Glomerular Filt Rate 37; Glucose Random 85 mg/dL (60-115); Potassium 3.4 mmol/L (3.3-5.1); Sodium 142 mmol/L (135-145)
[2020-12-24 07:12] LABS: Glucose, Whole Blood 89 mg/dL (60-115)
[2020-12-24] MEDS: Flecainide Acetate 50 MG TABLET 100 MG PO (09:01)
[2020-12-24] MEDS: Torsemide 20 MG TABLET 120 MG PO ×2 (09:01→17:25)
[2020-12-24] MEDS: Thiamine HCL 100 MG TABLET PO (09:02)
[2020-12-24] MEDS: predniSONE 20 MG TABLET 40 MG PO (09:02)
[2020-12-24] MEDS: Spironolactone 25 MG TABLET 100 MG PO (09:02)
[2020-12-24] MEDS: Pregabalin 200 MG CAPSULE PO ×2 (09:02→20:40)
[2020-12-24] MEDS: Levothyroxine Sodium 112 MCG TABLET PO (09:03)
[2020-12-24] MEDS: levETIRAcetam 500 MG TABLET PO ×2 (09:03→20:37)
[2020-12-24] MEDS: Metoprolol Tartrate 50 MG TABLET PO ×2 (09:03→20:40)
[2020-12-24] MEDS: OXcarbazepine 300 MG TABLET PO ×3 (09:03→20:38)
[2020-12-24] MEDS: 0.9 % Sodium Chloride Flush 3 ML SYRINGE IVFLUSH (09:06)
[2020-12-24] MEDS: oxyCODONE HCl Immed Release 5 MG TABLET PO (10:07)
[2020-12-24 10:34] LABS: PTT Heparin Drip 64.9 SEC (53-77.9)
[2020-12-24 11:07] LABS: Glucose, Whole Blood 110 mg/dL (60-115)
--- NOTE | 2020-12-24 12:16 | MHC.CM.PN ---
Patient continues on IV Heparin gtt as a bridge with coumadin to get INR >2.5. Discharge plan is STR per PT. [facility] are following. Patient will need BLS transport. CM will continue to follow patient for discharge needs.
[2020-12-24 16:15] LABS: Glucose, Whole Blood 142 mg/dL (60-115)
[2020-12-24] MEDS: Heparin Sodium,Porcine/1/2NS 25,000 UNIT/250 ML IV.SOLN 9.99 UNIT IVCONT (17:21)
[2020-12-24] MEDS: Warfarin Sodium 7.5 MG TABLET PO (17:25)
[2020-12-24] MEDS: HYDROcodone Bit/Acetam 5/325 TABLET 1 TAB PO ×2 (17:32→21:33)
[2020-12-24 17:41] LABS: PTT Heparin Drip 61.9 SEC (53-77.9)
--- NOTE | 2020-12-24 18:32 | HO.PM.IMPN ---
Subjective Subjective Date of Service: 12/24/20 Interval History: ankle pain/swelling improved INR still subtherapeutic Physical Exam Vital Signs: Vital Signs: Last Vital Signs Temp 97.5 F 12/24/20 15:35 Pulse 59 12/24/20 15:35 Resp 20 12/24/20 15:35 BP 134/63 12/24/20 15:35 Pulse Ox 95 12/24/20 15:35 Body Mass Index 45.3 Gen: in no acute distress HEENT: sclera anicteric, moist mucus membranes Neck: supple Lungs: clear to auscultation bilaterally Heart: regular rate and rhythm, no murmurs Abd: soft, non-tender, non-distended Ext: R ankle with mild anterior edema improved from yesterday, no redness or heat Skin: warm/well-perfused Neuro: alert and oriented x3, no focal findings Psych: appropriate affect Objective Data Current Medications Generic Name Dose Route Start Last Admin Trade Name Freq PRN Reason Stop Dose Admin Acetaminophen 650 mg 12/17/20 22:53 12/24/20 15:27 Acetaminophen 325 Mg Tablet PO 650 mg Q6H PRN Administration Pain, Mild (Pain Scale 1-3) Hydrocodone Bitart/Acetaminophen 1 tab 12/24/20 17:14 12/24/20 17:32 Hydrocodone Bit/Acetam 5/325 Tablet PO 1 tab Q4H PRN Administration pain,moderate-severe Albuterol/Ipratropium 3 ml 12/18/20 19:06 Albuterol/Iprat 2.5/0.5mg 3 Ml Ampul.Neb INHALE Q6H PRN Shortness of Breath Atorvastatin Calcium 10 mg 12/18/20 21:00 12/23/20 20:44 Atorvastatin Calcium 10 Mg Tablet PO 10 mg BEDTIME ANNE-MARIE Administration Docusate Sodium 100 mg 12/17/20 22:53 12/19/20 11:39 Docusate Sodium 100 Mg Capsule PO 100 mg DAILY PRN Administration Constipation Docusate Sodium 100 mg 12/19/20 21:00 12/23/20 20:43 Docusate Sodium 100 Mg Capsule PO Not Given BEDTIME ANNE-MARIE Famotidine 20 mg 12/20/20 21:00 12/23/20 20:44 Famotidine 20 Mg Tablet PO 20 mg BEDTIME ANNE-MARIE Administration Flecainide Acetate 100 mg 12/18/20 09:00 12/24/20 09:01 Flecainide Acetate 50 Mg Tablet PO 100 mg DAILY ANNE-MARIE Administration Heparin Sodium (Porcine) 4,600 unit 12/21/20 11:31 12/23/20 08:25 Heparin Sodium,Porcine 5,000 Unit/Ml Vial 40 unit/kg (4600 unit) 4,600 unit IVPUSH Administration BOLUS PRN 40 unit/kg - Heparin Protocol Heparin Sodium (Porcine) 9,300 unit 12/21/20 11:31 Heparin Sodium,Porcine 5,000 Unit/Ml Vial 80 unit/kg (9300 unit) IVPUSH BOLUS PRN 80 unit/kg - Heparin Protocol Heparin Sodium/Sodium Chloride 25,000 unit in 250 mls @ 0 mls/hr 12/24/20 17:30 12/24/20 18:06 IVCONT 8.6 units/kg/hr .Q0M ANNE-MARIE 9.99 mls/hr Titration Protocol Per Protocol Insulin Human Lispro 0 unit 12/18/20 07:30 12/24/20 16:14 Insulin Lispro 100 Unit/Ml 3 Ml Vial SUBCUT Not Given QIDACHS [facility] Protocol Levetiracetam 500 mg 12/17/20 22:53 12/24/20 09:03 Levetiracetam 500 Mg Tablet PO 500 mg BID ANNE-MARIE Administration Levothyroxine Sodium 112 mcg 12/18/20 09:00 12/24/20 09:03 Levothyroxine Sodium 112 Mcg Tablet PO 112 mcg DAILY ANNE-MARIE Administration Metoprolol Tartrate 50 mg 12/17/20 22:53 12/24/20 09:03 Metoprolol Tartrate 50 Mg Tablet PO 50 mg BID ANNE-MARIE Administration Protocol Ondansetron HCl 4 mg 12/17/20 22:53 Ondansetron Hcl 4 Mg/2 Ml Vial IVPUSH Q8H PRN Nausea and Vomiting Oxcarbazepine 300 mg 12/18/20 09:00 12/24/20 14:44 Oxcarbazepine 300 Mg Tablet PO 300 mg TID [facility] Administration Pharmacy Consult 1 each 12/19/20 18:20 Consult Rx Vancomycin Dosing MISCELLANE DAILY PRN Consult order Prednisone 40 mg 12/20/20 12:00 12/24/20 09:02 Prednisone 20 Mg Tablet PO 40 mg DAILY ANNE-MARIE Administration Pregabalin 200 mg 12/18/20 09:00 12/24/20 09:02 Pregabalin 200 Mg Capsule PO 200 mg BID [facility] Administration Senna 17.2 mg 12/19/20 21:00 12/23/20 20:45 Sennosides 8.6 Mg Tablet PO Not Given BEDTIME [facility] Sodium Chloride 3 ml 12/18/20 00:00 12/24/20 15:28 0.9 % Sodium Chloride Flush 3 Ml Syringe IVFLUSH Not Given QSHIFT [facility] Spironolactone 100 mg 12/18/20 09:00 12/24/20 09:02 Spironolactone 25 Mg Tablet PO 100 mg DAILY [facility] Administration Protocol Thiamine HCl 100 mg 12/23/20 09:00 12/24/20 09:02 Thiamine Hcl 100 Mg Tablet PO 100 mg DAILY [facility] Administration Torsemide 120 mg 12/21/20 19:45 12/24/20 17:25 Torsemide 20 Mg Tablet PO 120 mg BID@0900,1700 [facility] Administration Protocol Warfarin Sodium 7.5 mg 12/24/20 18:00 12/24/20 17:25 Warfarin Sodium 7.5 Mg Tablet PO 7.5 mg DAILY@1800 [facility] Administration Labs CBC & Chem 7: 12/23/20 06:27 12/24/20 03:45 Labs: Laboratory Results - last 24 hr 12/23/20 12/23/20 12/24/20 19:50 20:55 03:45 PT 26.3 H INR 2.2 H PTT (Heparin Protocol) 90.9 H D 84.7 H Sodium Potassium Chloride Carbon Dioxide Anion Gap BUN Creatinine Estim Creat Clear Calc Estimated GFR POC Glucose 166 H Random Glucose Calcium 12/24/20 12/24/20 12/24/20 03:45 03:45 07:06 PT Cancelled INR Cancelled PTT (Heparin Protocol) Sodium 142 Potassium 3.4 Chloride 98 Carbon Dioxide 30 H Anion Gap 17 BUN 37 H Creatinine 1.43 H Estim Creat Clear Calc 47.6 Estimated GFR 37 POC Glucose 89 Random Glucose 85 Calcium 8.8 12/24/20 12/24/20 12/24/20 10:18 11:04 16:09 PT INR PTT (Heparin Protocol) 64.9 D Sodium Potassium Chloride Carbon Dioxide Anion Gap BUN Creatinine Estim Creat Clear Calc Estimated GFR POC Glucose 110 142 H Random Glucose Calcium 12/24/20 17:20 PT INR PTT (Heparin Protocol) 61.9 Sodium Potassium Chloride Carbon Dioxide Anion Gap BUN Creatinine Estim Creat Clear Calc Estimated GFR POC Glucose Random Glucose Calcium Microbiology Microbiology Results: Microbiology 12/17/20 16:40 Blood - Venous Blood Culture - Final No growth after 5 days. 12/17/20 16:27 Blood - Venous Blood Culture - Final Coag negative Staphylococcus Assessment and Plan (1) Encephalopathy: Status: Acute Assessment and Plan: hospital d#8 65yo F with DM2, CKD3, hypothyroidism, HTN, fibromyalgia, mechanical mitral valve on warfarin, KEVIN on CPAP, pAF, seizure disorder, psoriasis admitted for confusion and word-finding difficulty # acute encephalopathy - on Keppra started on last admission in November for seizure disorder. also on oxcarbazepine for neuropathy - EEG 12/18 shows diffuse slowing; prior EEG 11/22 showed left hemispheric irritability. IV thiamine given as per Neurology, switched to PO; per neurology, canceled LP given improvement in mental status # dysarthria - prior MRI with chronic lacunar infarcts, no acute CVA on CTA # anticoagulated for mechanical mitral valve - resumed warfarin, on bridging heparin gtt until INR 2.5+ # troponin elevation - no chest pain or EKG changes, per Cardiology unlikely ACS, probably due to CKD + CHF # pAF # SSS, s/p PPM - continue flecainide + metoprolol. per Cardiology pacer interrogation: There are PVCs which may be the reason why the telemetry is confusing. Right atrial capture was at 1.5 and originally programmed to 2 volts but increased to 3 volts. RV lead looking normal. Some short atrial tachycardia episodes. Overall, normal device function. - anticoagulation as above # HFpEF - continue spironolactone, torsemide, metoprolol # gout - prednisone taper d#5 # bacteremia, not - coag-neg Staph = contaminant # neuropathy - continue pregabalin # hypothyroidism - continue LT4 # DM2 - correction-dose lispro # dispo - PT evaluation- STR recommended but pt prefers to go home due to concerns re COVID risk
[2020-12-24] MEDS: Famotidine 20 MG TABLET PO (20:39)
[2020-12-24] MEDS: Atorvastatin Calcium 10 MG TABLET PO (20:40)
[2020-12-24 20:43] LABS: Glucose, Whole Blood 172 mg/dL (60-115)
[2020-12-24] MEDS: Insulin Lispro 100 UNIT/ML 3 ML VIAL SUBCUT (21:34)
[2020-12-25] VITALS (8 sets, daily range): BP systolic 122–138; BP diastolic 57–65; PULSE 60; RESP 15–20; TEMP 36.3–37; O2SAT 92–98
[2020-12-25 06:25] LABS: INTERNATIONAL NORM RATIO 2.2 (0.9-1.1); Prothrombin Time 26.7 SEC (10.8-13.0)
[2020-12-25 06:28] LABS: PTT Heparin Drip 60.8 SEC (53-77.9)
[2020-12-25 07:09] LABS: Glucose, Whole Blood 89 mg/dL (60-115)
[2020-12-25] MEDS: Thiamine HCL 100 MG TABLET PO (09:41)
[2020-12-25] MEDS: HYDROcodone Bit/Acetam 5/325 TABLET 1 TAB PO ×2 (09:41→15:38)
[2020-12-25] MEDS: Flecainide Acetate 50 MG TABLET 100 MG PO (09:41)
[2020-12-25] MEDS: Torsemide 20 MG TABLET 120 MG PO ×2 (09:41→16:41)
[2020-12-25] MEDS: levETIRAcetam 500 MG TABLET PO ×2 (09:41→22:15)
[2020-12-25] MEDS: predniSONE 20 MG TABLET 40 MG PO (09:42)
[2020-12-25] MEDS: Spironolactone 25 MG TABLET 100 MG PO (09:42)
[2020-12-25] MEDS: OXcarbazepine 300 MG TABLET PO ×3 (09:42→22:15)
[2020-12-25] MEDS: Levothyroxine Sodium 112 MCG TABLET PO (09:42)
[2020-12-25] MEDS: Pregabalin 200 MG CAPSULE PO ×2 (09:42→22:15)
[2020-12-25] MEDS: Metoprolol Tartrate 50 MG TABLET PO ×2 (09:42→22:15)
[2020-12-25 11:16] LABS: Glucose, Whole Blood 129 mg/dL (60-115)
[2020-12-25 16:24] LABS: Glucose, Whole Blood 200 mg/dL (60-115)
[2020-12-25] MEDS: Insulin Lispro 100 UNIT/ML 3 ML VIAL SUBCUT ×2 (16:41→22:15)
[2020-12-25] MEDS: Heparin Sodium,Porcine/1/2NS 25,000 UNIT/250 ML IV.SOLN 9.99 UNIT IVCONT (17:36)
[2020-12-25] MEDS: Warfarin Sodium 10 MG TABLET PO (17:38)
--- NOTE | 2020-12-25 18:13 | P.PNIM_ITS ---
Subjective Subjective Date of Service: 12/25/20 Interval History: R ankle improved. Agreeable to rehab now. Physical Exam Vital Signs: Vital Signs: Last Vital Signs Temp 98.0 F 12/25/20 15:53 Pulse 60 12/25/20 15:53 Resp 15 12/25/20 15:53 BP 128/62 12/25/20 15:53 Pulse Ox 93 12/25/20 15:53 Body Mass Index 45.3 .Gen: in no acute distress HEENT: sclera anicteric, moist mucus membranes Neck: supple Lungs: clear to auscultation bilaterally Heart: regular rate and rhythm, no murmurs Abd: soft, non-tender, non-distended Ext: swelling around R ankle resolved Skin: warm/well-perfused Neuro: alert and oriented x3, no focal findings Psych: appropriate affect Objective Data Current Medications Generic Name Dose Route Start Last Admin Trade Name Freq PRN Reason Stop Dose Admin Acetaminophen 650 mg 12/17/20 22:53 12/24/20 15:27 Acetaminophen 325 Mg Tablet PO 650 mg Q6H PRN Administration Pain, Mild (Pain Scale 1-3) Hydrocodone Bitart/Acetaminophen 1 tab 12/24/20 17:14 12/25/20 15:38 Hydrocodone Bit/Acetam 5/325 Tablet PO 1 tab Q4H PRN Administration pain,moderate-severe Albuterol/Ipratropium 3 ml 12/18/20 19:06 Albuterol/Iprat 2.5/0.5mg 3 Ml Ampul.Neb INHALE Q6H PRN Shortness of Breath Atorvastatin Calcium 10 mg 12/18/20 21:00 12/24/20 20:40 Atorvastatin Calcium 10 Mg Tablet PO 10 mg BEDTIME ANNE-MARIE Administration Docusate Sodium 100 mg 12/17/20 22:53 12/19/20 11:39 Docusate Sodium 100 Mg Capsule PO 100 mg DAILY PRN Administration Constipation Docusate Sodium 100 mg 12/19/20 21:00 12/24/20 20:38 Docusate Sodium 100 Mg Capsule PO Not Given BEDTIME ANNE-MARIE Famotidine 20 mg 12/20/20 21:00 12/24/20 20:39 Famotidine 20 Mg Tablet PO 20 mg BEDTIME ANNE-MARIE Administration Flecainide Acetate 100 mg 12/18/20 09:00 12/25/20 09:41 Flecainide Acetate 50 Mg Tablet PO 100 mg DAILY ANNE-MARIE Administration Heparin Sodium (Porcine) 4,600 unit 12/21/20 11:31 12/23/20 08:25 Heparin Sodium,Porcine 5,000 Unit/Ml Vial 40 unit/kg (4600 unit) 4,600 unit IVPUSH Administration BOLUS PRN 40 unit/kg - Heparin Protocol Heparin Sodium (Porcine) 9,300 unit 12/21/20 11:31 Heparin Sodium,Porcine 5,000 Unit/Ml Vial 80 unit/kg (9300 unit) IVPUSH BOLUS PRN 80 unit/kg - Heparin Protocol Heparin Sodium/Sodium Chloride 25,000 unit in 250 mls @ 0 mls/hr 12/24/20 17:30 12/25/20 17:36 IVCONT 8.6 units/kg/hr .Q0M ANNE-MARIE 9.99 mls/hr Administration Protocol Per Protocol Insulin Human Lispro 0 unit 12/18/20 07:30 12/25/20 16:41 Insulin Lispro 100 Unit/Ml 3 Ml Vial SUBCUT 2 unit QIDACHS ANNE-MARIE Administration Protocol Levetiracetam 500 mg 12/17/20 22:53 12/25/20 09:41 Levetiracetam 500 Mg Tablet PO 500 mg BID ANNE-MARIE Administration Levothyroxine Sodium 112 mcg 12/18/20 09:00 12/25/20 09:42 Levothyroxine Sodium 112 Mcg Tablet PO 112 mcg DAILY ANNE-MARIE Administration Metoprolol Tartrate 50 mg 12/17/20 22:53 12/25/20 09:42 Metoprolol Tartrate 50 Mg Tablet PO 50 mg BID ANNE-MARIE Administration Protocol Ondansetron HCl 4 mg 12/17/20 22:53 Ondansetron Hcl 4 Mg/2 Ml Vial IVPUSH Q8H PRN Nausea and Vomiting Oxcarbazepine 300 mg 12/18/20 09:00 12/25/20 15:28 Oxcarbazepine 300 Mg Tablet PO 300 mg TID [facility] Administration Pharmacy Consult 1 each 12/19/20 18:20 Consult Rx Vancomycin Dosing MISCELLANE DAILY PRN Consult order Prednisone 40 mg 12/20/20 12:00 12/25/20 09:42 Prednisone 20 Mg Tablet PO 40 mg DAILY ANNE-MARIE Administration Pregabalin 200 mg 12/18/20 09:00 12/25/20 09:42 Pregabalin 200 Mg Capsule PO 200 mg BID ANNE-MARIE Administration Senna 17.2 mg 12/19/20 21:00 12/24/20 20:38 Sennosides 8.6 Mg Tablet PO Not Given BEDTIME [facility] Sodium Chloride 3 ml 12/18/20 00:00 12/25/20 15:09 0.9 % Sodium Chloride Flush 3 Ml Syringe IVFLUSH Not Given QSHIFT [facility] Spironolactone 100 mg 12/18/20 09:00 12/25/20 09:42 Spironolactone 25 Mg Tablet PO 100 mg DAILY [facility] Administration Protocol Thiamine HCl 100 mg 12/23/20 09:00 12/25/20 09:41 Thiamine Hcl 100 Mg Tablet PO 100 mg DAILY [facility] Administration Torsemide 120 mg 12/21/20 19:45 12/25/20 16:41 Torsemide 20 Mg Tablet PO 120 mg BID@0900,1700 [facility] Administration Protocol Warfarin Sodium 7.5 mg 12/24/20 18:00 12/24/20 17:25 Warfarin Sodium 7.5 Mg Tablet PO 7.5 mg DAILY@1800 [facility] Administration Labs CBC & Chem 7: 12/23/20 06:27 12/24/20 03:45 Labs: Laboratory Results - last 24 hr 12/24/20 12/25/20 12/25/20 20:37 06:03 07:03 PT 26.7 H INR 2.2 H PTT (Heparin Protocol) 60.8 POC Glucose 172 H 89 12/25/20 12/25/20 11:11 16:16 PT INR PTT (Heparin Protocol) POC Glucose 129 H 200 H Microbiology Microbiology Results: Microbiology 12/17/20 16:40 Blood - Venous Blood Culture - Final No growth after 5 days. 12/17/20 16:27 Blood - Venous Blood Culture - Final Coag negative Staphylococcus Assessment and Plan (1) Encephalopathy: Status: Acute Assessment and Plan: hospital d#9 65yo F with DM2, CKD3, hypothyroidism, HTN, fibromyalgia, mechanical mitral valve on warfarin, KEVIN on CPAP, pAF, seizure disorder, psoriasis admitted for confusion and word-finding difficulty # acute encephalopathy - on Keppra started on last admission in November for seizure disorder. also on oxcarbazepine for neuropathy - EEG 12/18 shows diffuse slowing; prior EEG 11/22 showed left hemispheric irri tability. IV thiamine given as per Neurology, switched to PO; per neurology, canceled LP given improvement in mental status # dysarthria - prior MRI with chronic lacunar infarcts, no acute CVA on CTA # anticoagulated for mechanical mitral valve - resumed warfarin, on bridging heparin gtt until INR 2.5+- if needed, will complete bridging with LMWH at SNF # troponin elevation - no chest pain or EKG changes, per Cardiology unlikely ACS, probably due to CKD + CHF # pAF # SSS, s/p PPM - continue flecainide + metoprolol. per Cardiology pacer interrogation: There are PVCs which may be the reason why the telemetry is confusing. Right atrial capture was at 1.5 and originally programmed to 2 volts but increased to 3 volts. RV lead looking normal. Some short atrial tachycardia episodes. Ov erall, normal device function. - anticoagulation as above # HFpEF - continue spironolactone, torsemide, metoprolol # gout - prednisone taper d#6 # bacteremia, not - coag-neg Staph = contaminant # neuropathy - continue pregabalin # hypothyroidism - continue LT4 # DM2 - correction-dose lispro # dispo - PT evaluation- STR likely tomorrow
[2020-12-25 20:38] LABS: Glucose, Whole Blood 196 mg/dL (60-115)
[2020-12-25] MEDS: Famotidine 20 MG TABLET PO (22:15)
[2020-12-25] MEDS: Docusate Sodium 100 MG CAPSULE PO (22:15)
[2020-12-25] MEDS: Sennosides 8.6 MG TABLET 17.2 MG PO (22:15)
[2020-12-25] MEDS: Atorvastatin Calcium 10 MG TABLET PO (22:15)
[2020-12-25] MEDS: 0.9 % Sodium Chloride Flush 3 ML SYRINGE IVFLUSH (22:23)
[2020-12-26] VITALS (8 sets, daily range): BP systolic 126–150; BP diastolic 56–67; PULSE 53–60; RESP 18–20; TEMP 36.2–37; O2SAT 93–97
[2020-12-26] MEDS: HYDROcodone Bit/Acetam 5/325 TABLET 1 TAB PO ×3 (01:33→16:45)
[2020-12-26 06:06] LABS: COVID-19 Test Negative (Negative)
[2020-12-26 07:03] LABS: INTERNATIONAL NORM RATIO 2.7 (0.9-1.1)
[2020-12-26 07:06] LABS: PTT Heparin Drip 64.1 SEC (53-77.9)
[2020-12-26 07:24] LABS: Glucose, Whole Blood 90 mg/dL (60-115)
[2020-12-26] MEDS: Torsemide 20 MG TABLET 120 MG PO (08:03)
[2020-12-26] MEDS: Flecainide Acetate 50 MG TABLET 100 MG PO (08:03)
[2020-12-26] MEDS: Thiamine HCL 100 MG TABLET PO (08:03)
[2020-12-26] MEDS: 0.9 % Sodium Chloride Flush 3 ML SYRINGE IVFLUSH (08:03)
[2020-12-26] MEDS: predniSONE 10 MG TABLET 30 MG PO (08:04)
[2020-12-26] MEDS: levETIRAcetam 500 MG TABLET PO (08:04)
[2020-12-26] MEDS: Spironolactone 25 MG TABLET 100 MG PO (08:04)
[2020-12-26] MEDS: OXcarbazepine 300 MG TABLET PO (08:05)
[2020-12-26] MEDS: Levothyroxine Sodium 112 MCG TABLET PO (08:05)
[2020-12-26] MEDS: Pregabalin 200 MG CAPSULE PO (08:05)
[2020-12-26] MEDS: Metoprolol Tartrate 50 MG TABLET PO (08:05)
--- NOTE | 2020-12-26 09:24 | P.CDIC_ITS ---
CDI Concurrent Query Service Date: 12/26/20 Documentation Clarification: Please clarify if you are treating a proba ble/suspected/likely or confirmed: Toxic/metabolic encephalopathy Please specify if known Provider Response: Encephalopathy PLEASE DO NOT DELETE/MODIFY EXISTING CONTENT Additional information is needed in order to code to the highest accuracy and appropriate Severity of Illness (SOI). Please clarify the information noted below in your progress notes and discharge summary. Risk Factors/Clinical Indicators/Treatments AMS Neuro eval 12/20 - hypoxic event has clinical features suggestive of encephalopathy ED: previous admit for toxic metabolic encephalopthy ? 2nd to seizure activity. pt not able to express herself, difficult finding words, altered mental status CDS: Madison Deleon CCS, CDIS Contact Number: [phone] Please Review the information above and exercise your independent professional judgment in responding to the query. If you concur, pleas document in the PROGRESS NOTES and DISCHARGE SUMMARY. If you do not agree with the query, please document in the query above. THIS QUERY IS PART OF THE PERMANENT MEDICAL RECORD
[2020-12-26 11:10] LABS: Glucose, Whole Blood 157 mg/dL (60-115)
[2020-12-26] MEDS: Insulin Lispro 100 UNIT/ML 3 ML VIAL SUBCUT (11:22)
[2020-12-26] MEDS: Enoxaparin Sodium 120 MG/0.8 ML SYRINGE 114 MG SUBCUT (11:22)
--- NOTE | 2020-12-26 14:12 | MHC.CM.PN ---
Patient's insurance denied STR placement r/t PT eval states she amb 200' with supervision. Patient will go home with VNA services, she is already active with [facility] who has been notified of discharge.
--- NOTE | 2020-12-26 15:56 | PM.DS ---
DS: Providers Provider Date of Service: 12/26/20 Date of admission: 12/17/20 22:26 Primary care physician: Kanwal Davison MD Consults: 12/17/20 22:53 Consult to Neurology Routine Consulting Provider: [facility] Reason for consultation: encephalopahty Has provider been notified: No 12/18/20 03:42 Consult Respiratory Therapy Routine Reason for consultation: KEVIN Has provider been notified: Yes 12/18/20 12:46 Consult to Cardiology Routine Consulting Provider: Boby Grant Reason for consultation: elevated troponins Has provider been notified: No 12/19/20 15:15 Consult to Orthopedics Routine Consulting Provider: Elva Salguero Reason for consultation: right ankle swelling /pain -need tap Has provider been notified: No 12/19/20 18:35 Consult to Infectious Diseases Routine Consulting Provider: Joleen Pedersen Reason for consultation: right ankle pain ,blood culture positive Has provider been notified: No DS: Diagnosis Discharge Diagnosis (1) Encephalopathy: Status: Acute (2) Seizure disorder: Status: Acute (3) Dysarthria: Status: Acute (4) Gout flare: Status: Acute (5) Current use of anticoagulant therapy: Status: Acute (6) H/O mitral valve replacement with mechanical valve: Status: Acute DS: Medications Discharge Medications Home Medications: Home Medications Medication Instructions Recorded Confirmed atorvastatin 1 tab PO DAILY 12/17/20 12/17/20 flecainide 100 mg PO TID 12/17/20 12/18/20 levetiracetam 1 tab PO BID 12/17/20 12/17/20 levothyroxine 1 tab PO DAILY 12/17/20 12/17/20 metformin 1 tab PO BID 12/17/20 12/17/20 metoprolol tartrate 1 tab PO BID 12/17/20 12/17/20 oxcarbazepine 1 tab PO TID 12/17/20 12/17/20 pregabalin 1 cap PO BID 12/17/20 12/17/20 spironolactone 1 tab PO DAILY 12/17/20 12/17/20 Advair HFA 2 puff INHALATION BID 12/18/20 12/18/20 torsemide 240 mg PO BID 12/18/20 12/18/20 warfarin 7.5 mg PO MOTUWE 12/18/20 12/18/20 warfarin See Rx Instructions .ROUTE .COMPLEX 12/18/20 12/18/20 Previous Rx's Medication Instructions Recorded enoxaparin 114 mg SUBCUT Q12H #2 ea 12/26/20 prednisone See Rx Instructions .ROUTE 12/26/20 .COMPLEX #18 tab thiamine mononitrate (vit B1) 100 mg PO DAILY #30 tab 12/26/20 DS: Summary Hospital Course Hospital Course: From history and physical by admitting hospitalist Lorenzo Almeida MD, 12/17/20: 65 yo F with pmhx of hypothyroidism, CKD, HLD, HTN, heart failure, KEVIN on CPAP, paroxysmal AFib on Coumadin, DM who presents to the hospital after her noticed her to have missed her usual routine and acting strange. not being able to express herself, not wearing her c-pap the night before, and generally acting not her usual self. Of note, pt was in the hospital in beginning of november with similar presentation and at that time was diagnosed with seizure was started on Keppra. Patient presents with same exact findings of difficulty finding words, and expressing herself. She is feeling very frustrated that she cannot express herself, she is understanding the but unable to answer my questions. She denies any headache, change in vision, weakness numbness or tingling in her arms or legs, no chest pain, no shortness of breath, no abdominal pain nausea or vomiting, no diarrhea constipation, no urinary symptoms and no lower extremity edema. On arrival to the ED hemodynamically stable with no abnormal vitals Labs are significant for WBC count of 14, hemoglobin of 10, hematocrit of 32.8, PT of 37.8, INR of 3.1, pH of 7.56, chloride 94, BUN of 22, creatinine of 1.65 which is around her baseline of 1.4, total bili of 1.2, alk-phos of 180, high sensitivity troponin of 17.7, CRP of 14.4, BNP of 201, UA negative, blood drug screen positive for marijuana, COVID-[address] is showing increased int The patient was admitted to the [facility]. Dysarthria and word-finding difficulty resolved. Neurology was consulted. EEG showed diffuse slowing in comparison to prior EEG in November that showed left hemispheric irritability. She was treated with Keppra as per home dosing. She is also on oxcarbazepine for neuropathy and discontinued. She was given IV time and as per Neurology and switched to p.o. supplementation. Given improvement in her mental status a planned lumbar puncture was canceled. Mild troponin elevation without any chest pain or EKG changes was attributed by Cardiology to CKD plus HFpEF rather than to ACS. She required bridging anticoagulation with heparin drip given mechanical mitral valve; on the day of discharge her INR was 2.7. She was prescribed 2 more doses of enoxaparin to take and should have a repeat INR on 12/27/20 and then in 1 week. She developed a flare of gout of her right ankle and was treated with prednisone taper. She was discharged home with VNA services with 9 more days of prednisone taper; consideration should be given to allopurinol as an outpatient once her gout flare has been fully treated. She should follow up with her outpatient neurologist regarding her seizure disorder. l Time Spent with Patient Time attestation: Total time spent providing and/or coordinating discharge services: 40 Discharge coordination time: Greater than 30 minutes Physical Exam Vital Signs: Vital Signs: Last Vital Signs Temp 98.6 F 12/26/20 15:36 Pulse 60 12/26/20 15:36 Resp 18 12/26/20 15:36 BP 135/56 L 12/26/20 15:36 Pulse Ox 97 12/26/20 15:36 Body Mass Index 45.3 Gen: in no acute distress HEENT: sclera anicteric, moist mucus membranes Neck: supple Lungs: clear to auscultation bilaterally Heart: regular rate and rhythm, no murmurs Abd: soft, non-tender, non-distended Ext: swelling around R ankle resolved Skin: warm/well-perfused Neuro: alert and oriented x3, no focal findings Psych: appropriate affect DS: Data Data Completed and Pending Labs on day of discharge: Laboratory Results WBC 10.4 X10*3/uL (4.8-10.8) 12/23/20 06:27 RBC 3.90 X10*6/uL (4.20-5.50) L 12/23/20 06:27 Hgb 9.4 g/dl (12.0-16.0) L 12/23/20 06:27 Hct 31.3 % (37-47) L 12/23/20 06:27 MCV 80.3 fL (80-98) 12/23/20 06:27 MCH 24.1 pg (27.0-33.0) L 12/23/20 06:27 MCHC 30.0 g/dl (31.0-35.0) L 12/23/20 06:27 RDW 17.2 % (11.0-16.0) H 12/23/20 06:27 Plt Count 331 X10*3/uL (160-400) 12/23/20 06:27 MPV 10.4 fL (9.4-12.3) 12/23/20 06:27 Immature Gran % (Auto) 1.8 % (0.0-0.4) H 12/23/20 06:27 Neut % (Auto) 67.2 % (45-73) 12/23/20 06:27 Lymph % (Auto) 18.7 % (20-40) L 12/23/20 06:27 [place] % (Auto) 10.4 % (2-11) 12/23/20 06:27 Eos % (Auto) 1.3 % (0-4) 12/23/20 06:27 Baso % (Auto) 0.6 % (0-2) 12/23/20 06:27 Lymph # (Auto) 1.9 X10*3/uL (1.2-4.9) 12/23/20 06:27 [place] # (Auto) 1.1 X10*3/uL (0.1-1.2) 12/23/20 06:27 Eos # (Auto) 0.1 X10*3/uL (0.0-0.4) 12/23/20 06:27 Baso # (Auto) 0.1 X10*3/uL (0.0-0.2) 12/23/20 06:27 Abs Immat Gran (auto) 0.19 X10*3/uL (0.00-0.03) H 12/23/20 06:27 Absolute Neuts (auto) 7.0 X10*3/uL (2.0-8.3) 12/23/20 06:27 Absolute Nucleated RBC 0.000 X10*3/uL (0.0-0.012) 12/23/20 06:27 Nucleated RBC % (auto) 0.0 /100WBC (0.0-0.2) 12/23/20 06:27 Smear Tech's Comments VERIFIED 12/18/20 04:10 PT 32.0 SEC (10.8-13.0) H 12/26/20 05:30 Whole Blood PT 39.3 sec (11.1-13.5) H 12/17/20 15:56 INR 2.7 (0.9-1.1) H 12/26/20 05:30 Whole Blood INR 3.3 (0.9-1.1) H 12/17/20 15:56 APTT 37.3 SEC (24.1-38.0) 12/21/20 07:28 PTT (Heparin Protocol) 64.1 SEC (53-77.9) 12/26/20 05:30 D-Dimer 598 NG/ML 12/17/20 17:10 O2 Saturation 91.0 % 12/17/20 17:36 ABG pH at Pt Temp 7.56 (7.35-7.45) H 12/17/20 17:36 ABG pH (Temp Correct) 7.53 (7.35-7.45) H 12/17/20 17:36 ABG pCO2 at Pt Temp 34 mmHg (32-45) 12/17/20 17:36 ABG pCO2 (Temp Corrct 37 mmHg (32-45) 12/17/20 17:36 ABG pO2 at Pt Temp 65 mmHg (83-108) L 12/17/20 17:36 ABG pO2 (Temp Correct 74 (83-108) L 12/17/20 17:36 ABG HCO3 31 mmol/L (22-26) H 12/17/20 17:36 ABG Base Excess (Actual) 8.7 mmol/L 12/17/20 17:36 Sodium 142 mmol/L (135-145) 12/24/20 03:45 Potassium 3.4 mmol/L (3.3-5.1) 12/24/20 03:45 Chloride 98 mmol/L (96-108) 12/24/20 03:45 Carbon Dioxide 30 mmol/L (22-29) H 12/24/20 03:45 Anion Gap 17 (12-20) 12/24/20 03:45 BUN 37 mg/dL (9-16) H 12/24/20 03:45 Creatinine 1.43 mg/dL (0.5-1.4) H 12/24/20 03:45 Estim Creat Clear Calc 47.6 12/24/20 03:45 Estimated GFR 37 12/24/20 03:45 POC Glucose 157 mg/dL (60-115) H 12/26/20 11:07 Random Glucose 85 mg/dL (60-115) 12/24/20 03:45 Estimat Average Glucose 120 mg/dL 12/19/20 06:39 Hemoglobin A1c % 5.8 % 12/19/20 06:39 Lactic Acid 1.4 mmol/L (0.5-2.0) 12/17/20 16:27 Uric Acid 9.0 mg/dL (2.4-5.7) H 12/20/20 05:13 Calcium 8.8 mg/dL (8.4-10.2) 12/24/20 03:45 Magnesium 2.3 mg/dL (1.6-2.6) 12/23/20 06:27 Ferritin 55 ng/mL (10-250) 12/17/20 16:27 Total Bilirubin 0.7 mg/dL (0.0-1.0) 12/20/20 05:13 Direct Bilirubin 0.4 mg/dL (0.0-0.5) 12/20/20 05:13 AST 23 U/L (5-31) 12/20/20 05:13 ALT 16 U/L (0-31) 12/20/20 05:13 Alkaline Phosphatase 202 U/L (39-117) H 12/20/20 05:13 Ammonia 49 umol/L (13-55) 12/19/20 08:29 Troponin I High Sens 41.4 ng/L (<3.5-17.0) H D 12/17/20 21:12 C-Reactive Protein 14.45 mg/dL (< or = 0.50) H 12/17/20 16:27 B-Natriuretic Peptide 201 pg/mL (<100) H 12/17/20 16:27 Total Protein 6.5 g/dL (6.5-8.0) 12/20/20 05:13 Albumin 3.4 g/dL (3.5-5.0) L 12/20/20 05:13 Vitamin B12 228 pg/mL (200-900) 12/18/20 04:10 Procalcitonin 0.13 ng/mL 12/17/20 16:27 TSH 1.27 uIU/mL (0.32-4.0) 12/18/20 04:10 Urine Color YELLOW 12/17/20 16:27 Urine Appearance CLEAR 12/17/20 16:27 Urine pH 6.0 (5.0-8.0) 12/17/20 16:27 Ur Specific [place] 1.015 (1.005-1.025) 12/17/20 16:27 Urine Protein NEG MG/DL (NEG-TRACE) 12/17/20 16:27 Urine Glucose (UA) NEG MG/DL (NEG) 12/17/20 16:27 Urine Ketones NEG MG/DL (NEG) 12/17/20 16:27 Urine Blood NEG (NEG) 12/17/20 16:27 Urine Nitrite NEG (NEG) 12/17/20 16:27 Ur Leukocyte Esterase NEG (NEG) 12/17/20 16:27 Urine RBC 0 /HPF (0) 12/17/20 16:27 Urine WBC 0 /HPF (0-4) 12/17/20 16:27 Ur Squamous Epith Cells NONE /LPF 12/17/20 16:27 Urine Bacteria NONE /LPF 12/17/20 16:27 Random Vancomycin 9.7 mcg/mL (15-20) L 12/21/20 18:44 Urine Opiates Screen Not Detected (Not Detect) 12/17/20 16:27 Ur Barbiturates Screen Not Detected (Not Detect) 12/17/20 16:27 Ur Phencyclidine Scrn Not Detected (Not Detect) 12/17/20 16:27 Ur Amphetamines Screen Not Detected (Not Detect) 12/17/20 16:27 U Benzodiazepines Scrn Not Detected (Not Detect) 12/17/20 16:27 Urine Cocaine Screen Not Detected (Not Detect) 12/17/20 16:27 U Marijuana (THC) Screen POSITIVE (Not Detect) H 12/17/20 16:27 Ethyl Alcohol < 10 mg/dL 12/17/20 16:27 Coronavirus (PCR) NEGATIVE (Negative) 12/17/20 16:27 COVID-19 (CRISTA) Negative (Negative) 12/26/20 05:30 COVID-19 Clin Com See Note 12/26/20 05:30 Influenza Type A (PCR) NEGATIVE (Negative) 12/17/20 16:27 Influenza Type B (PCR) NEGATIVE (Negative) 12/17/20 16:27 RSV RNA Qual (PCR) NEGATIVE (Negative) 12/17/20 16:27 Blood Type AB Negative 12/20/20 08:50 Antibody Screen NEGATIVE 12/20/20 08:[address] 12/17/20 15:25 IMPRESSION: No acute intracranial pathology. This critical result was discussed with Phillip Sheffield NP by telephone at 12/17/2020 3:53 PM and it was ascertained that the content and urgency of the report was understood at the time of direct communication. Chest X-Ray 12/17/20 15:26 IMPRESSION: Central vascular prominence with mild interstitial prominence could represent mild edema. Chest CT 12/17/20 18:20 IMPRESSION: Cardiomegaly with mild increased interstitial markings in the lungs compatible with mild interstitial edema. There is no evidence of any focal consolidations or groundglass infiltrates. Foot X-Ray 12/19/20 14:21 IMPRESSION: No acute fracture or dislocation of either the right or left foot. Soft tissue swelling dorsum of the feet right greater than left. Bilateral bunion formation with hallux valgus deformity. Ankle X-Ray 12/20/20 09:53 IMPRESSION: Edematous change throughout visualized portions of the right lower extremity, ankle, and foot with no acute underlying bony abnormality appreciated. Plantar calcaneal spur. Discharge Plan Discharge Patient Disposition: Home Health Service Discharge Diagnosis: seizure, gout Referrals: [facility] [Outside] - 1 Week Kanwal Davison MD [Primary Care Provider] - 1 Week (Nurse will call you with a follow up appointment.) Rahul Mejía MD [Physician] - 1 Week Discharge Medications: New enoxaparin 120 mg/0.8 mL Syringe 114 mg subcut Q12H Qty: 2 RF: 0 thiamine mononitrate (vit B1) 100 mg Tablet 100 mg PO DAILY Qty: 30 RF: 0 prednisone 10 mg tablet See Rx Instructions .ROUTE .COMPLEX Qty: 18 RF: 0 Continued metformin 500 mg tablet 1 tab PO BID RF: 0 atorvastatin 10 mg tablet 1 tab PO DAILY RF: 0 levetiracetam 500 mg tablet 1 tab PO BID RF: 0 spironolactone 100 mg tablet 1 tab PO DAILY RF: 0 oxcarbazepine 300 mg tablet 1 tab PO TID RF: 0 flecainide 100 mg tablet 100 mg PO TID RF: 0 metoprolol tartrate 50 mg tablet 1 tab PO BID RF: 0 levothyroxine 112 mcg tablet 1 tab PO DAILY RF: 0 pregabalin 200 mg capsule 1 cap PO BID RF: 0 torsemide 20 mg tablet 240 mg PO BID RF: 0 warfarin 5 mg tablet 7.5 mg PO MOTUWE RF: 0 Advair HFA 230-21 mcg/actuation HFA aerosol inhaler 2 puff inhalation BID RF: 0 warfarin 5 mg tablet See Rx Instructions .ROUTE .COMPLEX RF: 0 Discharge Orders: Discharge Order (Routine); Ordered 12/26/20 Ordered By: Flaca De La Rosa Diet: diabetic diet and low salt diet Activity on Discharge: As tolerated Stand Alone Forms: Patient Portal Discharge page Care Plan Goals: freedom from seizures treatment of gout prevention of clotting on valve Health Concerns: seizures gout on warfarin for mechanical mitral valve Plan of Treatment: continue levetiracetam (Keppra) take prednisone as follows: 30 mg daily x 3 days, then 20 mg daily x 3 days, then 10 mg daily x 3 days. low-purine diet. discuss allopurinol with primary care doctor once gout flare is treated. resume warfarin. check INR 12/27/20 then weekly. bridge with enoxaparin, 1 injection tonight and 1 injection tomorrow Assessment: see above Patient Instructions: Gout (DC) Discharge Date/Time: 12/26/20 17:00
--- NOTE | 2020-12-26 15:56 | W.MHC.F2F ---
Service Date Service Date: 12/26/20 Encounter Date of encounter: 12/26/20 Reasons for Services Signs and symptoms assessed: foot pain from gout bridging anticoagulation for mechanical heart valve Reason for assisted: neurological assessment, administration of IV, SQ, or IM injection, monitoring of PT/INR, medication management, medication treatment and teach disease management Reason for physical therapy: home safety and mobility, therapeutic exercises, restore joint function, gait/transfer training, assess need for DME, ADL training and energy conservation MD Overseeing Care: Kanwal Davison Homebound: Leaving the home is medically contraindicated at this time without the asist of a device and/or another person due th the listed conditions above and below. Reason homebound: unsteady gait / fall risk, pain with ambulation, poor balance / fall risk and weakness related to hospital stay Homebound supporting statement: The patient was admitted to [facility] 12/17-12/26/20 for seizure and gout flare. Certification: Based on the above findings, I certify that this patient is confined to the home and needs intermittent assisted care, physical therapy and/or speech therapy, or continues to need occupational therapy. The patient is under my care, and I have initiated the establishment of the plan of care. The patient will be followed by a physician who will periodically review the plan of care.
--- NOTE | 2020-12-26 16:22 | MHC.CM.PN ---
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
--- NOTE | 2020-12-26 16:33 | MHC.CM.PN ---
spoke with wendy arriaga rn for [facility] who will be sure pt is seen tomorrow
== END 2020-12-26 17:00 | disposition home health service (06) | DRG 71 ==
LOC: HO.ED 20:57 → HO.EDOVER 22:50 → HO.IMC 12-18 02:03
PROVIDERS: Internal Medicine; Nurse Practitioner Primary Care; Admitting Provider Internal Medicine; Emergency Provider Internal Medicine; PCP Internal Medicine; Visit Provider Family Medicine
DX: G93.40 Encephalopathy, unspecified (principal); L03.115 Cellulitis of right lower limb; Z68.42 Body mass index [BMI] 45.0-49.9, adult; I13.0 Hypertensive heart and chronic kidney disease with heart failure and stage 1 through stage 4 chronic kidney disease, or unspecified chronic kidney disease; I50.32 Chronic diastolic (congestive) heart failure; E11.22 Type 2 diabetes mellitus with diabetic chronic kidney disease; N18.30 Chronic kidney disease, stage 3 unspecified; E78.5 Hyperlipidemia, unspecified; E03.9 Hypothyroidism, unspecified; M79.7 Fibromyalgia; Z95.0 Presence of cardiac pacemaker; G47.33 Obstructive sleep apnea (adult) (pediatric); R47.1 Dysarthria and anarthria; R79.1 Abnormal coagulation profile; I08.2 Rheumatic disorders of both aortic and tricuspid valves; E11.42 Type 2 diabetes mellitus with diabetic polyneuropathy; I48.0 Paroxysmal atrial fibrillation; G40.909 Epilepsy, unspecified, not intractable, without status epilepticus; E66.01 Morbid (severe) obesity due to excess calories; Z20.822 Contact with and (suspected) exposure to COVID-19; Z95.2 Presence of prosthetic heart valve; Z88.0 Allergy status to penicillin; Z79.01 Long term (current) use of anticoagulants; Z79.84 Long term (current) use of oral hypoglycemic drugs; Z79.890 Hormone replacement therapy; Z79.899 Other long term (current) drug therapy
CPT/HCPCS: 0241U; 36415; 70450; 71045; 71250; 73600; 73620; 80048; 80053; 80076; 80202; 80307; 80320; 81001; 82140; 82607; 82728; 82947; 83036; 83605; 83735; 83880; 84145; 84443; 84484; 84550; 85014; 85018; 85025; 85027; 85379; 85610; 85730; 86140; 86850; 86900; 87040; 87147; 87205; 87635; 93005; 94660; 95816; 96365; 96375; 97110; 97116; 97163; 97530; 99285; C1758; J1650; J1940; J2543; J3370; J3411

== ENCOUNTER → 2020-12-27 11:58 | Outpatient (BNVA) | payer OTHER, SELFPAY | PROVIDERS: PCP Internal Medicine; Visit Provider Internal Medicine | DX: I48.19 Other persistent atrial fibrillation (principal); Z79.01 Long term (current) use of anticoagulants; Z51.81 Encounter for therapeutic drug level monitoring | CPT/HCPCS: Q3014 ==

== ENCOUNTER → 2021-01-01 11:41 | Outpatient (BNVA) | payer OTHER, SELFPAY | PROVIDERS: PCP Internal Medicine; Visit Provider Internal Medicine | DX: I48.19 Other persistent atrial fibrillation (principal); Z79.01 Long term (current) use of anticoagulants; Z51.81 Encounter for therapeutic drug level monitoring | CPT/HCPCS: Q3014 ==

== ENCOUNTER → 2021-01-04 09:28 | Outpatient (BNVA) | payer OTHER, SELFPAY | PROVIDERS: PCP Internal Medicine; Visit Provider Internal Medicine | DX: I48.19 Other persistent atrial fibrillation (principal); Z79.01 Long term (current) use of anticoagulants; Z51.81 Encounter for therapeutic drug level monitoring | CPT/HCPCS: 99211; Q3014 ==

== ENCOUNTER → 2021-01-08 13:55 | Outpatient (BNVA) | payer OTHER, SELFPAY | PROVIDERS: PCP Internal Medicine; Visit Provider Internal Medicine | DX: I48.19 Other persistent atrial fibrillation (principal); Z51.81 Encounter for therapeutic drug level monitoring; Z79.01 Long term (current) use of anticoagulants | CPT/HCPCS: 99211 ==

== ENCOUNTER → 2021-01-10 11:11 | Outpatient (BNVA) | payer OTHER, MEDICARE, BC, SELFPAY | PROVIDERS: PCP Internal Medicine; Visit Provider Internal Medicine | DX: Z13.89 Encounter for screening for other disorder (principal) | CPT/HCPCS: Q3014 ==

== ENCOUNTER → 2021-01-11 11:58 | Outpatient (BNVA) | payer OTHER, SELFPAY | PROVIDERS: PCP Internal Medicine; Visit Provider Internal Medicine | DX: I48.21 Permanent atrial fibrillation (principal); Z51.81 Encounter for therapeutic drug level monitoring; Z79.01 Long term (current) use of anticoagulants | CPT/HCPCS: 85610; 99211 ==

== ENCOUNTER → 2021-01-15 15:08 | Outpatient (BNVA) | payer OTHER, MEDICARE, BC, SELFPAY | PROVIDERS: PCP Internal Medicine; Visit Provider Internal Medicine ==

== ENCOUNTER → 2021-01-18 15:34 | Outpatient (BNVA) | payer OTHER, MEDICARE, BC, SELFPAY | PROVIDERS: PCP Internal Medicine; Visit Provider Internal Medicine ==

== ENCOUNTER 2021-01-24 11:54 | Outpatient (REF) | payer OTHER, SELFPAY | END 2021-01-24 11:55 | disposition home or self-care (01) | LOC: HO.HVNA 11:54 | PROVIDERS: Visit Provider Internal Medicine | DX: I48.91 Unspecified atrial fibrillation (principal); R79.1 Abnormal coagulation profile | CPT/HCPCS: Q3014 ==

== ENCOUNTER → 2021-01-25 12:05 | Outpatient (BNVA) | payer OTHER, MEDICARE, BC, SELFPAY | PROVIDERS: PCP Internal Medicine; Visit Provider Internal Medicine | DX: I48.19 Other persistent atrial fibrillation (principal) | CPT/HCPCS: Q3014 ==

== ENCOUNTER → 2021-01-29 14:24 | Outpatient (BNVA) | payer OTHER, MEDICARE, BC, SELFPAY | PROVIDERS: PCP Internal Medicine; Visit Provider Internal Medicine | DX: I48.19 Other persistent atrial fibrillation (principal) | CPT/HCPCS: Q3014 ==

== ENCOUNTER → 2021-02-01 15:30 | Outpatient (BNVA) | payer MEDICARE, BC, SELFPAY | PROVIDERS: PCP Internal Medicine; Visit Provider Student in an Organized Health Care Education/Training Program | DX: M1A.0790 Idiopathic chronic gout, unspecified ankle and foot, without tophus (tophi) (principal); M25.50 Pain in unspecified joint; L40.9 Psoriasis, unspecified | CPT/HCPCS: 99212 ==

== ENCOUNTER → 2021-02-05 12:42 | Outpatient (BNVA) | payer MEDICARE, OTHER, BC, SELFPAY | PROVIDERS: PCP Hospitalist; Visit Provider Internal Medicine | DX: I48.19 Other persistent atrial fibrillation (principal); Z51.81 Encounter for therapeutic drug level monitoring; Z79.01 Long term (current) use of anticoagulants | CPT/HCPCS: Q3014 ==

== ENCOUNTER → 2021-02-12 11:29 | Outpatient (BNVA) | payer MEDICARE, OTHER, BC, SELFPAY | PROVIDERS: PCP Internal Medicine; Visit Provider Internal Medicine | DX: I48.19 Other persistent atrial fibrillation (principal); Z51.81 Encounter for therapeutic drug level monitoring; Z79.01 Long term (current) use of anticoagulants | CPT/HCPCS: 85610; 99211 ==

== ENCOUNTER 2021-02-15 08:13 | Outpatient (REF) | payer MEDICARE, BC, SELFPAY ==
[2021-02-15 11:58] LABS: MANUAL DIFF FLAG NO
[2021-02-15 12:21] LABS: Basophils Absolute Auto 0.1 X10*3/uL (0.0-0.2); Basophils Percent Auto 1.2 % (0-2); Eosinophils Absolute Auto 0.3 X10*3/uL (0.0-0.4); Eosinophils Percent Auto 3.9 % (0-4); Hematocrit 36.5 % (37-47); Hemoglobin 11.1 g/dl (12.0-16.0); Imm Gran Abs Auto 0.04 X10*3/uL (0.00-0.03); Imm Gran Pct Auto 0.5 % (0.0-0.4); Lymphocytes Absolute Auto 1.4 X10*3/uL (1.2-4.9); Lymphocytes Percent Auto 18.1 % (20-40); Mean Corpuscular HGB Conc 30.4 g/dl (31.0-35.0); Mean Corpuscular Hemoglobin 25.4 pg (27.0-33.0); Mean Corpuscular Volume 83.5 fL (80-98); Mean Platelet Volume 10.9 fL (9.4-12.3); Monocytes Absolute Auto 0.8 X10*3/uL (0.1-1.2); Monocytes Percent Auto 10.9 % (2-11); Neutrophils Absolute Auto 4.9 X10*3/uL (2.0-8.3); Neutrophils Percent Auto 65.4 % (45-73); Platelet Count 239 X10*3/uL (160-400); Red Blood Count 4.37 X10*6/uL (4.20-5.50); Red Cell Distribution Width 21.5 % (11.0-16.0); White Blood Count 7.5 X10*3/uL (4.8-10.8)
[2021-02-15 12:31] LABS: Albumin Level 4.3 g/dL (3.5-5.0); Anion Gap 15 (12-20); Blood Urea Nitrogen 34 mg/dL (9-16); Calcium 9.5 mg/dL (8.4-10.2); Carbon Dioxide 27 mmol/L (22-29); Chloride 102 mmol/L (96-108); Estimated Glomerular Filt Rate 23; Magnesium 2.5 mg/dL (1.6-2.6); Phosphorus 3.5 mg/dL (2.7-4.5); Potassium 3.6 mmol/L (3.3-5.1); Sodium 140 mmol/L (135-145)
[2021-02-15 12:35] LABS: Estimated Average Glucose 128 mg/dL; Hemoglobin A1c % 6.1 %
[2021-02-15 12:37] LABS: Alanine Aminotransferase 19 U/L (0-31); Albumin Level 4.3 g/dL (3.5-5.0); Alkaline Phosphatase 144 U/L (39-117); Anion Gap 13 (12-20); Aspartate Amino Transferase 22 U/L (5-31); Bilirubin Total 0.6 mg/dL (0.0-1.0); Blood Urea Nitrogen 35 mg/dL (9-16); C Reactive Protein 0.68 mg/dL (< or = 0.50); Calcium 9.6 mg/dL (8.4-10.2); Carbon Dioxide 29 mmol/L (22-29); Chloride 102 mmol/L (96-108); Cholesterol 161 mg/dL; Estimated Glomerular Filt Rate 23; Glucose Fasting 125 mg/dL (60-99); HDL Cholesterol 40 mg/dL; Iron 53 mcg/dL (30-160); LDL Cholesterol Calculated 86 mg/dl; Percent Iron Saturation 11 % (15-50); Potassium 3.6 mmol/L (3.3-5.1); Sodium 140 mmol/L (135-145); Total Iron Binding Capacity 477 mcg/dL (228-428); Total Protein 7.4 g/dL (6.5-8.0); Triglycerides 175 mg/dL; Unsaturated Iron Binding 424 ug/dL; Uric Acid 10.6 mg/dL (2.4-5.7)
[2021-02-15 12:45] LABS: Free T4 (Free Thyroxine) 1.21 ng/dL (0.71-1.85); Thyroid Stimulating Hormone 2.52 uIU/mL (0.32-4.0); Vitamin D 25-OH Total 29.5 ng/mL (>30)
[2021-02-15 12:56] LABS: Glucose Urine UA NEG (NEG); Leukocyte Esterase Urine 1+ (NEG); Nitrite Urine NEG (NEG); UACC Culture Trigger YES; Urine Blood NEG (NEG); Urine Ketones NEG (NEG); Urine Protein NEG (NEG-TRACE)
[2021-02-15 13:04] LABS: Alanine Aminotransferase 18 U/L (0-31); Aspartate Amino Transferase 22 U/L (5-31)
[2021-02-15 13:06] LABS: Appearance Urine CLOUDY; Color Urine YELLOW
[2021-02-15 13:10] LABS: Renal w Reflex Lab Use Only Order verified
[2021-02-15 13:15] LABS: Erythrocyte Sedimentation Rate 23 MM/HR (0-20)
[2021-02-15 13:35] LABS: Creatinine Urine 56.16 mg/dL; Microalbum/Creatinine Ratio Ur 26.7 ug/mg cr
[2021-02-15 13:45] LABS: Creatinine Urine 56.04 mg/dL; Total Protein Urine Random < 7 mg/dL (<12)
[2021-02-15 14:13] LABS: Bacteria Urine 1+ /LPF; RBC Urine 0-2 /HPF (0); Squamous Epithelial Cell Urine 1+ /LPF; UACC CULT YES; WBC Urine 30-49 /HPF (0-4)
[2021-02-18 14:12] LABS: Calcium (PTHI) 9.8 mg/dL (8.6-10.4); PTHI 99 pg/mL (14-64)
== END 2021-02-15 08:14 | disposition home or self-care (01) ==
LOC: HO.HMGCLDS 08:13
PROVIDERS: PCP Internal Medicine; Referring Provider Internal Medicine Nephrology; Visit Provider Student in an Organized Health Care Education/Training Program
DX: I12.9 Hypertensive chronic kidney disease with stage 1 through stage 4 chronic kidney disease, or unspecified chronic kidney disease (principal); N18.30 Chronic kidney disease, stage 3 unspecified; N28.9 Disorder of kidney and ureter, unspecified; D50.9 Iron deficiency anemia, unspecified; E78.5 Hyperlipidemia, unspecified; E11.29 Type 2 diabetes mellitus with other diabetic kidney complication; M25.50 Pain in unspecified joint; E03.9 Hypothyroidism, unspecified; Z78.0 Asymptomatic menopausal state
CPT/HCPCS: 36415; 80048; 80051; 80053; 80061; 81001; 82040; 82043; 82306; 82310; 82565; 83036; 83540; 83735; 83970; 84100; 84156; 84439; 84443; 84450; 84460; 84520; 84550; 85025; 85652; 86140; 87086; 87088; 87186

== ENCOUNTER 2021-02-18 10:53 | Outpatient (REF) | payer MEDICARE, OTHER, BC, SELFPAY ==
--- NOTE | ~2021-02-18 | MR_ITS ---
MR ANGIOGRAPHY BRAIN WITHOUT CONTRAST MR ANGIOGRAPHY NECK WITHOUT AND WITH CONTRAST CLINICAL INFORMATION: 2 episodes of possible posterior circulation stroke. COMPARISON: Brain MRI 11/23/2020. TECHNIQUE: 3D [id number] MR angiography was performed through the neck and brain without the use of intravenous contrast, and source images were reviewed along with rotating MIPs. Finally, bolus IV and postcontrast MR angiography was performed through the neck following the administration of 10 mL of Gadavist intravenous contrast. Source images were reviewed and additional volumetric and angled MIPs were independently generated and archived by the [facility] laboratory. Stenoses are assessed in accordance with NASCET criteria unless otherwise indicated. FINDINGS: BRAIN MRA: Limited motion degraded MRA of the head with no significant arterial stenoses nor acute arterial occlusions. The distal intracranial arterial vasculature is not well assessed on this noncontrast MRA. No definite aneurysms with assessment limited by the degree of motion artifact. NECK MRA: There is a classic configuration of the aortic arch. The vertebral arteries are codominant and widely patent from their ostia until their entry into the skull base. Both common and internal carotid arteries are normal in course and caliber. MR/MR angio head wo con IMPRESSION: - Limited motion degraded MRA of the head with no significant arterial stenoses nor acute arterial occlusions. The distal intracranial arterial vasculature is not well assessed on this noncontrast MRA. No definite aneurysms with assessment limited by the degree of motion artifact. - Unremarkable MRA of the neck.
--- NOTE | ~2021-02-18 | MR_ITS ---
MR ANGIOGRAPHY BRAIN WITHOUT CONTRAST MR ANGIOGRAPHY NECK WITHOUT AND WITH CONTRAST CLINICAL INFORMATION: 2 episodes of possible posterior circulation stroke. COMPARISON: Brain MRI 11/23/2020. TECHNIQUE: 3D [id number] MR angiography was performed through the neck and brain without the use of intravenous contrast, and source images were reviewed along with rotating MIPs. Finally, bolus IV and postcontrast MR angiography was performed through the neck following the administration of 10 mL of Gadavist intravenous contrast. Source images were reviewed and additional volumetric and angled MIPs were independently generated and archived by the [facility]. Stenoses are assessed in accordance with NASCET criteria unless otherwise indicated. FINDINGS: BRAIN MRA: Limited motion degraded MRA of the head with no significant arterial stenoses nor acute arterial occlusions. The distal intracranial arterial vasculature is not well assessed on this noncontrast MRA. No definite aneurysms with assessment limited by the degree of motion artifact. NECK MRA: There is a classic configuration of the aortic arch. The vertebral arteries are codominant and widely patent from their ostia until their entry into the skull base. Both common and internal carotid arteries are normal in course and caliber. MR/MR angio neck wo/w con IMPRESSION: - Limited motion degraded MRA of the head with no significant arterial stenoses nor acute arterial occlusions. The distal intracranial arterial vasculature is not well assessed on this noncontrast MRA. No definite aneurysms with assessment limited by the degree of motion artifact. - Unremarkable MRA of the neck.
== END 2021-02-18 10:54 | disposition home or self-care (01) ==
LOC: HO.MRI 10:53
PROVIDERS: Visit Provider Psychiatry & Neurology Neurology
DX: Z13.858 Encounter for screening for other nervous system disorders (principal)
CPT/HCPCS: 70544; 70549; A9585

== ENCOUNTER → 2021-02-19 11:29 | Outpatient (BNVA) | payer MEDICARE, OTHER, BC, SELFPAY | PROVIDERS: PCP Internal Medicine; Visit Provider Internal Medicine | DX: I48.19 Other persistent atrial fibrillation (principal); Z51.81 Encounter for therapeutic drug level monitoring; Z79.01 Long term (current) use of anticoagulants | CPT/HCPCS: Q3014 ==

== ENCOUNTER 2021-02-20 12:51 | Outpatient (REF) | payer MEDICARE, OTHER, BC, SELFPAY ==
--- NOTE | 2021-02-20 | EEG_ITS ---
This is a 16-channel EEG with an EKG lead. The patient is reported awake and drowsy during the tracing. Most of the EEG is low to medium amplitude, mixed theta and beta with intermittent sharply contoured theta and at times sharp waves noted in the left temporal area more than right. At times, phase reversal was noted at T3 and one time at T4. EKG reveal sinus bradycardia with occasional PVCs. Photic stimulation did not produce any significant driving. Hyperventilation is not performed. IMPRESSION: Abnormal EEG suggestive of bitemporal, mostly left temporal seizure focus. MD MICHELLE Otero/ADILSON / [id number]
== END 2021-02-20 12:52 | disposition home or self-care (01) ==
LOC: HO.NEURO 12:51
PROVIDERS: Visit Provider Psychiatry & Neurology Neurology
DX: G40.009 Localization-related (focal) (partial) idiopathic epilepsy and epileptic syndromes with seizures of localized onset, not intractable, without status epilepticus (principal)
CPT/HCPCS: 95816

== ENCOUNTER → 2021-02-22 16:13 | Outpatient (BNVA) | payer MEDICARE, OTHER, BC, SELFPAY | PROVIDERS: PCP Internal Medicine; Visit Provider Internal Medicine ==

== ENCOUNTER → 2021-02-26 09:52 | Outpatient (BNVA) | payer MEDICARE, OTHER, BC, SELFPAY | PROVIDERS: PCP Internal Medicine; Visit Provider Internal Medicine | DX: I48.19 Other persistent atrial fibrillation (principal) | CPT/HCPCS: Q3014 ==

== ENCOUNTER → 2021-03-05 13:41 | Outpatient (BNVA) | payer MEDICARE, OTHER, BC, SELFPAY | PROVIDERS: PCP Internal Medicine; Visit Provider Internal Medicine ==

== ENCOUNTER → 2021-03-12 11:21 | Outpatient (BNVA) | payer MEDICARE, OTHER, BC, SELFPAY | PROVIDERS: PCP Internal Medicine; Visit Provider Internal Medicine ==

== ENCOUNTER → 2021-03-26 14:40 | Outpatient (BNVA) | payer MEDICARE, OTHER, BC, SELFPAY | PROVIDERS: PCP Internal Medicine; Visit Provider Internal Medicine ==

== ENCOUNTER 2021-03-28 15:56 | Outpatient (REF) | payer MEDICARE, BC, SELFPAY ==
[2021-03-28 17:12] LABS: MANUAL DIFF FLAG NO
[2021-03-28 17:17] LABS: Basophils Absolute Auto 0.1 X10*3/uL (0.0-0.2); Basophils Percent Auto 0.9 % (0-2); Eosinophils Absolute Auto 0.3 X10*3/uL (0.0-0.4); Eosinophils Percent Auto 2.8 % (0-4); Hematocrit 35.9 % (37-47); Hemoglobin 11.1 g/dl (12.0-16.0); Imm Gran Abs Auto 0.06 X10*3/uL (0.00-0.03); Imm Gran Pct Auto 0.7 % (0.0-0.4); Lymphocytes Absolute Auto 1.4 X10*3/uL (1.2-4.9); Lymphocytes Percent Auto 15.4 % (20-40); Mean Corpuscular HGB Conc 30.9 g/dl (31.0-35.0); Mean Corpuscular Hemoglobin 27.4 pg (27.0-33.0); Mean Corpuscular Volume 88.6 fL (80-98); Mean Platelet Volume 10.3 fL (9.4-12.3); Monocytes Absolute Auto 1.3 X10*3/uL (0.1-1.2); Neutrophils Absolute Auto 5.8 X10*3/uL (2.0-8.3); Neutrophils Percent Auto 65.2 % (45-73); Platelet Count 251 X10*3/uL (160-400); Red Blood Count 4.05 X10*6/uL (4.20-5.50); Red Cell Distribution Width 18.4 % (11.0-16.0)
[2021-03-28 17:53] LABS: Alanine Aminotransferase 22 U/L (0-31); Albumin Level 4.4 g/dL (3.5-5.0); Alkaline Phosphatase 146 U/L (39-117); Anion Gap 13 (12-20); Aspartate Amino Transferase 24 U/L (5-31); Bilirubin Total 0.5 mg/dL (0.0-1.0); Blood Urea Nitrogen 38 mg/dL (9-16); C Reactive Protein 1.48 mg/dL (< or = 0.50); Calcium 9.5 mg/dL (8.4-10.2); Carbon Dioxide 29 mmol/L (22-29); Chloride 102 mmol/L (96-108); Estimated Glomerular Filt Rate 25; Glucose Random 105 mg/dL (60-115); Sodium 140 mmol/L (135-145); Total Protein 7.5 g/dL (6.5-8.0); Uric Acid 9.2 mg/dL (2.4-5.7)
[2021-03-28 18:48] LABS: Erythrocyte Sedimentation Rate 28 MM/HR (0-20)
== END 2021-03-28 15:57 | disposition home or self-care (01) ==
LOC: HO.LAB 15:56
PROVIDERS: PCP Internal Medicine; Visit Provider Student in an Organized Health Care Education/Training Program
DX: M1A.0790 Idiopathic chronic gout, unspecified ankle and foot, without tophus (tophi) (principal); M79.7 Fibromyalgia; G62.9 Polyneuropathy, unspecified; L40.9 Psoriasis, unspecified; I48.91 Unspecified atrial fibrillation; Z79.899 Other long term (current) drug therapy; Z95.2 Presence of prosthetic heart valve; Z95.0 Presence of cardiac pacemaker; Z79.01 Long term (current) use of anticoagulants
CPT/HCPCS: 36415; 80053; 84550; 85025; 85652; 86140; 99212

== ENCOUNTER → 2021-04-03 13:23 | Outpatient (BNVA) | payer OTHER, MEDICARE, BC, SELFPAY | PROVIDERS: PCP Internal Medicine; Visit Provider Internal Medicine ==

== ENCOUNTER 2021-04-08 09:21 | Outpatient (REF) | payer OTHER, MEDICARE, BC, SELFPAY ==
[2021-04-08 11:06] LABS: MANUAL DIFF FLAG NO
[2021-04-08 11:19] LABS: Basophils Absolute Auto 0.1 X10*3/uL (0.0-0.2); Basophils Percent Auto 0.8 % (0-2); Eosinophils Absolute Auto 0.3 X10*3/uL (0.0-0.4); Eosinophils Percent Auto 3.4 % (0-4); Hemoglobin 10.5 g/dl (12.0-16.0); Imm Gran Abs Auto 0.05 X10*3/uL (0.00-0.03); Imm Gran Pct Auto 0.7 % (0.0-0.4); Lymphocytes Absolute Auto 0.9 X10*3/uL (1.2-4.9); Lymphocytes Percent Auto 12.6 % (20-40); Mean Corpuscular HGB Conc 30.9 g/dl (31.0-35.0); Mean Corpuscular Hemoglobin 27.5 pg (27.0-33.0); Mean Platelet Volume 10.5 fL (9.4-12.3); Monocytes Absolute Auto 0.8 X10*3/uL (0.1-1.2); Monocytes Percent Auto 11.4 % (2-11); Neutrophils Absolute Auto 5.2 X10*3/uL (2.0-8.3); Neutrophils Percent Auto 71.1 % (45-73); Platelet Count 223 X10*3/uL (160-400); Red Blood Count 3.82 X10*6/uL (4.20-5.50); White Blood Count 7.3 X10*3/uL (4.8-10.8)
[2021-04-08 11:38] LABS: Creatinine Urine 19.35 mg/dL; Microalbumin Urine < 5.0 mg/L; Total Protein Urine Random < 7 mg/dL (<12)
[2021-04-08 11:39] LABS: Albumin Level 4.2 g/dL (3.5-5.0); Anion Gap 13 (12-20); Blood Urea Nitrogen 28 mg/dL (9-16); Calcium 9.2 mg/dL (8.4-10.2); Carbon Dioxide 31 mmol/L (22-29); Chloride 100 mmol/L (96-108); Estimated Glomerular Filt Rate 26; Magnesium 2.5 mg/dL (1.6-2.6); Potassium 3.9 mmol/L (3.3-5.1); Sodium 140 mmol/L (135-145)
[2021-04-08 11:44] LABS: Glucose Urine UA NEG (NEG); Leukocyte Esterase Urine NEG (NEG); Nitrite Urine NEG (NEG); Urine Blood NEG (NEG); Urine Ketones NEG (NEG); Urine Protein NEG (NEG-TRACE)
[2021-04-08 12:09] LABS: Vitamin D 25-OH Total 26.9 ng/mL (>30)
[2021-04-08 12:13] LABS: Appearance Urine HAZY; Color Urine STRAW
[2021-04-09 13:31] LABS: Calcium (PTHI) 9.3 mg/dL (8.6-10.4); PTHI 106 pg/mL (14-64)
== END 2021-04-08 09:22 | disposition home or self-care (01) ==
LOC: HO.HMGCLDS 09:21
PROVIDERS: PCP Internal Medicine; Visit Provider Internal Medicine Nephrology
DX: I11.0 Hypertensive heart disease with heart failure (principal); I50.22 Chronic systolic (congestive) heart failure; D50.0 Iron deficiency anemia secondary to blood loss (chronic); N25.0 Renal osteodystrophy
CPT/HCPCS: 36415; 80051; 81003; 82040; 82043; 82306; 82310; 82565; 83735; 83970; 84100; 84156; 84520; 85025; 87086

== ENCOUNTER → 2021-04-09 16:15 | Outpatient (BNVA) | payer OTHER, MEDICARE, BC, SELFPAY | PROVIDERS: PCP Internal Medicine; Visit Provider Internal Medicine ==

== ENCOUNTER → 2021-04-23 11:32 | Outpatient (BNVA) | payer OTHER, MEDICARE, BC, SELFPAY | PROVIDERS: PCP Internal Medicine; Visit Provider Internal Medicine ==

== ENCOUNTER → 2021-05-07 14:36 | Outpatient (BNVA) | payer OTHER, MEDICARE, BC, SELFPAY | PROVIDERS: PCP Internal Medicine; Visit Provider Internal Medicine | DX: I48.19 Other persistent atrial fibrillation (principal) | CPT/HCPCS: Q3014 ==

== ENCOUNTER → 2021-05-14 13:10 | Outpatient (BNVA) | payer OTHER, MEDICARE, BC, SELFPAY | PROVIDERS: PCP Internal Medicine; Visit Provider Internal Medicine ==

== ENCOUNTER → 2021-05-23 11:46 | Outpatient (BNVA) | payer OTHER, MEDICARE, BC, SELFPAY | PROVIDERS: PCP Internal Medicine; Visit Provider Internal Medicine ==

== ENCOUNTER → 2021-06-06 13:46 | Outpatient (BNVA) | payer OTHER, MEDICARE, BC, SELFPAY | PROVIDERS: PCP Internal Medicine; Visit Provider Internal Medicine | DX: I48.19 Other persistent atrial fibrillation (principal); Z51.81 Encounter for therapeutic drug level monitoring; Z79.01 Long term (current) use of anticoagulants | CPT/HCPCS: Q3014 ==

== ENCOUNTER → 2021-06-07 08:35 | Outpatient (BNVA) | payer OTHER, MEDICARE, BC, SELFPAY | PROVIDERS: PCP Internal Medicine; Visit Provider Internal Medicine | DX: I48.19 Other persistent atrial fibrillation (principal); Z51.81 Encounter for therapeutic drug level monitoring; Z79.01 Long term (current) use of anticoagulants | CPT/HCPCS: Q3014 ==

== ENCOUNTER → 2021-06-10 09:21 | Outpatient (BNVA) | payer OTHER, MEDICARE, BC, SELFPAY | PROVIDERS: PCP Internal Medicine; Visit Provider Internal Medicine | DX: I48.19 Other persistent atrial fibrillation (principal) | CPT/HCPCS: Q3014 ==

== ENCOUNTER 2021-06-11 08:57 | Outpatient (REF) | payer OTHER, MEDICARE, BC, SELFPAY ==
[2021-06-11 12:00] LABS: Estimated Average Glucose 143 mg/dL; Hemoglobin A1C 152.2509 umol/L; Hemoglobin A1c % 6.6 %
[2021-06-11 12:15] LABS: Alanine Aminotransferase 20 U/L (0-31); Aspartate Amino Transferase 23 U/L (5-31); Cholesterol 153 mg/dL; HDL Cholesterol 40 mg/dL; LDL Cholesterol Calculated 88 mg/dl; Triglycerides 129 mg/dL
[2021-06-11 12:18] LABS: Vitamin D 25-OH Total 32.9 ng/mL (>30)
== END 2021-06-11 08:58 | disposition home or self-care (01) ==
LOC: HO.HMGCLDS 08:57
PROVIDERS: PCP Internal Medicine; Visit Provider Internal Medicine
DX: E11.29 Type 2 diabetes mellitus with other diabetic kidney complication (principal)
CPT/HCPCS: 36415; 80061; 82306; 83036; 84450; 84460

== ENCOUNTER → 2021-06-12 15:21 | Outpatient (BNVA) | payer OTHER, MEDICARE, BC, SELFPAY | PROVIDERS: PCP Internal Medicine; Visit Provider Internal Medicine | DX: I48.19 Other persistent atrial fibrillation (principal) | CPT/HCPCS: Q3014 ==

== ENCOUNTER → 2021-06-13 11:30 | Outpatient (BNVA) | payer OTHER, MEDICARE, BC, SELFPAY | PROVIDERS: PCP Internal Medicine; Visit Provider Internal Medicine | DX: I48.19 Other persistent atrial fibrillation (principal) | CPT/HCPCS: Q3014 ==

== ENCOUNTER → 2021-06-14 14:21 | Outpatient (BNVA) | payer OTHER, MEDICARE, BC, SELFPAY | PROVIDERS: PCP Internal Medicine; Visit Provider Internal Medicine | DX: I48.19 Other persistent atrial fibrillation (principal) | CPT/HCPCS: Q3014 ==

== ENCOUNTER → 2021-06-18 11:24 | Outpatient (BNVA) | payer OTHER, MEDICARE, BC, SELFPAY | PROVIDERS: PCP Internal Medicine; Visit Provider Internal Medicine | DX: I48.19 Other persistent atrial fibrillation (principal) | CPT/HCPCS: Q3014 ==

== ENCOUNTER → 2021-06-20 10:13 | Outpatient (BNVA) | payer OTHER, MEDICARE, BC, SELFPAY | PROVIDERS: PCP Internal Medicine; Visit Provider Internal Medicine | DX: I48.19 Other persistent atrial fibrillation (principal) | CPT/HCPCS: Q3014 ==

== ENCOUNTER → 2021-06-27 09:55 | Outpatient (BNVA) | payer OTHER, MEDICARE, BC, SELFPAY | PROVIDERS: PCP Internal Medicine; Visit Provider Internal Medicine | DX: I48.19 Other persistent atrial fibrillation (principal) | CPT/HCPCS: Q3014 ==

== ENCOUNTER → 2021-06-28 16:06 | Outpatient (BNVA) | payer OTHER, MEDICARE, BC, SELFPAY | PROVIDERS: PCP Internal Medicine; Visit Provider Internal Medicine | DX: I48.19 Other persistent atrial fibrillation (principal) | CPT/HCPCS: Q3014 ==

== ENCOUNTER → 2021-07-01 11:52 | Outpatient (BNVA) | payer OTHER, MEDICARE, BC, SELFPAY | PROVIDERS: PCP Internal Medicine; Visit Provider Internal Medicine | DX: I48.19 Other persistent atrial fibrillation (principal) | CPT/HCPCS: Q3014 ==

== ENCOUNTER → 2021-07-03 15:31 | Outpatient (BNVA) | payer OTHER, MEDICARE, BC, SELFPAY | PROVIDERS: PCP Internal Medicine; Visit Provider Internal Medicine | DX: I48.19 Other persistent atrial fibrillation (principal) | CPT/HCPCS: Q3014 ==

== ENCOUNTER → 2021-07-10 08:45 | Outpatient (BNVA) | payer OTHER, MEDICARE, BC, SELFPAY | PROVIDERS: PCP Internal Medicine; Visit Provider Internal Medicine | DX: I48.19 Other persistent atrial fibrillation (principal); Z51.81 Encounter for therapeutic drug level monitoring; Z79.01 Long term (current) use of anticoagulants | CPT/HCPCS: Q3014 ==

== ENCOUNTER → 2021-07-12 16:00 | Outpatient (BNVA) | payer MEDICARE, BC, SELFPAY | PROVIDERS: PCP Internal Medicine; Visit Provider Internal Medicine | DX: I48.19 Other persistent atrial fibrillation (principal); Z51.81 Encounter for therapeutic drug level monitoring; Z79.01 Long term (current) use of anticoagulants | CPT/HCPCS: 99211 ==

== ENCOUNTER → 2021-07-16 16:03 | Outpatient (BNVA) | payer OTHER, MEDICARE, BC, SELFPAY | PROVIDERS: PCP Internal Medicine; Visit Provider Internal Medicine | DX: I48.19 Other persistent atrial fibrillation (principal); Z51.81 Encounter for therapeutic drug level monitoring; Z79.01 Long term (current) use of anticoagulants | CPT/HCPCS: Q3014 ==

== ENCOUNTER → 2021-07-23 11:54 | Outpatient (BNVA) | payer OTHER, MEDICARE, BC, SELFPAY | PROVIDERS: PCP Internal Medicine; Visit Provider Internal Medicine | DX: I48.19 Other persistent atrial fibrillation (principal); Z51.81 Encounter for therapeutic drug level monitoring; Z79.01 Long term (current) use of anticoagulants | CPT/HCPCS: Q3014 ==

== ENCOUNTER → 2021-07-26 14:29 | Outpatient (BNVA) | payer OTHER, MEDICARE, BC, SELFPAY | PROVIDERS: PCP Internal Medicine; Visit Provider Internal Medicine | DX: I48.19 Other persistent atrial fibrillation (principal); Z51.81 Encounter for therapeutic drug level monitoring; Z79.01 Long term (current) use of anticoagulants | CPT/HCPCS: Q3014 ==

== ENCOUNTER → 2021-08-01 15:42 | Outpatient (BNVA) | payer OTHER, MEDICARE, BC, SELFPAY | PROVIDERS: PCP Internal Medicine; Visit Provider Internal Medicine | DX: I48.19 Other persistent atrial fibrillation (principal) | CPT/HCPCS: Q3014 ==

== ENCOUNTER → 2021-08-06 16:30 | Outpatient (BNVA) | payer OTHER, MEDICARE, BC, SELFPAY | PROVIDERS: PCP Internal Medicine; Visit Provider Internal Medicine | DX: I48.19 Other persistent atrial fibrillation (principal); Z51.81 Encounter for therapeutic drug level monitoring; Z79.01 Long term (current) use of anticoagulants | CPT/HCPCS: Q3014 ==

== ENCOUNTER → 2021-08-07 08:02 | Outpatient (BNVA) | payer OTHER, BC, SELFPAY | PROVIDERS: PCP Internal Medicine; Visit Provider Nurse Practitioner Family | DX: M1A.0720 Idiopathic chronic gout, left ankle and foot, without tophus (tophi) (principal); L40.9 Psoriasis, unspecified; M25.561 Pain in right knee; M25.562 Pain in left knee; M25.511 Pain in right shoulder; M25.512 Pain in left shoulder | CPT/HCPCS: 99212 ==

== ENCOUNTER → 2021-08-14 15:05 | Outpatient (BNVA) | payer OTHER, MEDICARE, BC, SELFPAY | PROVIDERS: PCP Internal Medicine; Visit Provider Internal Medicine | DX: I48.19 Other persistent atrial fibrillation (principal) | CPT/HCPCS: Q3014 ==

== ENCOUNTER → 2021-08-20 13:17 | Outpatient (BNVA) | payer OTHER, MEDICARE, BC, SELFPAY | PROVIDERS: PCP Internal Medicine; Visit Provider Internal Medicine | DX: I48.19 Other persistent atrial fibrillation (principal) | CPT/HCPCS: Q3014 ==

== ENCOUNTER 2021-08-26 09:01 | Outpatient (REF) | payer MEDICARE, OTHER, BC, SELFPAY ==
[2021-08-26 11:55] LABS: Hemoglobin 10.2 g/dl (12.0-16.0); Mean Corpuscular HGB Conc 30.9 g/dl (31.0-35.0); Mean Corpuscular Hemoglobin 27.3 pg (27.0-33.0); Mean Corpuscular Volume 88.5 fL (80.0-98.0); Mean Platelet Volume 11.2 fL (9.4-12.3); Platelet Count 282 X10*3/uL (160-400); Red Blood Count 3.73 X10*6/uL (4.20-5.50); Red Cell Distribution Width 16.5 % (11.0-16.0); White Blood Count 10.1 X10*3/uL (4.8-10.8)
[2021-08-26 12:14] LABS: Alanine Aminotransferase 17 U/L (0-31); Albumin Level 4.1 g/dL (3.5-5.0); Alkaline Phosphatase 153 U/L (39-117); Anion Gap 17 (12-20); Aspartate Amino Transferase 20 U/L (5-31); Bilirubin Total 0.4 mg/dL (0.0-1.0); Blood Urea Nitrogen 60 mg/dL (9-16); Calcium 9.8 mg/dL (8.4-10.2); Carbon Dioxide 23 mmol/L (22-29); Chloride 101 mmol/L (96-108); Creatinine Urine 37.67 mg/dL; Estimated Glomerular Filt Rate 18; Glucose Random 141 mg/dL (60-115); Microalbum/Creatinine Ratio Ur 13.2 ug/mg cr; Potassium 4.3 mmol/L (3.3-5.1); Sodium 137 mmol/L (135-145); Total Protein 7.2 g/dL (6.5-8.0); Total Protein Urine Random < 7 mg/dL (<12)
[2021-08-26 12:15] LABS: Appearance Urine CLEAR; Color Urine YELLOW; Glucose Urine UA NEG (NEG); Leukocyte Esterase Urine NEG (NEG); Nitrite Urine NEG (NEG); Specific Gravity - Urine 1.015 (1.005-1.025); Urine Blood NEG (NEG); Urine Ketones NEG (NEG); Urine Protein NEG (NEG-TRACE)
[2021-08-26 12:27] LABS: Albumin Level 4.1 g/dL (3.5-5.0); Anion Gap 17 (12-20); Blood Urea Nitrogen 61 mg/dL (9-16); Calcium 9.7 mg/dL (8.4-10.2); Carbon Dioxide 23 mmol/L (22-29); Chloride 100 mmol/L (96-108); Estimated Glomerular Filt Rate 18; Magnesium 2.3 mg/dL (1.6-2.6); Phosphorus 5.4 mg/dL (2.7-4.5); Potassium 4.3 mmol/L (3.3-5.1); Sodium 136 mmol/L (135-145)
[2021-08-26 12:32] LABS: Vitamin D 25-OH Total 26.4 ng/mL (>30)
[2021-08-26 12:37] LABS: Uric Acid 7.2 mg/dL (2.4-5.7)
[2021-08-26 13:02] LABS: RBC Urine 0 /HPF (0); Squamous Epithelial Cell Urine TRACE /LPF; WBC Urine 0 /HPF (0-4)
[2021-08-27 15:56] LABS: Calcium (PTHI) 9.6 mg/dL (8.6-10.4); PTHI 217 pg/mL (14-64)
== END 2021-08-26 09:02 | disposition home or self-care (01) ==
LOC: HO.HMGCLDS 09:01
PROVIDERS: Nurse Practitioner Family; PCP Internal Medicine; Visit Provider Internal Medicine Nephrology
DX: M1A.0790 Idiopathic chronic gout, unspecified ankle and foot, without tophus (tophi) (principal); N18.4 Chronic kidney disease, stage 4 (severe); E11.22 Type 2 diabetes mellitus with diabetic chronic kidney disease; N25.0 Renal osteodystrophy
CPT/HCPCS: 36415; 80051; 80053; 81001; 82040; 82043; 82306; 82310; 82565; 83735; 83970; 84100; 84156; 84520; 84550; 85027; 87086

== ENCOUNTER → 2021-08-27 15:17 | Outpatient (BNVA) | payer MEDICARE, OTHER, BC, SELFPAY | PROVIDERS: PCP Internal Medicine; Visit Provider Internal Medicine | DX: I48.19 Other persistent atrial fibrillation (principal) | CPT/HCPCS: Q3014 ==

== ENCOUNTER → 2021-09-03 15:13 | Outpatient (BNVA) | payer MEDICARE, OTHER, BC, SELFPAY | PROVIDERS: PCP Internal Medicine; Visit Provider Internal Medicine ==

== ENCOUNTER → 2021-09-11 13:50 | Outpatient (BNVA) | payer MEDICARE, OTHER, BC, SELFPAY | PROVIDERS: PCP Internal Medicine; Visit Provider Internal Medicine | DX: I48.19 Other persistent atrial fibrillation (principal); Z51.81 Encounter for therapeutic drug level monitoring; Z79.01 Long term (current) use of anticoagulants | CPT/HCPCS: Q3014 ==

== ENCOUNTER → 2021-09-17 11:48 | Outpatient (BNVA) | payer MEDICARE, OTHER, BC, SELFPAY | PROVIDERS: PCP Internal Medicine; Visit Provider Internal Medicine ==

== ENCOUNTER → 2021-09-24 13:02 | Outpatient (BNVA) | payer MEDICARE, OTHER, BC, SELFPAY | PROVIDERS: PCP Internal Medicine; Visit Provider Internal Medicine | DX: I48.19 Other persistent atrial fibrillation (principal); Z51.81 Encounter for therapeutic drug level monitoring; Z79.01 Long term (current) use of anticoagulants | CPT/HCPCS: 85610; 99211 ==

== ENCOUNTER → 2021-09-27 12:10 | Outpatient (BNVA) | payer MEDICARE, OTHER, BC, SELFPAY | PROVIDERS: PCP Internal Medicine; Visit Provider Internal Medicine ==

== ENCOUNTER 2021-10-01 09:26 | Emergency (ER) | payer OTHER, SELFPAY ==
--- NOTE | 2021-10-01 09:49 | ED.CPR ---
HPI - CPR General Chief Complaint: Cardiac Arrest/CPR Stated Complaint: cardiac arrest Time Seen by Provider: 10/01/21 09:48 Source: EMS Mode of arrival: EMS History of Present Illness HPI narrative: Rom was called by family at about 8.51 Am because unresponsive ,she was found unresponsive and pulseless by EMS,rt IO was inserted and BVM to ventilate the pt,she arrive in full arrest to US CPR ongoing pulseless with BVM ventilation MD complaint: found unresponsive Onset (ago): unknown Timing confirmed by: family member Place: home Bystander CPR performed: No AED applied by bystander/director of health education: No Shock advised: No Initial findings in the field: unresponsive ROSC in the field: No Associated injuries: No Known history of: CAD and pacemaker Treatments prior to arrival: BMV, chest compressions and epinephrine mgs # (6) Related Data Home Medications Medication Instructions Recorded Confirmed flecainide 100 mg tablet 100 mg PO TID 12/17/20 08/22/21 metoprolol tartrate 50 mg tablet 1 tab PO BID 12/17/20 08/22/21 spironolactone 100 mg tablet 1 tab PO DAILY 12/17/20 08/22/21 torsemide 20 mg tablet 240 mg PO BID 12/18/20 08/22/21 secukinumab 150 mg/mL subcutaneous mg SUBCUT Q4W 01/24/21 08/22/21 pen injector chlorthalidone 25 mg tablet mg PO 06/10/21 08/22/21 fluticasone propionate 230 2 puff INHALATION BID 07/23/21 08/22/21 mcg-salmeterol 21 mcg/actuation HFA inhaler (Advair HFA) enoxaparin 120 mg/0.8 mL See Rx Instructions SUBCUT DAILY 08/07/21 09/27/21 subcutaneous syringe ml Previous Rx's Medication Instructions Recorded ferrous fumarate 324 mg (106 mg 324 mg PO DAILY #90 tab 01/01/21 iron) tablet levetiracetam 500 mg tablet 500 mg PO BID #60 tab 01/01/21 warfarin 5 mg tablet 5 mg PO DAILY #90 tab 03/07/21 Januvia 100 mg tablet (sitagliptin) 100 mg PO DAILY 90 Days #90 tab NS 08/12/21 allopurinol 100 mg tablet 200 mg PO DAILY #60 tab 08/13/21 blood-glucose meter (FreeStyle #1 ea 12/09/21 Lite Meter) fluticasone propionate 50 1 spray INTRANASAL DAILY #16 g 08/22/21 mcg/actuation nasal spray,suspension (Flonase Allergy Relief) blood sugar diagnostic (FreeStyle #200 ea 08/27/21 Lite Strips) lancets 28 gauge (FreeStyle #200 ea 08/27/21 Lancets) levothyroxine 112 mcg tablet 112 mcg PO DAILY #90 tab 09/17/21 atorvastatin 10 mg tablet 10 mg PO DAILY #90 tab 09/27/21 pregabalin 200 mg capsule 200 mg PO BID #60 cap 09/27/21 Allergies Allergy/AdvReac Type Severity Reaction Status Date / Time adalimumab [From HUMIRA] Allergy Unknown PCP Verified 09/27/21 14:23 PNEUMONIA azathioprine [Imuran] Allergy Unknown PNA Verified 09/27/21 14:23 Cephalosporins Allergy Unknown KIDNEY Verified 09/27/21 14:23 [CEPHALOSPORINS] FAILURE cyclosporine [CYCLOSPORINE] Allergy Unknown KIDNEY Verified 09/27/21 14:23 FAILURE etanercept [From Enbrel] Allergy Unknown PCP Verified 09/27/21 14:23 PNEUMONIA simvastatin Allergy Unknown athralgias Verified 09/27/21 14:23 amoxicillin [From AUGMENTIN] AdvReac Unknown PROJECTILE Verified 09/27/21 14:23 VOMITTING clavulanic acid AdvReac Unknown PROJECTILE Verified 09/27/21 14:23 [From AUGMENTIN] VOMITTING Review of Systems Review of Systems: Yes Unobtainable due to mental condition and Unobtainable due to mental status PMFSH Past Medical History Medical History Acquired hypothyroidism Cardiac pacemaker in situ Chronic low back pain CKD (chronic kidney disease) stage 4, GFR 15-29 ml/min Dyslipidemia Encephalopathy Essential hypertension Fibromyalgia Foot pain, bilateral Gout H/O cardiac pacemaker Mitral valve stenosis, rheumatic Non-rheumatic aortic stenosis Non-rheumatic tricuspid valve insufficiency NYHA class 1 heart failure with preserved ejection fraction KEVIN on CPAP Osteoarthritis Paroxysmal atrial fibrillation Postmenopausal Psoriasis Seizure disorder Type 2 diabetes mellitus with other diabetic kidney complication Surgical History H/O mitral valve replacement H/O mitral valve replacement with mechanical valve Hx of mitral valve replacement with mechanical valve Family History Family History Father HTN (hypertension) CKD (chronic kidney disease) Mother HTN (hypertension) Mental health disorder Son No problems noted. Son No problems noted. Son No problems noted. Sister Mental health disorder Sister Mental health disorder Brother Mental health disorder Other Substance use disorder Social History Social History Household Members: Spouse Housing: House Do you presently have visiting nurse or other home services: Yes Alcohol intake: unknown Patient Tobacco Use Status: Never used Tobacco Second Hand Smoke Exposure: No Advance Directives: No Advance Directives Information Provided: No Advance Directives Date on File: 12/17/20 service: No Current occupational status: unemployed and retired Physical Exam Const: Other: pulseless and unresponsive General: Cushingoid facies HENMT: Other: no visual injury, Face and sinus: Yes normal facial exam Neck: Other: trachea midline Chest: Chest palpation & inspection: normal inspection of the chest Resp: Auscultation: rhonchi Cardio: Other: no spontaneous heart sounds GI: Other: Obese abdomen Palpation (GI): Soft to palpation Skin: Other: cyanotic Wounds: no wounds Neuro: Other: unresponsive Course Course Course Narrative: Pt was intubated in ED with 7.0 ETT with good endtital Co2,we continue ACLS protocol,she remained pulseless and asystolic. Be side US showed no cardiac activity. Pt was pronunced at 9.42 AM ME was notified Reevaluation(s) Reevaluation #1: spoke with the pt sister health care proxi Reevaluation #2: with sister in ED ,other family member are arriving Critical Care Time Critical Care Time Critical Care Time: Yes Total Critical Care Time: 45 Attestation: speaking with EMS,running the code Discharge Plan Discharge Clinical Impression: Cardiac arrest Patient Disposition: Date/Time: 10/01/21 09:42
--- NOTE | 2021-10-01 11:30 | PC.NURSE ---
THIS US CALLS SENIOR PROJECT ARCHITECT PER VERBAL REQUEST FROM DR. ROSARIO. CALL PLACED @ 09:53 AM. THIS US SPOKE TO EXTERNAL AUDITOR OF SENIOR PROJECT ARCHITECT'S OFFICE AND THEY TOOK DOWN THE PATIENT'S NAME AND AGE AND INSTRUCTED THIS US TO AWAIT A CALL BACK.
--- NOTE | 2021-10-01 11:49 | PC.NURSE ---
PER DR. ROSARIO AND CUSTOMER SUPPORT ENGINEER, PATIENT'S CASE WITHDRAWN FROM SMOKE TESTER'S QUEUE. CERTIFICATE TO BE COMPLETED BY DR. ROSARIO.
--- NOTE | 2021-10-01 13:35 | PC.NURSE ---
NERICARDO CALLS BACK AT 1333. THIS US INFORMS THE PATIENT SERVICE TECHNICIAN PST THAT THE PATIENT IS NOT AN ME CASE AND THEY HAVE BEEN TRANSPORTED TO [facility].
== END 2021-10-01 13:52 | disposition expired ==
PROVIDERS: Emergency Provider Emergency Medicine; PCP Internal Medicine
DX: I46.9 Cardiac arrest, cause unspecified (principal); E11.22 Type 2 diabetes mellitus with diabetic chronic kidney disease; I13.0 Hypertensive heart and chronic kidney disease with heart failure and stage 1 through stage 4 chronic kidney disease, or unspecified chronic kidney disease; N18.4 Chronic kidney disease, stage 4 (severe); I50.9 Heart failure, unspecified; I48.0 Paroxysmal atrial fibrillation; Z95.0 Presence of cardiac pacemaker; Z95.2 Presence of prosthetic heart valve
CPT/HCPCS: 31500; 96374; 96375; 99282; 99291; J0171; J0461